=== PATIENT | female | born 1995 | race Two or more races ===

== ENCOUNTER 2025-01-11 12:51 | Inpatient (IN) | payer MEDICAID, SELFPAY ==
[2025-01-11] VITALS (13 sets, daily range): BP systolic 86–121; BP diastolic 47–92; PULSE 60–102; RESP 15–94; TEMP 32.8–36.2; O2SAT 92–100; BMI 16.4
--- NOTE | 2025-01-11 13:24 | EKG_ITS ---
[facility] Test Date: 2025-01-11 Pat Name: DAHIANA DOS SANTOS Department: Room: - Gender: Female Machine Staker: : 1995 Requested By: Venkat Newby Order Number: [id number] Reading MD: Venkat Newby Measurements Intervals [place] Rate: 61 P: 59 NV: 160 QRS: 9 QRSD: 89 T: 15 QT: 379 QTc: 383 Interpretive Statements SINUS RHYTHM POSSIBLE RIGHT VENTRICULAR CONDUCTION DELAY [RSR (QR) IN V1/V2] No previous ECG available for comparison /store/S0/[id number].pdf
--- NOTE | 2025-01-11 13:45 | PD.EDADULT ---
ED General RME/HPI General Chief complaint: General Adult/Misc Complain Stated complaint: TEMP IS 95.0 TEMPORAL Time Seen by Provider: 01/11/25 13:35 Arrival date/time: 01/11/25 12:51 RME / HPI RME / HPI narrative: 29-year-old female with past medical history significant for profound mental retardation is brought in by EMS for evaluation of decreased activity level, decreased urination, and low temperature that was first noted today. Caregiver is at bedside and denies any recent fevers, diarrhea, or other acute symptoms at this time. Notes that she did have some vomiting today but that she will frequently have episodes of vomiting daily at baseline. Patient is nonverbal at baseline. Related Data Home Medications ?Medication ?Instructions ?Recorded ?Confirmed ketoconazole 2 % shampoo 1 applic topical DAILY PRN Dry Skin 01/19/19 01/12/25 ketoconazole 2 % topical cream 1 applic topical BID 01/19/19 01/12/25 loratadine 10 mg tablet 10 mg PO QDAY 01/19/19 01/12/25 buspirone 10 mg tablet 10 mg PO BID 01/12/25 01/12/25 ergocalciferol (vitamin D2) 1,250 1,250 mcg PO QWEEK 01/12/25 01/12/25 mcg (50,000 unit) capsule glycopyrrolate 1 mg tablet 1 mg PO Q8H 01/12/25 01/12/25 omeprazole 20 mg tablet,delayed 20 mg PO QDAY 01/12/25 01/12/25 release risperidone 2 mg tablet 2 mg PO QPM 01/12/25 01/12/25 risperidone 3 mg tablet 3 mg PO QAM 01/12/25 01/12/25 Allergies Allergy/AdvReac Type Severity Reaction Status Date / Time clindamycin Allergy Vomiting Verified 01/11/25 12:54 Review of Systems Review of Systems ROS Unobtainable: unobtainable due to medical condition Past Medical History Past Medical History OTHER HISTORY: Positive Developmental Delay Social History SMOKING STATUS: Never smoker Past Medical History Comments PMH COMMENT: History of profound mental retardation. Patient takes the following medications: Loratadine 10 mg daily, buspirone 10 mg twice daily, omeprazole 20 mg daily, risperidone 3 mg every morning, risperidone 2 mg every afternoon, vitamin D 1.25 mg weekly, glycopyrrolate 1 mg 3 times daily. ED Exam Narrative Physical exam: Constitutional: Awake, alert, nontoxic, no acute distress HEENT: NC, AT, EOMI Neck: Supple CV: RRR, no m/r/g Lungs: CTAB, no w/r/r, no respiratory distress. Abd: Soft, NT, NT, no HSM noted to palpation Extremities: No deformities, no edema noted Skin: Warm, dry, intact Course Course Course Narrative: 1520h: Patient with sepsis criteria with leukopenia, hypotension, hypothermia. Sodium level is noted to be 157, platelet count 26, calcium 10.9, AST 371, ALT 302, alk phos 245. Urinalysis is pending. 1745h: Spoke with hospitalist team A for admission. Quality Measures Current suspected stage: sepsis Possible source: unknown Blood cultures ordered: completed in ED Antibiotic ordered: Yes sepsis Orders Category Date Time Status Bedside COVID-19 Antigen Test NOW Care 01/11/25 18:29 Active COVID-19 Screening Questionnaire NOW Care 01/11/25 17:[address] Screening NOW Care 01/11/25 15:21 Active Decision to Admit X1 Care 01/11/25 17:52 Completed EKG (ED ONLY) *Do not use* NOW Care 01/11/25 13:24 Completed In and Out Catheter X1 Care 01/11/25 13:44 Completed Insert IV NOW Care 01/11/25 13:[address] abdomen pelvis w con Stat Exams 01/11/25 15:21 Completed EKG (ED Only) Stat Exams 01/11/25 13:24 Draft XR chest 1V portable Stat Exams 01/11/25 15:27 Completed B-Type Natriuretic Peptide Stat Lab 01/11/25 14:17 Completed Blood Culture (Lab) Stat Lab 01/11/25 15:53 Received CBC Stat Lab 01/11/25 14:17 Completed Comprehensive Metabolic Panel Stat Lab 01/11/25 14:17 Completed HCG Qualitative,Urine Stat Lab 01/11/25 14:33 Completed Lactate (Lactic Acid) Stat Lab 01/11/25 20:40 Completed Magnesium Stat Lab 01/11/25 14:17 Completed Partial Thromboplastin Time Stat Lab 01/11/25 14:17 Completed Path Review Blood Smear Stat Lab 01/11/25 14:17 Completed Procalcitonin Stat Lab 01/11/25 20:40 Completed Prothrombin Time with INR Stat Lab 01/11/25 14:17 Completed Reticulocyte Count Stat Lab 01/11/25 14:17 Completed Sodium Stat Lab 01/11/25 20:40 Completed Troponin I Stat Lab 01/11/25 14:17 Completed Urinalysis Stat Lab 01/11/25 14:33 Completed Urine Culture Stat Lab 01/11/25 14:33 Received Dextrose 5%-Water [D5w] 1,000 ml Med 01/11/25 15:16 Discontinued IV 100 mls/hr Norepinephrine/D5W 8mg/250ml [Levophed in D5W 8mg/250ml Med 01/11/25 18:10 Active ] 8 mg in 250 ml IV 0.05 mcg/kg/min Phenylephrine HCl [Phenylephrine] Med 01/11/25 16:16 Discontinued 0.1 mg IV NOW ONE Piper/Tazo 3.375 gm Premix [Zosyn] Med 01/11/25 15:16 Discontinued 3.375 gm in 50 ml IV X1 Ringers Lactated 1000 ml [Lactated Ringers] 1,000 ml Med 01/11/25 16:21 Discontinued IV 999 mls/hr Sodium Chloride 0.9% 1000 ml [Ns] 1,000 ml Med 01/11/25 13:44 Discontinued IV 1,000 mls/hr Sodium Chloride 0.9% 1000 ml [Ns] 1,000 ml Med 01/11/25 15:07 Discontinued IV 999 mls/hr Sodium Chloride 0.9% 250 ml [Ns] 250 ml Med 01/11/25 15:27 Discontinued IV 500 mls/hr Vital Signs Vital signs: Vital Signs Temperature 91.1 F L 01/11/25 13:10 Pulse Rate 60 01/11/25 13:10 Respiratory Rate 16 01/11/25 13:10 Blood Pressure 99/61 01/11/25 13:10 Pulse Oximetry (%) 96 01/11/25 13:10 Oxygen Delivery Method Room Air 01/11/25 13:10 Discharge Plan Plan Patient Disposition: Admit Acute Care w/in Hospital Problem List Clinical Impression: Hypothermia, Dehydration, Hypernatremia MD Attestation MD Attestation The patient was seen by the midlevel practitioner. I, the co-signing physician, was present during the entire ER visit. While I did not physically examine the patient, I was available for consultation as needed. I agree with the plan and documentation. MDM Clinical Information Provided by EMS other: Caregiver also provided history Medical Records Reviewed [facility] and EMS I reviewed ED visit on 05/03/2021 Meds/Rx Considered, not Ordered None Labs/Rad/Tests considered, not Ordered None Chronic Illness/Social Conditions which may negatively complicate care or outcome(s)-explain: Developmentally delayed EKG Interpretation EKG #1: Date/time of EK01/11/25 13:51h EKG interpretation: Sinus rhythm, rate 61, no STEMI, first degree AV block. Lab Interpretation Labs: interpreted by fl Lab(s) interpretation(s): Leukopenia, PLT count is 26, elevated transaminases Imaging Radiology reports / interpretation(s): Ordering Physician: Colleen Flowers MD Date of Service: 01/11/25 Procedure(s): XR chest 1V portable Accession Number(s): [id number] cc: Jono Hargrove MD; Colleen Flowers MD; Priya Dominguez NP~ Examination: AP chest single view Technique AP portable semiupright chest single view Date and time: January 11, 2025 1532 hours INDICATIONS: Shortness of breath today. FINDINGS: Normal heart size. The lungs are clear. The osseous structures are intact. IMPRESSION: No active disease. Dictated By: Jono Hargrove MD Signed By: <Electronically signed by Jono Hargrove MD in OV> 01/11/25 1559 Medication Administration(s) Medication Administration History Acetaminophen (Acetaminophen 325 Mg Tablet) 325 mg PO Q4HR PRN PRN Reason: Pain 1 - 3 Or Fever > 101 Stop: 02/10/25 22:27 Albuterol/Ipratropium (Albuterol/Ipratropium (Duoneb) Rt Martina 3 Ml Nebu) 3 ml INH Q6HRRT MARCIA Stop: 02/10/25 19:59 Last Admin: 01/12/25 00:54 Dose: Not Given Documented By: VARINDER Non-Admin Reason: RT triage Admin: 01/12/25 00:52 Dose: 3 ml Documented By: VARINDER Famotidine (Famotidine Inj 10 Mg/Ml Vial 2 Ml) 20 mg IVP QDAY MARCIA Stop: 02/11/25 08:59 Norepinephrine/Dextrose (Levophed In D5w 8mg/250ml) 8 mg in 250 mls @ 3.997 mls/hr IV .Q24H PRN; Protocol PRN Reason: PER PROTOCOL Stop: 02/10/25 18:09 Piperacillin/Tazobactam/Dextrose (Zosyn) 3.375 gm in 50 mls @ 12.5 mls/hr IV Q8HR [facility] Stop: 01/18/25 21:59 Last Admin: 01/12/25 05:44 Dose: 12.5 mls/hr Documented By: Infusion: 01/12/25 03:10 Dose: Infused Documented By: Admin: 01/11/25 23:10 Dose: 12.5 mls/hr Documented By: TEMITOPE Dextrose (D5w) 500 mls @ 75 mls/hr IV .Q6H40M [facility] Stop: 02/11/25 06:14 Pharmacy Consult (Vancomycin Pharmacy To Dose 1 Each Each) 1 each IV QDAY PRN PRN Reason: PROTOCOL Stop: 02/11/25 08:59 Discontinued Medications Enoxaparin Sodium (Enoxaparin Sod Inj 40 Mg/0.4 Ml Syringe) 40 mg SC QDAY [facility] Stop: 01/26/25 08:59 Sodium Chloride (Ns) 1,000 mls @ 1,000 mls/hr IV .Q1H ONE Stop: 01/11/25 14:43 Last Infusion: 01/11/25 15:22 Dose: Infused Documented By: Admin: 01/11/25 14:22 Dose: 1,000 mls/hr Documented By: VG Sodium Chloride (Ns) 1,000 mls @ 999 mls/hr IV .Q1H1M ONE Stop: 01/11/25 16:07 Last Infusion: 01/11/25 15:29 Dose: Infused Documented By: Admin: 01/11/25 15:10 Dose: 999 mls/hr Documented By: SAMI Dextrose (D5w) 1,000 mls @ 100 mls/hr IV .Q10H ONE Stop: 01/12/25 01:15 Last Infusion: 01/11/25 20:40 Dose: Infused Documented By: Admin: 01/11/25 16:06 Dose: 100 mls/hr Documented By: VG Piperacillin/Tazobactam/Dextrose (Zosyn) 3.375 gm in 50 mls @ 100 mls/hr IV X1 ONE Stop: 01/11/25 15:45 Last Infusion: 01/11/25 17:00 Dose: Infused Documented By: Admin: 01/11/25 16:06 Dose: 100 mls/hr Documented By: VG Sodium Chloride (Ns) 250 mls @ 500 mls/hr IV .Q30M ONE Stop: 01/11/25 15:56 Last Infusion: 01/11/25 16:14 Dose: Infused Documented By: Admin: 01/11/25 15:33 Dose: 500 mls/hr Documented By: VG Lactated Ringer's (Lactated Ringers) 1,000 mls @ 999 mls/hr IV .Q1H1M ONE Stop: 01/11/25 17:21 Last Infusion: 01/11/25 18:00 Dose: Infused Documented By: Admin: 01/11/25 16:26 Dose: 999 mls/hr Documented By: SNOW Vancomycin HCl 1,000 mg/ (Sodium Chloride) 250 mls @ 150 mls/hr IV X1 ONE Stop: 01/11/25 21:28 Last Admin: 01/11/25 21:36 Dose: 150 mls/hr Documented By: TEMITOPE Phenylephrine HCl (Phenylephrine Hcl 50 Mg Vial 5 Ml) 0.1 mg IV NOW ONE Stop: 01/11/25 16:17 Last Admin: 01/11/25 16:27 Dose: Not Given Documented By: SNOW Non-Admin Reason: Discontinued Sodium Chloride (Sodium Chloride Rt 10% 15 Ml Nebu) 5 ml INH X1 ONE Stop: 01/11/25 19:20 See above Dispositon Disposition: Admit Disposition comments: Hypothermia Dehydration Hypernatremia
[2025-01-11] MEDS: SODIUM CHLORIDE 0.9% 1000 ML 1,000 ML IV (14:22)
[2025-01-11 14:30] LABS: Basophils # (Auto) 0.0 Thou/mm3 (0.0-0.2); Basophils % (Auto) 0 % (0-2.5); Eosinophils # (Auto) 0.0 Thou/mm3 (0.0-0.5); Eosinophils % (Auto) 0 % (0-10); Hematocrit 35.1 % (36.0-46.0); Hemoglobin 11.6 g/dL (12.0-16.0); Immature Granulocytes Auto 0.01 Thou/mm3 (0.00-0.00); Lymphocytes # (Auto) 1.0 Thou/mm3 (1.0-4.8); Lymphocytes % (Auto) 34 % (10-50); Mean Corpuscular HGB Conc 33.0 g/dl (31.0-37.0); Mean Corpuscular Hemoglobin 31.7 pg (25.0-35.0); Mean Corpuscular Volume 96 fL (80-100); Monocytes # (Auto) 0.2 Thou/mm3 (0.0-0.8); Monocytes % (Auto) 6 % (0-12); Neutrophils # (Auto) 1.7 Thou/mm3 (1.8-7.7); Neutrophils % (Auto) 59 % (37-80); Nucleated Red Blood Cell # 0.00 Thou/mm3 (0.00-0.00); Nucleated Red Blood Cell % 0 /100 WBC (0); RDW Standard Deviation 62.8 fL (36.4-46.3); Red Blood Count 3.66 Miln/mm3 (4.00-5.20); White Blood Count 2.8 Thou/mm3 (3.6-11.0)
[2025-01-11 14:46] LABS: Collection Type, Urine Clean Catch; Squamous Epithelial Cell,Urine 0 /hpf (0-5)
[2025-01-11 14:47] LABS: B-Type Natriuretic Peptide < 20 pg/mL (0-100)
[2025-01-11 14:49] LABS: Alanine Aminotransferase 302 U/L (10-49); Albumin, Serum 4.0 gm/dL (3.5-5.0); Albumin/Globulin Ratio 1.3 (1.2-2.2); Alkaline Phosphatase 245 U/L (46-116); Anion Gap 11 (7-16); Aspartate Amino Transferase 371 U/L (0-34); BUN/Creatinine Ratio 23 Ratio (12-20); Bilirubin,Total 0.3 mg/dL (0.3-1.2); Blood Urea Nitrogen 21 mg/dL (9-23); Calcium 10.9 mg/dL (8.3-10.6); Calcium (Corrected) 10.9 mg/dL (8.5-10.1); Carbon Dioxide 31.0 mMol/L (20.0-31.0); Chloride 115 mMol/L (98-107); Creatinine (Component) 0.9 mg/dL (0.6-1.3); Globulin 3.0 gm/dL (2.3-3.5); Glucose 75 mg/dL (74-106); Magnesium 1.8 mg/dL (1.6-2.6); Osmolality,Calculated 313 (275-295); Potassium 4.7 mMol/L (3.4-5.1); Sodium 157 mMol/L (136-145); Total Protein 7.0 gm/dL (5.7-8.2); Troponin I < 0.020 ng/mL (0.0-0.045); eGFR > 60 See Note
[2025-01-11 14:54] LABS: INR 1.0 (0.9-1.3); Partial Thromboplastin Time 36.7 Seconds (22.0-36.0); Prothrombin Time 10.5 Seconds (9.0-12.2)
[2025-01-11 14:58] LABS: Platelet Count 26 Thou/mm3 (140-440)
[2025-01-11 14:59] LABS: Slide Review Platelets confirmed
[2025-01-11 15:00] LABS: Bilirubin,Urine Negative (Negative); Blood,Urine Negative (Negative); Clarity,Urine Clear (Clear/Hazy); Color,Urine Lt-Yellow (Lt Yel-Yel); Glucose, Urine Negative (Negative); Ketones,Urine Negative (Negative); Leukocyte Esterase,Urine Negative (Negative); Nitrite,Urine Negative (Negative); PH,Urine 6.0 (5.0-7.0); Protein,Urine Negative (Neg - Trace); RBC,Urine < 1 /hpf (0-3); Specific Gravity,Urine 1.021 (1.001-1.035); Urobilinogen,Urine Negative mg/dL (0.0-1.0); WBC,Urine 6 /hpf (0-5)
[2025-01-11] MEDS: SODIUM CHLORIDE 0.9% 1000 ML 1,000 ML 999 ML IV (15:10)
--- NOTE | 2025-01-11 15:21 | XR_ITS ---
Examination: CT abdomen with intravenous contrast CT pelvis with intravenous contrast 2-D coronal reconstructions 2-D sagittal reconstructions Date and time of exam:January 11, 2025 1700 hours INDICATIONS: Sepsis alert today, elevated liver function tests. CTDI: vol (mGy) 3.32. DLP: (mGycm) 155. Technique: Multiple axial sections of the abdomen and pelvis have been obtained. 64 slice high-resolution scanner used. 3 mm axial sections have been obtained, post intravenous injection 60 cc Isovue-370. 2-D sagittal, coronal reconstructions obtained. Low dose protocols were performed. One or more of the following dose reduction techniques were used; automated exposure control, adjustment of the mA and/or KV according to patient size, use of iterative reconstruction technique. Findings: Right middle lobe and bibasilar pneumonia, significant left base No focal liver or splenic lesions Considerable patient motion obscures gallbladder and kidney detail No pancreatic mass No hydronephrosis Aorta normal size No bowel obstruction No pericecal inflammatory change Large amounts of stool in the rectum Retroverted uterus No bladder mass Rectal tube Severe lumbar levoscoliosis Congenital right hip dysplasia IMPRESSION: Right middle lobe and bibasilar pneumonia, significant pneumonia left base Patient motion significantly degrades abdomen and pelvis images, recommend hepatobiliary sonography do diagnostic reassess the gallbladder No hydronephrosis Large amounts of stool in the rectum
--- NOTE | 2025-01-11 15:27 | XR_ITS ---
Examination: AP chest single view Technique AP portable semiupright chest single view Date and time: January 11, 2025 1532 hours INDICATIONS: Shortness of breath today. FINDINGS: Normal heart size. The lungs are clear. The osseous structures are intact. IMPRESSION: No active disease.
[2025-01-11] MEDS: SODIUM CHLORIDE 0.9% 250 ML 250 ML 500 ML IV (15:33)
[2025-01-11] MEDS: DEXTROSE 5%-WATER 1,000 ML 100 ML IV (16:06)
[2025-01-11] MEDS: PIPER/TAZO 3.375 GM PREMIX 3.375 GM/50 ML BAG IV ×2 (16:06→23:10)
[2025-01-11] MEDS: RINGERS LACTATED 1000 ML 1,000 ML 999 ML IV (16:26)
[2025-01-11 16:27] LABS: HCG Qualitative,Urine Negative
--- NOTE | 2025-01-11 19:09 | ECHO_ITS ---
Transthoracic Echo Report Ht (in): 60 Wt (lb): 94 Exam Location: Echo Lab Status: Emergency Crosscutter Rolled Glass: Cecelia Maldonado Indications: Procedure Performed: BP: 92 / 49 HR: 62 MEASUREMENTS (Male / Female) Normal Values 2D ECHO LV Diastolic Diameter PLAX 3.8 cm 4.2 - 5.9 / 3.9 - 5.3 cm LV Systolic Diameter PLAX 2.4 cm IVS Diastolic Thickness 0.7 cm 0.6 - 1.0 / 0.6 - 0.9 cm LVPW Diastolic Thickness 0.7 cm 0.6 - 1.0 / 0.6 - 0.9 cm LV Relative Wall Thickness 0.4 LVOT Diameter 1.8 cm Ascending Aorta Diameter 2.0 cm M-MODE AV Cusp Separation MM 1.2 cm DOPPLER AV Peak Velocity 105.0 cm/s AV Peak Gradient 4.4 mmHg AV Mean Gradient 2.0 mmHg AV Velocity Time Integral 29.1 cm LVOT Peak Velocity 80.1 cm/s LVOT Peak Gradient 2.6 mmHg LVOT Velocity Time Integral 20.8 cm LVOT Cardiac Index 2450.6 cm?/min?m? AV Area Cont Eq vti 1.8 cm? AV Area Cont Eq pk 1.9 cm? MV Area PHT 4.8 cm? Mitral E Point Velocity 63.7 cm/s Mitral A Point Velocity 76.7 cm/s Mitral E to A Ratio 0.8 LV E' Lateral Velocity 9.7 cm/s Mitral E to LV E' Lateral Ratio 6.6 LV E' Septal Velocity 6.9 cm/s Mitral E to LV E' Septal Ratio 9.3 TR Peak Velocity 213.3 cm/s TR Peak Gradient 18.2 mmHg PV Peak Velocity 72.7 cm/s PV Peak Gradient 2.1 mmHg FINDINGS Left Ventricle Normal left ventricular size, wall thickness, systolic function with no obvious regional wall motion abnormalities.there is grade I diastolic dysfunction of the left ventricle (impaired relaxation pattern). The ejection fraction is visually estimated at 60-65 %. Right Ventricle The right ventricle is normal in size and systolic function. The estimated right ventricular systolic pressure,33 mmHg. RAP 8. Left Atrium The left atrium is normal by two-dimensional, color flow and Doppler imaging with no structural abnormalities, no thrombus formation present. Right Atrium The right atrium is normal by two-dimensional imaging, color flow and Doppler imaging with no structural abnormalities, no thrombus formation present. Atrial Septum The interatrial septum appears normal with no evidence of a shunt. Aorta The aorta is normal by two-dimensional, color flow and Doppler interrogation. Mitral Valve The mitral valve is normal by two-dimensional, color flow and Doppler interrogation.mild mitral regurgitation. Aortic Valve The aortic valve is trileaflet and normal by two-dimensional, color flow and Doppler interrogation. There is no significant aortic valve regurgitation. Tricuspid Valve The tricuspid valve is normal by two-dimensional, color flow and Doppler interrogation. There is mild to moderate tricuspid valve regurgitation. Pulmonic Valve Moderate pulmonic valve regurgitation. Vessels The pulmonary artery appears normal. The inferior vena cava pulmonary and hepatic veins appear normal. Pericardium The pericardium is normal by two-dimensional imaging. There is no significant pericardial effusion. CONCLUSIONS Indication: Shock The transthoracic study is normal by two-dimensional, color flow imaging and Doppler interrogation. Normal left ventricular size and function. Approximate ejection fraction is 65 Mild mitral and tricuspid regurgitation %. Marian Neri (Electronically Signed) Final Date: 13 January 2025 17:40
--- NOTE | 2025-01-11 19:32 | PD.RESHP ---
Documentation for date of: 01/11/25 [facility] History of Present Illness Chief complaint: Hypothermia History of present illness: Patient is nonverbal at baseline and is intellectually disabled. Most of the history is taken from the home care physical therapist at the bedside 29-year-old female with no significant past medical history, severe intellectual disability was brought to the hospital in view of low temperature noted on the day of admission. At baseline, patient is nonverbal and cannot interact much, he lives in the facility, wheelchair-bound and wears diaper for bowel and bladder movements. Patient went to the adult daycare center which is her daily routine every day and in the daycare center found to have temperature of 95 ?F and patient is noted to be unusual than her normal self. Later patient was brought back to her facility where she was found to have temperature of 94 ?F for which patient was brought to the ED. Denies fever, vomitings, diarrhea, recent sick contacts. Dining Room Host at the bedside, endorsed that patient was noted to have decreased urine output since last night as they noted that the diapers are not wet since last night. As patient is nonverbal, intellectually disabled cannot give much history and whenever she has pain she used to live by getting agitated and slapping herself. ED course: - Vitals at the time of admission are stable except for temperature of 91.1 ?F - Labs at the time of admission are significant for WBC 2.8, Hb 11.6, platelets 26, sodium 157, chloride 115, magnesium 1.8, AST 371, ALT 302, ALP 245. - Urine analysis showed 6 WBC with no other signs of UTI. - EKG showed normal sinus rhythm with no ST and T wave changes. - Abdomen/pelvis CT showed right middle lobe and bibasilar pneumonia, significant pneumonia in the left base. Severe lumbar levoscoliosis and congenital right hip dysplasia. - Chest x-ray did not show any opacities - In the ED, patient was initially given 2.5 L of fluid boluses, Zosyn, started on dextrose in view of hyponatremia, was kept on bear hugger - Despite of resuscitating the fluids patient continued to be hypotensive with MAP less than 65 mmHg for which patient was given 1 more extra bolus of LR Past medical history: Not significant, noted to have breast abscess for which she got antibiotics Past surgical history: Remote history of surgery for the spine, no available records, noted to have surgery in the bilateral parotid areas Social history: No addictions, lives in a facility Allergies: Clindamycin, causes vomiting per chart review Review of Systems Review of Systems ROS Unobtainable: unobtainable due to mental status Exam Vital Signs Temp Pulse Resp BP Pulse Ox O2 Del Method 96.8 F 102 H 19 94/54 L 95 Room Air 01/11/25 18:15 01/11/25 18:15 01/11/25 18:15 01/11/25 18:15 01/11/25 18:15 01/11/25 18:15 Narrative Exam General: Awake. At her baseline. Non verbal and not interactive. HEENT: Normocephalic, atraumatic, mucous membranes moist. noted scars infront of the ears bilaterally Heart: Regular rate and rhythm, no murmurs. Lungs: Noted bilateral diffuse wheeze Abdomen: Soft, nondistended, nontender, positive bowel sounds. ?No guarding or rebound tenderness. Neurologic: Non verbal and not interactive. Extremities: No edema. noted dignificant wasting in the lower extremities Skin: No rash or ecchymoses. Results: Labs 01/12/25 15:05 01/12/25 15:05 Labs: Short CBC 01/11/25 Range/Units 14:17 WBC 2.8 L (3.6-11.0) Thou/mm3 Hgb 11.6 L (12.0-16.0) g/dL Hct 35.1 L (36.0-46.0) % Plt Count 26 L* (140-440) Thou/mm3 BMP 01/11/25 14:17 Sodium 157 H Potassium 4.7 Chloride 115 H Carbon Dioxide 31.0 BUN 21 Creatinine 0.9 Glucose 75 Calcium 10.9 H Cardiac Enzymes 01/11/25 Range/Units 14:17 Troponin I < 0.020 (0.0-0.045) ng/mL Liver Function 01/11/25 Range/Units 14:17 Total Bilirubin 0.3 (0.3-1.2) mg/dL AST 371 H (0-34) U/L ALT 302 H (10-49) U/L Alkaline Phosphatase 245 H (46-116) U/L Albumin 4.0 (3.5-5.0) gm/dL Urine 08/12/25 Range/Units 14:33 Urine Color Lt-Yellow (Lt Yel-Yel) Urine Clarity Clear (Clear/Hazy) Urine pH 6.0 (5.0-7.0) Ur Specific Gilberts 1.021 (1.001-1.035) Urine Protein Negative (Neg - Trace) Urine Glucose (UA) Negative (Negative) Quality Measures Quality Measures sepsis Current suspected stage: sepsis Possible source: unknown Blood cultures ordered: completed in ED Antibiotic ordered: Yes Medications Home Medications and Allergies Home Medications ?Medication ?Instructions ?Recorded ?Confirmed ?Type ketoconazole 2 % shampoo 1 applic topical DAILY PRN Dry Skin 01/19/19 01/12/25 History ketoconazole 2 % topical cream 1 applic topical BID 01/19/19 01/12/25 History loratadine 10 mg tablet 10 mg PO QDAY 01/19/19 01/12/25 History buspirone 10 mg tablet 10 mg PO BID 01/12/25 01/12/25 History ergocalciferol (vitamin D2) 1,250 1,250 mcg PO QWEEK 01/12/25 01/12/25 History mcg (50,000 unit) capsule glycopyrrolate 1 mg tablet 1 mg PO Q8H 01/12/25 01/12/25 History omeprazole 20 mg tablet,delayed 20 mg PO QDAY 01/12/25 01/12/25 History release risperidone 2 mg tablet 2 mg PO QPM 01/12/25 01/12/25 History risperidone 3 mg tablet 3 mg PO QAM 01/12/25 01/12/25 History Allergies Allergy/AdvReac Type Severity Reaction Status Date / Time clindamycin Allergy Vomiting Verified 01/11/25 12:54 Visit Medications Albuterol/Ipratropium (Albuterol/Ipratropium (Duoneb) Rt Martina 3 Ml Nebu) 3 ml INH Q6HRRT MARCIA Stop: 02/10/25 19:59 Enoxaparin Sodium (Enoxaparin Sod Inj 40 Mg/0.4 Ml Syringe) 40 mg SC QDAY MARCIA Stop: 01/26/25 08:59 Famotidine (Famotidine Inj 10 Mg/Ml Vial 2 Ml) 20 mg IVP QDAY MARCIA Stop: 02/11/25 08:59 Dextrose (D5w) 1,000 mls @ 100 mls/hr IV .Q10H ONE Stop: 01/12/25 01:15 Last Admin: 01/11/25 16:06 Dose: 100 mls/hr Norepinephrine/Dextrose (Levophed In D5w 8mg/250ml) 8 mg in 250 mls @ 3.997 mls/hr IV .Q24H PRN; Protocol PRN Reason: PER PROTOCOL Stop: 02/10/25 18:09 Discontinued Medications Sodium Chloride (Ns) 1,000 mls @ 1,000 mls/hr IV .Q1H ONE Stop: 01/11/25 14:43 Last Infusion: 01/11/25 15:22 Dose: Infused Sodium Chloride (Ns) 1,000 mls @ 999 mls/hr IV .Q1H1M ONE Stop: 01/11/25 16:07 Last Infusion: 01/11/25 15:29 Dose: Infused Piperacillin/Tazobactam/Dextrose (Zosyn) 3.375 gm in 50 mls @ 100 mls/hr IV X1 ONE Stop: 01/11/25 15:45 Last Infusion: 01/11/25 17:00 Dose: Infused Sodium Chloride (Ns) 250 mls @ 500 mls/hr IV .Q30M ONE Stop: 01/11/25 15:56 Last Infusion: 01/11/25 16:14 Dose: Infused Lactated Ringer's (Lactated Ringers) 1,000 mls @ 999 mls/hr IV .Q1H1M ONE Stop: 01/11/25 17:21 Last Infusion: 01/11/25 18:00 Dose: Infused Phenylephrine HCl (Phenylephrine Hcl 50 Mg Vial 5 Ml) 0.1 mg IV NOW ONE Stop: 01/11/25 16:17 Last Admin: 01/11/25 16:27 Dose: Not Given Sodium Chloride (Sodium Chloride Rt 10% 15 Ml Nebu) 5 ml INH X1 ONE Stop: 01/11/25 19:20 Assessment & Plan Plan 29-year-old female with no significant past medical history, severe intellectual disability was brought to the hospital in view of low temperature noted on the day of admission and admitted for 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 INTERNET MARKETING COORDINATOR # No active problems - Patient is nonverbal and not interactive at the baseline due to intellectual disability - Patient home care physical therapist at the bedside said that the patient is at her baseline at the time of admission CVS # Hypotension - Blood pressure at the time of admission is 99/61 mmHg - Patient was given 2.5 L bolus of fluid initially despite of which the MAP is less than 65 mmHg for which ICU was consulted in view of suspected possible shock - Patient was given 1 L LR bolus later and the blood pressures improved with the MAP greater than 65 mmHg - Patient is admitted into the ICU as patient is noted to have blood pressure on the lower side to monitor and to start on vasopressors if needed Plan - Will continue to monitor blood pressure for now - Will start on Levophed if the MAP is less than 65 mmHg Respiratory # Suspected possible pneumonia Likely community-acquired - Patient did not have any complaints of shortness of breath, cough, expectoration - SpO2 at the time of admission is 96% with room air - On physical examination, patient noted to have bilateral diffuse wheeze - Chest x-ray did not show any significant opacities but CT abdomen/pelvis done which showed bibasilar pneumonia predominantly in the left lower base Plan - Sputum cultures were sent - Started on Zosyn and vancomycin [01/11- - MRSA nasal screen is sent - DuoNebs scheduled every 6 hourly - Ordered bedside swallow eval to rule out possible aspiration - Oxygen as needed GI # Transaminitis - Noted to have AST 371, ALT 302 - Could be in the setting of Sepsis Vs hypotension vs viral infection Vs combined Plan - Acute viral panel is sent - Ultrasound gallbladder is ordered - Will continue to monitor LFTs Renal #? OLENA, likely prerenal in the setting of hypotension - Patient's baseline creatinine is 0.5 in 2019, creatinine at the time of admission is 0.9 - Patient is also noted to have decreased urine output since day before the admission - Likely in the setting of dehydration and suspected possible sepsis Plan - Urine electrolytes were ordered - Patient is resuscitated with 3.5 L fluid in the ED - Will continue to monitor renal functions and renally dose medications - Banda catheter was placed and will continuously monitor urine output # Hypernatremia # Hyperchloremia - At the time of admission, sodium is 157, chloride is 115 - Likely from the dehydration and suspected possible OLENA - Patient received 3.5 L of fluid in the ED Plan - Initially patient was started on the D5 W but as the patient is adequately resuscitated with fluids and suspected possible dehydration, will repeat sodium - Will restart on D5W if patient continues to have hypernatremia - Found to have free water deficit of 1.2 L ID # Suspected possible sepsis - Likely from the community acquired pneumonia - Patient is noted to have temperature of 91.1 ?F, WBC 2.8 and suspected to have pneumonia as source of infection - Patient is given 3.5 L of fluid in the ED - Lactate is not ordered at the time of presentation and lactate after resuscitation with 3.5 L of fluid is 0.8, unsure if the patient had lactate elevation at the time of presentation - Pro-Marquis is 0.15 Plan - Blood cultures, sputum cultures and MRSA nasal screen - Started on empiric antibiotics, Zosyn and vancomycin [01/11- - Will titrate antibiotics according to the culture results Hematology # Leukopenia - WBC at the time of presentation is 2.8 - Suspected to be due to sepsis - Absolute neutrophil count is 1625 Plan - Will continue antibiotics - Will continue to monitor CBC # Thrombocytopenia - Platelet count at the time of admission is 26,000 - Likely due to the underlying sepsis versus viral illness versus idiopathic thrombocytopenia - Patient does not have any bleeding manifestations at this point Plan - Will continue to monitor platelet count and look for bleeding manifestations - Will avoid antiplatelets and anticoagulants - Will treat the underlying sepsis - Will transfuse if the patient is found to have any bleeding medications or if platelet count is less than 20,000 Musculoskeletal # Congenital hip dysplasia -Found on CT abdomen/pelvis - Patient is wheelchair-bound and no active treatment required for that as of now Hospital Maintenance: Dispo: ICU DVT ppx: SCD GI ppx: Famotidine Diet : npo , Will start diet after swallow eval IV lines: peripheral Code status: Full Patient plan of care was discussed with the Rn Chemical Dependency, Dr. Lionel Valencia, PGY2
--- NOTE | 2025-01-11 19:52 | XR_ITS ---
Examination: Abdomen sonogram, Limited Date and time of exam: January 11, 2025 2013 hours INDICATIONS: Elevated liver function tests on laboratory examination today Technique: Real-time benavidez scale transabdominal sonographic images of the upper abdomen obtained. Findings: Normal gallbladder. Normal common bile duct 0.3 cm Pancreatic head 2.1 cm Liver 10.0 cm fatty infiltration no focal liver lesions Normal hepatopedal portal [place] [employer] IVC IMPRESSION: Normal gallbladder. Normal common bile duct. Fatty infiltration throughout the liver
[2025-01-11 19:54] LABS: Immature Reticulocyte Fraction 6.2 % (3.0-15.9); Reticulocyte % (Auto) 0.8 % (0.5-1.5); Reticulocyte Absolute Auto 30.1 Biln/L (25.0-75.0); Reticulocyte Hgb Content 41.1 pg (28.0-35.0)
[2025-01-11 19:57] LABS: Chloride,Urine Random 74.9 mMol/L (55.0-125.0); Creatinine,Random Urine 85 mg/dL (30-125); Potassium,Urine Random 81 mMol/L (12-62); Sodium,Urine Random 48.3 mMol/L (20.0-110.0)
[2025-01-11 20:30] LABS: Path Review Blood Smear Sent to Pathologist
[2025-01-11 20:52] LABS: Lactate (Lactic Acid) 0.8 mMol/L (0.4-2.0)
[2025-01-11 21:14] LABS: Hepatitis A Antibody IgM Non Reactive (Non React); Hepatitis B Core Antibody IgM Non Reactive (Non React); Hepatitis B Surface Antigen Non Reactive (Non React); Hepatitis C Antibody Non Reactive (Non React)
[2025-01-11 21:36] LABS: Procalcitonin 0.15 ng/ml (0.0-0.49); Sodium 147 mMol/L (136-145)
[2025-01-11] MEDS: Vancomycin Inj 1,000 MG in SODIUM CHLORIDE 0.9% 250 ML 250 ML 150 MG IV (21:36)
[2025-01-12] VITALS (59 sets, daily range): BP systolic 82–138; BP diastolic 44–96; PULSE 52–99; RESP 8–99; TEMP 31.2–35.9; O2SAT 93–100; BMI 16.3
[2025-01-12] MEDS: ALBUTEROL/IPRATROPIUM (Duoneb) RT SOL 3 ML NEBU INH ×4 (00:52→18:23)
[2025-01-12 01:39] LABS: Sodium 153 mMol/L (136-145)
[2025-01-12] MEDS: PIPER/TAZO 3.375 GM PREMIX 3.375 GM/50 ML BAG IV ×3 (05:44→21:52)
[2025-01-12 06:12] LABS: Basophils # (Auto) 0.0 Thou/mm3 (0.0-0.2); Basophils % (Auto) 0 % (0-2.5); Eosinophils # (Auto) 0.0 Thou/mm3 (0.0-0.5); Eosinophils % (Auto) 1 % (0-10); Hematocrit 28.8 % (36.0-46.0); Hemoglobin 9.3 g/dL (12.0-16.0); Immature Granulocytes Auto 0.02 Thou/mm3 (0.00-0.00); Lymphocytes # (Auto) 0.9 Thou/mm3 (1.0-4.8); Lymphocytes % (Auto) 23 % (10-50); Mean Corpuscular HGB Conc 32.3 g/dl (31.0-37.0); Mean Corpuscular Hemoglobin 31.3 pg (25.0-35.0); Mean Corpuscular Volume 97 fL (80-100); Monocytes # (Auto) 0.2 Thou/mm3 (0.0-0.8); Monocytes % (Auto) 5 % (0-12); Neutrophils # (Auto) 2.9 Thou/mm3 (1.8-7.7); Neutrophils % (Auto) 71 % (37-80); RDW Standard Deviation 63.4 fL (36.4-46.3); Red Blood Count 2.97 Miln/mm3 (4.00-5.20); White Blood Count 4.1 Thou/mm3 (3.6-11.0)
[2025-01-12 06:13] LABS: Nucleated Red Blood Cell # 0.00 Thou/mm3 (0.00-0.00); Nucleated Red Blood Cell % 0 /100 WBC (0)
[2025-01-12 06:19] LABS: Platelet Count 21 Thou/mm3 (140-440)
[2025-01-12] MEDS: DEXTROSE 5%-WATER 500 ML 75 ML IV ×3 (06:26→19:20)
[2025-01-12 06:59] LABS: Alanine Aminotransferase 229 U/L (10-49); Albumin, Serum 3.3 gm/dL (3.5-5.0); Albumin/Globulin Ratio 1.4 (1.2-2.2); Alkaline Phosphatase 330 U/L (46-116); Anion Gap 9 (7-16); Aspartate Amino Transferase 260 U/L (0-34); BUN/Creatinine Ratio 20 Ratio (12-20); Bilirubin,Total 0.3 mg/dL (0.3-1.2); Blood Urea Nitrogen 16 mg/dL (9-23); Carbon Dioxide 28.1 mMol/L (20.0-31.0); Chloride 118 mMol/L (98-107); Creatinine (Component) 0.8 mg/dL (0.6-1.3); Estimated Creatinine Clearance 47.9 mL/min (>60); Globulin 2.3 gm/dL (2.3-3.5); Glucose 71 mg/dL (74-106); Osmolality,Calculated 306 (275-295); Potassium 4.4 mMol/L (3.4-5.1); Sodium 155 mMol/L (136-145); Total Protein 5.6 gm/dL (5.7-8.2); eGFR > 60 See Note
[2025-01-12 07:08] LABS: Calcium 9.7 mg/dL (8.3-10.6); Calcium (Corrected) 10.3 mg/dL (8.5-10.1)
[2025-01-12] MEDS: FAMOTIDINE INJ 10 MG/ML VIAL 2 ML 20 MG IVP (08:36)
--- NOTE | 2025-01-12 09:12 | PC.SS ---
Patient Kelly Herrera is a 29 Year old female admitted to the ICU for Sepis. SS contacted patient's guard of handicapped, Jose Angel Degroot at [facility]. 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 Jose Angel reports patient has no family and is conserved through [facility]-Patient Financial Representative- Gloria Clay [phone]. Jose Angel reports patient is non-ambulatory and utilizes a wheelchair. Patient's needs assistance completing ADL's. Patient is Pureed diet. [facility] PCP is Priya Dominguez. At time of discharge patient will return back to [facility]. SS will need to assist with transportation, patient has coverage through [facility]. No discharge needs identified by the care provider. SS to be available to address any further interventions. Discharge Plan: [facility] Next of Kin-Jose Angel Degroot [phone]
[2025-01-12 11:21] LABS: Sodium 150 mMol/L (136-145)
[2025-01-12 11:21] LABS: Slide Review Platelets confirmed
--- NOTE | 2025-01-12 11:36 | XR_ITS ---
Examination: Retroperitoneal ultrasound, complete Technique: Multiple high resolution grayscale images of the retroperitoneum obtained, including kidneys and bladder. Exam date and time:January 12, 2025 1254 hours INDICATIONS: Acute renal insufficiency on laboratory examination yesterday. FINDINGS: Right kidney 8.0 cm cortex 1.3 cm Left kidney 8.3 cm cortex 1.7 cm Upper pole right renal cyst 17 mm lateral left renal cyst 9 mm No hydronephrosis Bladder contracted around a Banda catheter IMPRESSION: Small kidneys with bilateral renal cortical thinning No hydronephrosis
[2025-01-12 12:15] LABS: Ferritin 756 ng/mL (7.3-270.7); Iron 201 mcg/dL (50-170); Percent Iron Saturation 85 % (20-55); Total Iron Binding Capacity 236 mcg/dL (250-425); Unsaturated Iron Binding 35 (225-295)
[2025-01-12 13:45] LABS: Thyroid Stimulating Hormone 4.12 uIU/mL (0.55-4.78)
--- NOTE | 2025-01-12 14:13 | ESPR_ITS ---
Documentation for date of: 01/12/25 Subjective Subjective Interval history: Patient is nonverbal at baseline and is intellectually disabled. Most of the history is taken from the development chemist at the bedside 29-year-old female with no significant past medical history, severe intellectual disability was brought to the hospital in view of low temperature noted on the day of admission. At baseline, patient is nonverbal and cannot interact much, he lives in the facility, wheelchair-bound and wears diaper for bowel and bladder movements. Patient went to the adult daycare center which is her daily routine every day and in the daycare center found to have temperature of 95 ?F and patient is noted to be unusual than her normal self. Later patient was brought back to her facility where she was found to have temperature of 94 ?F for which patient was brought to the ED. Denies fever, vomitings, diarrhea, recent sick contacts. Server Security Administrator at the bedside, endorsed that patient was noted to have decreased urine output since last night as they noted that the diapers are not wet since last night. As patient is nonverbal, intellectually disabled cannot give much history and whenever she has pain she used to live by getting agitated and slapping herself. ED course: - Vitals at the time of admission are stable except for temperature of 91.1 ?F - Labs at the time of admission are significant for WBC 2.8, Hb 11.6, platelets 26, sodium 157, chloride 115, magnesium 1.8, AST 371, ALT 302, ALP 245. - Urine analysis showed 6 WBC with no other signs of UTI. - EKG showed normal sinus rhythm with no ST and T wave changes. - Abdomen/pelvis CT showed right middle lobe and bibasilar pneumonia, significant pneumonia in the left base. Severe lumbar levoscoliosis and congenital right hip dysplasia. - Chest x-ray did not show any opacities - In the ED, patient was initially given 2.5 L of fluid boluses, Zosyn, started on dextrose in view of hyponatremia, was kept on bear hugger - Despite of resuscitating the fluids patient continued to be hypotensive with MAP less than 65 mmHg for which patient was given 1 more extra bolus of LR 01/12/2025: Patient is seen and examined at bedside in ICU. No acute overnight events. Overnight, patient was found to have sodium of 153 and assistant producer labs also showed sodium of 155, so started on D5 W around 6:30 AM. Vitals are stable. Overnight, patient made only around 300 mL of urine output. Labs done this morning showed WBC 4.1, hemoglobin 9.3, platelet count 21. Sodium 155, chloride 118, creatinine 0.8, AST 260, ALT 229. Patient does not appear to have any bleeding manifestations during the morning. Repeat labs done around 3 PM showed platelet count of 16,000 and also patient noted to have pinkish urine for which repeat urine analysis was sent. Patient was found to be hypothermic with rectal temperature of 89.1 for which patient was started on Mellissa hugger. Labs including coagulation studies, fibrinogen, D- dimer, HIV, GARRICK, B12, folate, iron panel was sent for the evaluation of thrombocytopenia. A unit of platelet transfusion is ordered in view of thrombocytopenia with bleeding manifestations, hematuria. Talked to pathologist, Dr. Chandra and she reported that patient does not have any significant abnormalities on the peripheral smear except for low platelet count. Will continue to monitor CBC and look for any bleeding manifestations. Patient was started on steroids in view of suspected ITP, primary versus secondary. Exam Vital Signs Temp Pulse Resp BP Pulse Ox O2 Del Method 96.5 F L 52 L 23 H 107/76 100 Room Air 01/12/25 08:01 01/12/25 13:55 01/12/25 13:55 01/12/25 11:01 01/12/25 13:55 01/12/25 04:00 Narrative Exam General: Awake. At her baseline. Non verbal and not interactive. HEENT: Normocephalic, atraumatic, mucous membranes moist. noted scars infront of the ears bilaterally Heart: Regular rate and rhythm, no murmurs. Lungs: Noted bilateral diffuse wheeze Abdomen: Soft, nondistended, nontender, positive bowel sounds. ?No guarding or rebound tenderness. ibarra catheter insitu and noted pink urine Neurologic: Non verbal and not interactive. Extremities: No edema. noted dignificant wasting in the lower extremities Skin: No rash or ecchymoses. Objective Labs 01/13/25 04:26 01/13/25 04:26 Labs: Laboratory Results - last 24 hr 01/11/25 01/11/25 01/11/25 14:17 14:33 18:10 WBC 2.8 L RBC 3.66 L Hgb 11.6 L Hct 35.1 L MCV 96 MCH 31.7 MCHC 33.0 RDW Std Deviation 62.8 H Plt Count 26 L* Neut % (Auto) 59 Lymph % (Auto) 34 Porter % (Auto) 6 Eos % (Auto) 0 Baso % (Auto) 0 Neut # (Auto) 1.7 L Lymph # (Auto) 1.0 Porter # (Auto) 0.2 Eos # (Auto) 0.0 Baso # (Auto) 0.0 Immature Gran # (Auto) 0.01 H Absolute Nucleated RBC 0.00 Immature Gran % 0 Nucleated RBC % 0 Smear Path Review Sent to Pathologist Retic Count (auto) 0.8 Absolute Retic 30.1 Immature Retic Fraction 6.2 Retic Hgb Content CHr 41.1 H PT 10.5 INR 1.0 APTT 36.7 H Sodium 157 H Potassium 4.7 Chloride 115 H Carbon Dioxide 31.0 Anion Gap 11 BUN 21 Creatinine 0.9 Estim Creat Clear Calc Not Performed. eGFR > 60 BUN/Creatinine Ratio 23 H Glucose 75 Calculated Osmolality 313 H Lactic Acid Calcium 10.9 H Corrected Calcium 10.9 H Magnesium 1.8 Iron TIBC Iron Saturation Unsat Iron Binding Ferritin Total Bilirubin 0.3 AST 371 H ALT 302 H Alkaline Phosphatase 245 H Troponin I < 0.020 B-Natriuretic Peptide < 20 Total Protein 7.0 Albumin 4.0 Globulin 3.0 Albumin/Globulin Ratio 1.3 Procalcitonin TSH Ur Collection Type Clean Catch Urine Color Lt-Yellow Urine Clarity Clear Urine pH 6.0 Ur Specific [place] 1.021 Urine Protein Negative Urine Glucose (UA) Negative Urine Ketones Negative Urine Blood Negative Urine Nitrite Negative Urine Bilirubin Negative Urine Urobilinogen (Auto) Negative Ur Leukocyte Esterase Negative Urine RBC < 1 Urine WBC 6 H Ur Squamous Epith Cells 0 Urine Bacteria None Ur Random Creatinine 85 Ur Random Sodium 48.3 Ur Random Potassium 81 H Ur Random Chloride 74.9 Urine HCG, Qual Negative Hepatitis A IgM Ab Non Reactive Hep Bs Antigen Non Reactive Hep B Core IgM Ab Non Reactive Hepatitis C Antibody Non Reactive Misc Test Result Platelets confirmed 01/11/25 01/12/25 01/12/25 20:40 01:15 04:49 WBC 4.1 D RBC 2.97 L Hgb 9.3 L D Hct 28.8 L MCV 97 MCH 31.3 MCHC 32.3 RDW Std Deviation 63.4 H Plt Count 21 L* Neut % (Auto) 71 Lymph % (Auto) 23 Porter % (Auto) 5 Eos % (Auto) 1 Baso % (Auto) 0 Neut # (Auto) 2.9 Lymph # (Auto) 0.9 L Porter # (Auto) 0.2 Eos # (Auto) 0.0 Baso # (Auto) 0.0 Immature Gran # (Auto) 0.02 H Absolute Nucleated RBC 0.00 Immature Gran % 1 H Nucleated RBC % 0 Smear Path Review Retic Count (auto) Absolute Retic Immature Retic Fraction Retic Hgb Content CHr PT INR APTT Sodium 147 H D 153 H 155 H Potassium 4.4 Chloride 118 H Carbon Dioxide 28.1 Anion Gap 9 BUN 16 Creatinine 0.8 Estim Creat Clear Calc 47.9 L eGFR > 60 BUN/Creatinine Ratio 20 Glucose 71 L Calculated Osmolality 306 H Lactic Acid 0.8 Calcium 9.7 Corrected Calcium 10.3 H Magnesium Iron 201 H TIBC 236 L Iron Saturation 85 H Unsat Iron Binding 35 L Ferritin 756 H Total Bilirubin 0.3 AST 260 H ALT 229 H Alkaline Phosphatase 330 H D Troponin I B-Natriuretic Peptide Total Protein 5.6 L Albumin 3.3 L D Globulin 2.3 Albumin/Globulin Ratio 1.4 Procalcitonin 0.15 TSH Ur Collection Type Urine Color Urine Clarity Urine pH Ur Specific [place] Urine Protein Urine Glucose (UA) Urine Ketones Urine Blood Urine Nitrite Urine Bilirubin Urine Urobilinogen (Auto) Ur Leukocyte Esterase Urine RBC Urine WBC Ur Squamous Epith Cells Urine Bacteria Ur Random Creatinine Ur Random Sodium Ur Random Potassium Ur Random Chloride Urine HCG, Qual Hepatitis A IgM Ab Hep Bs Antigen Hep B Core IgM Ab Hepatitis C Antibody Misc Test Result Platelets confirmed 01/12/25 10:57 WBC RBC Hgb Hct MCV MCH MCHC RDW Std Deviation Plt Count Neut % (Auto) Lymph % (Auto) Porter % (Auto) Eos % (Auto) Baso % (Auto) Neut # (Auto) Lymph # (Auto) Porter # (Auto) Eos # (Auto) Baso # (Auto) Immature Gran # (Auto) Absolute Nucleated RBC Immature Gran % Nucleated RBC % Smear Path Review Retic Count (auto) Absolute Retic Immature Retic Fraction Retic Hgb Content CHr PT INR APTT Sodium 150 H Potassium Chloride Carbon Dioxide Anion Gap BUN Creatinine Estim Creat Clear Calc eGFR BUN/Creatinine Ratio Glucose Calculated Osmolality Lactic Acid Calcium Corrected Calcium Magnesium Iron TIBC Iron Saturation Unsat Iron Binding Ferritin Total Bilirubin AST ALT Alkaline Phosphatase Troponin I B-Natriuretic Peptide Total Protein Albumin Globulin Albumin/Globulin Ratio Procalcitonin TSH 4.12 Ur Collection Type Urine Color Urine Clarity Urine pH Ur Specific [place] Urine Protein Urine Glucose (UA) Urine Ketones Urine Blood Urine Nitrite Urine Bilirubin Urine Urobilinogen (Auto) Ur Leukocyte Esterase Urine RBC Urine WBC Ur Squamous Epith Cells Urine Bacteria Ur Random Creatinine Ur Random Sodium Ur Random Potassium Ur Random Chloride Urine HCG, Qual Hepatitis A IgM Ab Hep Bs Antigen Hep B Core IgM Ab Hepatitis C Antibody Misc Test Result Quality Measures Quality Measures sepsis Current suspected stage: ruled out Possible source: unknown Blood cultures ordered: completed in ED Antibiotic ordered: Yes Assessment & Plan Assessment Current Active Medications: Generic Name Dose Route Start Last Admin Trade Name Freq PRN Reason Stop Dose Admin Acetaminophen 325 mg 01/11/25 22:28 Acetaminophen 325 Mg Tablet PO 02/10/25 22:27 Q4HR PRN Pain 1 - 3 Or Fever > 101 Albuterol/Ipratropium 3 ml 01/11/25 20:00 01/12/25 13:53 Albuterol/Ipratropium (Duoneb) Rt Martina 3 Ml Nebu INH 02/10/25 19:59 3 ml Q6HRRT MARCIA Administration Buspirone HCl 10 mg 01/12/25 21:00 Buspirone Hcl 5 Mg Tablet PO 02/11/25 20:59 BID MARCIA Famotidine 20 mg 01/12/25 09:00 01/12/25 08:36 Famotidine Inj 10 Mg/Ml Vial 2 Ml IVP 02/11/25 08:59 20 mg QDAY MARCIA Administration Norepinephrine/Dextrose 8 mg in 250 mls @ 3.997 mls/hr 01/11/25 18:10 Levophed In D5w 8mg/250ml IV 02/10/25 18:09 .Q24H PRN PER PROTOCOL Protocol 0.05 MCG/KG/MIN Piperacillin/Tazobactam/Dextrose 3.375 gm in 50 mls @ 12.5 mls/hr 01/11/25 22:00 01/12/25 13:11 Zosyn IV 01/18/25 21:59 12.5 mls/hr Q8HR MARCIA Administration Dextrose 500 mls @ 75 mls/hr 01/12/25 06:15 01/12/25 12:41 D5w IV 02/11/25 06:14 75 mls/hr .[id number] MARCIA Administration Vancomycin/Sodium Chloride 100 mls @ 120 mls/hr 01/12/25 22:00 Vancomycin/Ns 500 Mg Ivpb IV 01/12/25 22:49 X1 ONE Loratadine 10 mg 01/13/25 09:00 Loratadine 10 Mg Tablet PO 02/12/25 08:59 QDAY [facility] Pharmacy Consult 1 each 01/12/25 09:00 Vancomycin Pharmacy To Dose 1 Each Each IV 02/11/25 08:59 QDAY PRN PROTOCOL Plan 29-year-old female with no significant past medical history, severe intellectual disability was brought to the hospital in view of low temperature noted on the day of admission and admitted for 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 # No active problems - Patient is nonverbal and not interactive at the baseline due to intellectual disability - Patient development chemist at the bedside said that the patient is at her baseline at the time of admission CVS # Hypotension, resolved - Blood pressure at the time of admission is 99/61 mmHg - Patient was given 2.5 L bolus of fluid initially despite of which the MAP is less than 65 mmHg for which ICU was consulted in view of suspected possible shock - Patient was given 1 L LR bolus later and the blood pressures improved with the MAP greater than 65 mmHg - Patient is admitted into the ICU as patient is noted to have blood pressure on the lower side to monitor and to start on vasopressors if needed Plan - No further episodes of hypotension noted after admission to the ICU - Will continue to monitor blood pressure for now - Will start on Levophed if the MAP is less than 65 mmHg # Hypothermia -Patient is brought to the ED with chief complaints of low temperature noted on vitals check at facility. - Patient was noted to have temperature of 91.1 ?F in the ED - Patient was started on Mellissa hugger and adequately resuscitated with fluids following which the hypothermia was resolved. - On 01/12/2025, patient was again noted to have rectal temperature of 89.1 ?F for which patient was started on Mellissa hugger, blood glucose is 171 at that time - Likely secondary to possible sepsis Plan - Will continue Mellissa hugger - Will continue to monitor temperature - TSH, A1c is ordered, will consider working up for adrenal insufficiency if needed Respiratory # Suspected possible pneumonia Likely community-acquired - Patient did not have any complaints of shortness of breath, cough, expectoration - SpO2 at the time of admission is 96% with room air - On physical examination, patient noted to have bilateral diffuse wheeze - Chest x-ray did not show any significant opacities but CT abdomen/pelvis done which showed bibasilar pneumonia predominantly in the left lower base Plan - Sputum cultures ordered, not collected - Started on Zosyn and vancomycin [01/11- - MRSA nasal screen is sent, pending - DuoNebs scheduled every 6 hourly - Ordered bedside swallow eval to rule out possible aspiration and passed the swallow eval, started on feeds - Oxygen as needed GI # Transaminitis, resolving - Noted to have AST 371, ALT 302 at the time of admission --> 01/12, AST 260, ALT 229 - Could be in the setting of Sepsis Vs hypotension vs viral infection Vs combined Plan - Acute viral panel is sent, Came back negative - Ultrasound gallbladder is ordered - Normal gallbladder. Normal common bile duct. Fatty infiltration throughout the liver - Will continue to monitor LFTs Renal #? OLENA, likely prerenal in the setting of hypotension - Patient's baseline creatinine is 0.5 in 2019, creatinine at the time of admission is 0.9 - Patient is also noted to have decreased urine output since day before the admission - Likely in the setting of dehydration and suspected possible sepsis - Patient is resuscitated with 3.5 L fluid in the ED Plan - Urine electrolytes were ordered, FeNa is 0.5% - Renal ultrasound Right kidney 8.0 cm cortex 1.3 cm. Left kidney 8.3 cm cortex 1.7 cm. Upper pole right renal cyst 17 mm lateral left renal cyst 9 mm. No hydronephrosis - Will continue to monitor renal functions and renally dose medications - Ibarra catheter was placed and will continuously monitor urine output # Hypernatremia, resolving # Hyperchloremia - At the time of admission, sodium is 157, chloride is 115 ---> 01/12, Na 155 - Likely from the dehydration and suspected possible OLENA - Patient received 3.5 L of fluid in the ED Plan - Found to have free water deficit of 1.045 L - Started on D5W @ 75ml/hr, will increase the rate if doesnt improve # New onset hematuria - Patient was found to have pinkish urine in the Ibarra catheter - Urine analysis showed turbid urine, 3+ blood, thousand 9 RBC, 206 WBC Plan - Hematuria could be likely in the setting of thrombocytopenia - Platelet transfusion will be done - Will continue to watch for other bleeding manifestations # Hypercalcemia - Likely from immobilization -Corrected calcium at the time of admission is 10.9, as of 01/12/2025, calcium is 10.3 Plan -As the calcium levels are not that high, will hold workup of hypercalcemia for now - If continuously appears to be elevated, will send 25-hydroxy vitamin D and parathormone ID # Suspected possible sepsis - Likely from the community acquired pneumonia - Patient is noted to have temperature of 91.1 ?F, WBC 2.8 and suspected to have pneumonia as source of infection - Patient is given 3.5 L of fluid in the ED - Lactate is not ordered at the time of presentation and lactate after resuscitation with 3.5 L of fluid is 0.8, unsure if the patient had lactate elevation at the time of presentation - Pro-Marquis is 0.15 Plan - Blood cultures, MRSA nasal screen sent - Started on empiric antibiotics, Zosyn and vancomycin [01/11- - Will titrate antibiotics according to the culture results Hematology # Leukopenia, resolved - WBC at the time of presentation is 2.8 --> 01/12, 4.1 - Suspected to be due to sepsis vs viral illness - Absolute neutrophil count is within normal range Plan - Will continue antibiotics - Will continue to monitor CBC # Thrombocytopenia - Platelet count at the time of admission is 26,000 - Likely due to the underlying sepsis versus viral illness versus idiopathic thrombocytopenia - Patient does not have any bleeding manifestations at this point Plan - Will continue to monitor platelet count and look for bleeding manifestations - Retic count and peripheral smear are sent - Will avoid antiplatelets and anticoagulants - Will treat the underlying sepsis - Repeat platelet count done as of 01/12/2025 showed 16,000 with hematuria - Will transfuse 1 unit of platelet - Talked to Dr. Chandra, the pathologist and reported that patient does not have any abnormal cells or smear features suggestive of TTP-HUS - Workup for thrombocytopenia is being done, hepatitis panel, HIV, GARRICK screening, iron, B12, folate, DIC panel is sent - Will follow-up on the results - 1 dose of methylprednisolone 30 mg is given in view of suspected ITP - Will continue to monitor platelet count # Anemia, normocytic normochromic - Likely nutritional - Patient's baseline hemoglobin is 13.8 in 2019 - Hemoglobin at the time of admission is 11.6--> 8/13, 9.5 , could be due to hemoconcentration and due to dehydration at the time of admission as patient is not noted to have any major bleeding manifestations. -Iron, B12, folate studies are sent Plan - Will follow-up with the results - Will continue to monitor CBC Musculoskeletal # Congenital hip dysplasia -Found on CT abdomen/pelvis - Patient is wheelchair-bound and no active treatment required for that as of now Hospital Maintenance: Dispo: ICU DVT ppx: SCD GI ppx: Famotidine Diet : Dysphagia, 1 IV lines: peripheral Code status: Full Patient plan of care was discussed with the Pharmacy Tech Customer Service, Dr. Lionel Valencia, PGY2 Attending Provider Attestation/Addendum pt seen and examined with resident team, agree with above. In brief this is a 29-year-old female with mental delay who was admitted for sepsis and hypotension. The patient responded adequately to resuscitation fluids and never required vasopressors. She is significantly thrombocytopenic and workup is underway. There is no active bleeding noted. On physical exam lung sounds are diminished heart rate is regular rhythmic abdomen is soft pulses are palpable extremities are extremely thin with muscle atrophy. She is on antibiotics for sepsis and cultures have been obtained. CT shows basal consolidation. She is hypothermic and on a Mellissa hugger. She is difficult to warm. She has a mild OLENA which is responding to fluids. She has anemia and a iron panel will be sent. Later on during the day she did develop some mild hematuria but the decision was made to transfuse platelets. No gross bleeding identified. Case discussed with ICU team Labs, imaging and records reviewed Approximately 48 minutes required for evaluation, exam, review, intervention, discussion of plan of care for this acutely ill patient
[2025-01-12 14:47] LABS: Fibrinogen 538 mg/dL (175-375)
[2025-01-12 15:18] LABS: Collection Type, Urine Catheter
[2025-01-12 15:22] LABS: Basophils # (Auto) 0.0 Thou/mm3 (0.0-0.2); Basophils % (Auto) 0 % (0-2.5); Eosinophils # (Auto) 0.0 Thou/mm3 (0.0-0.5); Eosinophils % (Auto) 0 % (0-10); Hematocrit 29.5 % (36.0-46.0); Hemoglobin 9.5 g/dL (12.0-16.0); Immature Granulocytes Auto 0.01 Thou/mm3 (0.00-0.00); Lymphocytes # (Auto) 0.7 Thou/mm3 (1.0-4.8); Lymphocytes % (Auto) 18 % (10-50); Mean Corpuscular HGB Conc 32.2 g/dl (31.0-37.0); Mean Corpuscular Hemoglobin 30.7 pg (25.0-35.0); Mean Corpuscular Volume 96 fL (80-100); Monocytes # (Auto) 0.2 Thou/mm3 (0.0-0.8); Monocytes % (Auto) 5 % (0-12); Neutrophils # (Auto) 2.8 Thou/mm3 (1.8-7.7); Neutrophils % (Auto) 76 % (37-80); Nucleated Red Blood Cell # 0.02 Thou/mm3 (0.00-0.00); Nucleated Red Blood Cell % 1 /100 WBC (0); RDW Standard Deviation 62.1 fL (36.4-46.3); Red Blood Count 3.09 Miln/mm3 (4.00-5.20); White Blood Count 3.7 Thou/mm3 (3.6-11.0)
[2025-01-12 15:29] LABS: Platelet Count 16 Thou/mm3 (140-440)
[2025-01-12 15:32] LABS: Glucose Estimated Average 117 mg/dL (80-131); Hemoglobin A1C 5.7 % Hgb (4.8-6.0)
[2025-01-12 15:34] LABS: Sodium 149 mMol/L (136-145)
[2025-01-12 15:34] LABS: Bacteria,Urine Rare; Bilirubin,Urine Negative (Negative); Blood,Urine 3+ (Negative); Clarity,Urine Turbid (Clear/Hazy); Color,Urine Yellow (Lt Yel-Yel); Glucose, Urine Negative (Negative); Ketones,Urine Negative (Negative); Leukocyte Esterase,Urine Positive (Negative); Nitrite,Urine Negative (Negative); PH,Urine 5.5 (5.0-7.0); Protein,Urine Trace (Neg - Trace); RBC,Urine 1009 /hpf (0-3); Specific Gravity,Urine 1.047 (1.001-1.035); Squamous Epithelial Cell,Urine 2 /hpf (0-5); Urobilinogen,Urine Negative mg/dL (0.0-1.0); WBC,Urine 206 /hpf (0-5)
[2025-01-12 15:39] LABS: D-Dimer 339 ng/mL (<600)
[2025-01-12 16:17] LABS: Slide Review Platelets confirmed
[2025-01-12 16:39] LABS: Fibrinogen 578 mg/dL (175-375); INR 0.9 (0.9-1.3); Partial Thromboplastin Time 37.1 Seconds (22.0-36.0); Prothrombin Time 10.3 Seconds (9.0-12.2)
[2025-01-12 16:53] LABS: Folate 11.78 ng/mL (>5.38); Vitamin B12 1972 pg/mL (211-911)
[2025-01-12] MEDS: RINGERS LACTATED 1000 ML 1,000 ML 999 ML IV (19:31)
[2025-01-12 20:30] LABS: Sodium 149 mMol/L (136-145)
[2025-01-12] MEDS: VANCOMYCIN/NS 500 MG IVPB 100 ML 120 MG IV (22:26)
[2025-01-12 23:30] LABS: Sodium 147 mMol/L (136-145)
[2025-01-13] VITALS (35 sets, daily range): BP systolic 93–138; BP diastolic 51–99; PULSE 61–113; RESP 16–32; TEMP 35.2–37.2; O2SAT 85–100; BMI 22.9
[2025-01-13] MEDS: ALBUTEROL/IPRATROPIUM (Duoneb) RT SOL 3 ML NEBU INH ×4 (01:12→19:38)
[2025-01-13 02:39] LABS: HIV (1&2) Antibody Rapid Non-Reactive
[2025-01-13] MEDS: DEXTROSE 5%-WATER 500 ML 75 ML IV (03:09)
[2025-01-13] MEDS: PIPER/TAZO 3.375 GM PREMIX 3.375 GM/50 ML BAG IV ×3 (05:10→20:50)
[2025-01-13 05:38] LABS: Basophils # (Auto) 0.0 Thou/mm3 (0.0-0.2); Basophils % (Auto) 0 % (0-2.5); Eosinophils # (Auto) 0.0 Thou/mm3 (0.0-0.5); Eosinophils % (Auto) 0 % (0-10); Hematocrit 27.9 % (36.0-46.0); Hemoglobin 9.1 g/dL (12.0-16.0); Immature Granulocytes Auto 0.02 Thou/mm3 (0.00-0.00); Lymphocytes # (Auto) 0.4 Thou/mm3 (1.0-4.8); Lymphocytes % (Auto) 10 % (10-50); Mean Corpuscular HGB Conc 32.6 g/dl (31.0-37.0); Mean Corpuscular Hemoglobin 31.2 pg (25.0-35.0); Mean Corpuscular Volume 96 fL (80-100); Monocytes # (Auto) 0.1 Thou/mm3 (0.0-0.8); Monocytes % (Auto) 2 % (0-12); Neutrophils # (Auto) 3.9 Thou/mm3 (1.8-7.7); Neutrophils % (Auto) 87 % (37-80); Nucleated Red Blood Cell # 0.00 Thou/mm3 (0.00-0.00); Nucleated Red Blood Cell % 0 /100 WBC (0); RDW Standard Deviation 62.1 fL (36.4-46.3); Red Blood Count 2.92 Miln/mm3 (4.00-5.20); White Blood Count 4.5 Thou/mm3 (3.6-11.0)
[2025-01-13 05:42] LABS: Platelet Count 18 Thou/mm3 (140-440)
[2025-01-13 05:43] LABS: Slide Review Platelets confirmed
[2025-01-13 06:31] LABS: Alanine Aminotransferase 191 U/L (10-49); Albumin, Serum 3.4 gm/dL (3.5-5.0); Albumin/Globulin Ratio 1.4 (1.2-2.2); Alkaline Phosphatase 251 U/L (46-116); Anion Gap 10 (7-16); Aspartate Amino Transferase 183 U/L (0-34); BUN/Creatinine Ratio 10 Ratio (12-20); Bilirubin,Total 0.4 mg/dL (0.3-1.2); Blood Urea Nitrogen 7 mg/dL (9-23); Calcium 9.8 mg/dL (8.3-10.6); Calcium (Corrected) 10.3 mg/dL (8.5-10.1); Carbon Dioxide 25.2 mMol/L (20.0-31.0); Chloride 114 mMol/L (98-107); Creatinine (Component) 0.7 mg/dL (0.6-1.3); Estimated Creatinine Clearance 54.8 mL/min (>60); Globulin 2.4 gm/dL (2.3-3.5); Glucose 189 mg/dL (74-106); Osmolality,Calculated 299 (275-295); Potassium 3.9 mMol/L (3.4-5.1); Sodium 149 mMol/L (136-145); Total Protein 5.8 gm/dL (5.7-8.2); eGFR > 60 See Note
[2025-01-13 08:49] LABS: Vancomycin,Random 26.7 mcg/mL
[2025-01-13] MEDS: FAMOTIDINE INJ 10 MG/ML VIAL 2 ML 20 MG IVP (09:10)
[2025-01-13] MEDS: DEXTROSE 5%-WATER 1,000 ML 75 ML IV (10:20)
--- NOTE | 2025-01-13 10:43 | ESPR_ITS ---
Documentation for date of: 01/13/25 Subjective Subjective Interval history: Patient is nonverbal at baseline and is intellectually disabled. Most of the history is taken from the senior research scientist at the bedside 29-year-old female with no significant past medical history, severe intellectual disability was brought to the hospital in view of low temperature noted on the day of admission. At baseline, patient is nonverbal and cannot interact much, he lives in the facility, wheelchair-bound and wears diaper for bowel and bladder movements. Patient went to the adult daycare center which is her daily routine every day and in the daycare center found to have temperature of 95 ?F and patient is noted to be unusual than her normal self. Later patient was brought back to her facility where she was found to have temperature of 94 ?F for which patient was brought to the ED. Denies fever, vomitings, diarrhea, recent sick contacts. Remelt Operator at the bedside, endorsed that patient was noted to have decreased urine output since last night as they noted that the diapers are not wet since last night. As patient is nonverbal, intellectually disabled cannot give much history and whenever she has pain she used to live by getting agitated and slapping herself. ED course: - Vitals at the time of admission are stable except for temperature of 91.1 ?F - Labs at the time of admission are significant for WBC 2.8, Hb 11.6, platelets 26, sodium 157, chloride 115, magnesium 1.8, AST 371, ALT 302, ALP 245. - Urine analysis showed 6 WBC with no other signs of UTI. - EKG showed normal sinus rhythm with no ST and T wave changes. - Abdomen/pelvis CT showed right middle lobe and bibasilar pneumonia, significant pneumonia in the left base. Severe lumbar levoscoliosis and congenital right hip dysplasia. - Chest x-ray did not show any opacities - In the ED, patient was initially given 2.5 L of fluid boluses, Zosyn, started on dextrose in view of hyponatremia, was kept on bear hugger - Despite of resuscitating the fluids patient continued to be hypotensive with MAP less than 65 mmHg for which patient was given 1 more extra bolus of LR 01/12/2025: Patient is seen and examined at bedside in ICU. No acute overnight events. Overnight, patient was found to have sodium of 153 and school bus dispatcher labs also showed sodium of 155, so started on D5 W around 6:30 AM. Vitals are stable. Overnight, patient made only around 300 mL of urine output. Labs done this morning showed WBC 4.1, hemoglobin 9.3, platelet count 21. Sodium 155, chloride 118, creatinine 0.8, AST 260, ALT 229. Patient does not appear to have any bleeding manifestations during the morning. Repeat labs done around 3 PM showed platelet count of 16,000 and also patient noted to have pinkish urine for which repeat urine analysis was sent. Patient was found to be hypothermic with rectal temperature of 89.1 for which patient was started on Mellissa hugger. Labs including coagulation studies, fibrinogen, D- dimer, HIV, GARRICK, B12, folate, iron panel was sent for the evaluation of thrombocytopenia. A unit of platelet transfusion is ordered in view of thrombocytopenia with bleeding manifestations, hematuria. Talked to pathologist, Dr. Chandra and she reported that patient does not have any significant abnormalities on the peripheral smear except for low platelet count. Will continue to monitor CBC and look for any bleeding manifestations. Patient was started on steroids in view of suspected ITP, primary versus secondary. 01/13/2025: Patient is seen and examined at bedside in the ICU. No acute overnight events. Patient did get blood transfusion early in the morning and the transfusion is completed by around 7 AM. Noted to have improved urine output, around 775 mL. No further hematuria episodes are noted. Vitals are stable and temperature improved to 98.9 ?F. Patient appears to be mildly agitated at the time of examination which could be causing mild tachycardia. On physical examination, no bleeding manifestations including petechiae, ecchymosis were noted. Labs done this morning showed platelet count of 18,000, sodium 149, creatinine 0.7, glucose 189, corrected calcium 10.3, AST and ALT are downtrending. Will repeat CBC with sodium check in the afternoon to follow-up on the platelet count. Will continue to look for any other bleeding manifestations. Will continue steroid for total duration of 3 days. As patient is hemodynamically stable and does not have any active bleeding manifestations with improving renal functions as of now, will downgrade to floors for further management. Exam Vital Signs Temp Pulse Resp BP Pulse Ox O2 Del Method 98.9 F 101 H 18 102/57 L 89 L Room Air 01/13/25 08:00 01/13/25 10:00 01/13/25 10:00 01/13/25 10:00 01/13/25 10:00 01/13/25 09:30 Narrative Exam General: Awake. At her baseline. Non verbal and not interactive. HEENT: Normocephalic, atraumatic, mucous membranes moist. noted scars infront of the ears bilaterally Heart: Sinus tachycardia and Regular rhythm, no murmurs. Lungs: Clear breath sounds bilaterally Abdomen: Soft, nondistended, nontender, positive bowel sounds. ?No guarding or rebound tenderness. ibarra catheter insitu and noted pink urine Neurologic: Non verbal and not interactive. Extremities: No edema. noted significant wasting in the lower extremities Skin: No rash or ecchymoses. Objective Labs 01/15/25 05:36 01/15/25 05:36 Labs: Laboratory Results - last 24 hr 01/12/25 01/12/25 01/12/25 04:49 10:57 15:00 WBC RBC Hgb Hct MCV MCH MCHC RDW Std Deviation Plt Count Neut % (Auto) Lymph % (Auto) [place] % (Auto) Eos % (Auto) Baso % (Auto) Neut # (Auto) Lymph # (Auto) [place] # (Auto) Eos # (Auto) Baso # (Auto) Immature Gran # (Auto) Absolute Nucleated RBC Immature Gran % Nucleated RBC % PT INR APTT Fibrinogen 538 H D-Dimer Sodium 150 H Potassium Chloride Carbon Dioxide Anion Gap BUN Creatinine Estim Creat Clear Calc eGFR BUN/Creatinine Ratio Glucose Estimated Ave Glu mg/dL Hemoglobin A1c Calculated Osmolality Calcium Corrected Calcium Iron 201 H TIBC 236 L Iron Saturation 85 H Unsat Iron Binding 35 L Ferritin 756 H Total Bilirubin AST ALT Alkaline Phosphatase Total Protein Albumin Globulin Albumin/Globulin Ratio Vitamin B12 1972 H Folate 11.78 TSH 4.12 Ur Collection Type Catheter Urine Color Yellow Urine Clarity Turbid A Urine pH 5.5 Ur Specific [place] 1.047 H Urine Protein Trace Urine Glucose (UA) Negative Urine Ketones Negative Urine Blood 3+ A Urine Nitrite Negative Urine Bilirubin Negative Urine Urobilinogen (Auto) Negative Ur Leukocyte Esterase Positive Urine RBC 1009 H Urine WBC 206 H Ur Squamous Epith Cells 2 Urine Bacteria Rare Random Vancomycin HIV 1&2 Antibody Rapid Misc Test Result Platelets confirmed Blood Type Antibody Screen Blood Bank Wristband ID Blood Bank Comment 01/12/25 01/12/25 01/12/25 15:05 18:16 19:45 WBC 3.7 RBC 3.09 L Hgb 9.5 L Hct 29.5 L MCV 96 MCH 30.7 MCHC 32.2 RDW Std Deviation 62.1 H Plt Count 16 L* D Neut % (Auto) 76 Lymph % (Auto) 18 [place] % (Auto) 5 Eos % (Auto) 0 Baso % (Auto) 0 Neut # (Auto) 2.8 Lymph # (Auto) 0.7 L [place] # (Auto) 0.2 Eos # (Auto) 0.0 Baso # (Auto) 0.0 Immature Gran # (Auto) 0.01 H Absolute Nucleated RBC 0.02 H Immature Gran % 0 Nucleated RBC % 1 H PT 10.3 INR 0.9 APTT 37.1 H Fibrinogen 578 H D-Dimer 339 Sodium 149 H 149 H Potassium Chloride Carbon Dioxide Anion Gap BUN Creatinine Estim Creat Clear Calc eGFR BUN/Creatinine Ratio Glucose Estimated Ave Glu mg/dL 117 Hemoglobin A1c 5.7 Calculated Osmolality Calcium Corrected Calcium Iron TIBC Iron Saturation Unsat Iron Binding Ferritin Total Bilirubin AST ALT Alkaline Phosphatase Total Protein Albumin Globulin Albumin/Globulin Ratio Vitamin B12 Folate TSH Ur Collection Type Urine Color Urine Clarity Urine pH Ur Specific [place] Urine Protein Urine Glucose (UA) Urine Ketones Urine Blood Urine Nitrite Urine Bilirubin Urine Urobilinogen (Auto) Ur Leukocyte Esterase Urine RBC Urine WBC Ur Squamous Epith Cells Urine Bacteria Random Vancomycin HIV 1&2 Antibody Rapid Non-Reactive Misc Test Result Platelets confirmed Blood Type B Positive Antibody Screen NEGATIVE Blood Bank Wristband ID Yes Blood Bank Comment PLATP Ready 01/12/25 01/13/25 23:13 04:26 WBC 4.5 RBC 2.92 L Hgb 9.1 L Hct 27.9 L MCV 96 MCH 31.2 MCHC 32.6 RDW Std Deviation 62.1 H Plt Count 18 L* Neut % (Auto) 87 H Lymph % (Auto) 10 [place] % (Auto) 2 Eos % (Auto) 0 Baso % (Auto) 0 Neut # (Auto) 3.9 Lymph # (Auto) 0.4 L [place] # (Auto) 0.1 Eos # (Auto) 0.0 Baso # (Auto) 0.0 Immature Gran # (Auto) 0.02 H Absolute Nucleated RBC 0.00 Immature Gran % 0 Nucleated RBC % 0 PT INR APTT Fibrinogen D-Dimer Sodium 147 H 149 H Potassium 3.9 D Chloride 114 H Carbon Dioxide 25.2 Anion Gap 10 BUN 7 L Creatinine 0.7 Estim Creat Clear Calc 54.8 L eGFR > 60 BUN/Creatinine Ratio 10 L Glucose [address] Glu mg/dL Hemoglobin A1c Calculated Osmolality 299 H Calcium 9.8 Corrected Calcium 10.3 H Iron TIBC Iron Saturation Unsat Iron Binding Ferritin Total Bilirubin 0.4 AST 183 H ALT 191 H Alkaline Phosphatase 251 H D Total Protein 5.8 Albumin 3.4 L Globulin 2.4 Albumin/Globulin Ratio 1.4 Vitamin B12 Folate TSH Ur Collection Type Urine Color Urine Clarity Urine pH Ur Specific [place] Urine Protein Urine Glucose (UA) Urine Ketones Urine Blood Urine Nitrite Urine Bilirubin Urine Urobilinogen (Auto) Ur Leukocyte Esterase Urine RBC Urine WBC Ur Squamous Epith Cells Urine Bacteria Random Vancomycin 26.7 HIV 1&2 Antibody Rapid Misc Test Result Platelets confirmed Blood Type Antibody Screen Blood Bank Wristband ID Blood Bank Comment Quality Measures Quality Measures sepsis Current suspected stage: ruled out Possible source: unknown Blood cultures ordered: completed in ED Antibiotic ordered: Yes Assessment & Plan Assessment Current Active Medications: Generic Name Dose Route Start Last Admin Trade Name Freq PRN Reason Stop Dose Admin Acetaminophen 325 mg 01/11/25 22:28 Acetaminophen 325 Mg Tablet PO 02/10/25 22:27 Q4HR PRN Pain 1 - 3 Or Fever > 101 Albuterol/Ipratropium 3 ml 01/11/25 20:00 01/13/25 06:31 Albuterol/Ipratropium (Duoneb) Rt Martina 3 Ml Nebu INH 02/10/25 19:59 3 ml Q6HRRT MARCIA Administration Buspirone HCl 10 mg 01/12/25 21:00 01/13/25 09:06 Buspirone Hcl 5 Mg Tablet PO 02/11/25 20:59 Not Given BID MARCIA Famotidine 20 mg 01/12/25 09:00 01/13/25 09:10 Famotidine Inj 10 Mg/Ml Vial 2 Ml IVP 02/11/25 08:59 20 mg QDAY MARCIA Administration Norepinephrine/Dextrose 8 mg in 250 mls @ 3.997 mls/hr 01/11/25 18:10 Levophed In D5w 8mg/250ml IV 02/10/25 18:09 .Q24H PRN PER PROTOCOL Protocol 0.05 MCG/KG/MIN Piperacillin/Tazobactam/Dextrose 3.375 gm in 50 mls @ 12.5 mls/hr 01/11/25 22:00 01/13/25 05:10 Zosyn IV 01/18/25 21:59 12.5 mls/hr Q8HR MARCIA Administration Dextrose 1,000 mls @ 75 mls/hr 01/13/25 10:30 01/13/25 10:20 D5w IV 02/12/25 10:29 75 mls/hr .[id number] MARCIA Administration Loratadine 10 mg 01/13/25 09:00 01/13/25 09:06 Loratadine 10 Mg Tablet PO 02/12/25 08:59 Not Given QDAY MARCIA Methylprednisolone Sodium Succinate 30 mg 01/13/25 10:22 Methylprednisolone Sod Succ 40 Mg Vial IVP 01/13/25 10:23 X1 ONE Plan 29-year-old female with no significant past medical history, severe intellectual disability was brought to the hospital in view of low temperature noted on the day of admission and admitted for 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 # No active problems - Patient is nonverbal and not interactive at the baseline due to intellectual disability - Patient senior research scientist at the bedside said that the patient is at her baseline at the time of admission CVS # Hypotension, resolved - Blood pressure at the time of admission is 99/61 mmHg - Patient was given 2.5 L bolus of fluid initially despite of which the MAP is less than 65 mmHg for which ICU was consulted in view of suspected possible shock - Patient was given 1 L LR bolus later and the blood pressures improved with the MAP greater than 65 mmHg - Patient is admitted into the ICU as patient is noted to have blood pressure on the lower side to monitor and to start on vasopressors if needed Plan - No further episodes of hypotension noted after admission to the ICU - Will continue to monitor blood pressure for now - Will start on Levophed if the MAP is less than 65 mmHg # Hypothermia, resolved - Patient is brought to the ED with chief complaints of low temperature noted on vitals check at facility. - Patient was noted to have temperature of 91.1 ?F in the ED - Patient was started on Mellissa hugger and adequately resuscitated with fluids following which the hypothermia was resolved. - On 01/12/2025, patient was again noted to have rectal temperature of 89.1 ?F for which patient was started on Mellissa hugger, blood glucose is 171 at that time - Likely secondary to possible sepsis Plan - Placed on Mellissa hugger on 01/12/2025 - Will continue to monitor temperature - TSH, A1c is ordered - within normal limits Respiratory # Suspected possible pneumonia Likely community-acquired - Patient did not noted to have have any complaints of shortness of breath, cough, expectoration - SpO2 at the time of admission is 96% with room air - On physical examination, patient noted to have bilateral diffuse wheeze - Chest x-ray did not show any significant opacities but CT abdomen/pelvis done which showed bibasilar pneumonia predominantly in the Right middle lobe and left lower base Plan - Sputum cultures ordered, not collected - Started on Zosyn and vancomycin [01/11 - 01/13), stopped Vancomycin as MRSA screen came back negative - DuoNebs scheduled every 6 hourly - Ordered bedside swallow eval to rule out possible aspiration - failed eval and Referral to speech therapy is done - passed the swallow eval for hich patient is started on Dysphagia 1 diet - Oxygen as needed GI # Transaminitis, resolving - Noted to have AST 371, ALT 302 at the time of admission --> 01/12, AST 260, ALT 229 - Could be in the setting of Sepsis Vs hypotension vs viral infection Vs combined - AST is mildly elevated in 2020, 50 - might be having some underlying fatty liver Plan - Acute viral panel is sent, Came back negative - Ultrasound gallbladder is ordered - Normal gallbladder. Normal common bile duct. Fatty infiltration throughout the liver - Will continue to monitor LFTs Renal #? OLENA, likely prerenal in the setting of hypotension, resolving - Patient's baseline creatinine is 0.5 in 2019, creatinine at the time of admission is 0.9 -- > 01/13, 0.7 - Patient is also noted to have decreased urine output since day before the admission - Likely in the setting of dehydration and suspected possible sepsis - Patient is resuscitated with 3.5 L fluid in the ED - Urine output started to improve since 01/12/2025 Plan - Urine electrolytes were ordered, FeNa is 0.5% - Renal ultrasound Right kidney 8.0 cm cortex 1.3 cm. Left kidney 8.3 cm cortex 1.7 cm. Upper pole right renal cyst 17 mm lateral left renal cyst 9 mm. No hydronephrosis - Will continue to monitor renal functions and renally dose medications - Ibarra catheter was placed and will continuously monitor urine output # Hypernatremia, resolving # Hyperchloremia - At the time of admission, sodium is 157, chloride is 115 ---> 01/12, Na 155 ---> 01/13, Na 149 - Likely from the dehydration and suspected possible OLENA - Patient received 3.5 L of fluid in the ED Plan - On D5W @ 75ml/hr - Sodium checks every 4th hrly # New onset hematuria - Patient was found to have pinkish urine in the Ibarra catheter - Urine analysis showed turbid urine, 3+ blood, thousand 9 RBC, 206 WBC Plan - Hematuria could be likely in the setting of thrombocytopenia vs Trauma due to ibarra catheter - Platelet transfusion is done on 01/13/2025 - Will continue to watch for other bleeding manifestations # Hypercalcemia - Likely from immobilization - Corrected calcium at the time of admission is 10.9, as of 01/12/2025, calcium is 10.3 Plan - 25-hydroxy vitamin D and parathormone sent, will follow up with the results ID # Suspected possible sepsis - Likely from the community acquired pneumonia - Patient is noted to have temperature of 91.1 ?F, WBC 2.8 and suspected to have pneumonia as source of infection - Patient is given 3.5 L of fluid in the ED - Lactate is not ordered at the time of presentation and lactate after resuscitation with 3.5 L of fluid is 0.8, unsure if the patient had lactate elevation at the time of presentation - Pro-Marquis is 0.15 - Blood cultures - came back negative after 24hrs, MRSA nasal screen - Negative Plan - Started on empiric antibiotics, Zosyn and vancomycin [01/11- - Stopped Vancomycin as MRSA screen came back negative on 01/13 - Will titrate antibiotics according to the culture results Hematology # Leukopenia, resolved - WBC at the time of presentation is 2.8 --> 01/12, 4.1 --> 01/13, 4.5 - Suspected to be due to sepsis vs viral illness - Absolute neutrophil count is within normal range Plan - Will continue antibiotics - Will continue to monitor CBC # Thrombocytopenia - Platelet count at the time of admission is 26,000 --> 01/13, [id number] - Likely due to the underlying sepsis versus viral illness versus idiopathic thrombocytopenia - Patient does not have any bleeding manifestations at this point - Retic count and peripheral smear are sent, no significant abnormality noted except for severe thrombocytopenia. Plan - Will continue to monitor platelet count and look for bleeding manifestations - Will avoid antiplatelets and anticoagulants - Will treat the underlying sepsis - Repeat platelet count done as of 01/12/2025 showed 16,000 with hematuria - 1 unit of platelet is transfused, repeat CBC in the afternoon - Talked to Dr. Chandra, the pathologist and reported that patient does not have any abnormal cells or smear features suggestive of TTP-HUS - Workup for thrombocytopenia is being done, hepatitis panel, HIV, GARRICK screening, iron, B12, folate, DIC panel is sent - Negative - Will follow-up on the results - Started on methylprednisolone 30 mg for 3days in view of suspected ITP - Will continue to monitor platelet count # Anemia, normocytic normochromic - Likely nutritional - Patient's baseline hemoglobin is 13.8 in 2019 - Hemoglobin at the time of admission is 11.6--> 01/12, 9.5 , could be due to hemoconcentration and due to dehydration at the time of admission as patient is not noted to have any major bleeding manifestations. - Iron, B12, folate studies are sent, noted elevation in ferritin and B12, Possible underlying chronic inflammatory state Plan - Will follow-up with the results - Will continue to monitor CBC Musculoskeletal # Congenital hip dysplasia - Found on CT abdomen/pelvis - Patient is wheelchair-bound and no active treatment required for that as of now Hospital Maintenance: Dispo: ICU DVT ppx: SCD GI ppx: Famotidine Diet : Dysphagia, 1 IV lines: peripheral Code status: Full Patient plan of care was discussed with the Footwear Sales Leader, Dr. Lionel Valencia, PGY2 Attending Provider Attestation/Addendum Patient seen and examined resident, agree with above. In brief this is a 29-year-old female admitted to the ICU for hypotension that never actually required vasopressors. She has been hypothermic requiring a Mellissa hugger however has now improved. She does have thrombocytopenia which is currently being worked up. She is on steroids for presumed ITP. She is currently hemodynamically stable with an improved core temperature. No significant change in her physical exam from yesterday. She appears to be stable for downgrade Case discussed with ICU team Labs, imaging reviewed Approximately 36 minutes required for evaluation, exam, review, dimension, discussion formulation of plan of care for this patient
[2025-01-13 13:27] LABS: Basophils # (Auto) 0.0 Thou/mm3 (0.0-0.2); Basophils % (Auto) 0 % (0-2.5); Eosinophils # (Auto) 0.0 Thou/mm3 (0.0-0.5); Eosinophils % (Auto) 0 % (0-10); Hematocrit 27.1 % (36.0-46.0); Hemoglobin 8.9 g/dL (12.0-16.0); Immature Granulocytes Auto 0.03 Thou/mm3 (0.00-0.00); Lymphocytes # (Auto) 0.6 Thou/mm3 (1.0-4.8); Lymphocytes % (Auto) 12 % (10-50); Mean Corpuscular HGB Conc 32.8 g/dl (31.0-37.0); Mean Corpuscular Hemoglobin 31.2 pg (25.0-35.0); Mean Corpuscular Volume 95 fL (80-100); Monocytes # (Auto) 0.2 Thou/mm3 (0.0-0.8); Monocytes % (Auto) 3 % (0-12); Neutrophils # (Auto) 4.2 Thou/mm3 (1.8-7.7); Neutrophils % (Auto) 84 % (37-80); Nucleated Red Blood Cell # 0.06 Thou/mm3 (0.00-0.00); Nucleated Red Blood Cell % 1 /100 WBC (0); RDW Standard Deviation 61.8 fL (36.4-46.3); Red Blood Count 2.85 Miln/mm3 (4.00-5.20); White Blood Count 5.0 Thou/mm3 (3.6-11.0)
[2025-01-13 13:36] LABS: Sodium 149 mMol/L (136-145)
--- NOTE | 2025-01-13 13:36 | ESPR_ITS ---
<Statement entered by Lilibeth Shaw MD - 01/28/25 15:04> I reviewed above note and agree with findings and plans. I have also personally examined the patient with medicine team and went over assessment and plan with medical team including marketing research intern and resident physician. <Statement entered by Jose Antonio Young MD - 01/14/25 05:31> Patient was seen and examined at bedside. I agree on the assessment and plan on this note as documented by resident Tyrell Elaine PGY1. 29-year-old female nonverbal and developmentally disabled admitted to [facility] 01/09 secondary to hypothermia and altered mental status, found to have underlying pneumonia, urinary tract infection, hypernatremia and thrombocytopenia. 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 Patient will receive platelet transfusion today. For underlying infection urine culture preliminary result positive for GPC, blood cultures pending we will continue Zosyn and vancomycin. For hyponatremia patient currently on D5W 75 cc/h, follow sodium levels every 8 hours, titrate D5W as needed, goal sodium correction 6-8 in 24 hours goal sodium for a.m. 141. Hypercalcemia workup ordered by ICU team, will follow. Patient currently on home dose buspirone, risperidone being held by ICU, will continue to monitor mentation. Blood pressure continues to remain soft though MAP more than 65, currently on 2 L nasal cannula, SPO2 greater than 92. Patient stable to be downgraded to telemetry, signout received from ICU team. Case discussed with attending Dr. Colin Young MD PGY-2 Documentation for date of: 01/13/25 Subjective Subjective Interval history: Overnight events: No acute events overnight. Patient was seen and examined at bedside. AM vitals and labs reviewed. Patient downgraded from ICU. In summary, the patient arrived to [facility] ED from [facility] due to temperature of 95 ?F and altered mental status. Patient was also noted to have decreased urine output at that time. ED, the patient had continued drop of her temperature to 91.1 ?F. Labs were significant for pancytopenia with thrombocytopenia, hypokalemia, and transaminitis with elevated ALP. CT abdomen/pelvis showed pneumonia. In ICU, the patient was started on Mellissa hugger for hypothermia, treated with vancomycin and Zosyn, laboratory evaluation of thrombocytopenia was performed, steroids were started due to suspicion of ITP, and transfusion was performed to address thrombocytopenia. Patient was downgraded to floor on 01/13 due to improving renal functions and no further active bleeding. Patient was nonverbal on examination. Cool to touch. Patient was started on 2 L nasal cannula due to desaturation to 89% on room air. Patient made n.p.o. with pending reevaluation by speech therapy as the patient did not chew any food for lunch. Will keep D5W active for management of hypernatremia and OLENA, with every 6 hour glucose checks. Will continue vancomycin and Zosyn for coverage of community acquired pneumonia and significant hypothermia on presentation. Will continue to monitor thrombocytosis and any new sources of bleeding. Review of systems otherwise negative except for what is mentioned above. Exam Vital Signs Temp Pulse Resp BP Pulse Ox O2 Del Method 98.9 F 84 28 H 102/57 L 99 Room Air 01/13/25 08:00 01/13/25 12:38 01/13/25 12:38 01/13/25 10:00 01/13/25 12:38 01/13/25 09:30 Narrative Exam Physical Exam: General: Unarousable to voice and light touch, no acute distress. Nonverbal. Skin: Warm, cool, intact, no obvious rash. Head: Normocephalic, atraumatic. Cardiovascular: Regular rate and rhythm, no murmur, +S1/S2. Respiratory: Respirations slightly labored on room air, no crackles, diffuse wheezing. Gastrointestinal: Soft, nontender, non-distended. No guarding or rebound tenderness. Extremities: No edema, no cyanosis, no clubbing. 2+ radial pulse bilaterally, 2+ pedal pulse bilaterally. Objective Labs 01/13/25 12:51 01/13/25 12:51 Labs: Laboratory Results - last 24 hr 01/12/25 01/12/25 01/12/25 04:49 10:57 15:00 WBC RBC Hgb Hct MCV MCH MCHC RDW Std Deviation Plt Count Neut % (Auto) Lymph % (Auto) [place] % (Auto) Eos % (Auto) Baso % (Auto) Neut # (Auto) Lymph # (Auto) [place] # (Auto) Eos # (Auto) Baso # (Auto) Immature Gran # (Auto) Absolute Nucleated RBC Immature Gran % Nucleated RBC % Smear Path Review PT INR APTT Fibrinogen 538 H D-Dimer Sodium Potassium Chloride Carbon Dioxide Anion Gap BUN Creatinine Estim Creat Clear Calc eGFR BUN/Creatinine Ratio Glucose Estimated Ave Glu mg/dL Hemoglobin A1c Calculated Osmolality Calcium Corrected Calcium Total Bilirubin AST ALT Alkaline Phosphatase Total Protein Albumin Globulin Albumin/Globulin Ratio Vitamin B12 1972 H Folate 11.78 TSH 4.12 Ur Collection Type Catheter Urine Color Yellow Urine Clarity Turbid A Urine pH 5.5 Ur Specific [place] 1.047 H Urine Protein Trace Urine Glucose (UA) Negative Urine Ketones Negative Urine Blood 3+ A Urine Nitrite Negative Urine Bilirubin Negative Urine Urobilinogen (Auto) Negative Ur Leukocyte Esterase Positive Urine RBC 1009 H Urine WBC 206 H Ur Squamous Epith Cells 2 Urine Bacteria Rare Random Vancomycin HIV 1&2 Antibody Rapid Misc Test Result Blood Type Antibody Screen Blood Bank Wristband ID Blood Bank Comment 01/12/25 01/12/25 01/12/25 15:05 18:16 19:45 WBC 3.7 RBC 3.09 L Hgb 9.5 L Hct 29.5 L MCV 96 MCH 30.7 MCHC 32.2 RDW Std Deviation 62.1 H Plt Count 16 L* D Neut % (Auto) 76 Lymph % (Auto) 18 [place] % (Auto) 5 Eos % (Auto) 0 Baso % (Auto) 0 Neut # (Auto) 2.8 Lymph # (Auto) 0.7 L [place] # (Auto) 0.2 Eos # (Auto) 0.0 Baso # (Auto) 0.0 Immature Gran # (Auto) 0.01 H Absolute Nucleated RBC 0.02 H Immature Gran % 0 Nucleated RBC % 1 H Smear Path Review PT 10.3 INR 0.9 APTT 37.1 H Fibrinogen 578 H D-Dimer 339 Sodium 149 H 149 H Potassium Chloride Carbon Dioxide Anion Gap BUN Creatinine Estim Creat Clear Calc eGFR BUN/Creatinine Ratio Glucose Estimated Ave Glu mg/dL 117 Hemoglobin A1c 5.7 Calculated Osmolality Calcium Corrected Calcium Total Bilirubin AST ALT Alkaline Phosphatase Total Protein Albumin Globulin Albumin/Globulin Ratio Vitamin B12 Folate TSH Ur Collection Type Urine Color Urine Clarity Urine pH Ur Specific [place] Urine Protein Urine Glucose (UA) Urine Ketones Urine Blood Urine Nitrite Urine Bilirubin Urine Urobilinogen (Auto) Ur Leukocyte Esterase Urine RBC Urine WBC Ur Squamous Epith Cells Urine Bacteria Random Vancomycin HIV 1&2 Antibody Rapid Non-Reactive Misc Test Result Platelets confirmed Blood Type B Positive Antibody Screen NEGATIVE Blood Bank Wristband ID Yes Blood Bank Comment PLATP Ready 01/12/25 01/13/25 23:13 04:26 WBC 4.5 RBC 2.92 L Hgb 9.1 L Hct 27.9 L MCV 96 MCH 31.2 MCHC 32.6 RDW Std Deviation 62.1 H Plt Count 18 L* Neut % (Auto) 87 H Lymph % (Auto) 10 [place] % (Auto) 2 Eos % (Auto) 0 Baso % (Auto) 0 Neut # (Auto) 3.9 Lymph # (Auto) 0.4 L [place] # (Auto) 0.1 Eos # (Auto) 0.0 Baso # (Auto) 0.0 Immature Gran # (Auto) 0.02 H Absolute Nucleated RBC 0.00 Immature Gran % 0 Nucleated RBC % 0 Smear Path Review PT INR APTT Fibrinogen D-Dimer Sodium 147 H 149 H Potassium 3.9 D Chloride 114 H Carbon Dioxide 25.2 Anion Gap 10 BUN 7 L Creatinine 0.7 Estim Creat Clear Calc 54.8 L eGFR > 60 BUN/Creatinine Ratio 10 L Glucose [address] Glu mg/dL Hemoglobin A1c Calculated Osmolality 299 H Calcium 9.8 Corrected Calcium 10.3 H Total Bilirubin 0.4 AST 183 H ALT 191 H Alkaline Phosphatase 251 H D Total Protein 5.8 Albumin 3.4 L Globulin 2.4 Albumin/Globulin Ratio 1.4 Vitamin B12 Folate TSH Ur Collection Type Urine Color Urine Clarity Urine pH Ur Specific [place] Urine Protein Urine Glucose (UA) Urine Ketones Urine Blood Urine Nitrite Urine Bilirubin Urine Urobilinogen (Auto) Ur Leukocyte Esterase Urine RBC Urine WBC Ur Squamous Epith Cells Urine Bacteria Random Vancomycin 26.7 HIV 1&2 Antibody Rapid Misc Test Result Platelets confirmed Blood Type Antibody Screen Blood Bank Wristband ID Blood Bank Comment Quality Measures Quality Measures sepsis Current suspected stage: sepsis Possible source: unknown Blood cultures ordered: completed in ED Antibiotic ordered: Yes Assessment & Plan Assessment Current Active Medications: Generic Name Dose Route Start Last Admin Trade Name Freq PRN Reason Stop Dose Admin Acetaminophen 325 mg 01/11/25 22:28 Acetaminophen 325 Mg Tablet PO 02/10/25 22:27 Q4HR PRN Pain 1 - 3 Or Fever > 101 Albuterol/Ipratropium 3 ml 01/11/25 20:00 01/13/25 12:32 Albuterol/Ipratropium (Duoneb) Rt Martina 3 Ml Nebu INH 02/10/25 19:59 3 ml Q6HRRT MARCIA Administration Buspirone HCl 10 mg 01/12/25 21:00 01/13/25 09:06 Buspirone Hcl 5 Mg Tablet PO 02/11/25 20:59 Not Given BID MARCIA Famotidine 20 mg 01/12/25 09:00 01/13/25 09:10 Famotidine Inj 10 Mg/Ml Vial 2 Ml IVP 02/11/25 08:59 20 mg QDAY MARCIA Administration Piperacillin/Tazobactam/Dextrose 3.375 gm in 50 mls @ 12.5 mls/hr 01/11/25 22:00 01/13/25 05:10 Zosyn IV 01/18/25 21:59 12.5 mls/hr Q8HR MARCIA Administration Dextrose 1,000 mls @ 75 mls/hr 01/13/25 10:30 01/13/25 10:20 D5w IV 02/12/25 10:29 75 mls/hr .[id number] MARCIA Administration Loratadine 10 mg 01/13/25 09:00 01/13/25 09:06 Loratadine 10 Mg Tablet PO 02/12/25 08:59 Not Given QDAY MARCIA Plan Ms. Herrera is a 29 year old female with a history of severe intellectual disability who presented to [facility] ED on 01/11 for hypothermia and altered mental status. The patient was admitted to ICU for 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 Patient downgraded to hospital floors 01/13. #Thrombocytopenia 2/2 #Suspected ITP #New onset hematuria (resolved) Patient noted to have platelet of 26 on admission. Platelets continue to decrease to a low of 16, until platelet transfusion on 01/13, which increased platelets to 77. Patient noted to have hematuria in ICU. This is likely due to underlying sepsis versus viral illness versus radiographic thrombocytopenia. Reticulocyte count and peripheral smear are sent without significant abnormality noted except for severe thrombocytopenia. ICU did workup for thrombocytopenia, all of which is negative including hepatitis panel, HIV, GARRICK screen, iron, B12, folate, DIC panel. ICU team discussed case with Dr. Chandra, pathologist, who reported that the patient did not have any abnormal cells or severe features suggestive of TTP?HUS. ITP is suspected as a diagnosis of exclusion. Urinalysis 01/12 showed 3+ blood in urine and 1009 RBC. ? Avoid antiplatelets and anticoagulants ? Continue to monitor platelet count and assess for bleeding ? 1 unit of platelet transfused in ICU on 01/13 ? Will continue methylprednisolone 30 mg for 3 days, end date 01/15 #Sepsis 2/2 #Community acquired pneumonia vs #Urinary tract infection (gram-positive cocci) #Hypothermnia (resolved) #Hypotension (resolved) #Transaminitis (resolving) #OLENA, likely prerenal (resolving) Patient was brought to the ED with chief complaint of low temperature and altered mental status. The patient was admitted to ICU due to temperature of 91.1 ?F in the ED. At her lowest, the patient had a temperature of 89.1 ?F rectally. Patient required Mellissa hugger and ICU for management of hypothermia. In addition, the patient had MAP less than 65 in ED despite fluid boluses, further necessitating ICU care as pressors were needed for management. While blood cultures drawn were negative, the patient grew gram-positive cocci and urine culture and CT abdomen/pelvis showed right middle and bibasilar pneumonia along with significant pneumonia in the left base. Endorgan damage was noted with transaminitis and OLENA on admission, AST 371, ALT 202, creatinine 0.9 (baseline 0.5). ? Will continue to monitor patient's temperature ? Will continue to monitor due to blood pressure, keep MAP above 65 ? Will continue to monitor LFTs, ultrasound gallbladder negative for acute cholecystitis and viral panel negative ? Continue vancomycin and Zosyn (01/11--) #?Dysphagia In ICU, patient failed bedside swallow eval and so was referred to speech therapy. However, the patient passed swallow eval with speech therapy, and so patient was started on dysphagia 1 diet. It was reported by nursing staff that they tried to feed the patient, however the patient was not showing anything, and the nurses had to scrape the fluid out of her mouth. ? Will request speech therapy to reevaluate the patient ? Will keep patient n.p.o. due to concerns of aspiration #Anemia, normocytic normochromic Patient noted to have hemoglobin of 11.6 on admission with a downward trend during hospitalization. Likely due to dehydration at time of admission with contribution from hematuria. ? Will continue to monitor CBC ? Patient noted to have iron 201, and iron saturation 85% with ferritin at 756 ? Low clinical suspicion for hemochromatosis at this time as patient has no symptoms noted #Hypernatremia (resolving) #Hyperchloremia (resolving) Patient was noted to have a sodium of 157 and chloride of 115 on admission. This has improved over time and with hydration, indicating that this is most likely due to dehydration. ? Continue patient on D5W with sodium to not decrease more than 10 over 24 hours ? Goal sodium 146 ? Will continue to monitor with daily renal panel #Hypercalcemia Corrected calcium at time of patient noted to be 10.9. PTH noted to be 79.1. 25 OH vitamin D noted to be over 150, which is most likely the source of her hypercalcemia in addition to immobility. ? Will educate caretakers about excessive 25 OH vitamin D and recommend decreasing dosage if patient is taking supplements #Congenital hip dysplasia Patient found to have hip dysplasia on CT abdomen/pelvis. Patient is wheelchair-bound. ? No active treatment required at this time ? Follow-up with outpatient for management DVT Prophylaxis: SCDs GI Prophylaxis: Famotidine Bowel: N/A Diet: NPO Banda: Yes Lines: Peripheral IV Antibiotics: Vancomycin & Zosyn (01/11--) Code Status: FULL Reason for Hospitalization: Sepsis Other Barriers to Discharge: Hypernatremia Patient plan of care was discussed with the senior resident Dr. Young (PGY-2) and attending physician Dr. Shaw. Tyrell Elaine, PGY1
[2025-01-13 13:42] LABS: Parathyroid Hormone Intact 79.1 pg/ml (18.5-88.0)
[2025-01-13 13:45] LABS: Platelet Count 77 Thou/mm3 (140-440)
[2025-01-13 13:59] LABS: Vitamin D 25 Hydroxy Total > 150.0 ng/mL (7.3-40.2)
[2025-01-13 17:21] LABS: Slide Review Platelets confirmed
--- NOTE | 2025-01-13 18:15 | PC.NURSE ---
RN attempted to feed pt lunch after speech therapy cleared her to eat, when given a spoonful of pureed food pt held it in her mouth with no attempt to swallow, RN attempted to get pt to swallow with spoon with no response from pt. RN proceeded to remove all food from pts mouth with spoon. MD made aware and orders were given to make pt NPO with aspiration precautions.
[2025-01-13 21:29] LABS: Sodium 147 mMol/L (136-145)
[2025-01-14] VITALS (10 sets, daily range): BP systolic 94–120; BP diastolic 63–77; PULSE 64–96; RESP 14–95; TEMP 33.6–36.9; O2SAT 90–98; BMI 18.5
[2025-01-14] MEDS: DEXTROSE 5%-WATER 1,000 ML 75 ML IV (00:29)
--- NOTE | 2025-01-14 01:43 | PC.NURSE ---
patients's rectal temp at [address] Malone and he ordered a amanda hugger. will monitor
[2025-01-14] MEDS: PIPER/TAZO 3.375 GM PREMIX 3.375 GM/50 ML BAG IV ×3 (05:14→21:31)
[2025-01-14 05:53] LABS: Basophils # (Auto) 0.0 Thou/mm3 (0.0-0.2); Basophils % (Auto) 0 % (0-2.5); Eosinophils # (Auto) 0.0 Thou/mm3 (0.0-0.5); Eosinophils % (Auto) 0 % (0-10); Hematocrit 26.3 % (36.0-46.0); Immature Granulocytes Auto 0.02 Thou/mm3 (0.00-0.00); Lymphocytes # (Auto) 0.8 Thou/mm3 (1.0-4.8); Lymphocytes % (Auto) 18 % (10-50); Mean Corpuscular HGB Conc 33.1 g/dl (31.0-37.0); Mean Corpuscular Hemoglobin 31.3 pg (25.0-35.0); Mean Corpuscular Volume 95 fL (80-100); Monocytes # (Auto) 0.2 Thou/mm3 (0.0-0.8); Monocytes % (Auto) 5 % (0-12); Neutrophils # (Auto) 3.6 Thou/mm3 (1.8-7.7); Neutrophils % (Auto) 77 % (37-80); Nucleated Red Blood Cell # 0.04 Thou/mm3 (0.00-0.00); Nucleated Red Blood Cell % 1 /100 WBC (0); RDW Standard Deviation 60.4 fL (36.4-46.3); Red Blood Count 2.78 Miln/mm3 (4.00-5.20); White Blood Count 4.7 Thou/mm3 (3.6-11.0)
[2025-01-14 05:54] LABS: Hemoglobin 8.7 g/dL (12.0-16.0); Platelet Count 63 Thou/mm3 (140-440)
[2025-01-14 06:03] LABS: Alanine Aminotransferase 141 U/L (10-49); Albumin, Serum 3.2 gm/dL (3.5-5.0); Albumin/Globulin Ratio 1.2 (1.2-2.2); Alkaline Phosphatase 227 U/L (46-116); Anion Gap 9 (7-16); Aspartate Amino Transferase 112 U/L (0-34); BUN/Creatinine Ratio 10 Ratio (12-20); Bilirubin,Total 0.4 mg/dL (0.3-1.2); Blood Urea Nitrogen 7 mg/dL (9-23); Calcium 9.8 mg/dL (8.3-10.6); Calcium (Corrected) 10.4 mg/dL (8.5-10.1); Carbon Dioxide 27.9 mMol/L (20.0-31.0); Chloride 111 mMol/L (98-107); Creatinine (Component) 0.7 mg/dL (0.6-1.3); Estimated Creatinine Clearance 61.8 mL/min (>60); Globulin 2.6 gm/dL (2.3-3.5); Glucose 158 mg/dL (74-106); Magnesium 1.8 mg/dL (1.6-2.6); Osmolality,Calculated 295 (275-295); Potassium 3.7 mMol/L (3.4-5.1); Sodium 148 mMol/L (136-145); Total Protein 5.8 gm/dL (5.7-8.2); Vancomycin,Random 7.4 mcg/mL; eGFR > 60 See Note
[2025-01-14 07:54] LABS: Slide Review Platelets confirmed
[2025-01-14] MEDS: Magnesium Sulfate 2 GM Ivpb 2 GM/50 ML BAG IV (08:26)
[2025-01-14] MEDS: DEXTROSE 5%-WATER 1,000 ML 125 ML IV ×2 (08:26→21:31)
[2025-01-14] MEDS: FAMOTIDINE INJ 10 MG/ML VIAL 2 ML 20 MG IVP (08:29)
--- NOTE | 2025-01-14 09:20 | PC.SS ---
follow up note: Hypernatremia. On IV antibiotic. Pt has low platelets. Speech evaluation pending.
--- NOTE | 2025-01-14 10:04 | XR_ITS ---
Examination: CT brain head without contrast. 2-D sagittal coronal reconstructions Date and time of exam:January 14, 2025 1126 hours INDICATIONS: Altered mental status, hypothermia 2 days CTDI: vol (mGy):38.7 DLP: (mGycm):729 Technique: Multiple CT axial sections of the brain have been obtained, 5 mm slice thickness. Contrast has not been administered. 2-D sagittal, coronal reconstructions have been obtained Low dose protocols were performed. One or more of the following dose reduction techniques were used; automated exposure control, adjustment of the mA and/or KV according to patient size, use of iterative reconstruction technique. Findings: No significant ventricular enlargement. Intra-axial or extra-axial hemorrhage density is not seen. No mass effect or midline shift Basal cisterns are not remarkable. Fourth ventricle is midline. Cranial vault intact. Impression: Negative for acute hemorrhage, mass effect or midline shift Advise clinical correlation follow-up accordingly
--- NOTE | 2025-01-14 10:05 | XR_ITS ---
Examination: Video esophagram Modified barium swallow 167 spot fluoroscopic films of the soft tissue neck lateral view Date and time: January 14, 2025 1031 hours INDICATIONS: Difficulty swallowing, choking with eating months TECHNIQUE AND FINDINGS: Pudding, honey, nectar, thin barium administered 167 spot fluoroscopic films soft tissue neck obtained with the patient swallowing Poor oral control Premature transfer Aspiration noted with straw thin barium administration IMPRESSION: Aspiration noted with straw thin barium administration Fluoroscopy 0.1 minute radiation dose 68.29 milligray
--- NOTE | 2025-01-14 10:21 | CHAP ---
Sleeping. Said silent prayer.
--- NOTE | 2025-01-14 11:17 | ESPR_ITS ---
<Statement entered by Lilibeth Shaw MD - 01/28/25 15:05> I reviewed above note and agree with findings and plans. I have also personally examined the patient with medicine team and went over assessment and plan with medical team including contracts intern and resident physician. <Statement entered by Jose Antonio Young MD - 01/14/25 17:59> Patient was seen and examined at bedside. I agree on the assessment and plan on this note as documented by resident Tyrell Elaine PGY1. 29-year-old female with past medical history as below, continues to be hypothermic was started on Mellissa hugger, seen at bedside seems to be at baseline mentation [place], videofluoroscopic study was ordered which was significant for aspiration on thin barium admission, consulted gastroenterology patient will likely undergo EGD. For hypothermia we will obtain CT scan of the head, patient received third dose methylprednisolone for ITP, sodium is improving with increase D5W to 125 cc/h, will continue until sodium normalizes to less than 143. Will continue with dysphagia workup, hypothermia workup and continue to monitor platelets, pending sodium improvement. Disposition telemetry. Case discussed with attending Dr. Colin Young MD PGY-2 Documentation for date of: 01/14/25 Subjective Subjective Interval history: Overnight events: Patient was agitated overnight and had a drop in temperature to 92.5 ?F measured rectally. Patient was restarted on Mellissa hugger. Patient was seen and examined at bedside. AM vitals and labs reviewed. Patient was seen today with Mellissa hugger still active. Patient nonreactive to verbal stimulus and light touch. Periodic twitching noted. Spoke to instructional support assistant who wanted an update on the patient. Provided update to the instructional support assistant and explained that there is still serious concern for the patient's temperature. Also discussed patient's possible dysphagia. Commercial Green Building Designer mentioned that the patient is primarily on a pur?ed diet at home due to issues of difficulty eating in the past, but patient has not been eating much leading up to the patient's current hospitalization. Commercial Green Building Designer also mentions that the patient has frequent vomiting and spit ups. Discussed tube feeds with instructional support assistant in the case of failed repeat speech evaluation, instructional support assistant would prefer to go forward with tube feeds if needed, but notes that the patient is not conserved and would have to reach out to Dr. Jiménez for medical decisions. Urine culture positive for Enterococcus faecalis that is resistant to tetracyclines. Ordered CT head to investigate possible RECORDING CLERK abnormalities that could be contributing to hypothermia, which was negative for acute processes. Ordered videofluoroscopic swallow study, which was significant for aspiration on thin barium admission. Will continue patient on vancomycin and piperacillin/tazobactam for management of sepsis secondary to community-acquired pneumonia versus UTI. Patient to receive methylprednisolone 30 mg day 3 of 3 for management of suspected ITP. Continue patient on D5W with next sodium check at 1300. Spoke to Dr. Jiménez, who does not want any PEG tube placement at this time including temporary PEG tube's, would be all right with NG tube if necessary. Dr. Jiménez stated that the patient was started on glycopyrrolate about 3 weeks ago and suspects that it may be the cause of the patient's aspiration difficulties. Consulted GI, Dr. Ascencio, we will plan to do EGD tomorrow with swallow eval to follow to investigate dysphagia. Review of systems otherwise negative except for what is mentioned above. Exam Vital Signs Temp Pulse Resp BP Pulse Ox O2 Del Method O2 Flow Rate 97.0 F 73 24 H 98/68 92 L Room Air 3 01/14/25 08:00 01/14/25 08:00 01/14/25 08:00 01/14/25 08:00 01/14/25 08:00 01/14/25 04:00 01/13/25 20:00 Objective Labs 01/14/25 05:04 01/14/25 13:24 Labs: Laboratory Results - last 24 hr 01/13/25 01/13/25 01/13/25 04:26 12:51 20:45 WBC 5.0 RBC 2.85 L Hgb 8.9 L Hct 27.1 L MCV 95 MCH 31.2 MCHC 32.8 RDW Std Deviation 61.8 H Plt Count 77 L D Neut % (Auto) 84 H Lymph % (Auto) 12 [place] % (Auto) 3 Eos % (Auto) 0 Baso % (Auto) 0 Neut # (Auto) 4.2 Lymph # (Auto) 0.6 L [place] # (Auto) 0.2 Eos # (Auto) 0.0 Baso # (Auto) 0.0 Immature Gran # (Auto) 0.03 H Absolute Nucleated RBC 0.06 H Immature Gran % 1 H Nucleated RBC % 1 H Smear Path Review Sodium 149 H 147 H Potassium Chloride Carbon Dioxide Anion Gap BUN Creatinine Estim Creat Clear Calc eGFR BUN/Creatinine Ratio Glucose Calculated Osmolality Calcium Corrected Calcium Magnesium Total Bilirubin AST ALT Alkaline Phosphatase Total Protein Albumin Globulin Albumin/Globulin Ratio 25-OH Vitamin D Total > 150.0 H PTH Intact 79.1 Random Vancomycin Misc Test Result Platelets confirmed 01/14/25 05:04 WBC 4.7 RBC 2.78 L Hgb 8.7 L Hct 26.3 L MCV 95 MCH 31.3 MCHC 33.1 RDW Std Deviation 60.4 H Plt Count 63 L Neut % (Auto) 77 Lymph % (Auto) 18 [place] % (Auto) 5 Eos % (Auto) 0 Baso % (Auto) 0 Neut # (Auto) 3.6 Lymph # (Auto) 0.8 L [place] # (Auto) 0.2 Eos # (Auto) 0.0 Baso # (Auto) 0.0 Immature Gran # (Auto) 0.02 H Absolute Nucleated RBC 0.04 H Immature Gran % 0 Nucleated RBC % 1 H Smear Path Review Sodium 148 H Potassium 3.7 Chloride 111 H Carbon Dioxide 27.9 Anion Gap 9 BUN 7 L Creatinine 0.7 Estim Creat Clear Calc 61.8 eGFR > 60 BUN/Creatinine Ratio 10 L Glucose 158 H Calculated Osmolality 295 Calcium 9.8 Corrected Calcium 10.4 H Magnesium 1.8 Total Bilirubin 0.4 AST 112 H ALT 141 H Alkaline Phosphatase 227 H D Total Protein 5.8 Albumin 3.2 L Globulin 2.6 Albumin/Globulin Ratio 1.2 25-OH Vitamin D Total PTH Intact Random Vancomycin 7.4 Misc Test Result Platelets confirmed Quality Measures Quality Measures sepsis Current suspected stage: sepsis Possible source: pulmonary, genitourinary and unknown Blood cultures ordered: completed in ED Antibiotic ordered: Yes Assessment & Plan Assessment Current Active Medications: Generic Name Dose Route Start Last Admin Trade Name Freq PRN Reason Stop Dose Admin Acetaminophen 325 mg 01/11/25 22:28 Acetaminophen 325 Mg Tablet PO 02/10/25 22:27 Q4HR PRN Pain 1 - 3 Or Fever > 101 Albuterol/Ipratropium 3 ml 01/14/25 01:23 Albuterol/Ipratropium (Duoneb) Rt Martina 3 Ml Nebu INH 02/13/25 01:59 Q2HR PRN shorthness of breath or wheeze Buspirone HCl 10 mg 01/12/25 21:00 01/14/25 08:29 Buspirone Hcl 5 Mg Tablet PO 02/11/25 20:59 Not Given BID MARCIA Famotidine 20 mg 01/12/25 09:00 01/14/25 08:29 Famotidine Inj 10 Mg/Ml Vial 2 Ml IVP 02/11/25 08:59 20 mg QDAY MARCIA Administration Piperacillin/Tazobactam/Dextrose 3.375 gm in 50 mls @ 12.5 mls/hr 01/11/25 22:00 01/14/25 05:14 Zosyn IV 01/18/25 21:59 12.5 mls/hr Q8HR MARCIA Administration Dextrose 1,000 mls @ 125 mls/hr 01/14/25 07:34 01/14/25 08:26 D5w IV 02/13/25 07:33 125 mls/hr .Q8H MARCIA Administration Loratadine 10 mg 01/13/25 09:00 01/14/25 08:29 Loratadine 10 Mg Tablet PO 02/12/25 08:59 Not Given QDAY MARCIA Pharmacy Consult 1 each 01/13/25 14:20 Vancomycin Pharmacy To Dose 1 Each Each IV 02/12/25 14:19 QDAY PRN PROTOCOL Plan Ms. Herrera is a 29 year old female with a history of severe intellectual disability who presented to [facility] ED on 01/11 for hypothermia and altered mental status. The patient was admitted to ICU for 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 Patient downgraded to hospital floors 01/13. #Sepsis 2/2 #Community acquired pneumonia vs #Urinary tract infection (Entercoccus faecalis) #Hypothermnia (resolved) #Hypotension (resolved) #Transaminitis (resolving) #OLENA, likely prerenal (resolving) Patient was brought to the ED with chief complaint of low temperature and altered mental status. The patient was admitted to ICU due to temperature of 91.1 ?F in the ED. At her lowest, the patient had a temperature of 89.1 ?F rectally. Patient required Mellissa hugger and ICU for management of hypothermia. In addition, the patient had MAP less than 65 in ED despite fluid boluses, further necessitating ICU care as pressors were needed for management. While blood cultures drawn were negative, the patient grew gram-positive cocci and urine culture and CT abdomen/pelvis showed right middle and bibasilar pneumonia along with significant pneumonia in the left base. Endorgan damage was noted with transaminitis and OLENA on admission, AST 371, ALT 202, creatinine 0.9 (baseline 0.5). ? Will continue to monitor patient's temperature, will continue Emllissa hugger until patient temperature improves ? Will continue to monitor due to blood pressure, keep MAP above 65 ? Will continue to monitor LFTs, ultrasound gallbladder negative for acute cholecystitis and viral panel negative ? Continue vancomycin and Zosyn (01/11--) ? Ordered CT head without contrast to investigate possible anatomic abnormalities leading to hypothermia, which was negative #Dysphagia In ICU, patient failed bedside swallow eval and so was referred to speech therapy. However, the patient passed swallow eval with speech therapy, and so patient was started on dysphagia 1 diet. It was reported by nursing staff that they tried to feed the patient, however the patient was not showing anything, and the nurses had to scrape the fluid out of her mouth. ? Will keep patient n.p.o. due to concerns of aspiration ? Ordered videofluoroscopic swallow study, which was significant for aspiration on thin barium admission ? Reached out to patient's medical decision-maker, Dr. Jiménez, who believes that glycopyrrolate is most likely the source of the patient's initial symptoms leading to ED presentation, and does not want any PEG tube placement at this time ? Consulted GI, Dr. Ascencio, who plans to do EGD tomorrow with swallow evaluation to follow #Thrombocytopenia 2/2 #Suspected ITP #New onset hematuria (resolved) Patient noted to have platelet of 26 on admission. Platelets continue to decrease to a low of 16, until platelet transfusion on 01/13, which increased platelets to 77. Patient noted to have hematuria in ICU. This is likely due to underlying sepsis versus viral illness versus radiographic thrombocytopenia. Reticulocyte count and peripheral smear are sent without significant abnormality noted except for severe thrombocytopenia. ICU did workup for thrombocytopenia, all of which is negative including hepatitis panel, HIV, GARRICK screen, iron, B12, folate, DIC panel. ICU team discussed case with Dr. Chandra, pathologist, who reported that the patient did not have any abnormal cells or severe features suggestive of TTP?HUS. ITP is suspected as a diagnosis of exclusion. Urinalysis 01/12 showed 3+ blood in urine and 1009 RBC. ? Avoid antiplatelets and anticoagulants ? Continue to monitor platelet count and assess for bleeding ? 1 unit of platelet transfused in ICU on 01/13 ? Will continue methylprednisolone 30 mg for 3 days, end date 01/14 #Anemia, normocytic normochromic Patient noted to have hemoglobin of 11.6 on admission with a downward trend during hospitalization. Likely due to dehydration at time of admission with contribution from hematuria. ? Will continue to monitor CBC ? Patient noted to have iron 201, and iron saturation 85% with ferritin at 756 ? Low clinical suspicion for hemochromatosis at this time as patient has no symptoms noted #Hypernatremia (resolving) #Hyperchloremia (resolving) Patient was noted to have a sodium of 157 and chloride of 115 on admission. This has improved over time and with hydration, indicating that this is most likely due to dehydration. ? Continue patient on D5W with sodium to not decrease more than 10 over 24 hours ? Goal sodium 143, will stop D5W once goal is achieved ? Will continue to monitor with daily renal panel #Hypercalcemia Corrected calcium at time of patient noted to be 10.9. PTH noted to be 79.1. 25 OH vitamin D noted to be over 150, which is most likely the source of her hypercalcemia in addition to immobility. ? Will educate caretakers about excessive 25 OH vitamin D and recommend decreasing dosage if patient is taking supplements #Congenital hip dysplasia Patient found to have hip dysplasia on CT abdomen/pelvis. Patient is wheelchair-bound. ? No active treatment required at this time ? Follow-up with outpatient for management DVT Prophylaxis: SCDs GI Prophylaxis: Famotidine Bowel: N/A Diet: NPO Banda: Yes Lines: Peripheral IV Antibiotics: Vancomycin & Zosyn (01/11--) Code Status: FULL Reason for Hospitalization: Sepsis Other Barriers to Discharge: Hypernatremia & Hypothermia Patient plan of care was discussed with the senior resident Dr. Young (PGY-2) and attending physician Dr. Shaw. Tyrell Elaine, PGY1
[2025-01-14] MEDS: VANCOMYCIN/NS 500 MG IVPB 100 ML 120 MG IV (12:05)
[2025-01-14 14:22] LABS: Sodium 145 mMol/L (136-145)
--- NOTE | 2025-01-14 15:04 | PC.SS ---
SS met with caregiver, Usman at bedside who states pt is not conserved, CV, Dr. Jiménez helps make medical decisions, and pt does not have family. Usman states [facility] has [facility] a [facility] the [facility] [address] Jiménez with caregiver, Usman's phone#.
--- NOTE | 2025-01-14 18:11 | PD.IMCONS ---
HPI Data of Consult Requesting Physician: Becky Flowers MD Primary Care Provider: Priya Dominguez NP Consult Narrative Reason for consult: Dysphagia failed swallowing evaluation and modified barium swallow History of present illness: 29 years old female evaluated at the request of the internal medicine team Patient has been aspirating and the barium swallow that lead to aspiration She has failed swallowing evaluation I have been consulted for further evaluation cc:: cc: Becky Flowers MD Review of Systems Review of Systems ROS Unobtainable: unobtainable due to medical condition Meds Home Medications and Allergies Home Medications ?Medication ?Instructions ?Recorded ?Confirmed ?Type ketoconazole 2 % shampoo 1 applic topical DAILY PRN Dry Skin 01/19/19 01/12/25 History ketoconazole 2 % topical cream 1 applic topical BID 01/19/19 01/12/25 History loratadine 10 mg tablet 10 mg PO QDAY 01/19/19 01/12/25 History buspirone 10 mg tablet 10 mg PO BID 01/12/25 01/12/25 History ergocalciferol (vitamin D2) 1,250 1,250 mcg PO QWEEK 01/12/25 01/12/25 History mcg (50,000 unit) capsule glycopyrrolate 1 mg tablet 1 mg PO Q8H 01/12/25 01/12/25 History omeprazole 20 mg tablet,delayed 20 mg PO QDAY 01/12/25 01/12/25 History release risperidone 2 mg tablet 2 mg PO QPM 01/12/25 01/12/25 History risperidone 3 mg tablet 3 mg PO QAM 01/12/25 01/12/25 History Allergies Allergy/AdvReac Type Severity Reaction Status Date / Time clindamycin Allergy Vomiting Verified 01/11/25 12:54 Exam Vital Signs Temp Pulse Resp BP Pulse Ox O2 Del Method O2 Flow Rate 98.5 F 91 23 H 120/77 90 L Nasal Cannula 1 01/14/25 16:00 01/14/25 16:00 01/14/25 16:00 01/14/25 16:00 01/14/25 16:00 01/14/25 16:00 01/14/25 16:00 Constitutional Comments: Chronically ill-appearing Routine Abdominal Exam Comments: Soft nontender Results Labs 01/14/25 05:04 01/14/25 13:24 Labs: Short CBC 01/14/25 Range/Units 05:04 WBC 4.7 (3.6-11.0) Thou/mm3 Hgb 8.7 L (12.0-16.0) g/dL Hct 26.3 L (36.0-46.0) % Plt Count 63 L (140-440) Thou/mm3 BMP 01/13/25 01/14/25 01/14/25 20:45 05:04 13:24 Sodium 147 H 148 H 145 Potassium 3.7 Chloride 111 H Carbon Dioxide 27.9 BUN 7 L Creatinine 0.7 Glucose 158 H Calcium 9.8 Liver Function 01/14/25 Range/Units 05:04 Total Bilirubin 0.4 (0.3-1.2) mg/dL AST 112 H (0-34) U/L ALT 141 H (10-49) U/L Alkaline Phosphatase 227 H D (46-116) U/L Albumin 3.2 L (3.5-5.0) gm/dL Assessment and Plan Additional Assessment & Plan Additional Plan: # Dysphagia # Recurrent aspiration Plan Consent to be obtained for fiberoptic esophagogastroduodenoscopy with possible proximal esophageal stricture dilatation to prevent aspiration Hopefully that will work If it does not work we will consider after talking to Dr. Jiménez for the possibility of a PEG placement She should be given every opportunity not to go that route at least at the moment Thank you very much for the opportunity to participate in the care of this patient
[2025-01-14 21:47] LABS: Sodium 149 mMol/L (136-145)
[2025-01-15] VITALS (22 sets, daily range): BP systolic 75–127; BP diastolic 48–96; PULSE 51–69; RESP 12–99; TEMP 35.2–36.6; O2SAT 95–100; BMI 18.3
[2025-01-15] MEDS: PIPER/TAZO 3.375 GM PREMIX 3.375 GM/50 ML BAG IV ×3 (05:20→21:57)
[2025-01-15 06:22] LABS: Basophils # (Auto) 0.0 Thou/mm3 (0.0-0.2); Basophils % (Auto) 0 % (0-2.5); Eosinophils # (Auto) 0.0 Thou/mm3 (0.0-0.5); Eosinophils % (Auto) 0 % (0-10); Hematocrit 25.0 % (36.0-46.0); Immature Granulocytes Auto 0.03 Thou/mm3 (0.00-0.00); Lymphocytes # (Auto) 2.5 Thou/mm3 (1.0-4.8); Lymphocytes % (Auto) 38 % (10-50); Mean Corpuscular HGB Conc 33.2 g/dl (31.0-37.0); Mean Corpuscular Hemoglobin 31.4 pg (25.0-35.0); Mean Corpuscular Volume 95 fL (80-100); Monocytes # (Auto) 0.3 Thou/mm3 (0.0-0.8); Monocytes % (Auto) 4 % (0-12); Neutrophils # (Auto) 3.8 Thou/mm3 (1.8-7.7); Neutrophils % (Auto) 57 % (37-80); Nucleated Red Blood Cell # 0.06 Thou/mm3 (0.00-0.00); Nucleated Red Blood Cell % 1 /100 WBC (0); RDW Standard Deviation 62.5 fL (36.4-46.3); Red Blood Count 2.64 Miln/mm3 (4.00-5.20); White Blood Count 6.6 Thou/mm3 (3.6-11.0)
[2025-01-15 06:26] LABS: Hemoglobin 8.3 g/dL (12.0-16.0); Platelet Count 70 Thou/mm3 (140-440)
[2025-01-15 06:34] LABS: Alanine Aminotransferase 130 U/L (10-49); Albumin, Serum 3.2 gm/dL (3.5-5.0); Albumin/Globulin Ratio 1.4 (1.2-2.2); Alkaline Phosphatase 244 U/L (46-116); Anion Gap 10 (7-16); Aspartate Amino Transferase 100 U/L (0-34); BUN/Creatinine Ratio 13 Ratio (12-20); Bilirubin,Total 0.4 mg/dL (0.3-1.2); Blood Urea Nitrogen 10 mg/dL (9-23); Calcium 9.7 mg/dL (8.3-10.6); Calcium (Corrected) 10.3 mg/dL (8.5-10.1); Carbon Dioxide 28.6 mMol/L (20.0-31.0); Chloride 111 mMol/L (98-107); Creatinine (Component) 0.8 mg/dL (0.6-1.3); Estimated Creatinine Clearance 54.1 mL/min (>60); Globulin 2.3 gm/dL (2.3-3.5); Glucose 119 mg/dL (74-106); Magnesium 1.6 mg/dL (1.6-2.6); Osmolality,Calculated 298 (275-295); Potassium 3.2 mMol/L (3.4-5.1); Sodium 150 mMol/L (136-145); Total Protein 5.5 gm/dL (5.7-8.2); Vancomycin,Random 8.8 mcg/mL; eGFR > 60 See Note
[2025-01-15 08:41] LABS: Slide Review Platelets confirmed
[2025-01-15] MEDS: POTASSIUM CHL 10 mEq IVPB 10 MEQ/100 ML BAG 100 MEQ IV ×4 (09:02→12:24)
[2025-01-15] MEDS: DEXTROSE 5%-WATER 1,000 ML 150 ML IV (09:03)
[2025-01-15] MEDS: FAMOTIDINE INJ 10 MG/ML VIAL 2 ML 20 MG IVP (09:53)
[2025-01-15] MEDS: VANCOMYCIN/NS 750 MG IVPB 750 MG/150 ML BAG 120 MG IV (10:08)
--- NOTE | 2025-01-15 11:22 | PC.DIETICIAN ---
Nutrition prescription If oral intake is feasible: Dys Pureed, Mildly-thick liquids. Mighty Shake 120ml TID with meals. If EN is indicated, consider: 1. Jevity 1.2 at 20 ml/hr via OG/NG/PEG tube by pump. Advance 10 ml every 8 hrs to goal rate of 45 ml/hr x 24 hrs. If no IV fluids, water flushes of 25 ml/hr (or per MD). 2. Thiamine 100mg/day for 7 days; provide first dose at least 30 minutes before starting nutrition. 3. Multivitamins/Minerals. 4. Daily labs for P, K, and Mg; replace as needed.
[2025-01-15 11:26] LABS: Sodium 148 mMol/L (136-145)
--- NOTE | 2025-01-15 12:04 | ESPR_ITS ---
<Statement entered by Jose Antonio Young MD - 01/15/25 17:53> Patient was seen and examined at bedside. I agree on the assessment and plan on this note as documented by resident Kamla Dong DO PGY1. 29-year-old female with past medical history as below, patient continues to have hyponatremia, sodium 150 this morning, we increased D5W 275 cc/h, sodium is downtrending, will continue to monitor sodium. Patient is undergoing EGD today for dysphagia evaluation, will follow-up in a.m. post results. Patient continues to have episodes of hypothermia, patient's hypothermia highly likely secondary to patient's underlying cachexia however we will order ACTH, random cortisol and 8 AM cortisol. Will follow-up with patient's conservator after EGD for possible PEG tube placement. Otherwise patient stable, disposition telemetry Case discussed with attending Dr. Gallito Young MD PGY-2 Documentation for date of: 01/15/25 Subjective Subjective Interval history: No acute overnight events. Patient seen and examined at bedside. No Mellissa hugger this morning and recorded temperature 97.6. Patient appears to be at baseline. No abdominal tenderness or leg edema. Banda in place draining clear urine. Last reading of hypothermia was 01/14 at 0011, today 01/15 at 1600 temp again at 92.4F, Mellissa hugger initiated. Ordered morning ACTH, AM cortisol and CK. Suspecting poor PO intake as thyroid function normal. Scheduled for EGD today to assess possible esophageal stricture and dilatation. AM sodium 150 and repeat sodium 148 at 1100. Free water deficit calculated to be at 1.2 L. Increased D5W from 125 cc an hour to 175 cc an hour. Considering NG tube replaced free water if EGD unremarkable, and per conservator no PEG tube at this time. Follow- up sodium at 5 PM. Continue antibiotics of Vanco and Zosyn for CAP and Enterococcus faecalis UTI. Finished 3 days of Solu-Medrol yesterday for suspected ITP. Potassium 3.2, repleted with IV KCl 40 mEq. AST/ALT downtrending at 100/130. Exam Vital Signs Temp Pulse Resp BP Pulse Ox O2 Del Method O2 Flow Rate 95.4 F L 57 L 18 119/83 99 Nasal Cannula 2 01/15/25 08:00 01/15/25 08:00 01/15/25 08:00 01/15/25 08:00 01/15/25 08:00 01/15/25 08:00 01/15/25 08:00 Narrative Exam GENERAL: nonverbal, arousable to light tough and voice, lying comfortably in bed HEENT: NC/AT, mucous membranes moist, bilateral sclera anicteric CARDIOVASCULAR: regular rate and rhythm, S1/S2 present, no murmurs appreciated PULMONARY: clear to auscultation bilaterally, no rales/rhonchi/wheezes ABDOMINAL: soft, non-tender, non-distended, no rebound/guarding, bowel sounds present EXTREMITIES: no peripheral edema, lower extremity wasting SKIN: warm and dry, intact, no rashes NEURO: nonverbal, noninteractive Objective Labs 01/15/25 05:36 01/15/25 11:05 Labs: Laboratory Results - last 24 hr 01/14/25 01/14/25 01/15/25 13:24 21:00 05:36 WBC 6.6 D RBC 2.64 L Hgb 8.3 L Hct 25.0 L MCV 95 MCH 31.4 MCHC 33.2 RDW Std Deviation 62.5 H Plt Count 70 L Neut % (Auto) 57 Lymph % (Auto) 38 Lewis % (Auto) 4 Eos % (Auto) 0 Baso % (Auto) 0 Neut # (Auto) 3.8 Lymph # (Auto) 2.5 Lewis # (Auto) 0.3 Eos # (Auto) 0.0 Baso # (Auto) 0.0 Immature Gran # (Auto) 0.03 H Absolute Nucleated RBC 0.06 H Immature Gran % 1 H Nucleated RBC % 1 H Sodium 145 149 H 150 H Potassium 3.2 L D Chloride 111 H Carbon Dioxide 28.6 Anion Gap 10 BUN 10 Creatinine 0.8 Estim Creat Clear Calc 54.1 L eGFR > 60 BUN/Creatinine Ratio 13 Glucose 119 H Calculated Osmolality 298 H Calcium 9.7 Corrected Calcium 10.3 H Magnesium 1.6 Total Bilirubin 0.4 AST 100 H ALT 130 H Alkaline Phosphatase 244 H Total Protein 5.5 L Albumin 3.2 L Globulin 2.3 Albumin/Globulin Ratio 1.4 Random Vancomycin 8.8 Misc Test Result Platelets confirmed 01/15/25 11:05 WBC RBC Hgb Hct MCV MCH MCHC RDW Std Deviation Plt Count Neut % (Auto) Lymph % (Auto) Lewis % (Auto) Eos % (Auto) Baso % (Auto) Neut # (Auto) Lymph # (Auto) Lewis # (Auto) Eos # (Auto) Baso # (Auto) Immature Gran # (Auto) Absolute Nucleated RBC Immature Gran % Nucleated RBC % Sodium 148 H Potassium Chloride Carbon Dioxide Anion Gap BUN Creatinine Estim Creat Clear Calc eGFR BUN/Creatinine Ratio Glucose Calculated Osmolality Calcium Corrected Calcium Magnesium Total Bilirubin AST ALT Alkaline Phosphatase Total Protein Albumin Globulin Albumin/Globulin Ratio Random Vancomycin Misc Test Result Quality Measures Quality Measures sepsis Current suspected stage: sepsis Possible source: pulmonary, genitourinary and unknown Blood cultures ordered: completed in ED Antibiotic ordered: Yes Assessment & Plan Assessment Current Active Medications: Generic Name Dose Route Start Last Admin Trade Name Freq PRN Reason Stop Dose Admin Acetaminophen 325 mg 01/11/25 22:28 Acetaminophen 325 Mg Tablet PO 02/10/25 22:27 Q4HR PRN Pain 1 - 3 Or Fever > 101 Albuterol/Ipratropium 3 ml 01/14/25 01:23 Albuterol/Ipratropium (Duoneb) Rt Martina 3 Ml Nebu INH 02/13/25 01:59 Q2HR PRN shorthness of breath or wheeze Buspirone HCl 10 mg 01/12/25 21:00 01/15/25 09:58 Buspirone Hcl 5 Mg Tablet PO 02/11/25 20:59 Not Given BID MARCIA Famotidine 20 mg 01/12/25 09:00 01/15/25 09:53 Famotidine Inj 10 Mg/Ml Vial 2 Ml IVP 02/11/25 08:59 20 mg QDAY MARCIA Administration Piperacillin/Tazobactam/Dextrose 3.375 gm in 50 mls @ 12.5 mls/hr 01/11/25 22:00 01/15/25 05:20 Zosyn IV 01/18/25 21:59 12.5 mls/hr Q8HR MARCIA Administration Dextrose 1,000 mls @ 150 mls/hr 01/15/25 08:01 01/15/25 09:03 D5w IV 02/14/25 07:59 150 mls/hr .[id number] MARCIA Administration Loratadine 10 mg 01/13/25 09:00 01/15/25 09:58 Loratadine 10 Mg Tablet PO 02/12/25 08:59 Not Given QDAY [facility] Pharmacy Consult 1 each 01/13/25 14:20 Vancomycin Pharmacy To Dose 1 Each Each IV 02/12/25 14:19 QDAY PRN PROTOCOL Plan Kelly Herrera is a 29F pmhx significant for severe intellectual disability, non verbal at baseline, who presented to [facility] ED on 01/11 for hypothermia and altered mental status. The patient was admitted to ICU for 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 Patient downgraded to hospital floors 01/13 for further management. #Hypernatremia, improving #Hyperchloremia, improving Patient was noted to have a sodium of 157 and chloride of 115 on admission. This has improved over time and with hydration, indicating that this is most likely due to dehydration. Na decreased to 145 at lowest, however continues to increase. Today, Na 150. Plan: ? Continue patient on D5W with sodium to not decrease >10 over 24 hours, goal today 140, stop D5W once achieved - Change D5W from 125 cc/hr to 175 cc/hr as patient's sodium continues to increase - Free water deficit calculated 1.2L, patient will benefit from free water through NG tube, however scheduled for EGD today, will likely insert NG tube tomorrow ? Will continue to monitor with daily renal panel - F/u sodium check at 1700 #Sepsis, resolving 2/2 #Community acquired pneumonia and #Urinary tract infection (Entercoccus faecalis) #Hypothermnia, improving #Hypotension (resolved) #Transaminitis (resolving) #OLENA, likely prerenal (resolving) Presented to ED with hypothermia of 91.1F, lowest 89.1F rectally, and altered mental status. Admitted to ICU for management of hypotension, requiring pressors, hypothermia, requiring Mellissa hugger, and severe thrombocytopenia. Hypothermia likely 2/2 poor PO intake and muscle wasting. CTAP showed right middle and bibasilar pneumonia along with significant pneumonia in the left base. US gallbladder negative for acute cholecystitis and hep panel neg. CT head neg unremarkable. BCx NGTD, UCx +enterococcus faecalis Endorgan damage was noted with transaminitis and OLENA on admission, AST 371, ALT 202, creatinine 0.9 (baseline 0.5). FeNa 0.3%, supporting prerenal likely 2/2 poor PO intake Plan: ? CTM temperature, will continue Mellissa hugger until patient temperature improves ? CTM blood pressure, keep MAP >65 ? CTM LFTs ? Continue vancomycin and Zosyn (01/11- ) - F/u repeat BCx - F/u ACTH, morning cortisol and CK #Dysphagia In ICU, patient failed bedside swallow eval and so was referred to speech therapy. However, the patient passed swallow eval with speech therapy, and so patient was started on dysphagia 1 diet. It was reported by nursing staff that they tried to feed the patient, however the patient was not showing anything, and the nurses had to scrape the fluid out of her mouth. Videofluoroscopic study showed aspiration on thin barium admission Ppatient's medical decision-maker, Dr. Jiménez believes that glycopyrrolate is most likely the source of the patient's initial symptoms leading to ED presentation, and does not want any PEG tube placement at this time Plan: ? NPO iso aspiration and EGD today to alleviate any reversible strictures if present ? Consulted GI, Dr. Ascencio, recs appreciated - Considering to pursue NG tube instead of PEG tube #Thrombocytopenia #Suspected ITP #New onset hematuria (resolved) Patient noted to have platelet of 26, lowest 16, on admission. In ICU s/p platelet transfusion on 01/13, which increased platelets to 77. Patient noted to have hematuria in ICU. This is likely due to underlying sepsis versus viral illness versus radiographic thrombocytopenia. Reticulocyte count and peripheral smear are sent without significant abnormality noted except for severe thrombocytopenia. ICU did workup for thrombocytopenia, all of which is negative including hepatitis panel, HIV, GARRICK screen, iron, B12, folate, DIC panel. ICU team discussed case with Dr. Chandra, pathologist, who reported that the patient did not have any abnormal cells or severe features suggestive of TTP?HUS. ITP is suspected as a diagnosis of exclusion. Urinalysis 01/12 showed 3+ blood in urine and 1009 RBC. Methylprednisolone 30 mg (01/12-01/14) Plan: ? Avoid antiplatelets and anticoagulants ? Continue to monitor platelet count and assess for bleeding - F/u haptoglobin #Anemia, normocytic normochromic Patient noted to have hemoglobin of 11.6 on admission with a downward trend during hospitalization. Likely due to dehydration at time of admission with contribution from hematuria. Iron 201, and iron saturation 85% with ferritin at 756, folate wnl Pathology smear reports minimal anemia supporting likely dehydration and sepsis as more likely causes. Plan: ? Will continue to monitor CBC #Hypercalcemia Corrected calcium at time of patient noted to be 10.9. PTH noted to be 79.1. 25 OH vitamin D >150, which is most likely the source of her hypercalcemia in addition to immobility. Plan: ? Will educate caretakers about excessive 25 OH vitamin D and recommend decreasing dosage if patient is taking supplements #Congenital hip dysplasia Patient found to have hip dysplasia on CT abdomen/pelvis. Patient is wheelchair-bound. Plan: ? No active treatment required at this time ? Follow-up with outpatient for management Hospital management: Lines: peripheral IV, Banda Diet: NPO Bowel: None GI prophylaxis: famotidine DVT prophylaxis: SCDs Disposition: tele for management of hypothermia and abx for CAP and PNA CODE STATUS: Full code Plan of care discussed with attending Dr. Carpenter, and PGY-2 Dr. Young. Kamla Dong, DO PGY-1 Internal Medicine Attending Provider Attestation/Addendum I Gallito Carpenter MD reviewed the note and agree with the resident's assessment & plan with modifications/additions/exceptions as below. I have personally reviewed labs, imaging, home meds/prior records, examined the patient, formulated and discussed management plan with the IM team. A 29-year-old female with history of severe intellectual disability nonverbal admitted for acute on chronic encephalopathy, severe hyponatremia, pancytopenia, possible ITP diagnosed during hospitalization along with HCAP, UTI and malnutrition. Patient is hypothermic with sodium of 150 and noted to have aspiration on fluoroscopic swallow evaluation. Increase D5-1 50 cc an hour, continue vancomycin and Zosyn empirically for UTI and pneumonia to complete total 7 days, GI is consulted for evaluation by EGD followed by enteral feeding access for adequate hydration and nutrition. Will obtain echocardiogram repeat blood cultures due to persistent hypothermia, obtain ACTH and a.m. cortisol level. Patient is conserved and reportedly conservator was not agreeable to PEG tube placement. Will reach out to conservator post EGD regarding appropriate enteral feeding modality.
[2025-01-15 15:00] LABS: Free T3 2.1 pg/mL (2.3-4.2); Free T4 (Free Thyroxine) 1.08 ng/dL (0.89-1.76)
[2025-01-15] MEDS: DEXTROSE 5%-WATER 1,000 ML 175 ML IV (15:18)
--- NOTE | 2025-01-15 16:32 | PC.SS ---
Rounding note: Patient is hypothermic, EGD pending. Patient to return to [facility] home when medically clear.
--- NOTE | 2025-01-15 17:38 | SUR.PHASEI ---
Addendum entered by Edilberto Pena RN 01/15/25 17:43: correction: pt arrived to pacu at 1730 Original Note: received pt and report from LUCIANO Cullen. Pt sedated. IV x2 intact, pt arousable to tactile stimulation.
--- NOTE | 2025-01-15 18:08 | SUR.PHASEI ---
Dr. Ascencio made aware of pt's low bp and BS 67, order to resume IVF of D5W.
--- NOTE | 2025-01-15 18:11 | SUR.PHASEI ---
BS rechecked and is 90
--- NOTE | 2025-01-15 18:20 | SUR.PHASEI ---
vss stable, bs stable, pt more awake, f/c draining well, IV x2 remains intact. report given to LUCIANO Barraza
[2025-01-15] MEDS: SODIUM CHLORIDE 0.9% 500 ML 500 ML 999 ML IV (18:45)
[2025-01-15 19:23] LABS: Sodium 149 mMol/L (136-145)
[2025-01-15] MEDS: THIAMINE INJ 100 MG/ML VIAL 2 ML IVP (21:57)
[2025-01-16] VITALS (8 sets, daily range): BP systolic 94–105; BP diastolic 62–71; PULSE 58–85; RESP 17–92; TEMP 35.5–36.5; O2SAT 92–99
[2025-01-16] MEDS: DEXTROSE 5%-WATER 1,000 ML 175 ML IV ×4 (02:47→21:38)
[2025-01-16] MEDS: PIPER/TAZO 3.375 GM PREMIX 3.375 GM/50 ML BAG IV ×3 (05:23→21:39)
[2025-01-16 06:43] LABS: Basophils # (Auto) 0.0 Thou/mm3 (0.0-0.2); Basophils % (Auto) 0 % (0-2.5); Eosinophils # (Auto) 0.1 Thou/mm3 (0.0-0.5); Eosinophils % (Auto) 1 % (0-10); Hematocrit 24.6 % (36.0-46.0); Immature Granulocytes Auto 0.07 Thou/mm3 (0.00-0.00); Lymphocytes # (Auto) 1.8 Thou/mm3 (1.0-4.8); Lymphocytes % (Auto) 31 % (10-50); Mean Corpuscular HGB Conc 32.1 g/dl (31.0-37.0); Mean Corpuscular Hemoglobin 30.4 pg (25.0-35.0); Mean Corpuscular Volume 95 fL (80-100); Monocytes # (Auto) 0.3 Thou/mm3 (0.0-0.8); Monocytes % (Auto) 6 % (0-12); Neutrophils # (Auto) 3.5 Thou/mm3 (1.8-7.7); Neutrophils % (Auto) 61 % (37-80); Nucleated Red Blood Cell # 0.04 Thou/mm3 (0.00-0.00); Nucleated Red Blood Cell % 1 /100 WBC (0); Platelet Count 81 Thou/mm3 (140-440); RDW Standard Deviation 62.8 fL (36.4-46.3); Red Blood Count 2.60 Miln/mm3 (4.00-5.20); White Blood Count 5.7 Thou/mm3 (3.6-11.0)
[2025-01-16 07:00] LABS: Hemoglobin 7.9 g/dL (12.0-16.0)
[2025-01-16 07:25] LABS: Alanine Aminotransferase 121 U/L (10-49); Albumin, Serum 3.0 gm/dL (3.5-5.0); Albumin/Globulin Ratio 1.3 (1.2-2.2); Alkaline Phosphatase 226 U/L (46-116); Anion Gap 10 (7-16); Aspartate Amino Transferase 101 U/L (0-34); BUN/Creatinine Ratio 9 Ratio (12-20); Bilirubin,Total 0.4 mg/dL (0.3-1.2); Blood Urea Nitrogen 7 mg/dL (9-23); Calcium 9.3 mg/dL (8.3-10.6); Calcium (Corrected) 10.1 mg/dL (8.5-10.1); Carbon Dioxide 26.2 mMol/L (20.0-31.0); Chloride 113 mMol/L (98-107); Creatine Kinase 66 U/L (34-171); Creatinine (Component) 0.8 mg/dL (0.6-1.3); Estimated Creatinine Clearance 53.9 mL/min (>60); Globulin 2.3 gm/dL (2.3-3.5); Glucose 117 mg/dL (74-106); Magnesium 1.3 mg/dL (1.6-2.6); Osmolality,Calculated 295 (275-295); Potassium 3.7 mMol/L (3.4-5.1); Sodium 149 mMol/L (136-145); Total Protein 5.3 gm/dL (5.7-8.2); eGFR > 60 See Note
[2025-01-16] MEDS: Magnesium Sulfate 4 GM Ivpb 4 GM/50 ML BAG IV (08:56)
[2025-01-16] MEDS: THIAMINE INJ 100 MG/ML VIAL 2 ML IVP ×2 (08:57→21:39)
[2025-01-16] MEDS: FAMOTIDINE INJ 10 MG/ML VIAL 2 ML 20 MG IVP (08:59)
[2025-01-16 09:55] LABS: Vancomycin,Trough 11.8 mcg/mL (5.0-10.0)
[2025-01-16] MEDS: VANCOMYCIN/WATER 1GM IVPB 200 ML IV (11:28)
--- NOTE | 2025-01-16 12:58 | PC.NURSE ---
Rodolfo bardales reaplied Temp/temporal 95.9
--- NOTE | 2025-01-16 14:12 | ESPR_ITS ---
Documentation for date of: 01/16/25 Subjective Subjective Interval history: Overnight events: No acute events overnight. Patient was seen and examined at bedside. AM vitals and labs reviewed. Patient was not responsive to verbal stimulus, but did open eyes on physical examination. Patient continues to be on Mellissa hugger due to hypothermia. Free water deficit calculated to be 0.7 L this morning. EGD was done yesterday, showed benign appearing esophageal stricture, which was dilated. D5W rate was increased to 175 cc/h. ACTH, random cortisol, morning cortisol ordered yesterday, pending results. Continue D5W at 175 cc/h with a goal sodium rate of 143. Next sodium at 2030. Continue vancomycin and Zosyn. Pending ACTH, random cortisol, morning cortisol. Pending speech evaluation tomorrow, GI may pursue PEG tubes depending on results. Review of systems otherwise negative except for what is mentioned above. Exam Vital Signs Temp Pulse Resp BP Pulse Ox O2 Del Method O2 Flow Rate 95.9 F L 71 23 H 99/68 96 Nasal Cannula 1 01/16/25 12:00 01/16/25 12:01/16/25 12:01/16/25 12:01/16/25 12:01/16/25 12:01/16/25 12:00 Narrative Exam Physical Exam: General: Unarousable to voice, no acute distress. Nonverbal, noninteractive. On Mellissa Hugger. Skin: Warm, cool, intact, no obvious rash. Head: Normocephalic, atraumatic. Cardiovascular: Regular rate and rhythm, no murmur, +S1/S2. Respiratory: Respirations unlabored on nasal cannula, no crackles, no wheezing. Gastrointestinal: Soft, nontender, non-distended. No guarding or rebound tenderness. Extremities: No edema, no cyanosis, no clubbing. 2+ radial pulse bilaterally, 2+ pedal pulse bilaterally. Objective Labs 01/16/25 06:05 01/16/25 14:20 Labs: Laboratory Results - last 24 hr 01/15/25 01/15/25 01/16/25 11:05 18:50 06:05 WBC 5.7 RBC 2.60 L Hgb 7.9 L Hct 24.6 L MCV 95 MCH 30.4 MCHC 32.1 RDW Std Deviation 62.8 H Plt Count 81 L Neut % (Auto) 61 Lymph % (Auto) 31 Saunders % (Auto) 6 Eos % (Auto) 1 Baso % (Auto) 0 Neut # (Auto) 3.5 Lymph # (Auto) 1.8 Saunders # (Auto) 0.3 Eos # (Auto) 0.1 Baso # (Auto) 0.0 Immature Gran # (Auto) 0.07 H Absolute Nucleated RBC 0.04 H Immature Gran % 1 H Nucleated RBC % 1 H Sodium 149 H 149 H Potassium 3.7 D Chloride 113 H Carbon Dioxide 26.2 Anion Gap 10 BUN 7 L Creatinine 0.8 Estim Creat Clear Calc 53.9 L eGFR > 60 BUN/Creatinine Ratio 9 L Glucose 117 H Calculated Osmolality 295 Calcium 9.3 Corrected Calcium 10.1 Magnesium 1.3 L Total Bilirubin 0.4 AST 101 H ALT 121 H Alkaline Phosphatase 226 H Total Creatine Kinase 66 Total Protein 5.3 L Albumin 3.0 L Globulin 2.3 Albumin/Globulin Ratio 1.3 Free T4 1.08 Free T3 pg/dL 2.1 L Vancomycin Trough 01/16/25 08:45 WBC RBC Hgb Hct MCV MCH MCHC RDW Std Deviation Plt Count Neut % (Auto) Lymph % (Auto) Saunders % (Auto) Eos % (Auto) Baso % (Auto) Neut # (Auto) Lymph # (Auto) Saunders # (Auto) Eos # (Auto) Baso # (Auto) Immature Gran # (Auto) Absolute Nucleated RBC Immature Gran % Nucleated RBC % Sodium Potassium Chloride Carbon Dioxide Anion Gap BUN Creatinine Estim Creat Clear Calc eGFR BUN/Creatinine Ratio Glucose Calculated Osmolality Calcium Corrected Calcium Magnesium Total Bilirubin AST ALT Alkaline Phosphatase Total Creatine Kinase Total Protein Albumin Globulin Albumin/Globulin Ratio Free T4 Free T3 pg/dL Vancomycin Trough 11.8 H Quality Measures Quality Measures sepsis Current suspected stage: sepsis Possible source: pulmonary, genitourinary and unknown Blood cultures ordered: completed in ED Antibiotic ordered: Yes Assessment & Plan Assessment Current Active Medications: Generic Name Dose Route Start Last Admin Trade Name Freq PRN Reason Stop Dose Admin Acetaminophen 325 mg 01/11/25 22:28 Acetaminophen 325 Mg Tablet PO 02/10/25 22:27 Q4HR PRN Pain 1 - 3 Or Fever > 101 Albuterol/Ipratropium 3 ml 01/14/25 01:23 Albuterol/Ipratropium (Duoneb) Rt Martina 3 Ml Nebu INH 02/13/25 01:59 Q2HR PRN shorthness of breath or wheeze Buspirone HCl 10 mg 01/12/25 21:00 01/16/25 08:25 Buspirone Hcl 5 Mg Tablet PO 02/11/25 20:59 Not Given BID MARCIA Famotidine 20 mg 01/12/25 09:00 01/16/25 08:59 Famotidine Inj 10 Mg/Ml Vial 2 Ml IVP 02/11/25 08:59 20 mg QDAY MARCIA Administration Piperacillin/Tazobactam/Dextrose 3.375 gm in 50 mls @ 12.5 mls/hr 01/11/25 22:00 01/16/25 05:23 Zosyn IV 01/18/25 21:59 12.5 mls/hr Q8HR MARCIA Administration Dextrose 1,000 mls @ 175 mls/hr 01/15/25 12:44 01/16/25 09:12 D5w IV 02/14/25 12:43 175 mls/hr .[id number] MARCIA Administration Vancomycin HCl 200 mls @ 120 mls/hr 01/16/25 10:30 01/16/25 11:28 Vancomycin/Water 1gm Ivpb IV 01/23/25 10:29 120 mls/hr DAILY@1000 MARCIA Administration Loratadine 10 mg 01/13/25 09:00 01/16/25 08:26 Loratadine 10 Mg Tablet PO 02/12/25 08:59 Not Given QDAY MARCIA Pharmacy Consult 1 each 01/13/25 14:20 Vancomycin Pharmacy To Dose 1 Each Each IV 02/12/25 14:19 QDAY PRN PROTOCOL Thiamine HCl 100 mg 01/15/25 21:00 01/16/25 08:57 Thiamine Inj 100 Mg/Ml Vial 2 Ml IVP 02/14/25 20:59 100 mg BID MARCIA Administration Plan Kelly Herrera is a 29F pmhx significant for severe intellectual disability, non verbal at baseline, who presented to [facility] ED on 01/11 for hypothermia and altered mental status. The patient was admitted to ICU for 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 Patient downgraded to hospital floors 01/13 for further management. #Hypernatremia, improving #Hyperchloremia, improving Patient was noted to have a sodium of 157 and chloride of 115 on admission. This has improved over time and with hydration, indicating that this is most likely due to dehydration. Na decreased to 145 at lowest, however continues to increase. Plan: ? Continue patient on D5W with sodium to not decrease >10 over 24 hours, goal today 140, stop D5W once achieved ? Continue D5W 175 cc/hr as patient's sodium continues to increase ? Free water deficit calculated 0.7L, patient will benefit from free water through NG tube, however pending repeat speech evaluation 01/17 ? Will continue to monitor with daily renal panel ? F/u sodium check at 2029 #Sepsis, resolving 2/2 #Community acquired pneumonia and #Urinary tract infection (Entercoccus faecalis) #Hypothermnia, improving #Hypotension (resolved) #Transaminitis (resolving) #OLENA, likely prerenal (resolving) Presented to ED with hypothermia of 91.1F, lowest 89.1F rectally, and altered mental status. Admitted to ICU for management of hypotension, requiring pressors, hypothermia, requiring Mellissa hugger, and severe thrombocytopenia. Hypothermia likely 2/2 poor PO intake and muscle wasting. CTAP showed right middle and bibasilar pneumonia along with significant pneumonia in the left base. US gallbladder negative for acute cholecystitis and hep panel neg. CT head neg unremarkable. BCx NGTD, UCx +enterococcus faecalis Endorgan damage was noted with transaminitis and OLENA on admission, AST 371, ALT 202, creatinine 0.9 (baseline 0.5). FeNa 0.3%, supporting prerenal likely 2/2 poor PO intake Plan: ? CTM temperature, will continue Mellissa hugger until patient temperature improves ? CTM blood pressure, keep MAP >65 ? CTM LFTs ? Continue vancomycin and Zosyn (01/11- ) ? F/u repeat BCx ? F/u ACTH, morning cortisol and CK #Dysphagia In ICU, patient failed bedside swallow eval and so was referred to speech therapy. However, the patient passed swallow eval with speech therapy, and so patient was started on dysphagia 1 diet. It was reported by nursing staff that they tried to feed the patient, however the patient was not showing anything, and the nurses had to scrape the fluid out of her mouth. Videofluoroscopic study showed aspiration on thin barium admission Ppatient's medical decision-maker, Dr. Jiménez believes that glycopyrrolate is most likely the source of the patient's initial symptoms leading to ED presentation, and does not want any PEG tube placement at this time Plan: ? Consulted GI, Dr. Ascencio, recs appreciated ?EGD 01/15 showed benign-appearing esophageal stricture, which was dilated ? Recommends keeping patient n.p.o. until speech evaluation on 01/17 ? Will pursue PEG tube or NG tube depending on speech eval #Thrombocytopenia #Suspected ITP #New onset hematuria (resolved) Patient noted to have platelet of 26, lowest 16, on admission. In ICU s/p platelet transfusion on 01/13, which increased platelets to 77. Patient noted to have hematuria in ICU. This is likely due to underlying sepsis versus viral illness versus radiographic thrombocytopenia. Reticulocyte count and peripheral smear are sent without significant abnormality noted except for severe thrombocytopenia. ICU did workup for thrombocytopenia, all of which is negative including hepatitis panel, HIV, GARRICK screen, iron, B12, folate, DIC panel. ICU team discussed case with Dr. Chandra, pathologist, who reported that the patient did not have any abnormal cells or severe features suggestive of TTP?HUS. ITP is suspected as a diagnosis of exclusion. Urinalysis 01/12 showed 3+ blood in urine and 1009 RBC. Methylprednisolone 30 mg (01/12-01/14) Plan: ? Avoid antiplatelets and anticoagulants ? Continue to monitor platelet count and assess for bleeding ? F/u haptoglobin #Anemia, normocytic normochromic Patient noted to have hemoglobin of 11.6 on admission with a downward trend during hospitalization. Likely due to dehydration at time of admission with contribution from hematuria. Iron 201, and iron saturation 85% with ferritin at 756, folate wnl Pathology smear reports minimal anemia supporting likely dehydration and sepsis as more likely causes. Plan: ? Will continue to monitor CBC #Hypercalcemia Corrected calcium at time of patient noted to be 10.9. PTH noted to be 79.1. 25 OH vitamin D >150, which is most likely the source of her hypercalcemia in addition to immobility. Plan: ? Will educate caretakers about excessive 25 OH vitamin D and recommend decreasing dosage if patient is taking supplements #Congenital hip dysplasia Patient found to have hip dysplasia on CT abdomen/pelvis. Patient is wheelchair-bound. Plan: ? No active treatment required at this time ? Follow-up with outpatient for management DVT Prophylaxis: SCDs GI Prophylaxis: Famotidine Bowel: Famotidine Diet: NPO Banda: Yes Lines: Peripheral IV Antibiotics: Vancomycin & Zosyn (01/11--) Code Status: FULL Reason for Hospitalization: Sepsis Other Barriers to Discharge: Hypernatremia & Hypothermia Patient plan of care was discussed with the senior resident Dr. Carpenter and attending physician Dr. Jayden Elaine, PGY1 Attending Provider Attestation/Addendum I Gallito Carpenter MD reviewed the note and agree with the resident's assessment & plan with modifications/additions/exceptions as below. I have personally reviewed labs, imaging, home meds/prior records, examined the patient, formulated and discussed management plan with the IM team. A 29-year-old female with history of severe intellectual disability nonverbal admitted for acute on chronic encephalopathy, severe hyponatremia, pancytopenia, possible ITP diagnosed during hospitalization along with HCAP, UTI and malnutrition. Patient is normothermic now with sodium of 149 and noted to have aspiration on fluoroscopic swallow evaluation. Continue D5 infusion 50 cc an hour, continue vancomycin and Zosyn empirically for UTI and pneumonia to complete total 7 days, patient had EGD on 01/15/2025 revealing esophageal stricture for which ballooning was performed. Will get enteral feeding access via NGT for adequate hydration and nutrition. Will obtain echocardiogram, follow-up blood cultures , ACTH and a.m. cortisol level. Patient is conserved and reportedly conservator was not agreeable to PEG tube placement. Will Nutrition service involved regarding optimal feeding regimen for the patient.
[2025-01-16 14:40] LABS: Sodium 147 mMol/L (136-145)
--- NOTE | 2025-01-16 20:08 | PD.IMPROG ---
Documentation for date of: 01/16/25 Subjective Subjective Interval history: Case discussed with the internal medicine team Patient had an upper endoscopy with esophageal dilatation Patient to have a swallowing evaluation tomorrow morning if she passes no need to do a PEG placement If she fails swallow evaluation then the only option is left is a PEG tube Hold off putting an NGT Exam Vital Signs Temp Pulse Resp BP Pulse Ox O2 Del Method O2 Flow Rate 97.0 F 64 23 H 105/70 99 Nasal Cannula 1 01/16/25 16:00 01/16/25 16:00 01/16/25 16:00 01/16/25 16:00 01/16/25 16:00 01/16/25 16:00 01/16/25 16:00 Objective Labs 01/16/25 06:05 01/16/25 14:20 Labs: Laboratory Results - last 24 hr 01/16/25 01/16/25 01/16/25 06:05 08:45 14:20 WBC 5.7 RBC 2.60 L Hgb 7.9 L Hct 24.6 L MCV 95 MCH 30.4 MCHC 32.1 RDW Std Deviation 62.8 H Plt Count 81 L Neut % (Auto) 61 Lymph % (Auto) 31 Victoria % (Auto) 6 Eos % (Auto) 1 Baso % (Auto) 0 Neut # (Auto) 3.5 Lymph # (Auto) 1.8 Victoria # (Auto) 0.3 Eos # (Auto) 0.1 Baso # (Auto) 0.0 Immature Gran # (Auto) 0.07 H Absolute Nucleated RBC 0.04 H Immature Gran % 1 H Nucleated RBC % 1 H Sodium 149 H 147 H Potassium 3.7 D Chloride 113 H Carbon Dioxide 26.2 Anion Gap 10 BUN 7 L Creatinine 0.8 Estim Creat Clear Calc 53.9 L eGFR > 60 BUN/Creatinine Ratio 9 L Glucose 117 H Calculated Osmolality 295 Calcium 9.3 Corrected Calcium 10.1 Magnesium 1.3 L Total Bilirubin 0.4 AST 101 H ALT 121 H Alkaline Phosphatase 226 H Total Creatine Kinase 66 Total Protein 5.3 L Albumin 3.0 L Globulin 2.3 Albumin/Globulin Ratio 1.3 Vancomycin Trough 11.8 H Impressions Impression: Esophageal stricture status post endoscopic guidewire savory dilatation Cambodian 45 and Cambodian 54 savory dilators Failure to thrive Swallowing evaluation tomorrow and then will make a decision what needs to be done next Assessment & Plan A&P Narrative # Dysphagia # Recurrent aspiration Plan Consent to be obtained for fiberoptic esophagogastroduodenoscopy with possible proximal esophageal stricture dilatation to prevent aspiration Hopefully that will work If it does not work we will consider after talking to Dr. Jiménez for the possibility of a PEG placement She should be given every opportunity not to go that route at least at the moment Thank you very much for the opportunity to participate in the care of this patient Time Spent With Patient Time: Total time spent is greater than 50% in coordination of care (as documented) at patient's floor/unit and/or counseling patient:
[2025-01-16 21:41] LABS: Sodium 149 mMol/L (136-145)
[2025-01-17] VITALS (9 sets, daily range): BP systolic 101–123; BP diastolic 66–88; PULSE 67–78; RESP 12–20; TEMP 35.1–36.3; O2SAT 89–98; BMI 18.3
[2025-01-17 01:14] LABS: Sodium 150 mMol/L (136-145)
[2025-01-17] MEDS: DEXTROSE 5%-WATER 1,000 ML 175 ML IV ×4 (03:44→22:00)
[2025-01-17] MEDS: PIPER/TAZO 3.375 GM PREMIX 3.375 GM/50 ML BAG IV ×3 (05:46→22:01)
[2025-01-17 06:23] LABS: Basophils # (Auto) 0.0 Thou/mm3 (0.0-0.2); Basophils % (Auto) 0 % (0-2.5); Eosinophils # (Auto) 0.1 Thou/mm3 (0.0-0.5); Eosinophils % (Auto) 1 % (0-10); Hematocrit 22.7 % (36.0-46.0); Immature Granulocytes Auto 0.04 Thou/mm3 (0.00-0.00); Lymphocytes # (Auto) 2.1 Thou/mm3 (1.0-4.8); Lymphocytes % (Auto) 39 % (10-50); Mean Corpuscular HGB Conc 33.0 g/dl (31.0-37.0); Mean Corpuscular Hemoglobin 31.3 pg (25.0-35.0); Mean Corpuscular Volume 95 fL (80-100); Monocytes # (Auto) 0.4 Thou/mm3 (0.0-0.8); Monocytes % (Auto) 6 % (0-12); Neutrophils # (Auto) 2.9 Thou/mm3 (1.8-7.7); Neutrophils % (Auto) 53 % (37-80); Nucleated Red Blood Cell # 0.05 Thou/mm3 (0.00-0.00); Nucleated Red Blood Cell % 1 /100 WBC (0); Platelet Count 122 Thou/mm3 (140-440); RDW Standard Deviation 61.2 fL (36.4-46.3); Red Blood Count 2.40 Miln/mm3 (4.00-5.20); White Blood Count 5.5 Thou/mm3 (3.6-11.0)
[2025-01-17 06:29] LABS: Hemoglobin 7.5 g/dL (12.0-16.0)
[2025-01-17 07:07] LABS: Alanine Aminotransferase 104 U/L (10-49); Albumin, Serum 3.0 gm/dL (3.5-5.0); Albumin/Globulin Ratio 1.3 (1.2-2.2); Alkaline Phosphatase 212 U/L (46-116); Anion Gap 11 (7-16); Aspartate Amino Transferase 77 U/L (0-34); BUN/Creatinine Ratio 7 Ratio (12-20); Bilirubin,Total 0.4 mg/dL (0.3-1.2); Blood Urea Nitrogen < 5 mg/dL (9-23); Calcium 9.4 mg/dL (8.3-10.6); Calcium (Corrected) 10.2 mg/dL (8.5-10.1); Carbon Dioxide 25.9 mMol/L (20.0-31.0); Chloride 113 mMol/L (98-107); Creatinine (Component) 0.7 mg/dL (0.6-1.3); Estimated Creatinine Clearance 61.6 mL/min (>60); Globulin 2.3 gm/dL (2.3-3.5); Glucose 136 mg/dL (74-106); Magnesium 1.4 mg/dL (1.6-2.6); Osmolality,Calculated 297 (275-295); Potassium 3.2 mMol/L (3.4-5.1); Sodium 150 mMol/L (136-145); Total Protein 5.3 gm/dL (5.7-8.2); eGFR > 60 See Note
[2025-01-17 08:13] LABS: Uric Acid 3.3 mg/dL (3.1-7.8)
[2025-01-17] MEDS: POTASSIUM CHL 10 mEq IVPB 10 MEQ/100 ML BAG 100 MEQ IV ×8 (08:44→16:40)
[2025-01-17] MEDS: Magnesium Sulfate 4 GM Ivpb 4 GM/50 ML BAG IV (08:45)
[2025-01-17] MEDS: THIAMINE INJ 100 MG/ML VIAL 2 ML IVP ×2 (08:47→22:00)
[2025-01-17] MEDS: FAMOTIDINE INJ 10 MG/ML VIAL 2 ML 20 MG IVP (08:47)
--- NOTE | 2025-01-17 08:49 | PC.SS ---
Follow up note: Dysphasia work up. On IV fluids. Correct sodium levels. Pt will return to senior care upon dc.
[2025-01-17] MEDS: VANCOMYCIN/WATER 1GM IVPB 200 ML IV (10:13)
--- NOTE | 2025-01-17 10:45 | XR_ITS ---
Examination: CT abdomen and pelvis without contrast. Coronal 3-D reconstructions. Sagittal 2-D reconstructions. Date and time of exam:January 17, 2025 1723 hours, comparison January 11, 2025 INDICATIONS: Sepsis alert today CTDI: vol (mGy): 6.96 DLP: (mGycm): 316 Technique: Axial images of the abdomen have been obtained, 3 mm slice thickness Intravenous contrast material has not been administered. Low dose protocols were performed. One or more of the following dose reduction techniques were used; automated exposure control, adjustment of the mA and/or KV according to patient size, use of iterative reconstruction technique. Findings: Prominent pneumonia at the lung bases with moderate right and mild left pleural fluid Orogastric tube in the stomach No focal liver or splenic lesions Contracted gallbladder No pancreatic mass Soft tissue calcification upper right kidney 7 mm 1 mm midpole 2 mm lower pole right renal calculi, no hydronephrosis There is abnormal free fluid in the pelvis which is extensive The appendix is partially visualized and does not appear enlarged Retroverted uterus Urinary bladder wall thickening, urinary bladder Banda catheter IMPRESSION: Prominent bibasilar pneumonia Moderate right and mild left pleural fluid Right renal calculi Interval abundant free fluid in the pelvis, clinical correlation advised Recommend follow-up CT scan abdomen and pelvis post intravenous contrast as well as transabdominal and transvaginal pelvic sonography
[2025-01-17 12:23] LABS: Sodium 149 mMol/L (136-145)
--- NOTE | 2025-01-17 12:49 | ESPR_ITS ---
<Statement entered by Jose Antonio Young MD - 01/18/25 10:20> Patient was seen and examined at bedside. I agree on the assessment and plan on this note as documented by resident Tyrell Elaine DO PGY1. 29-year-old female with past medical history as below, started on diet by speech therapy recommendations. Patient continues to have hyponatremia will order aldosterone and renin level, will place NGT and start patient on free water flushes, continue to monitor sodium. Patient continues to have episodes of hypothermia, adrenal workup pending. Platelet count has been stable, disposition telemetry pending improvement in hypothermia and hypernatremia Case discussed with attending Dr. Jayden Young MD PGY-2 Documentation for date of: 01/17/25 Subjective Subjective Interval history: Overnight events: No acute events overnight. Patient was seen and examined at bedside. AM vitals and labs reviewed. Patient continues to remain on Mellissa hugger. Free water deficit 1.1 L. Patient noted to have diarrhea over the past few days. Nursing staff noted morning stools were soft. Patient passed swallow eval today by speech therapy. Recommend dysphagia 1 pur?ed diet, mildly thick level 2, and only use of sippy cup, no straws. Ordered uric acid, renin, aldosterone, urine electrolytes, urine osmolality, urinalysis, stool culture, stool WBC, C. difficile, and calprotectin. Pending ACTH, morning cortisol, random cortisol. Continue with D5W 175 cc per hour with goal sodium of 140. Next sodium 1900 and then 2300. Continue vancomycin and Zosyn. CT abdomen/pelvis w/o contrast ordered to investigate abnormalities that might be contributing to hypernatremia/hypothermia. Review of systems otherwise negative except for what is mentioned above. Exam Vital Signs Temp Pulse Resp BP Pulse Ox O2 Del Method O2 Flow Rate 97.3 F 74 14 115/83 97 Nasal Cannula 1 01/17/25 12:01/17/25 12:01/17/25 12:00 01/17/25 12:01/17/25 12:01/17/25 12:01/17/25 12:00 Narrative Exam Physical Exam: General: Alert, no acute distress. Nonverbal, noninteractive. On Mellissa Hugger. Skin: Warm, cool, intact, no obvious rash. Head: Normocephalic, atraumatic. Cardiovascular: Regular rate and rhythm, no murmur, +S1/S2. Respiratory: Respirations unlabored on nasal cannula, no crackles, no wheezing. Gastrointestinal: Soft, nontender, non-distended. No guarding or rebound tenderness. Extremities: No edema, no cyanosis, no clubbing. 2+ radial pulse bilaterally, 2+ pedal pulse bilaterally. Objective Labs 01/17/25 05:00 01/17/25 11:46 Labs: Laboratory Results - last 24 hr 01/16/25 01/16/25 01/17/25 14:20 20:29 00:36 WBC RBC Hgb Hct MCV MCH MCHC RDW Std Deviation Plt Count Neut % (Auto) Lymph % (Auto) Lamb % (Auto) Eos % (Auto) Baso % (Auto) Neut # (Auto) Lymph # (Auto) Lamb # (Auto) Eos # (Auto) Baso # (Auto) Immature Gran # (Auto) Absolute Nucleated RBC Immature Gran % Nucleated RBC % Sodium 147 H 149 H 150 H Potassium Chloride Carbon Dioxide Anion Gap BUN Creatinine Estim Creat Clear Calc eGFR BUN/Creatinine Ratio Glucose Calculated Osmolality Uric Acid Calcium Corrected Calcium Magnesium Total Bilirubin AST ALT Alkaline Phosphatase Total Protein Albumin Globulin Albumin/Globulin Ratio Aldosterone 01/17/25 01/17/25 05:00 11:46 WBC 5.5 RBC 2.40 L Hgb 7.5 L Hct 22.7 L MCV 95 MCH 31.3 MCHC 33.0 RDW Std Deviation 61.2 H Plt Count 122 L D Neut % (Auto) 53 Lymph % (Auto) 39 Lamb % (Auto) 6 Eos % (Auto) 1 Baso % (Auto) 0 Neut # (Auto) 2.9 Lymph # (Auto) 2.1 Lamb # (Auto) 0.4 Eos # (Auto) 0.1 Baso # (Auto) 0.0 Immature Gran # (Auto) 0.04 H Absolute Nucleated RBC 0.05 H Immature Gran % 1 H Nucleated RBC % 1 H Sodium 150 H 149 H Potassium 3.2 L D Chloride 113 H Carbon Dioxide 25.9 Anion Gap 11 BUN < 5 L Creatinine 0.7 Estim Creat Clear Calc 61.6 eGFR > 60 BUN/Creatinine Ratio 7 L Glucose 136 H Calculated Osmolality 297 H Uric Acid 3.3 Calcium 9.4 Corrected Calcium 10.2 H Magnesium 1.4 L Total Bilirubin 0.4 AST 77 H ALT 104 H Alkaline Phosphatase 212 H Total Protein 5.3 L Albumin 3.0 L Globulin 2.3 Albumin/Globulin Ratio 1.3 Aldosterone Cancelled Quality Measures Quality Measures sepsis Current suspected stage: sepsis Possible source: pulmonary, genitourinary and unknown Blood cultures ordered: completed in ED Antibiotic ordered: Yes Assessment & Plan Assessment Current Active Medications: Generic Name Dose Route Start Last Admin Trade Name Freq PRN Reason Stop Dose Admin Acetaminophen 325 mg 01/11/25 22:28 Acetaminophen 325 Mg Tablet PO 02/10/25 22:27 Q4HR PRN Pain 1 - 3 Or Fever > 101 Albuterol/Ipratropium 3 ml 01/14/25 01:23 Albuterol/Ipratropium (Duoneb) Rt Martina 3 Ml Nebu INH 02/13/25 01:59 Q2HR PRN shorthness of breath or wheeze Buspirone HCl 10 mg 01/12/25 21:00 01/17/25 08:47 Buspirone Hcl 5 Mg Tablet PO 02/11/25 20:59 10 mg BID MARCIA Administration Famotidine 20 mg 01/12/25 09:00 01/17/25 08:47 Famotidine Inj 10 Mg/Ml Vial 2 Ml IVP 02/11/25 08:59 20 mg QDAY MARCIA Administration Piperacillin/Tazobactam/Dextrose 3.375 gm in 50 mls @ 12.5 mls/hr 01/11/25 22:00 01/17/25 05:46 Zosyn IV 01/18/25 21:59 12.5 mls/hr Q8HR MARCIA Administration Dextrose 1,000 mls @ 175 mls/hr 01/15/25 12:44 01/17/25 09:09 D5w IV 02/14/25 12:43 175 mls/hr .[id number] MARCIA Administration Vancomycin HCl 200 mls @ 120 mls/hr 01/16/25 10:30 01/17/25 10:13 Vancomycin/Water 1gm Ivpb IV 01/23/25 10:29 120 mls/hr DAILY@1000 MARCIA Administration Potassium Chloride 10 meq in 100 mls @ 100 mls/hr 01/17/25 07:36 01/17/25 12:22 Kcl Ivpb IV 01/17/25 15:35 100 mls/hr Q1H MARCIA Administration Magnesium Sulfate 2 gm in 50 mls @ 25 mls/hr 01/17/25 11:40 Magnesium Sulfate Ivpb IV 01/17/25 13:39 X1 ONE Loratadine 10 mg 01/13/25 09:00 01/17/25 08:47 Loratadine 10 Mg Tablet PO 02/12/25 08:59 10 mg QDAY MARCIA Administration Pharmacy Consult 1 each 01/13/25 14:20 Vancomycin Pharmacy To Dose 1 Each Each IV 02/12/25 14:19 QDAY PRN PROTOCOL Thiamine HCl 100 mg 01/15/25 21:00 01/17/25 08:47 Thiamine Inj 100 Mg/Ml Vial 2 Ml IVP 02/14/25 20:59 100 mg BID MARCIA Administration Plan Kelly Herrera is a 29F pmhx significant for severe intellectual disability, non verbal at baseline, who presented to [facility] ED on 01/11 for hypothermia and altered mental status. The patient was admitted to ICU for 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 Patient downgraded to hospital floors 01/13 for further management. #Hypernatremia, improving #Hyperchloremia, improving Patient was noted to have a sodium of 157 and chloride of 115 on admission. This has improved over time and with hydration, indicating that this is most likely due to dehydration. Na decreased to 145 at lowest, however continues to increase. Plan: ? Continue patient on D5W with sodium to not decrease >10 over 24 hours, goal today 140, stop D5W once achieved ? Continue D5W 175 cc/hr as patient's sodium continues to increase ? Free water deficit calculated 1.1L, patient will benefit from free water through NG tube - Ordered NG tube and free water flushes 200 cc/h ? Will continue to monitor with daily renal panel ? F/u sodium check at 1900 and 2300 - Ordered serum uric acid, renin, and aldosterone to investigate possible endocrine abnormalities - Ordered urine electrolytes and urinalysis - Pending ACTH, morning cortisol and random cortisol - CT abdomen/pelvis w/o contrast ordered 01/17, pending #Sepsis, resolving 2/2 #Community acquired pneumonia and #Urinary tract infection (Entercoccus faecalis) #Hypothermnia, improving #Hypotension (resolved) #Transaminitis (resolving) #OLENA, likely prerenal (resolving) Presented to ED with hypothermia of 91.1F, lowest 89.1F rectally, and altered mental status. Admitted to ICU for management of hypotension, requiring pressors, hypothermia, requiring Mellissa hugger, and severe thrombocytopenia. Hypothermia likely 2/2 poor PO intake and muscle wasting. CTAP showed right middle and bibasilar pneumonia along with significant pneumonia in the left base. US gallbladder negative for acute cholecystitis and hep panel neg. CT head neg unremarkable. BCx NGTD, UCx +enterococcus faecalis Endorgan damage was noted with transaminitis and OLENA on admission, AST 371, ALT 202, creatinine 0.9 (baseline 0.5). FeNa 0.3%, supporting prerenal likely 2/2 poor PO intake Plan: ? CTM temperature, will continue Mellissa hugger until patient temperature improves ? CTM blood pressure, keep MAP >65 ? CTM LFTs ? Continue vancomycin and Zosyn (01/11--) ? F/u repeat BCx - Ordered stool culture, stool WBC, C. diff PCR, and procalcitonin to investigate possible infection in GI tract #Dysphagia In ICU, patient failed bedside swallow eval and so was referred to speech therapy. However, the patient passed swallow eval with speech therapy, and so patient was started on dysphagia 1 diet. It was reported by nursing staff that they tried to feed the patient, however the patient was not showing anything, and the nurses had to scrape the fluid out of her mouth. Videofluoroscopic study showed aspiration on thin barium admission Ppatient's medical decision-maker, Dr. Jiménez believes that glycopyrrolate is most likely the source of the patient's initial symptoms leading to ED presentation, and does not want any PEG tube placement at this time Plan: ? Consulted GI, Dr. Ascencio, recs appreciated ? EGD 01/15 showed benign-appearing esophageal stricture, which was dilated ? Patient passed speech eval 01/17, put on dysphagia 1 pur?ed diet, mildly thick level 2, and only use of sippy cup, no straws #Thrombocytopenia #Suspected ITP #New onset hematuria (resolved) Patient noted to have platelet of 26, lowest 16, on admission. In ICU s/p platelet transfusion on 01/13, which increased platelets to 77. Patient noted to have hematuria in ICU. This is likely due to underlying sepsis versus viral illness versus radiographic thrombocytopenia. Reticulocyte count and peripheral smear are sent without significant abnormality noted except for severe thrombocytopenia. ICU did workup for thrombocytopenia, all of which is negative including hepatitis panel, HIV, GARRICK screen, iron, B12, folate, DIC panel. ICU team discussed case with Dr. Chandra, pathologist, who reported that the patient did not have any abnormal cells or severe features suggestive of TTP?HUS. ITP is suspected as a diagnosis of exclusion. Urinalysis 01/12 showed 3+ blood in urine and 1009 RBC. Methylprednisolone 30 mg (01/12-01/14) Plan: ? Avoid antiplatelets and anticoagulants ? Continue to monitor platelet count and assess for bleeding ? F/u haptoglobin #Anemia, normocytic normochromic Patient noted to have hemoglobin of 11.6 on admission with a downward trend during hospitalization. Likely due to dehydration at time of admission with contribution from hematuria. Iron 201, and iron saturation 85% with ferritin at 756, folate wnl Pathology smear reports minimal anemia supporting likely dehydration and sepsis as more likely causes. Plan: ? Will continue to monitor CBC #Hypercalcemia Corrected calcium at time of patient noted to be 10.9. PTH noted to be 79.1. 25 OH vitamin D >150, which is most likely the source of her hypercalcemia in addition to immobility. Plan: ? Will educate caretakers about excessive 25 OH vitamin D and recommend decreasing dosage if patient is taking supplements #Congenital hip dysplasia Patient found to have hip dysplasia on CT abdomen/pelvis. Patient is wheelchair-bound. Plan: ? No active treatment required at this time ? Follow-up with outpatient for management DVT Prophylaxis: SCDs GI Prophylaxis: Famotidine Bowel: Famotidine Diet: NPO Banda: Yes Lines: Peripheral IV Antibiotics: Vancomycin & Zosyn (01/11--) Code Status: FULL Reason for Hospitalization: Sepsis Other Barriers to Discharge: Hypernatremia & Hypothermia Patient plan of care was discussed with the senior resident Dr. Young and attending physician Dr. Jayden Elaine, PGY1 Attending Provider Attestation/Addendum I Gallito Carpenter MD reviewed the note and agree with the resident's assessment & plan with modifications/additions/exceptions as below. I have personally reviewed labs, imaging, home meds/prior records, examined the patient, formulated and discussed management plan with the IM team. A 29-year-old female with history of severe intellectual disability nonverbal admitted for acute on chronic encephalopathy, severe hyponatremia, pancytopenia, possible ITP diagnosed during hospitalization along with HCAP, UTI and malnutrition. Patient continues to be hypothermic, sodium 150. Continue D5 infusion 150 cc an hour, continue vancomycin and Zosyn empirically for UTI and pneumonia to complete total 7 days, patient had EGD on 01/15/2025 revealing esophageal stricture for which ballooning was performed. GI recommended holding NG tube placement, speech therapy and GI okay with starting p.o. diet as tolerated. Will obtain echocardiogram, follow-up blood cultures , ACTH and a.m. cortisol level, aldosterone, renin levels, repeat urine electrolytes and obtain CT abdomen/pelvis. Patient had loose watery stools however limited in number for the past few days, will check for stool studies including C. difficile.
[2025-01-17] MEDS: Magnesium Sulfate 2 GM Ivpb 2 GM/50 ML BAG IV (12:51)
--- NOTE | 2025-01-17 13:50 | XR_ITS ---
Examination: AP chest single view Technique one AP portable semiupright chest single view INDICATIONS: Post orogastric tube placement. FINDINGS: Mild prominence left ventricle Prominent vascular congestion Suspicious for diffuse right lung pneumonia. Air distended stomach. Orogastric tube tip duodenal bulb IMPRESSION: Prominent vascular congestion Suspicious for diffuse right lung pneumonia Orogastric tube tip duodenal bulb
[2025-01-17] MEDS: HALOPERIDOL LACT INJ 5 MG/ML VIAL 2 MG IM (16:40)
--- NOTE | 2025-01-17 16:55 | PD.IMPROG ---
Documentation for date of: 01/17/25 Subjective Subjective Interval history: At the moment patient has passed a swallowing evaluation and will be on dysphagia 2 diet However in the longer and I do feel patient definitely would need a PEG placement As all these measures are temporary Exam Vital Signs Temp Pulse Resp BP Pulse Ox O2 Del Method O2 Flow Rate 95.2 F L 77 20 123/88 H 89 L Nasal Cannula 1 01/17/25 16:00 01/17/25 16:00 01/17/25 16:00 01/17/25 16:00 01/17/25 16:00 01/17/25 16:00 01/17/25 16:00 Objective Labs 01/17/25 05:00 01/17/25 11:46 Labs: Laboratory Results - last 24 hr 01/16/25 01/17/25 01/17/25 20:29 00:36 05:00 WBC 5.5 RBC 2.40 L Hgb 7.5 L Hct 22.7 L MCV 95 MCH 31.3 MCHC 33.0 RDW Std Deviation 61.2 H Plt Count 122 L D Neut % (Auto) 53 Lymph % (Auto) 39 Leslie % (Auto) 6 Eos % (Auto) 1 Baso % (Auto) 0 Neut # (Auto) 2.9 Lymph # (Auto) 2.1 Leslie # (Auto) 0.4 Eos # (Auto) 0.1 Baso # (Auto) 0.0 Immature Gran # (Auto) 0.04 H Absolute Nucleated RBC 0.05 H Immature Gran % 1 H Nucleated RBC % 1 H Sodium 149 H 150 H 150 H Potassium 3.2 L D Chloride 113 H Carbon Dioxide 25.9 Anion Gap 11 BUN < 5 L Creatinine 0.7 Estim Creat Clear Calc 61.6 eGFR > 60 BUN/Creatinine Ratio 7 L Glucose 136 H Calculated Osmolality 297 H Uric Acid 3.3 Calcium 9.4 Corrected Calcium 10.2 H Magnesium 1.4 L Total Bilirubin 0.4 AST 77 H ALT 104 H Alkaline Phosphatase 212 H Total Protein 5.3 L Albumin 3.0 L Globulin 2.3 Albumin/Globulin Ratio 1.3 Aldosterone 01/17/25 11:46 WBC RBC Hgb Hct MCV MCH MCHC RDW Std Deviation Plt Count Neut % (Auto) Lymph % (Auto) Leslie % (Auto) Eos % (Auto) Baso % (Auto) Neut # (Auto) Lymph # (Auto) Leslie # (Auto) Eos # (Auto) Baso # (Auto) Immature Gran # (Auto) Absolute Nucleated RBC Immature Gran % Nucleated RBC % Sodium 149 H Potassium Chloride Carbon Dioxide Anion Gap BUN Creatinine Estim Creat Clear Calc eGFR BUN/Creatinine Ratio Glucose Calculated Osmolality Uric Acid Calcium Corrected Calcium Magnesium Total Bilirubin AST ALT Alkaline Phosphatase Total Protein Albumin Globulin Albumin/Globulin Ratio Aldosterone Cancelled Impressions Impression: Failure to thrive Continue the dysphagia diet If Dr. Jiménez would allow for a PEG placement at some point in time I will be happy to do it Assessment & Plan A&P Narrative # Dysphagia # Recurrent aspiration Plan Consent to be obtained for fiberoptic esophagogastroduodenoscopy with possible proximal esophageal stricture dilatation to prevent aspiration Hopefully that will work If it does not work we will consider after talking to Dr. Jiménez for the possibility of a PEG placement She should be given every opportunity not to go that route at least at the moment Thank you very much for the opportunity to participate in the care of this patient Time Spent With Patient Time: Total time spent is greater than 50% in coordination of care (as documented) at patient's floor/unit and/or counseling patient:
[2025-01-17 18:42] LABS: Collection Type, Urine Clean Catch; Squamous Epithelial Cell,Urine 0 /hpf (0-5); WBC,Urine 0 /hpf (0-5)
[2025-01-17 18:54] LABS: Chloride,Urine Random 59.5 mMol/L (55.0-125.0); Potassium,Urine Random < 10 mMol/L (12-62); Sodium,Urine Random 67.2 mMol/L (20.0-110.0)
[2025-01-17 19:04] LABS: Bilirubin,Urine Negative (Negative); Blood,Urine 1+ (Negative); Clarity,Urine Clear (Clear/Hazy); Color,Urine Colorless (Lt Yel-Yel); Glucose, Urine Negative (Negative); Ketones,Urine Negative (Negative); Leukocyte Esterase,Urine Negative (Negative); Nitrite,Urine Negative (Negative); PH,Urine 7.0 (5.0-7.0); Protein,Urine Negative (Neg - Trace); RBC,Urine 14 /hpf (0-3); Specific Gravity,Urine 1.004 (1.001-1.035); Urobilinogen,Urine Negative mg/dL (0.0-1.0)
[2025-01-17 19:20] LABS: HCG Qualitative,Urine Negative
[2025-01-17 20:51] LABS: Sodium 143 mMol/L (136-145)
[2025-01-17 23:27] LABS: Sodium 142 mMol/L (136-145)
[2025-01-18] VITALS (11 sets, daily range): BP systolic 96–109; BP diastolic 48–81; PULSE 70–98; RESP 18–25; TEMP 36–37.2; O2SAT 90–97; BMI 17.9
[2025-01-18] MEDS: DEXTROSE 5%-WATER 1,000 ML 175 ML IV (03:40)
--- NOTE | 2025-01-18 05:08 | PC.NURSE ---
notified Dr. Santacruz , patient self removed NGTube , per MD ennis to leave out pending morning labs.
[2025-01-18] MEDS: PIPER/TAZO 3.375 GM PREMIX 3.375 GM/50 ML BAG IV ×2 (05:16→13:57)
[2025-01-18 06:28] LABS: ANA Screen, IFA NEGATIVE (NEGATIVE)
[2025-01-18 06:40] LABS: Basophils # (Auto) 0.0 Thou/mm3 (0.0-0.2); Basophils % (Auto) 0 % (0-2.5); Eosinophils # (Auto) 0.1 Thou/mm3 (0.0-0.5); Eosinophils % (Auto) 1 % (0-10); Hematocrit 23.7 % (36.0-46.0); Immature Granulocytes Auto 0.12 Thou/mm3 (0.00-0.00); Lymphocytes # (Auto) 1.9 Thou/mm3 (1.0-4.8); Lymphocytes % (Auto) 22 % (10-50); Mean Corpuscular HGB Conc 32.9 g/dl (31.0-37.0); Mean Corpuscular Hemoglobin 31.1 pg (25.0-35.0); Mean Corpuscular Volume 94 fL (80-100); Monocytes # (Auto) 0.6 Thou/mm3 (0.0-0.8); Monocytes % (Auto) 7 % (0-12); Neutrophils # (Auto) 6.1 Thou/mm3 (1.8-7.7); Neutrophils % (Auto) 69 % (37-80); Nucleated Red Blood Cell # 0.07 Thou/mm3 (0.00-0.00); Nucleated Red Blood Cell % 1 /100 WBC (0); Platelet Count 148 Thou/mm3 (140-440); RDW Standard Deviation 59.0 fL (36.4-46.3); Red Blood Count 2.51 Miln/mm3 (4.00-5.20); White Blood Count 8.9 Thou/mm3 (3.6-11.0)
[2025-01-18 06:52] LABS: Hemoglobin 7.8 g/dL (12.0-16.0)
[2025-01-18 07:02] LABS: Alanine Aminotransferase 102 U/L (10-49); Albumin, Serum 3.4 gm/dL (3.5-5.0); Albumin/Globulin Ratio 1.4 (1.2-2.2); Alkaline Phosphatase 245 U/L (46-116); Anion Gap 11 (7-16); Aspartate Amino Transferase 68 U/L (0-34); BUN/Creatinine Ratio 17 Ratio (12-20); Bilirubin,Total 0.5 mg/dL (0.3-1.2); Blood Urea Nitrogen < 5 mg/dL (9-23); Calcium 9.3 mg/dL (8.3-10.6); Calcium (Corrected) 9.8 mg/dL (8.5-10.1); Carbon Dioxide 24.1 mMol/L (20.0-31.0); Chloride 109 mMol/L (98-107); Creatinine (Component) 0.3 mg/dL (0.6-1.3); Estimated Creatinine Clearance 140.7 mL/min (>60); Globulin 2.5 gm/dL (2.3-3.5); Glucose 85 mg/dL (74-106); Magnesium 2.1 mg/dL (1.6-2.6); Osmolality,Calculated 283 (275-295); Potassium 4.4 mMol/L (3.4-5.1); Sodium 144 mMol/L (136-145); Total Protein 5.9 gm/dL (5.7-8.2); eGFR > 60 See Note
[2025-01-18 07:47] LABS: Stool for WBCs Negative (Negative)
--- NOTE | 2025-01-18 09:37 | ESPR_ITS ---
<Statement entered by Gallito Carpenter MD - 01/23/25 18:07> I Gallito Carpenter MD reviewed the note and agree with the resident's assessment & plan with modifications/additions/exceptions as below. I have personally reviewed labs, imaging, home meds/prior records, examined the patient, formulated and discussed management plan with the IM team. <Statement entered by Jose Antonio Young MD - 01/18/25 16:24> Patient was seen and examined at bedside. I agree on the assessment and plan on this note as documented by resident Tyrell Elaine DO PGY1. 29-year-old female with past medical history as below, sodium improved with free water flushes, will repeat sodium again later today. Patient has not required Mellissa hugger since yesterday, will consider reinserting NG tube if patient continues to have hypernatremia, dietitian was consulted, will encourage p.o. diet. Will consider appetite stimulant if patient continues to have poor appetite. Otherwise we will continue IV antibiotics to complete treatment, stool studies mostly negative, fecal calprotectin pending. Platelet count has been stable. Will continue to monitor for hypothermia, disposition telemetry, repeat sodium at 5 PM Case discussed with attending Dr. Jayden Young MD PGY-2 Documentation for date of: 01/18/25 Subjective Subjective Interval history: Overnight events: No acute events overnight. Patient was seen and examined at bedside. AM vitals and labs reviewed. Patient noted to have sodium of 142 overnight, which increased to 144 this a.m. D5W was discontinued after the 142 reading, and patient pulled out NG tube overnight, stopping free water flushes. Patient noted to be off Mellissa hugger with the most recent temperature of 97.2F for nursing staff. Breathing comfortably on room air. Patient is alert, noninteractive, and drooling. Urinalysis negative except for some RBCs in urine. Urine potassium less than 10. Stool WBC negative. Cdiff, shigella, campylobacter, and salmonella negative. Repeat sodium ordered for 1700 today. If sodium increases significantly, will resume NG tube for free water flushes. Will avoid IVF given pulmonary congestion on CXR 01/17. Restaurant Inspector referred for additional management of low body weight. Dietitian noted that patient does not eat much on her own and would benefit from NG tube feeds. Review of systems otherwise negative except for what is mentioned above. Exam Vital Signs Temp Pulse Resp BP Pulse Ox O2 Del Method O2 Flow Rate 98.9 F 74 20 103/58 L 97 Room Air 1 01/18/25 04:00 01/18/25 08:31 01/18/25 08:31 01/18/25 04:00 01/18/25 08:31 01/18/25 00:00 01/17/25 16:00 Narrative Exam Physical Exam: General: Alert, no acute distress. Nonverbal, noninteractive. Off Mellissa Hugger. Skin: Warm, cool, intact, no obvious rash. Head: Normocephalic, atraumatic. Cardiovascular: Regular rate and rhythm, no murmur, +S1/S2. Respiratory: Respirations unlabored on nasal cannula, no crackles, no wheezing. Gastrointestinal: Soft, nontender, non-distended. No guarding or rebound tenderness. Extremities: No edema, no cyanosis, no clubbing. Objective Labs 01/18/25 06:00 01/18/25 06:00 Labs: Laboratory Results - last 24 hr 01/12/25 01/17/25 01/17/25 15:05 11:46 18:00 WBC RBC Hgb Hct MCV MCH MCHC RDW Std Deviation Plt Count Neut % (Auto) Lymph % (Auto) [place] % (Auto) Eos % (Auto) Baso % (Auto) Neut # (Auto) Lymph # (Auto) [place] # (Auto) Eos # (Auto) Baso # (Auto) Immature Gran # (Auto) Absolute Nucleated RBC Immature Gran % Nucleated RBC % Sodium 149 H Potassium Chloride Carbon Dioxide Anion Gap BUN Creatinine Estim Creat Clear Calc eGFR BUN/Creatinine Ratio Glucose Calculated Osmolality Calcium Corrected Calcium Magnesium Total Bilirubin AST ALT Alkaline Phosphatase Total Protein Albumin Globulin Albumin/Globulin Ratio Aldosterone Cancelled Ur Collection Type Clean Catch Urine Color Colorless A Urine Clarity Clear Urine pH 7.0 Ur Specific [place] 1.004 Urine Protein Negative Urine Glucose (UA) Negative Urine Ketones Negative Urine Blood 1+ A Urine Nitrite Negative Urine Bilirubin Negative Urine Urobilinogen (Auto) Negative Ur Leukocyte Esterase Negative Urine RBC 14 H Urine WBC 0 Ur Squamous Epith Cells 0 Urine Bacteria None Ur Random Sodium 67.2 Ur Random Potassium < 10 L Ur Random Chloride 59.5 Urine HCG, Qual Negative Stool for White Cells GARRICK Screen NEGATIVE GARRICK Titer TNP GARRICK Titer 2 TNP GARRICK Titer 3 TNP GARRICK Pattern TNP GARRICK Pattern 2 TNP GARRICK Pattern 3 TNP 01/17/25 01/17/25 01/18/25 20:07 23:02 03:20 WBC RBC Hgb Hct MCV MCH MCHC RDW Std Deviation Plt Count Neut % (Auto) Lymph % (Auto) [place] % (Auto) Eos % (Auto) Baso % (Auto) Neut # (Auto) Lymph # (Auto) [place] # (Auto) Eos # (Auto) Baso # (Auto) Immature Gran # (Auto) Absolute Nucleated RBC Immature Gran % Nucleated RBC % Sodium 143 142 Potassium Chloride Carbon Dioxide Anion Gap BUN Creatinine Estim Creat Clear Calc eGFR BUN/Creatinine Ratio Glucose Calculated Osmolality Calcium Corrected Calcium Magnesium Total Bilirubin AST ALT Alkaline Phosphatase Total Protein Albumin Globulin Albumin/Globulin Ratio Aldosterone Ur Collection Type Urine Color Urine Clarity Urine pH Ur Specific [place] Urine Protein Urine Glucose (UA) Urine Ketones Urine Blood Urine Nitrite Urine Bilirubin Urine Urobilinogen (Auto) Ur Leukocyte Esterase Urine RBC Urine WBC Ur Squamous Epith Cells Urine Bacteria Ur Random Sodium Ur Random Potassium Ur Random Chloride Urine HCG, Qual Stool for White Cells Negative GARRICK Screen GARRICK Titer GARRICK Titer 2 GARRICK Titer 3 GARRICK Pattern GARRICK Pattern 2 GARRICK Pattern 3 01/18/25 06:00 WBC 8.9 D RBC 2.51 L Hgb 7.8 L Hct 23.7 L MCV 94 MCH 31.1 MCHC 32.9 RDW Std Deviation 59.0 H Plt Count 148 D Neut % (Auto) 69 Lymph % (Auto) 22 [place] % (Auto) 7 Eos % (Auto) 1 Baso % (Auto) 0 Neut # (Auto) 6.1 Lymph # (Auto) 1.9 [place] # (Auto) 0.6 Eos # (Auto) 0.1 Baso # (Auto) 0.0 Immature Gran # (Auto) 0.12 H Absolute Nucleated RBC 0.07 H Immature Gran % 1 H Nucleated RBC % 1 H Sodium 144 Potassium 4.4 D Chloride 109 H Carbon Dioxide 24.1 Anion Gap 11 BUN < 5 L Creatinine 0.3 L Estim Creat Clear Calc 140.7 eGFR > 60 BUN/Creatinine Ratio 17 Glucose 85 D Calculated Osmolality 283 Calcium 9.3 Corrected Calcium 9.8 Magnesium 2.1 Total Bilirubin 0.5 AST 68 H ALT 102 H Alkaline Phosphatase 245 H D Total Protein 5.9 Albumin 3.4 L Globulin 2.5 Albumin/Globulin Ratio 1.4 Aldosterone Ur Collection Type Urine Color Urine Clarity Urine pH Ur Specific [place] Urine Protein Urine Glucose (UA) Urine Ketones Urine Blood Urine Nitrite Urine Bilirubin Urine Urobilinogen (Auto) Ur Leukocyte Esterase Urine RBC Urine WBC Ur Squamous Epith Cells Urine Bacteria Ur Random Sodium Ur Random Potassium Ur Random Chloride Urine HCG, Qual Stool for White Cells GARRICK Screen GARRICK Titer GARRICK Titer 2 GARRICK Titer 3 GARRICK Pattern GARRICK Pattern 2 GARRICK Pattern 3 Quality Measures Quality Measures sepsis Current suspected stage: sepsis Possible source: pulmonary, genitourinary and unknown Blood cultures ordered: completed in ED Antibiotic ordered: Yes Assessment & Plan Assessment Current Active Medications: Generic Name Dose Route Start Last Admin Trade Name Freq PRN Reason Stop Dose Admin Acetaminophen 325 mg 01/11/25 22:28 Acetaminophen 325 Mg Tablet PO 02/10/25 22:27 Q4HR PRN Pain 1 - 3 Or Fever > 101 Albuterol/Ipratropium 3 ml 01/14/25 01:23 Albuterol/Ipratropium (Duoneb) Rt Martina 3 Ml Nebu INH 02/13/25 01:59 Q2HR PRN shorthness of breath or wheeze Buspirone HCl 10 mg 01/12/25 21:00 01/17/25 22:02 Buspirone Hcl 5 Mg Tablet PO 02/11/25 20:59 10 mg BID MARCIA Administration Famotidine 20 mg 01/12/25 09:00 01/17/25 08:47 Famotidine Inj 10 Mg/Ml Vial 2 Ml IVP 02/11/25 08:59 20 mg QDAY MARCIA Administration Piperacillin/Tazobactam/Dextrose 3.375 gm in 50 mls @ 12.5 mls/hr 01/11/25 22:00 01/18/25 05:16 Zosyn IV 01/18/25 21:59 12.5 mls/hr Q8HR MARCIA Administration Vancomycin HCl 200 mls @ 120 mls/hr 01/16/25 10:30 01/17/25 10:13 Vancomycin/Water 1gm Ivpb IV 01/23/25 10:29 120 mls/hr DAILY@1000 MARCIA Administration Loratadine 10 mg 01/13/25 09:00 01/17/25 08:47 Loratadine 10 Mg Tablet PO 02/12/25 08:59 10 mg QDAY MARCIA Administration Pharmacy Consult 1 each 01/13/25 14:20 Vancomycin Pharmacy To Dose 1 Each Each IV 02/12/25 14:19 QDAY PRN PROTOCOL Thiamine HCl 100 mg 01/15/25 21:00 01/17/25 22:00 Thiamine Inj 100 Mg/Ml Vial 2 Ml IVP 02/14/25 20:59 100 mg BID MARCIA Administration Plan Kelly Herrera is a 29F pmhx significant for severe intellectual disability, non verbal at baseline, who presented to [facility] ED on 01/11 for hypothermia and altered mental status. The patient was admitted to ICU for 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 Patient downgraded to hospital floors 01/13 for further management. #Hypernatremia, improving #Hyperchloremia, improving Patient was noted to have a sodium of 157 and chloride of 115 on admission. This has improved over time and with hydration, indicating that this is most likely due to dehydration. Na decreased to 145 at lowest, however continues to increase. Plan: ? Will continue to monitor with daily renal panel - Ordered serum uric acid, renin, and aldosterone to investigate possible endocrine abnormalities - Ordered urine electrolytes and urinalysis, only abnormality noted was urine potassium <10. - Pending ACTH, morning cortisol and random cortisol - F/u sodium check at 1700, if elevated then will resume NG tube with 200 cc/h free water flushes as patient pulled out NG tube yesterday #Sepsis, resolving 2/2 #Community acquired pneumonia and #Urinary tract infection (Entercoccus faecalis) #Hypothermnia, improving #Hypotension (resolved) #Transaminitis (resolving) #OLENA, likely prerenal (resolving) Presented to ED with hypothermia of 91.1F, lowest 89.1F rectally, and altered mental status. Admitted to ICU for management of hypotension, requiring pressors, hypothermia, requiring Mellissa hugger, and severe thrombocytopenia. Hypothermia likely 2/2 poor PO intake and muscle wasting. CTAP showed right middle and bibasilar pneumonia along with significant pneumonia in the left base. US gallbladder negative for acute cholecystitis and hep panel neg. CT head neg unremarkable. BCx NGTD, UCx +enterococcus faecalis Endorgan damage was noted with transaminitis and OLENA on admission, AST 371, ALT 202, creatinine 0.9 (baseline 0.5). FeNa 0.3%, supporting prerenal likely 2/2 poor PO intake Plan: ? CTM temperature, will continue Mellisas hugger until patient temperature improves ? CTM blood pressure, keep MAP >65 ? CTM LFTs ? Continue vancomycin and Zosyn (01/11--) ? F/u repeat BCx - Ordered stool culture, stool WBC, C. diff PCR, and calprotectin to investigate possible infection in GI tract, all negative except for procaclitonin, which is pending #Dysphagia In ICU, patient failed bedside swallow eval and so was referred to speech therapy. However, the patient passed swallow eval with speech therapy, and so patient was started on dysphagia 1 diet. It was reported by nursing staff that they tried to feed the patient, however the patient was not showing anything, and the nurses had to scrape the fluid out of her mouth. Videofluoroscopic study showed aspiration on thin barium admission Ppatient's medical decision-maker, Dr. Jiménez believes that glycopyrrolate is most likely the source of the patient's initial symptoms leading to ED presentation, and does not want any PEG tube placement at this time Plan: ? Consulted GI, Dr. Ascencio, recs appreciated ? EGD 01/15 showed benign-appearing esophageal stricture, which was dilated ? Patient passed speech eval 01/17, put on dysphagia 1 pur?ed diet, mildly thick level 2, and only use of sippy cup, no straws #Protein calorie deficiency Patient noted to have significantly low BMI throughout hospitalization. Given that patient was NPO for several days and and has multiple days of Mellissa Hugger for hypothermia, lack of body mass is most likely contributing to difficulty maintaining proper body temperature. - Restaurant Inspector referral ordered, recommends Mighty shake 120 mL 3 times daily with meals, water flushes of 25 mL/h, thiamine 100 mg/day for 7 days with first dose at least 30 minutes before meal, and multivitamins/minerals - Encourage patient to complete meals #Thrombocytopenia #Suspected ITP #New onset hematuria (resolved) Patient noted to have platelet of 26, lowest 16, on admission. In ICU s/p platelet transfusion on 01/13, which increased platelets to 77. Patient noted to have hematuria in ICU. This is likely due to underlying sepsis versus viral illness versus radiographic thrombocytopenia. Reticulocyte count and peripheral smear are sent without significant abnormality noted except for severe thrombocytopenia. ICU did workup for thrombocytopenia, all of which is negative including hepatitis panel, HIV, GARRICK screen, iron, B12, folate, DIC panel. ICU team discussed case with Dr. Chadnra, pathologist, who reported that the patient did not have any abnormal cells or severe features suggestive of TTP?HUS. ITP is suspected as a diagnosis of exclusion. Urinalysis 01/12 showed 3+ blood in urine and 1009 RBC. Methylprednisolone 30 mg (01/12-01/14) Plan: ? Avoid antiplatelets and anticoagulants ? Continue to monitor platelet count and assess for bleeding ? F/u haptoglobin #Anemia, normocytic normochromic Patient noted to have hemoglobin of 11.6 on admission with a downward trend during hospitalization. Likely due to dehydration at time of admission with contribution from hematuria. Iron 201, and iron saturation 85% with ferritin at 756, folate wnl Pathology smear reports minimal anemia supporting likely dehydration and sepsis as more likely causes. Plan: ? Will continue to monitor CBC #Hypercalcemia (resolved) Corrected calcium at time of patient noted to be 10.9. PTH noted to be 79.1. 25 OH vitamin D >150, which is most likely the source of her hypercalcemia in addition to immobility. Plan: ? Will educate caretakers about excessive 25 OH vitamin D and recommend decreasing dosage if patient is taking supplements #Congenital hip dysplasia Patient found to have hip dysplasia on CT abdomen/pelvis. Patient is wheelchair-bound. Plan: ? No active treatment required at this time ? Follow-up with outpatient for management DVT Prophylaxis: SCDs GI Prophylaxis: Famotidine Bowel: Famotidine Diet: NPO Banda: Yes Lines: Peripheral IV Antibiotics: Vancomycin & Zosyn (01/11--) Code Status: FULL Reason for Hospitalization: Sepsis Other Barriers to Discharge: Hypernatremia & Hypothermia Patient plan of care was discussed with the senior resident Dr. Young (PGY-2) and attending physician Dr. Jayden Elaine, PGY1
[2025-01-18 09:44] LABS: Clostridium Difficile PCR Negative (Negative)
[2025-01-18 10:24] LABS: Campylobacter PCR Negative (Negative); Salmonella Species PCR Negative (Negative); Shiga Toxin PCR Negative (Negative); Shigella Species PCR Negative (Negative)
[2025-01-18] MEDS: THIAMINE INJ 100 MG/ML VIAL 2 ML IVP ×2 (10:26→22:00)
[2025-01-18] MEDS: FAMOTIDINE INJ 10 MG/ML VIAL 2 ML 20 MG IVP (10:26)
[2025-01-18] MEDS: VANCOMYCIN/WATER 1GM IVPB 200 ML IV (10:34)
--- NOTE | 2025-01-18 10:49 | CHAP ---
Patient was visited by a Spiritual Care volunteer on 01/18/2025 between 0900 and 0925 and received comfort, encouragement and/or prayer.
[2025-01-18 18:16] LABS: Sodium 149 mMol/L (136-145)
--- NOTE | 2025-01-18 20:12 | ESPR_ITS ---
Documentation for date of: 01/18/25 Subjective Subjective Interval history: Patient evaluated Sodium at 142 Total bilirubin 0.5 AST ALT 68 and 102 and alk phos 245 Exam Vital Signs Temp Pulse Resp BP Pulse Ox O2 Del Method O2 Flow Rate 98.3 F 91 19 109/54 L 95 Nasal Cannula 3 01/18/25 19:53 01/18/25 19:53 01/18/25 19:53 01/18/25 19:53 01/18/25 19:53 01/18/25 19:53 01/18/25 19:53 Objective Labs 01/18/25 06:00 01/18/25 17:27 Labs: Laboratory Results - last 24 hr 01/12/25 01/17/25 01/17/25 15:05 20:07 23:02 WBC RBC Hgb Hct MCV MCH MCHC RDW Std Deviation Plt Count Neut % (Auto) Lymph % (Auto) [place] % (Auto) Eos % (Auto) Baso % (Auto) Neut # (Auto) Lymph # (Auto) [place] # (Auto) Eos # (Auto) Baso # (Auto) Immature Gran # (Auto) Absolute Nucleated RBC Immature Gran % Nucleated RBC % Sodium 143 142 Potassium Chloride Carbon Dioxide Anion Gap BUN Creatinine Estim Creat Clear Calc eGFR BUN/Creatinine Ratio Glucose Calculated Osmolality Calcium Corrected Calcium Magnesium Total Bilirubin AST ALT Alkaline Phosphatase Total Protein Albumin Globulin Albumin/Globulin Ratio Stool for White Cells Stool Campylobacter PCR Stl C. diff Tox B Gene Stl E.coli Shiga Tox PCR Stool Salmonella PCR Stool Shigella PCR GARRICK Screen NEGATIVE GARRICK Titer TNP GARRICK Titer 2 TNP GARRICK Titer 3 TNP GARRICK Pattern TNP GARRICK Pattern 2 TNP GARRICK Pattern 3 TNP 01/18/25 01/18/25 01/18/25 03:20 06:00 17:27 WBC 8.9 D RBC 2.51 L Hgb 7.8 L Hct 23.7 L MCV 94 MCH 31.1 MCHC 32.9 RDW Std Deviation 59.0 H Plt Count 148 D Neut % (Auto) 69 Lymph % (Auto) 22 [place] % (Auto) 7 Eos % (Auto) 1 Baso % (Auto) 0 Neut # (Auto) 6.1 Lymph # (Auto) 1.9 [place] # (Auto) 0.6 Eos # (Auto) 0.1 Baso # (Auto) 0.0 Immature Gran # (Auto) 0.12 H Absolute Nucleated RBC 0.07 H Immature Gran % 1 H Nucleated RBC % 1 H Sodium 144 149 H Potassium 4.4 D Chloride 109 H Carbon Dioxide 24.1 Anion Gap 11 BUN < 5 L Creatinine 0.3 L Estim Creat Clear Calc 140.7 eGFR > 60 BUN/Creatinine Ratio 17 Glucose 85 D Calculated Osmolality 283 Calcium 9.3 Corrected Calcium 9.8 Magnesium 2.1 Total Bilirubin 0.5 AST 68 H ALT 102 H Alkaline Phosphatase 245 H D Total Protein 5.9 Albumin 3.4 L Globulin 2.5 Albumin/Globulin Ratio 1.4 Stool for White Cells Negative Stool Campylobacter PCR Negative Stl C. diff Tox B Gene Negative Stl E.coli Shiga Tox PCR Negative Stool Salmonella PCR Negative Stool Shigella PCR Negative GARRICK Screen GARRICK Titer GARRICK Titer 2 GARRICK Titer 3 GARRICK Pattern GARRICK Pattern 2 GARRICK Pattern 3 Impressions Impression: Dysphagia improved after endoscopic dilatation Passed swallowing evaluation and on dysphagia diet Hold of the PEG placement Hypernatremia improving Abnormal LFTs primarily transaminitis improving Assessment & Plan A&P Narrative # Dysphagia # Recurrent aspiration Plan Consent to be obtained for fiberoptic esophagogastroduodenoscopy with possible proximal esophageal stricture dilatation to prevent aspiration Hopefully that will work If it does not work we will consider after talking to Dr. Jiménez for the possibility of a PEG placement She should be given every opportunity not to go that route at least at the moment Thank you very much for the opportunity to participate in the care of this patient Time Spent With Patient Time: Total time spent is greater than 50% in coordination of care (as documented) at patient's floor/unit and/or counseling patient:
--- NOTE | 2025-01-18 22:20 | XR_ITS ---
Examination: AP chest single view TECHNIQUE: AP portable semiupright chest single view Date and time: January 18, 2025 at 10:30 PM Comparison January 17, 2025 INDICATIONS: Postoperative gastric tube placement FINDINGS: Significant perihilar opacity Normal heart size Prominent thoracic dextroscoliosis Orogastric tube in the stomach satisfactory position IMPRESSION: Prominent bilateral pneumonia Orogastric tube in the stomach satisfactory position
[2025-01-19] VITALS (11 sets, daily range): BP systolic 99–132; BP diastolic 58–87; PULSE 71–95; RESP 16–25; TEMP 36.1–36.8; O2SAT 92–98
[2025-01-19] MEDS: DEXTROSE 5%-WATER 500 ML 175 ML IV (00:40)
--- NOTE | 2025-01-19 00:57 | PC.NURSE ---
@00:00, Walked into patient room, patient has NGT in hand, pulled completely from right nostril despite patients bilateral wrist restraints, patient is GCS of 8 with hx of impulsive behaviors and no comprehension of importance of medical payment poster, Patient shows no sign of distress at the time, notified MD Malone @00:07 regarding situation, MD Malone stated to hold off on reinsertion of NGT and will relay situation to Day team, D5W @175 ml/hr ordered for patient, care continued.
[2025-01-19] MEDS: DEXTROSE 5%-WATER 1,000 ML 175 ML IV ×3 (01:20→21:47)
[2025-01-19 01:26] LABS: Sodium 150 mMol/L (136-145)
[2025-01-19] MEDS: KETOROLAC INJ 30 MG/ML VIAL 15 MG IVP (05:39)
[2025-01-19 06:52] LABS: Haptoglobin* 126 mg/dL (43-212)
[2025-01-19] MEDS: MULTIVITAMINS TABLET 1 TAB PO (08:30)
[2025-01-19] MEDS: THIAMINE INJ 100 MG/ML VIAL 2 ML IVP ×2 (08:30→21:46)
[2025-01-19] MEDS: FAMOTIDINE INJ 10 MG/ML VIAL 2 ML 20 MG IVP (08:31)
[2025-01-19 09:14] LABS: Basophils # (Auto) 0.0 Thou/mm3 (0.0-0.2); Basophils % (Auto) 0 % (0-2.5); Eosinophils # (Auto) 0.1 Thou/mm3 (0.0-0.5); Eosinophils % (Auto) 1 % (0-10); Hematocrit 27.1 % (36.0-46.0); Hemoglobin 9.0 g/dL (12.0-16.0); Immature Granulocytes Auto 0.09 Thou/mm3 (0.00-0.00); Lymphocytes # (Auto) 3.9 Thou/mm3 (1.0-4.8); Lymphocytes % (Auto) 37 % (10-50); Mean Corpuscular HGB Conc 33.2 g/dl (31.0-37.0); Mean Corpuscular Hemoglobin 31.6 pg (25.0-35.0); Mean Corpuscular Volume 95 fL (80-100); Monocytes # (Auto) 0.8 Thou/mm3 (0.0-0.8); Monocytes % (Auto) 7 % (0-12); Neutrophils # (Auto) 5.8 Thou/mm3 (1.8-7.7); Neutrophils % (Auto) 54 % (37-80); Nucleated Red Blood Cell # 0.08 Thou/mm3 (0.00-0.00); Nucleated Red Blood Cell % 1 /100 WBC (0); Platelet Count 219 Thou/mm3 (140-440); RDW Standard Deviation 61.4 fL (36.4-46.3); Red Blood Count 2.85 Miln/mm3 (4.00-5.20); White Blood Count 10.6 Thou/mm3 (3.6-11.0)
--- NOTE | 2025-01-19 09:25 | PC.SS ---
Follow up note: High sodium. Pt will return to correction upon dc. Pt possibly will require home O2 at dc.
[2025-01-19 09:35] LABS: Alanine Aminotransferase 91 U/L (10-49); Albumin, Serum 3.9 gm/dL (3.5-5.0); Albumin/Globulin Ratio 1.3 (1.2-2.2); Alkaline Phosphatase 305 U/L (46-116); Anion Gap 10 (7-16); Aspartate Amino Transferase 48 U/L (0-34); BUN/Creatinine Ratio 7 Ratio (12-20); Bilirubin,Total 0.4 mg/dL (0.3-1.2); Blood Urea Nitrogen < 5 mg/dL (9-23); Calcium 9.9 mg/dL (8.3-10.6); Calcium (Corrected) 10.0 mg/dL (8.5-10.1); Carbon Dioxide 27.4 mMol/L (20.0-31.0); Chloride 109 mMol/L (98-107); Creatinine (Component) 0.7 mg/dL (0.6-1.3); Estimated Creatinine Clearance 60.3 mL/min (>60); Globulin 2.9 gm/dL (2.3-3.5); Glucose 92 mg/dL (74-106); Osmolality,Calculated 287 (275-295); Phosphorous 2.9 mg/dL (2.4-5.1); Potassium 3.8 mMol/L (3.4-5.1); Sodium 146 mMol/L (136-145); Total Protein 6.8 gm/dL (5.7-8.2); Vancomycin,Trough 13.8 mcg/mL (5.0-10.0); eGFR > 60 See Note
--- NOTE | 2025-01-19 10:01 | XR_ITS ---
Examination: AP chest single view TECHNIQUE: AP portable semiupright chest single view Date and time: January 19, 2025 1022 hours INDICATIONS: Reposition orogastric tube. FINDINGS: Significant bilateral lung opacity Normal heart size Orogastric tube is partially coiled in the stomach IMPRESSION: Recommend retracting the orogastric tube 4 cm
[2025-01-19] MEDS: VANCOMYCIN/WATER 1GM IVPB 200 ML IV (11:00)
--- NOTE | 2025-01-19 11:50 | PC.NURSE ---
retracted NG tube by 4 cm per xray
--- NOTE | 2025-01-19 13:37 | ESPR_ITS ---
<Statement entered by Jose Antonio Young MD - 01/19/25 18:50> Patient was seen and examined at bedside. I agree on the assessment and plan on this note as documented by resident Tyrell Elaine DO PGY1. Patient seen and examined at bedside, continues to require Mellissa hugger for hypothermia, per dietitian patient does not have adequate oral intake will discuss with gastroenterology again regarding PEG tube placement. Patient did have elevated sodium again was started on D5W overnight by night hospitalist team. Sodium 146 this morning, will place NG tube again and start patient on free water flushes. Repeat sodium at 6 PM and 12 AM, signed out to night team to titrate free water flushes as needed. Pending cortisol ACTH renin and aldosterone, will reach out to conservator Dr. Jiménez to discuss future nutrition needs. Case discussed with attending Dr. Shameka Young MD PGY-2 Documentation for date of: 01/19/25 Subjective Subjective Interval history: Overnight events: Patient pulled out NG tube overnight. Night team resumed D5W at 175 cc/h. Patient was seen and examined at bedside. AM vitals and labs reviewed. Patient noted to be on Mellissa hugger. Patient has not been running low temp. Patient continues to have poor oral nutrition. A.m. sodium noted to be 146. Will recheck sodium at 1800 and at midnight. Reordered NG tube placement with free water flushes at 200 cc/h. Continue D5W, will decrease flow to 50 cc/h if repeat sodiums 138 or less. Discussed with nursing staff about trying to wean patient off Mellissa hugger. Discontinued vancomycin and Zosyn. Will continue to encourage patient to have increased oral feeds as tolerated. Review of systems otherwise negative except for what is mentioned above. Exam Vital Signs Temp Pulse Resp BP Pulse Ox O2 Del Method O2 Flow Rate 97.6 F 76 18 105/70 94 L Nasal Cannula 2 01/19/25 11:48 01/19/25 12:46 01/19/25 11:48 01/19/25 11:48 01/19/25 11:48 01/19/25 11:48 01/19/25 11:48 Narrative Exam Physical Exam: General: Alert, no acute distress. Nonverbal, noninteractive. On Mellissa Hugger. Skin: Warm, intact, no obvious rash. Head: Normocephalic, atraumatic. Cardiovascular: Regular rate and rhythm, no murmur, +S1/S2. Respiratory: Respirations unlabored on nasal cannula, no crackles, no wheezing. Gastrointestinal: Soft, nontender, non-distended. No guarding or rebound tenderness. Extremities: No edema, no cyanosis, no clubbng. Objective Labs 01/19/25 08:46 01/19/25 17:38 Labs: Laboratory Results - last 24 hr 01/13/25 01/18/25 01/19/25 04:26 17:27 00:31 WBC RBC Hgb Hct MCV MCH MCHC RDW Std Deviation Plt Count Neut % (Auto) Lymph % (Auto) [place] % (Auto) Eos % (Auto) Baso % (Auto) Neut # (Auto) Lymph # (Auto) [place] # (Auto) Eos # (Auto) Baso # (Auto) Immature Gran # (Auto) Absolute Nucleated RBC Immature Gran % Nucleated RBC % Haptoglobin 126 Sodium 149 H 150 H Potassium Chloride Carbon Dioxide Anion Gap BUN Creatinine Estim Creat Clear Calc eGFR BUN/Creatinine Ratio Glucose Calculated Osmolality Calcium Corrected Calcium Phosphorus Total Bilirubin AST ALT Alkaline Phosphatase Total Protein Albumin Globulin Albumin/Globulin Ratio Vancomycin Trough 01/19/25 08:46 WBC 10.6 RBC 2.85 L Hgb 9.0 L Hct 27.1 L MCV 95 MCH 31.6 MCHC 33.2 RDW Std Deviation 61.4 H Plt Count 219 D Neut % (Auto) 54 Lymph % (Auto) 37 [place] % (Auto) 7 Eos % (Auto) 1 Baso % (Auto) 0 Neut # (Auto) 5.8 Lymph # (Auto) 3.9 [place] # (Auto) 0.8 Eos # (Auto) 0.1 Baso # (Auto) 0.0 Immature Gran # (Auto) 0.09 H Absolute Nucleated RBC 0.08 H Immature Gran % 1 H Nucleated RBC % 1 H Haptoglobin Sodium 146 H Potassium 3.8 D Chloride 109 H Carbon Dioxide 27.4 Anion Gap 10 BUN < 5 L Creatinine 0.7 Estim Creat Clear Calc 60.3 L eGFR > 60 BUN/Creatinine Ratio 7 L Glucose 92 Calculated Osmolality 287 Calcium 9.9 Corrected Calcium 10.0 Phosphorus 2.9 Total Bilirubin 0.4 AST 48 H ALT 91 H Alkaline Phosphatase 305 H D Total Protein 6.8 Albumin 3.9 D Globulin 2.9 Albumin/Globulin Ratio 1.3 Vancomycin Trough 13.8 H Quality Measures Quality Measures sepsis Current suspected stage: ruled out Possible source: pulmonary, genitourinary and unknown Blood cultures ordered: completed in ED Antibiotic ordered: No Assessment & Plan Assessment Current Active Medications: Generic Name Dose Route Start Last Admin Trade Name Freq PRN Reason Stop Dose Admin Acetaminophen 325 mg 01/11/25 22:28 Acetaminophen 325 Mg Tablet PO 02/10/25 22:27 Q4HR PRN Pain 1 - 3 Or Fever > 101 Albuterol/Ipratropium 3 ml 01/14/25 01:23 Albuterol/Ipratropium (Duoneb) Rt Martina 3 Ml Nebu INH 02/13/25 01:59 Q2HR PRN shorthness of breath or wheeze Buspirone HCl 10 mg 01/12/25 21:00 01/19/25 08:30 Buspirone Hcl 5 Mg Tablet PO 02/11/25 20:59 10 mg BID MARCIA Administration Famotidine 20 mg 01/12/25 09:00 01/19/25 08:31 Famotidine Inj 10 Mg/Ml Vial 2 Ml IVP 02/11/25 08:59 20 mg QDAY MARCIA Administration Vancomycin HCl 200 mls @ 120 mls/hr 01/16/25 10:30 01/19/25 11:00 Vancomycin/Water 1gm Ivpb IV 01/23/25 10:29 120 mls/hr DAILY@1000 MARCIA Administration Loratadine 10 mg 01/13/25 09:00 01/19/25 08:30 Loratadine 10 Mg Tablet PO 02/12/25 08:59 10 mg QDAY MARCIA Administration Multivitamins 1 tab 01/19/25 09:00 01/19/25 08:30 Multivitamins Tablet PO 02/18/25 08:59 1 tab QDAY MARCIA Administration Pharmacy Consult 1 each 01/13/25 14:20 Vancomycin Pharmacy To Dose 1 Each Each IV 02/12/25 14:19 QDAY PRN PROTOCOL Thiamine HCl 100 mg 01/15/25 21:00 01/19/25 08:30 Thiamine Inj 100 Mg/Ml Vial 2 Ml IVP 02/14/25 20:59 100 mg BID MARCIA Administration Plan Kelly Javier is a 29F pmhx significant for severe intellectual disability, non verbal at baseline, who presented to [facility] ED on 01/11 for hypothermia and altered mental status. The patient was admitted to ICU for 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 Patient downgraded to hospital floors 01/13 for further management. #Hypernatremia, improving #Hyperchloremia, improving Patient was noted to have a sodium of 157 and chloride of 115 on admission. This has improved over time and with hydration, indicating that this is most likely due to dehydration. Patient sodium noted to have improved most when NG tube is placed. However, patient has removed NG tube multiple times. Plan: ? Will continue to monitor with daily renal panel - Ordered serum uric acid, renin, and aldosterone to investigate possible endocrine abnormalities - Ordered urine electrolytes and urinalysis, only abnormality noted was urine potassium <10. - Pending ACTH, morning cortisol and random cortisol - D5W at 175 cc/h - Free water flushes at 200 cc/h through NG tube - F/u sodium check at 1800 and 0000, if 138 or less, then decrease D5W flow rate to 50 cc/h #Sepsis, resolving 2/2 #Community acquired pneumonia and #Urinary tract infection (Entercoccus faecalis) #Hypothermnia, improving #Hypotension (resolved) #Transaminitis (resolving) #OLENA, likely prerenal (resolving) Presented to ED with hypothermia of 91.1F, lowest 89.1F rectally, and altered mental status. Admitted to ICU for management of hypotension, requiring pressors, hypothermia, requiring Mellissa hugger, and severe thrombocytopenia. Hypothermia likely 2/2 poor PO intake and muscle wasting. CTAP showed right middle and bibasilar pneumonia along with significant pneumonia in the left base. US gallbladder negative for acute cholecystitis and hep panel neg. CT head neg unremarkable. BCx NGTD, UCx +enterococcus faecalis Endorgan damage was noted with transaminitis and OLENA on admission, AST 371, ALT 202, creatinine 0.9 (baseline 0.5). FeNa 0.3%, supporting prerenal likely 2/2 poor PO intake Plan: ? CTM temperature, will continue Mellissa hugger until patient temperature improves ? CTM blood pressure, keep MAP >65 ? CTM LFTs ? Vancomycin and Zosyn (01/11-01/19) - Ordered stool culture, stool WBC, C. diff PCR, and calprotectin to investigate possible infection in GI tract, all negative #Dysphagia In ICU, patient failed bedside swallow eval and so was referred to speech therapy. However, the patient passed swallow eval with speech therapy, and so patient was started on dysphagia 1 diet. It was reported by nursing staff that they tried to feed the patient, however the patient was not showing anything, and the nurses had to scrape the fluid out of her mouth. Videofluoroscopic study showed aspiration on thin barium admission Ppatient's medical decision-maker, Dr. Jiménez believes that glycopyrrolate is most likely the source of the patient's initial symptoms leading to ED presentation, and does not want any PEG tube placement at this time Plan: ? Consulted GI, Dr. Ascencio, recs appreciated ? EGD 01/15 showed benign-appearing esophageal stricture, which was dilated ? Patient passed speech eval 01/17, put on dysphagia 1 pur?ed diet, mildly thick level 2, and only use of sippy cup, no straws #Protein calorie deficiency Patient noted to have significantly low BMI throughout hospitalization. Given that patient was NPO for several days and and has multiple days of Mellissa Hugger for hypothermia, lack of body mass is most likely contributing to difficulty maintaining proper body temperature. - Pediatrician Active Practice referral ordered, recommends Mighty shake 120 mL 3 times daily with meals, water flushes of 25 mL/h, thiamine 100 mg/day for 7 days with first dose at least 30 minutes before meal, and multivitamins/minerals - Encourage patient to complete meals #Thrombocytopenia #Suspected ITP #New onset hematuria (resolved) Patient noted to have platelet of 26, lowest 16, on admission. In ICU s/p platelet transfusion on 01/13, which increased platelets to 77. Patient noted to have hematuria in ICU. This is likely due to underlying sepsis versus viral illness versus radiographic thrombocytopenia. Reticulocyte count and peripheral smear are sent without significant abnormality noted except for severe thrombocytopenia. ICU did workup for thrombocytopenia, all of which is negative including hepatitis panel, HIV, GARRICK screen, iron, B12, folate, DIC panel. ICU team discussed case with Dr. Chandra, pathologist, who reported that the patient did not have any abnormal cells or severe features suggestive of TTP?HUS. ITP is suspected as a diagnosis of exclusion. Urinalysis 01/12 showed 3+ blood in urine and 1009 RBC. Methylprednisolone 30 mg (01/12-01/14) Plan: ? Avoid antiplatelets and anticoagulants ? Continue to monitor platelet count and assess for bleeding ? Haptoglobin 126 #Anemia, normocytic normochromic Patient noted to have hemoglobin of 11.6 on admission with a downward trend during hospitalization. Likely due to dehydration at time of admission with contribution from hematuria. Iron 201, and iron saturation 85% with ferritin at 756, folate wnl Pathology smear reports minimal anemia supporting likely dehydration and sepsis as more likely causes. Plan: ? Will continue to monitor CBC #Hypercalcemia (resolved) Corrected calcium at time of patient noted to be 10.9. PTH noted to be 79.1. 25 OH vitamin D >150, which is most likely the source of her hypercalcemia in addition to immobility. Plan: ? Will educate caretakers about excessive 25 OH vitamin D and recommend decreasing dosage if patient is taking supplements #Congenital hip dysplasia Patient found to have hip dysplasia on CT abdomen/pelvis. Patient is wheelchair-bound. Plan: ? No active treatment required at this time ? Follow-up with outpatient for management DVT Prophylaxis: SCDs GI Prophylaxis: Famotidine Bowel: N/A Diet: Dysphagia 1 w/ Mighty shake Banda: Yes Lines: Peripheral IV, NG tube Antibiotics: N/A Code Status: FULL Reason for Hospitalization: Sepsis Other Barriers to Discharge: Hypernatremia Patient plan of care was discussed with the senior resident Dr. Young (PGY-2) and attending physician Dr. Manuel Elaine, PGY1 Attending Provider Attestation/Addendum I attest that I was physically present for the evaluation, physical examination, lab and imaging review of the patient with the residents. I discussed the case with the residents and agree with the findings and plans of care as documented above. At bedside today, patient appears comfortable. Continues to be on Mellissa hugger, temperature of 97.4 this afternoon. Discussed with dietitian, patient has not have adequate oral intake. Sodium level continues to uptrend due to poor oral intake, add sodium of 150 overnight and 146 this morning. Received D5W along with free water flushes with improvement in sodium to 143 this afternoon. We will discontinue the D5W and continue with free water flushes for now, plan to have follow-up sodium level in the evening, we will adjust free water flushes accordingly. Plan to rediscuss about PEG tube placement with GI and Dr. Jiménez given patient has not been having adequate oral intake since admission leading to electrolyte imbalances. Workup for hyponatremia including cortisol, ACTH, renin and aldosterone activity pending. Completed her course of IV antibiotics for UTI and pneumonia. Shameka Jackson MD
[2025-01-19 14:32] LABS: Sodium 143 mMol/L (136-145)
--- NOTE | 2025-01-19 15:36 | ESPR_ITS ---
Documentation for date of: 01/19/25 Subjective Subjective Interval history: No new issues from a GI viewpoint Exam Vital Signs Temp Pulse Resp BP Pulse Ox O2 Del Method O2 Flow Rate 97.6 F 76 18 105/70 94 L Nasal Cannula 2 01/19/25 11:48 01/19/25 12:46 01/19/25 11:48 01/19/25 11:48 01/19/25 11:48 01/19/25 11:48 01/19/25 11:48 Objective Labs 01/19/25 08:46 01/19/25 14:03 Labs: Laboratory Results - last 24 hr 01/13/25 01/18/25 01/19/25 04:26 17:27 00:31 WBC RBC Hgb Hct MCV MCH MCHC RDW Std Deviation Plt Count Neut % (Auto) Lymph % (Auto) [place] % (Auto) Eos % (Auto) Baso % (Auto) Neut # (Auto) Lymph # (Auto) [place] # (Auto) Eos # (Auto) Baso # (Auto) Immature Gran # (Auto) Absolute Nucleated RBC Immature Gran % Nucleated RBC % Haptoglobin 126 Sodium 149 H 150 H Potassium Chloride Carbon Dioxide Anion Gap BUN Creatinine Estim Creat Clear Calc eGFR BUN/Creatinine Ratio Glucose Calculated Osmolality Calcium Corrected Calcium Phosphorus Total Bilirubin AST ALT Alkaline Phosphatase Total Protein Albumin Globulin Albumin/Globulin Ratio Vancomycin Trough 01/19/25 01/19/25 08:46 14:03 WBC 10.6 RBC 2.85 L Hgb 9.0 L Hct 27.1 L MCV 95 MCH 31.6 MCHC 33.2 RDW Std Deviation 61.4 H Plt Count 219 D Neut % (Auto) 54 Lymph % (Auto) 37 [place] % (Auto) 7 Eos % (Auto) 1 Baso % (Auto) 0 Neut # (Auto) 5.8 Lymph # (Auto) 3.9 [place] # (Auto) 0.8 Eos # (Auto) 0.1 Baso # (Auto) 0.0 Immature Gran # (Auto) 0.09 H Absolute Nucleated RBC 0.08 H Immature Gran % 1 H Nucleated RBC % 1 H Haptoglobin Sodium 146 H 143 Potassium 3.8 D Chloride 109 H Carbon Dioxide 27.4 Anion Gap 10 BUN < 5 L Creatinine 0.7 Estim Creat Clear Calc 60.3 L eGFR > 60 BUN/Creatinine Ratio 7 L Glucose 92 Calculated Osmolality 287 Calcium 9.9 Corrected Calcium 10.0 Phosphorus 2.9 Total Bilirubin 0.4 AST 48 H ALT 91 H Alkaline Phosphatase 305 H D Total Protein 6.8 Albumin 3.9 D Globulin 2.9 Albumin/Globulin Ratio 1.3 Vancomycin Trough 13.8 H Impressions Impression: Dysphagia status post endoscopic dilatation Patient currently on dysphagia diet Continue to monitor Assessment & Plan A&P Narrative # Dysphagia # Recurrent aspiration Plan Consent to be obtained for fiberoptic esophagogastroduodenoscopy with possible proximal esophageal stricture dilatation to prevent aspiration Hopefully that will work If it does not work we will consider after talking to Dr. Jiménez for the possibility of a PEG placement She should be given every opportunity not to go that route at least at the moment Thank you very much for the opportunity to participate in the care of this patient Time Spent With Patient Time: Total time spent is greater than 50% in coordination of care (as documented) at patient's floor/unit and/or counseling patient:
[2025-01-19 18:09] LABS: Sodium 144 mMol/L (136-145)
--- NOTE | 2025-01-19 18:26 | PC.NURSE ---
Mellissa bardales turned off at [phone]
--- NOTE | 2025-01-19 22:11 | PC.NURSE ---
at 1999 I went into pts room, pts NGT was on the side of the bed, pulled completely from nostril despite pts curtis wrist restraints. notified Dr. Santacruz and was told to hold reinsertion of NGT due to this not being the first time pt has pulled it out. new order for d5w @ 175 ml/hr 2L total. fluids started and will continue to monitor pt.
[2025-01-19 23:59] LABS: Sodium 143 mMol/L (136-145)
[2025-01-20] VITALS (9 sets, daily range): BP systolic 97–124; BP diastolic 61–89; PULSE 66–88; RESP 16–92; TEMP 36.1–37.2; O2SAT 92–98
[2025-01-20] MEDS: DEXTROSE 5%-WATER 1,000 ML 175 ML IV (04:29)
[2025-01-20 05:52] LABS: Basophils # (Auto) 0.0 Thou/mm3 (0.0-0.2); Basophils % (Auto) 0 % (0-2.5); Eosinophils # (Auto) 0.1 Thou/mm3 (0.0-0.5); Eosinophils % (Auto) 1 % (0-10); Hematocrit 23.6 % (36.0-46.0); Immature Granulocytes Auto 0.11 Thou/mm3 (0.00-0.00); Lymphocytes # (Auto) 3.1 Thou/mm3 (1.0-4.8); Lymphocytes % (Auto) 32 % (10-50); Mean Corpuscular HGB Conc 33.1 g/dl (31.0-37.0); Mean Corpuscular Hemoglobin 31.0 pg (25.0-35.0); Mean Corpuscular Volume 94 fL (80-100); Monocytes # (Auto) 0.6 Thou/mm3 (0.0-0.8); Monocytes % (Auto) 6 % (0-12); Neutrophils # (Auto) 5.9 Thou/mm3 (1.8-7.7); Neutrophils % (Auto) 60 % (37-80); Nucleated Red Blood Cell # 0.05 Thou/mm3 (0.00-0.00); Nucleated Red Blood Cell % 1 /100 WBC (0); Platelet Count 231 Thou/mm3 (140-440); RDW Standard Deviation 55.8 fL (36.4-46.3); Red Blood Count 2.52 Miln/mm3 (4.00-5.20); White Blood Count 9.8 Thou/mm3 (3.6-11.0)
[2025-01-20 05:53] LABS: Hemoglobin 7.8 g/dL (12.0-16.0)
[2025-01-20 06:29] LABS: Alanine Aminotransferase 73 U/L (10-49); Albumin, Serum 3.5 gm/dL (3.5-5.0); Albumin/Globulin Ratio 1.3 (1.2-2.2); Alkaline Phosphatase 267 U/L (46-116); Anion Gap 10 (7-16); Aspartate Amino Transferase 44 U/L (0-34); BUN/Creatinine Ratio 8 Ratio (12-20); Bilirubin,Total 0.4 mg/dL (0.3-1.2); Blood Urea Nitrogen < 5 mg/dL (9-23); Calcium 9.5 mg/dL (8.3-10.6); Calcium (Corrected) 9.9 mg/dL (8.5-10.1); Carbon Dioxide 27.9 mMol/L (20.0-31.0); Chloride 108 mMol/L (98-107); Creatinine (Component) 0.6 mg/dL (0.6-1.3); Estimated Creatinine Clearance 70.3 mL/min (>60); Globulin 2.7 gm/dL (2.3-3.5); Glucose 138 mg/dL (74-106); Osmolality,Calculated 289 (275-295); Phosphorous 2.7 mg/dL (2.4-5.1); Potassium 3.5 mMol/L (3.4-5.1); Sodium 146 mMol/L (136-145); Total Protein 6.2 gm/dL (5.7-8.2); eGFR > 60 See Note
[2025-01-20 06:55] LABS: ACTH, Plasma* 11 pg/mL (6-50)
[2025-01-20 06:56] LABS: ACTH, Plasma* 11 pg/mL (6-50)
[2025-01-20] MEDS: MULTIVITAMINS TABLET 1 TAB PO (08:51)
[2025-01-20] MEDS: FAMOTIDINE INJ 10 MG/ML VIAL 2 ML 20 MG IVP (08:58)
[2025-01-20] MEDS: THIAMINE INJ 100 MG/ML VIAL 2 ML IVP ×2 (08:59→20:13)
--- NOTE | 2025-01-20 09:52 | ESPR_ITS ---
<Statement entered by Jose Antonio Young MD - 01/21/25 09:56> Patient was seen and examined at bedside. I agree on the assessment and plan on this note as documented by resident Tyrell Elaine DO PGY1. 29-year-old female with past medical history of significant intellectual disability admitted to [facility] for hypothermia and altered mental status. Patient has recurrent episodes of hypernatremia and hypothermia the workup for which has been negative, ACTH, renin and aldosterone levels unremarkable, case was discussed extensively with nutrition services, gastroenterology and nephrology per both consultants and nutritional services patient will benefit from PEG tube placement as patient is unable to maintain adequate caloric intake and water intake as evidenced by workup during the hospitalization and would extensively benefit from PEG tube placement. Conservator Dr. Jiménez will be informed of the findings in a.m. and we will hold discussion again regarding means of nutrition for benefit of the patient. Otherwise patient's mentation at baseline, will follow closely. Case discussed with attending Dr. Shameka Young MD PGY-2 Documentation for date of: 01/20/25 Subjective Subjective Interval history: Overnight events: Patient pulled out NG tube again. Night team resumed D5W at 175 cc/h. Patient was seen and examined at bedside. AM vitals and labs reviewed. Patient breathing comfortably on room air. Patient nonverbal. Does not seem to be in any acute distress. Not interactive. Mellissa Hugger off. ACTH 01/10 resulted as 11. Renin 01/17 resulted as 0.92. Aldosterone 01/17 resulted as 2. Started dronabinol as appetite stimulant. Consulted nephrology regarding persistant hypernatremia. Pending recommendations on NG tube placement. Will continue with D5W for now. Sodium recheck from yesterday noon resulted of 148. Will recheck at 2100. Review of systems otherwise negative except for what is mentioned above. Exam Vital Signs Temp Pulse Resp BP Pulse Ox O2 Del Method O2 Flow Rate 97.0 F 82 19 113/76 94 L Room Air 2 01/20/25 08:00 01/20/25 08:00 01/20/25 08:00 01/20/25 08:00 01/20/25 08:00 01/20/25 08:00 01/19/25 11:48 Narrative Exam Physical Exam: General: Alert, no acute distress. Nonverbal, noninteractive. Skin: Warm, intact, no obvious rash. Head: Normocephalic, atraumatic. Cardiovascular: Regular rate and rhythm, no murmur, +S1/S2. Respiratory: Respirations unlabored on nasal cannula, no crackles, no wheezing. Gastrointestinal: Soft, nontender, non-distended. No guarding or rebound tenderness. Extremities: No edema, no cyanosis, no clubbng. Objective Labs 01/21/25 05:46 01/21/25 05:46 Labs: Laboratory Results - last 24 hr 01/16/25 01/17/25 01/19/25 06:05 05:00 14:03 WBC RBC Hgb Hct MCV MCH MCHC RDW Std Deviation Plt Count Neut % (Auto) Lymph % (Auto) Gulf % (Auto) Eos % (Auto) Baso % (Auto) Neut # (Auto) Lymph # (Auto) [place] # (Auto) Eos # (Auto) Baso # (Auto) Immature Gran # (Auto) Absolute Nucleated RBC Immature Gran % Nucleated RBC % Sodium 143 Potassium Chloride Carbon Dioxide Anion Gap BUN Creatinine Estim Creat Clear Calc eGFR BUN/Creatinine Ratio Glucose Calculated Osmolality Calcium Corrected Calcium Phosphorus Total Bilirubin AST ALT Alkaline Phosphatase Total Protein Albumin Globulin Albumin/Globulin Ratio ACTH 11 11 01/19/25 01/19/25 01/20/25 17:38 23:41 04:24 WBC 9.8 RBC 2.52 L Hgb 7.8 L Hct 23.6 L MCV 94 MCH 31.0 MCHC 33.1 RDW Std Deviation 55.8 H Plt Count 231 Neut % (Auto) 60 Lymph % (Auto) 32 Gulf % (Auto) 6 Eos % (Auto) 1 Baso % (Auto) 0 Neut # (Auto) 5.9 Lymph # (Auto) 3.1 Gulf # (Auto) 0.6 Eos # (Auto) 0.1 Baso # (Auto) 0.0 Immature Gran # (Auto) 0.11 H Absolute Nucleated RBC 0.05 H Immature Gran % 1 H Nucleated RBC % 1 H Sodium 144 143 146 H Potassium 3.5 Chloride 108 H Carbon Dioxide 27.9 Anion Gap 10 BUN < 5 L Creatinine 0.6 Estim Creat Clear Calc 70.3 eGFR > 60 BUN/Creatinine Ratio 8 L Glucose 138 H Calculated Osmolality 289 Calcium 9.5 Corrected Calcium 9.9 Phosphorus 2.7 Total Bilirubin 0.4 AST 44 H ALT 73 H Alkaline Phosphatase 267 H D Total Protein 6.2 Albumin 3.5 Globulin 2.7 Albumin/Globulin Ratio 1.3 ACTH Quality Measures Quality Measures sepsis Current suspected stage: ruled out Possible source: pulmonary, genitourinary and unknown Blood cultures ordered: completed in ED Antibiotic ordered: No Assessment & Plan Assessment Current Active Medications: Generic Name Dose Route Start Last Admin Trade Name Freq PRN Reason Stop Dose Admin Acetaminophen 325 mg 01/11/25 22:28 Acetaminophen 325 Mg Tablet PO 02/10/25 22:27 Q4HR PRN Pain 1 - 3 Or Fever > 101 Albuterol/Ipratropium 3 ml 01/14/25 01:23 Albuterol/Ipratropium (Duoneb) Rt Martina 3 Ml Nebu INH 02/13/25 01:59 Q2HR PRN shorthness of breath or wheeze Buspirone HCl 10 mg 01/12/25 21:00 01/20/25 08:51 Buspirone Hcl 5 Mg Tablet PO 02/11/25 20:59 10 mg BID MARCIA Administration Famotidine 20 mg 01/12/25 09:00 01/20/25 08:58 Famotidine Inj 10 Mg/Ml Vial 2 Ml IVP 02/11/25 08:59 20 mg QDAY MARCIA Administration Loratadine 10 mg 01/13/25 09:00 01/20/25 08:51 Loratadine 10 Mg Tablet PO 02/12/25 08:59 10 mg QDAY MARCIA Administration Multivitamins 1 tab 01/19/25 09:00 01/20/25 08:51 Multivitamins Tablet PO 02/18/25 08:59 1 tab QDAY MARCIA Administration Thiamine HCl 100 mg 01/15/25 21:00 01/20/25 08:59 Thiamine Inj 100 Mg/Ml Vial 2 Ml IVP 02/14/25 20:59 100 mg BID MARCIA Administration Plan Kelly Herrera is a 29F pmhx significant for severe intellectual disability, non verbal at baseline, who presented to [facility] ED on 01/11 for hypothermia and altered mental status. The patient was admitted to ICU for 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 Patient downgraded to hospital floors 01/13 for further management. #Hypernatremia, improving #Hyperchloremia, improving Patient was noted to have a sodium of 157 and chloride of 115 on admission. This has improved over time and with hydration, indicating that this is most likely due to dehydration. Patient sodium noted to have improved most when NG tube is placed. However, patient has removed NG tube multiple times. Plan: ? Will continue to monitor with daily renal panel - Ordered serum uric acid, renin, and aldosterone to investigate possible endocrine abnormalities, all which were within normal limits - Ordered urine electrolytes and urinalysis, only abnormality noted was urine potassium <10 - Pending morning cortisol and random cortisol, ACTH returned within normal limits - D5W at 175 cc/h - F/u sodium check at 2100 , if 140 or less, then decrease D5W flow rate to 50 cc/h - Nephrology consulted, appreciate recommendations #Sepsis, resolving 2/2 #Community acquired pneumonia and #Urinary tract infection (Entercoccus faecalis) #Hypothermnia, improving #Hypotension (resolved) #Transaminitis (resolving) #OLENA, likely prerenal (resolving) Presented to ED with hypothermia of 91.1F, lowest 89.1F rectally, and altered mental status. Admitted to ICU for management of hypotension, requiring pressors, hypothermia, requiring Mellissa hugger, and severe thrombocytopenia. Hypothermia likely 2/2 poor PO intake and muscle wasting. CTAP showed right middle and bibasilar pneumonia along with significant pneumonia in the left base. US gallbladder negative for acute cholecystitis and hep panel neg. CT head neg unremarkable. BCx NGTD, UCx +enterococcus faecalis Endorgan damage was noted with transaminitis and OLENA on admission, AST 371, ALT 202, creatinine 0.9 (baseline 0.5). FeNa 0.3%, supporting prerenal likely 2/2 poor PO intake Plan: ? CTM temperature, will continue Mellissa hugger until patient temperature improves ? CTM blood pressure, keep MAP >65 ? CTM LFTs ? Vancomycin and Zosyn (01/11-01/19) - Ordered stool culture, stool WBC, C. diff PCR, and calprotectin to investigate possible infection in GI tract, all negative #Dysphagia In ICU, patient failed bedside swallow eval and so was referred to speech therapy. However, the patient passed swallow eval with speech therapy, and so patient was started on dysphagia 1 diet. It was reported by nursing staff that they tried to feed the patient, however the patient was not showing anything, and the nurses had to scrape the fluid out of her mouth. Videofluoroscopic study showed aspiration on thin barium admission Ppatient's medical decision-maker, Dr. Jiménez believes that glycopyrrolate is most likely the source of the patient's initial symptoms leading to ED presentation, and does not want any PEG tube placement at this time Plan: ? Consulted GI, Dr. Ascencio, recs appreciated ? EGD 01/15 showed benign-appearing esophageal stricture, which was dilated ? Patient passed speech eval 01/17, put on dysphagia 1 pur?ed diet, mildly thick level 2, and only use of sippy cup, no straws #Protein calorie deficiency Patient noted to have significantly low BMI throughout hospitalization. Given that patient was NPO for several days and and has multiple days of Mellissa Hugger for hypothermia, lack of body mass is most likely contributing to difficulty maintaining proper body temperature. - Stitcher Hand referral ordered, recommends Mighty shake 120 mL 3 times daily with meals, water flushes of 25 mL/h, thiamine 100 mg/day for 7 days with first dose at least 30 minutes before meal, and multivitamins/minerals - Encourage patient to complete meals - Dronabinol 2.5 mg twice a day before meals as appetite stimulant #Thrombocytopenia #Suspected ITP #New onset hematuria (resolved) Patient noted to have platelet of 26, lowest 16, on admission. In ICU s/p platelet transfusion on 01/13, which increased platelets to 77. Patient noted to have hematuria in ICU. This is likely due to underlying sepsis versus viral illness versus radiographic thrombocytopenia. Reticulocyte count and peripheral smear are sent without significant abnormality noted except for severe thrombocytopenia. ICU did workup for thrombocytopenia, all of which is negative including hepatitis panel, HIV, GARRICK screen, iron, B12, folate, DIC panel. ICU team discussed case with Dr. Chandra, pathologist, who reported that the patient did not have any abnormal cells or severe features suggestive of TTP?HUS. ITP is suspected as a diagnosis of exclusion. Urinalysis 01/12 showed 3+ blood in urine and 1009 RBC. Methylprednisolone 30 mg (01/12-01/14) Plan: ? Avoid antiplatelets and anticoagulants ? Continue to monitor platelet count and assess for bleeding ? Haptoglobin 126 #Anemia, normocytic normochromic Patient noted to have hemoglobin of 11.6 on admission with a downward trend during hospitalization. Likely due to dehydration at time of admission with contribution from hematuria. Iron 201, and iron saturation 85% with ferritin at 756, folate wnl Pathology smear reports minimal anemia supporting likely dehydration and sepsis as more likely causes. Plan: ? Will continue to monitor CBC #Hypercalcemia (resolved) Corrected calcium at time of patient noted to be 10.9. PTH noted to be 79.1. 25 OH vitamin D >150, which is most likely the source of her hypercalcemia in addition to immobility. Plan: ? Will educate caretakers about excessive 25 OH vitamin D and recommend decreasing dosage if patient is taking supplements #Congenital hip dysplasia Patient found to have hip dysplasia on CT abdomen/pelvis. Patient is wheelchair-bound. Plan: ? No active treatment required at this time ? Follow-up with outpatient for management DVT Prophylaxis: SCDs GI Prophylaxis: Famotidine Bowel: N/A Diet: Dysphagia 1 w/ Mighty shake Banda: Yes Lines: Peripheral IV, NG tube Antibiotics: N/A Code Status: FULL Reason for Hospitalization: Sepsis Other Barriers to Discharge: Hypernatremia Patient plan of care was discussed with the senior resident Dr. Young (PGY-2) and attending physician Dr. Manuel Elaine, PGY1 Attending Provider Attestation/Addendum I attest that I was physically present for the evaluation, physical examination, lab and imaging review of the patient with the residents. I discussed the case with the residents and agree with the findings and plans of care as documented above. Overnight, patient pulled her NG tube out again. She was resumed on D5W as well. Sodium level continues to worsen after discontinuation of free water flushes. Patient continues to be noncompliant with food/free water. Continues to be on soft restraints. We will obtain nephrology consult, rediscuss about nutrition and hydration with gastroenterology and patient's conservator. We will also continue to monitor sodium level closely, since patient has removed NG tube multiple times, we will defer the placement of new NG tube for now. Shameka Jackson MD
--- NOTE | 2025-01-20 12:10 | PD.RESCONSUL ---
HPI Data of Consult Requesting Physician: Shameka Jackson MD Admitting Provider: Tato Valencia MD Attending Provider: Shameka Jackson MD Primary Care Provider: Priya Dominguez NP Consult Narrative cc:: cc: Shameka Jackson MD Exam Vital Signs Temp Pulse Resp BP Pulse Ox O2 Del Method O2 Flow Rate 97.0 F 84 16 113/76 95 Room Air 2 01/20/25 08:00 01/20/25 11:44 01/20/25 11:44 01/20/25 08:00 01/20/25 11:44 01/20/25 08:00 01/19/25 11:48 Results Labs 01/20/25 04:24 01/20/25 04:24 Labs: Short CBC 01/20/25 Range/Units 04:24 WBC 9.8 (3.6-11.0) Thou/mm3 Hgb 7.8 L (12.0-16.0) g/dL Hct 23.6 L (36.0-46.0) % Plt Count 231 (140-440) Thou/mm3 BMP 01/19/25 01/19/25 01/19/25 14:03 17:38 23:41 Sodium 143 144 143 Potassium Chloride Carbon Dioxide BUN Creatinine Glucose Calcium 01/20/25 04:24 Sodium 146 H Potassium 3.5 Chloride 108 H Carbon Dioxide 27.9 BUN < 5 L Creatinine 0.6 Glucose 138 H Calcium 9.5 Liver Function 01/20/25 Range/Units 04:24 Total Bilirubin 0.4 (0.3-1.2) mg/dL AST 44 H (0-34) U/L ALT 73 H (10-49) U/L Alkaline Phosphatase 267 H D (46-116) U/L Albumin 3.5 (3.5-5.0) gm/dL Quality Measures Quality Measures sepsis Possible source: pulmonary, genitourinary and unknown Blood cultures ordered: completed in ED Medications Home Medications and Allergies Home Medications ?Medication ?Instructions ?Recorded ?Confirmed ?Type ketoconazole 2 % shampoo 1 applic topical DAILY PRN Dry Skin 01/19/19 01/12/25 History ketoconazole 2 % topical cream 1 applic topical BID 01/19/19 01/12/25 History loratadine 10 mg tablet 10 mg PO QDAY 01/19/19 01/12/25 History buspirone 10 mg tablet 10 mg PO BID 01/12/25 01/12/25 History ergocalciferol (vitamin D2) 1,250 1,250 mcg PO QWEEK 01/12/25 01/12/25 History mcg (50,000 unit) capsule glycopyrrolate 1 mg tablet 1 mg PO Q8H 01/12/25 01/12/25 History omeprazole 20 mg tablet,delayed 20 mg PO QDAY 01/12/25 01/12/25 History release risperidone 2 mg tablet 2 mg PO QPM 01/12/25 01/12/25 History risperidone 3 mg tablet 3 mg PO QAM 01/12/25 01/12/25 History Allergies Allergy/AdvReac Type Severity Reaction Status Date / Time clindamycin Allergy Vomiting Verified 01/11/25 12:54 Visit Medications Acetaminophen (Acetaminophen 325 Mg Tablet) 325 mg PO Q4HR PRN PRN Reason: Pain 1 - 3 Or Fever > 101 Stop: 02/10/25 22:27 Albuterol/Ipratropium (Albuterol/Ipratropium (Duoneb) Rt Martina 3 Ml Nebu) 3 ml INH Q2HR PRN PRN Reason: shorthness of breath or wheeze Stop: 02/13/25 01:59 Buspirone HCl (Buspirone Hcl 5 Mg Tablet) 10 mg PO BID [facility] Stop: 02/11/25 20:59 Last Admin: 01/20/25 08:51 Dose: 10 mg Dronabinol (Dronabinol 2.5 Mg Capsule) 2.5 mg PO BIDAC [facility] Stop: 02/19/25 16:59 Famotidine (Famotidine Inj 10 Mg/Ml Vial 2 Ml) 20 mg IVP QDAY [facility] Stop: 02/11/25 08:59 Last Admin: 01/20/25 08:58 Dose: 20 mg Loratadine (Loratadine 10 Mg Tablet) 10 mg PO QDAY [facility] Stop: 02/12/25 08:59 Last Admin: 01/20/25 08:51 Dose: 10 mg Multivitamins (Multivitamins Tablet) 1 tab PO QDAY [facility] Stop: 02/18/25 08:59 Last Admin: 01/20/25 08:51 Dose: 1 tab Thiamine HCl (Thiamine Inj 100 Mg/Ml Vial 2 Ml) 100 mg IVP BID MARCIA Stop: 02/14/25 20:59 Last Admin: 01/20/25 08:59 Dose: 100 mg Discontinued Medications Albuterol/Ipratropium (Albuterol/Ipratropium (Duoneb) Rt Martina 3 Ml Nebu) 3 ml INH Q6HRRT MARCIA Stop: 02/10/25 19:59 Last Admin: 01/14/25 00:57 Dose: Not Given Benzocaine (Benzocaine 20% (Hurricaine) [place] 1 Dose) 1 dose TOP X1 ONE Stop: 01/15/25 16:49 Last Admin: 01/17/25 08:23 Dose: Not Given Diphenhydramine HCl (Diphenhydramine Inj 50 Mg/Ml Vial) 25 mg IVP PRNMRX1 PRN PRN Reason: MODERATE SEDATION Stop: 01/15/25 18:48 Enoxaparin Sodium (Enoxaparin Sod Inj 40 Mg/0.4 Ml Syringe) 40 mg SC QDAY MARCIA Stop: 01/26/25 08:59 Fentanyl Citrate (Fentanyl Cit Inj 50 Mcg/Ml Amp 2ml) 50 mcg IVP Q2M PRN PRN Reason: MODERATE SEDATION Stop: 01/15/25 18:48 Haloperidol Lactate (Haloperidol Lact Inj 5 Mg/Ml Vial) 2 mg IM X1 ONE Stop: 01/17/25 16:21 Last Admin: 01/17/25 16:40 Dose: 2 mg Sodium Chloride (Ns) 1,000 mls @ 1,000 mls/hr IV .Q1H ONE Stop: 01/11/25 14:43 Last Infusion: 01/11/25 15:22 Dose: Infused Sodium Chloride (Ns) 1,000 mls @ 999 mls/hr IV .Q1H1M ONE Stop: 01/11/25 16:07 Last Infusion: 01/11/25 15:29 Dose: Infused Dextrose (D5w) 1,000 mls @ 100 mls/hr IV .Q10H ONE Stop: 01/12/25 01:15 Last Infusion: 01/11/25 20:40 Dose: Infused Piperacillin/Tazobactam/Dextrose (Zosyn) 3.375 gm in 50 mls @ 100 mls/hr IV X1 ONE Stop: 01/11/25 15:45 Last Infusion: 01/11/25 17:00 Dose: Infused Sodium Chloride (Ns) 250 mls @ 500 mls/hr IV .Q30M ONE Stop: 01/11/25 15:56 Last Infusion: 01/11/25 16:14 Dose: Infused Lactated Ringer's (Lactated Ringers) 1,000 mls @ 999 mls/hr IV .Q1H1M ONE Stop: 01/11/25 17:21 Last Infusion: 01/11/25 18:00 Dose: Infused Norepinephrine/Dextrose (Levophed In D5w 8mg/250ml) 8 mg in 250 mls @ 3.997 mls/hr IV .Q24H PRN; Protocol PRN Reason: PER PROTOCOL Stop: 02/10/25 18:09 Vancomycin HCl 1,000 mg/ (Sodium Chloride) 250 mls @ 150 mls/hr IV X1 ONE Stop: 01/11/25 21:28 Last Admin: 01/11/25 21:36 Dose: 150 mls/hr Piperacillin/Tazobactam/Dextrose (Zosyn) 3.375 gm in 50 mls @ 12.5 mls/hr IV Q8HR [facility] Stop: 01/18/25 21:59 Last Admin: 01/18/25 13:57 Dose: 12.5 mls/hr Dextrose (D5w) 500 mls @ 75 mls/hr IV .Q6H40M [facility] Stop: 02/11/25 06:14 Last Infusion: 01/13/25 19:25 Dose: Infused Vancomycin/Sodium Chloride (Vancomycin/Ns 500 Mg Ivpb) 100 mls @ 120 mls/hr IV X1 ONE Stop: 01/12/25 22:49 Last Infusion: 01/13/25 19:25 Dose: Infused Lactated Ringer's (Lactated Ringers) 1,000 mls @ 999 mls/hr IV .Q1H1M ONE Stop: 01/12/25 20:09 Last Infusion: 01/13/25 19:25 Dose: Infused Dextrose (D5w) 1,000 mls @ 75 mls/hr IV .[id number] [facility] Stop: 02/12/25 10:29 Last Admin: 01/14/25 00:29 Dose: 75 mls/hr Dextrose (D5w) 1,000 mls @ 125 mls/hr IV .Q8H [facility] Stop: 02/13/25 07:33 Last Admin: 01/17/25 08:21 Dose: Not Given Magnesium Sulfate (Magnesium Sulfate Ivpb) 2 gm in 50 mls @ 25 mls/hr IV X1 ONE Stop: 01/14/25 09:35 Last Admin: 01/14/25 08:26 Dose: 25 mls/hr Vancomycin/Sodium Chloride (Vancomycin/Ns 500 Mg Ivpb) 100 mls @ 120 mls/hr IV X1 ONE Stop: 01/14/25 12:49 Last Admin: 01/14/25 12:05 Dose: 120 mls/hr Vancomycin/Sodium Chloride (Vancomycin/Ns 750 Mg Ivpb) 750 mg in 150 mls @ 120 mls/hr IV X1 ONE Stop: 01/15/25 11:14 Last Admin: 01/15/25 10:08 Dose: 120 mls/hr Potassium Chloride (Kcl Ivpb) 10 meq in 100 mls @ 100 mls/hr IV Q1H MARCIA Stop: 01/15/25 11:49 Last Admin: 01/15/25 12:24 Dose: 100 mls/hr Dextrose (D5w) 1,000 mls @ 150 mls/hr IV .Q6H40M [facility] Stop: 02/14/25 07:59 Last Admin: 01/15/25 09:03 Dose: 150 mls/hr Dextrose (D5w) 1,000 mls @ 175 mls/hr IV .Q5H43M [facility] Stop: 02/14/25 12:43 Last Admin: 01/18/25 07:00 Dose: Not Given Sodium Chloride (Ns) 500 mls @ 999 mls/hr IV .Q31M ONE Stop: 01/15/25 18:30 Last Admin: 01/15/25 18:45 Dose: 999 mls/hr Magnesium Sulfate (Magnesium Sulfate Ivpb) 4 gm in 50 mls @ 12.5 mls/hr IV X1 ONE Stop: 01/16/25 12:01 Last Admin: 01/16/25 08:56 Dose: 12.5 mls/hr Vancomycin HCl (Vancomycin/Water 1gm Ivpb) 200 mls @ 120 mls/hr IV DAILY@1000 [facility] Stop: 01/23/25 10:29 Last Admin: 01/19/25 11:00 Dose: 120 mls/hr Potassium Chloride (Kcl Ivpb) 10 meq in 100 mls @ 100 mls/hr IV Q1H [facility] Stop: 01/17/25 15:35 Last Admin: 01/17/25 16:40 Dose: 100 mls/hr Magnesium Sulfate (Magnesium Sulfate Ivpb) 4 gm in 50 mls @ 12.5 mls/hr IV X1 ONE Stop: 01/17/25 11:37 Last Admin: 01/17/25 08:45 Dose: 12.5 mls/hr Magnesium Sulfate (Magnesium Sulfate Ivpb) 2 gm in 50 mls @ 25 mls/hr IV X1 ONE Stop: 01/17/25 13:39 Last Admin: 01/17/25 12:51 Dose: 25 mls/hr Dextrose (D5w) 500 mls @ 175 mls/hr IV .Q2H52M [facility] Stop: 01/19/25 08:49 Last Infusion: 01/19/25 01:13 Dose: 0 mls/hr Dextrose (D5w) 1,000 mls @ 175 mls/hr IV .Q5H43M [facility] Stop: 01/19/25 18:16 Last Admin: 01/19/25 01:20 Dose: 175 mls/hr Dextrose (D5w) 1,000 mls @ 175 mls/hr IV .Q5H43M [facility] Stop: 01/19/25 12:33 Last Admin: 01/19/25 08:44 Dose: 175 mls/hr Dextrose (D5w) 1,000 mls @ 175 mls/hr IV .Q5H43M [facility] Stop: 01/20/25 07:40 Last Admin: 01/20/25 04:29 Dose: 175 mls/hr Ketorolac Tromethamine (Ketorolac Inj 60 Mg/2 Ml Vial) 15 mg IM X1 ONE Stop: 01/19/25 05:24 Ketorolac Tromethamine (Ketorolac Inj 30 Mg/Ml Vial) 15 mg IVP X1 ONE Stop: 01/19/25 05:34 Last Admin: 01/19/25 05:39 Dose: 15 mg Methylprednisolone Sodium Succinate (Methylprednisolone Sod Succ 40 Mg Vial) 30 mg IVP X1 ONE Stop: 01/12/25 16:38 Last Admin: 01/12/25 19:15 Dose: 30 mg Methylprednisolone Sodium Succinate (Methylprednisolone Sod Succ 40 Mg Vial) 30 mg IVP X1 ONE Stop: 01/13/25 10:23 Last Admin: 01/13/25 11:11 Dose: 30 mg Methylprednisolone Sodium Succinate (Methylprednisolone Sod Succ 40 Mg Vial) 30 mg IM X1 ONE Stop: 01/14/25 07:37 Last Admin: 01/17/25 08:20 Dose: Not Given Methylprednisolone Sodium Succinate (Methylprednisolone Sod Succ 40 Mg Vial) 30 mg IVP X1 ONE Stop: 01/14/25 08:18 Last Admin: 01/14/25 08:26 Dose: 30 mg Midazolam HCl (Midazolam Inj 1 Mg/Ml Vial 2 Ml) 2 mg IVP Q2M PRN PRN Reason: Moderate Sedation Stop: 01/15/25 18:48 Pharmacy Consult (Vancomycin Pharmacy To Dose 1 Each Each) 1 each IV QDAY PRN PRN Reason: PROTOCOL Stop: 02/11/25 08:59 Pharmacy Consult (Vancomycin Pharmacy To Dose 1 Each Each) 1 each IV QDAY PRN PRN Reason: PROTOCOL Stop: 02/12/25 14:19 Phenylephrine HCl (Phenylephrine Hcl 50 Mg Vial 5 Ml) 0.1 mg IV NOW ONE Stop: 01/11/25 16:17 Last Admin: 01/11/25 16:27 Dose: Not Given Risperidone (Risperidone 1 Mg Tablet) 3 mg PO QAM MARCIA Stop: 02/12/25 08:59 Risperidone (Risperidone 1 Mg Tablet) 2 mg PO QPM MARCIA Stop: 02/11/25 20:59 Sodium Chloride (Sodium Chloride Rt 10% 15 Ml Nebu) 5 ml INH X1 ONE Stop: 01/11/25 19:20 Last Admin: 01/17/25 08:17 Dose: Not Given
--- NOTE | 2025-01-20 13:15 | CHAP ---
Patient was visited by the Spiritual Care Volunteer who prayed for them. (Volunteer was in the hospital from 10:15-13:15).
[2025-01-20 13:25] LABS: Sodium 148 mMol/L (136-145)
--- NOTE | 2025-01-20 13:38 | CHAP ---
Patient was visited by the Spiritual Care Volunteer who prayed for them. (Volunteer was in the hospital from 11:30-12:38).
[2025-01-20 14:19] LABS: Aldosterone* 2 ng/dL; Renin Activity, Plasma* 0.92 ng/mL/h (0.25-5.82)
--- NOTE | 2025-01-20 14:30 | PD.NEPHCONS ---
History of Present Illness Data of Consult Consult date: 01/20/25 Requesting Physician: Shameka Jackson MD Primary Care Provider: Priya Dominguez NP Consult Narrative Reason for consult: Hypernatremia History of present illness: Patient is nonverbal at baseline and is intellectually disabled. Chart review done. Ms. Herrera is a 29-year-old female with no significant past medical history, severe intellectual disability was brought to the hospital with hypothermia. She lives in a facility wheelchair-bound and wears diapers. She was at the adult daycare center and was noted to have hypothermia and care provider brought her to the ER. Patient was noted to be dehydrated. Was a started on IV fluids. She was in ICU and subsequently moved to the floor. During this admission she was noted to have pneumonia. Labs, medications reviewed. Past surgical history: Remote history of surgery for the spine, no available records, noted to have surgery in the bilateral parotid areas Social history: No addictions, lives in a facility Allergies: Clindamycin, causes vomiting per chart review 01/20/2025 WBC 9.8, hemoglobin 7.8, platelets 231. Sodium 148, potassium 3.5, BUN 5, creatinine 0.6, calcium 9.9, phosphorus 2.7, AST 44, ALT 73, alk phos 267, albumin 3.5 chest x-ray from yesterday showed orogastric tube which was pulled by patient. cc:: cc: Shameka Jackson MD Review of Systems Review of Systems ROS Unobtainable: unobtainable due to mental status Past Medical History Past Medical History NEUROLOGIC: Negative Neurological Disorders CARDIAC: Negative Cardiac Disorders or Congestive Heart Failure RESPIRATORY: Negative Chronic Obstructive Pulmonary Disease (COPD) or Asthma GASTROINTESTINAL: Negative Gastrointestinal Disorders GENITOURINARY: Negative Genitourinary Disorders or Renal Disease ENDOCRINE: Negative Diabetes Mellitus Type 1 or Diabetes Mellitus Type 2 HEMATOLOGIC: Negative Sickle Cell Disease PSYCHO/SOCIAL: Positive Behavior Problems and Self-Mutilation OTHER HISTORY: Positive Developmental Delay Social History SMOKING STATUS: Never smoker SECOND HAND EXPOSURE: No Past Medical History Comments PMH COMMENT: History of profound mental retardation. Patient takes the following medications: Loratadine 10 mg daily, buspirone 10 mg twice daily, omeprazole 20 mg daily, risperidone 3 mg every morning, risperidone 2 mg every afternoon, vitamin D 1.25 mg weekly, glycopyrrolate 1 mg 3 times daily. Meds Home Medications and Allergies Home Medications ?Medication ?Instructions ?Recorded ?Confirmed ?Type ketoconazole 2 % shampoo 1 applic topical DAILY PRN Dry Skin 01/19/19 01/12/25 History ketoconazole 2 % topical cream 1 applic topical BID 01/19/19 01/12/25 History loratadine 10 mg tablet 10 mg PO QDAY 01/19/19 01/12/25 History buspirone 10 mg tablet 10 mg PO BID 01/12/25 01/12/25 History ergocalciferol (vitamin D2) 1,250 1,250 mcg PO QWEEK 01/12/25 01/12/25 History mcg (50,000 unit) capsule glycopyrrolate 1 mg tablet 1 mg PO Q8H 01/12/25 01/12/25 History omeprazole 20 mg tablet,delayed 20 mg PO QDAY 01/12/25 01/12/25 History release risperidone 2 mg tablet 2 mg PO QPM 01/12/25 01/12/25 History risperidone 3 mg tablet 3 mg PO QAM 01/12/25 01/12/25 History Allergies Allergy/AdvReac Type Severity Reaction Status Date / Time clindamycin Allergy Vomiting Verified 01/11/25 12:54 Exam Vital Signs Temp Pulse Resp BP Pulse Ox O2 Del Method O2 Flow Rate 36.1 C 68 20 97/74 98 Room Air 2 01/20/25 12:00 01/20/25 12:00 01/20/25 12:00 01/20/25 12:00 01/20/25 12:00 01/20/25 12:00 01/19/25 11:48 Narrative Exam GENERAL APPEARANCE: Patient very tiny and nonverbal. NECK: Neck supple, no JVD or bruit CARDIOVASCULAR: Heart regular, no murmurs LUNGS/CHEST: Chest clear to auscultation. No rales, rhonchi, wheezing ABDOMEN: Soft, nontender, nondistended. No masses. Normal bowel sounds. EXTREMITIES: No edema, clubbing or cyanosis. SKIN: Skin exam normal without any rashes MUSCULOSKELETAL: Contractures NEUROLOGICAL : Severe intellectual disability Results Labs 01/20/25 04:24 01/20/25 22:54 Labs: Short CBC 01/20/25 Range/Units 04:24 WBC 9.8 (3.6-11.0) Thou/mm3 Hgb 7.8 L (12.0-16.0) g/dL Hct 23.6 L (36.0-46.0) % Plt Count 231 (140-440) Thou/mm3 BMP 01/19/25 01/19/25 01/19/25 14:03 17:38 23:41 Sodium 143 144 143 Potassium Chloride Carbon Dioxide BUN Creatinine Glucose Calcium 01/20/25 01/20/25 04:24 12:35 Sodium 146 H 148 H Potassium 3.5 Chloride 108 H Carbon Dioxide 27.9 BUN < 5 L Creatinine 0.6 Glucose 138 H Calcium 9.5 Liver Function 01/20/25 Range/Units 04:24 Total Bilirubin 0.4 (0.3-1.2) mg/dL AST 44 H (0-34) U/L ALT 73 H (10-49) U/L Alkaline Phosphatase 267 H D (46-116) U/L Albumin 3.5 (3.5-5.0) gm/dL Assessment & Plan Assessment and plan (1) Hypernatremia: Status: Acute Assessment and plan: Patient has a severe and recurrent episodes of hypernatremia due to poor p.o. intake and unable to access water due to severe intellectual disability. With the NG tube her sodium improves and once the NG tube is removed-patient goes back to recurrent episodes of hypernatremia. At this point I would recommend Feeding tube to prevent recurrent hospitalizations, dehydration, hypernatremia. Noted Dr. Jiménez has to approve for feeding tube placement. (2) Dehydration: Status: Acute Assessment and plan: Continue with free water/D5W. Patient pulled out the NG tube. (3) Intellectual disability: Status: Acute Additional Assessment & Plan Additional Plan: Thank you Shameka for allowing me to participate in the care of Ms. Herrera
--- NOTE | 2025-01-20 19:50 | ESPR_ITS ---
Documentation for date of: 01/20/25 Subjective Subjective Interval history: Case discussed with the internal medicine team patient keeps pulling the NGT out Very difficult to manage hyponatremia and very difficult for the patient to to have enough calories as she has clearly clinically demonstrated and documented failure to thrive Recommend PEG placement with authorization from Dr. Jiménez patient tentatively scheduled for tomorrow afternoon Exam Vital Signs Temp Pulse Resp BP Pulse Ox O2 Del Method O2 Flow Rate 97.0 F 75 20 111/83 94 L Room Air 2 01/20/25 16:00 01/20/25 16:00 01/20/25 16:00 01/20/25 16:00 01/20/25 16:00 01/20/25 16:00 01/20/25 16:00 Objective Labs 01/20/25 04:24 01/20/25 12:35 Labs: Laboratory Results - last 24 hr 01/16/25 01/17/25 01/17/25 06:05 05:00 11:46 WBC RBC Hgb Hct MCV MCH MCHC RDW Std Deviation Plt Count Neut % (Auto) Lymph % (Auto) [place] % (Auto) Eos % (Auto) Baso % (Auto) Neut # (Auto) Lymph # (Auto) [place] # (Auto) Eos # (Auto) Baso # (Auto) Immature Gran # (Auto) Absolute Nucleated RBC Immature Gran % Nucleated RBC % Sodium Potassium Chloride Carbon Dioxide Anion Gap BUN Creatinine Estim Creat Clear Calc eGFR BUN/Creatinine Ratio Glucose Calculated Osmolality Calcium Corrected Calcium Phosphorus Total Bilirubin AST ALT Alkaline Phosphatase Total Protein Albumin Globulin Albumin/Globulin Ratio Renin Activity 0.92 Aldosterone 2 ACTH 11 11 01/19/25 01/20/25 01/20/25 23:41 04:24 12:35 WBC 9.8 RBC 2.52 L Hgb 7.8 L Hct 23.6 L MCV 94 MCH 31.0 MCHC 33.1 RDW Std Deviation 55.8 H Plt Count 231 Neut % (Auto) 60 Lymph % (Auto) 32 [place] % (Auto) 6 Eos % (Auto) 1 Baso % (Auto) 0 Neut # (Auto) 5.9 Lymph # (Auto) 3.1 [place] # (Auto) 0.6 Eos # (Auto) 0.1 Baso # (Auto) 0.0 Immature Gran # (Auto) 0.11 H Absolute Nucleated RBC 0.05 H Immature Gran % 1 H Nucleated RBC % 1 H Sodium 143 146 H 148 H Potassium 3.5 Chloride 108 H Carbon Dioxide 27.9 Anion Gap 10 BUN < 5 L Creatinine 0.6 Estim Creat Clear Calc 70.3 eGFR > 60 BUN/Creatinine Ratio 8 L Glucose 138 H Calculated Osmolality 289 Calcium 9.5 Corrected Calcium 9.9 Phosphorus 2.7 Total Bilirubin 0.4 AST 44 H ALT 73 H Alkaline Phosphatase 267 H D Total Protein 6.2 Albumin 3.5 Globulin 2.7 Albumin/Globulin Ratio 1.3 Renin Activity Aldosterone ACTH Impressions Impression: Failure to thrive with poor p.o. intake Difficult to manage electrolyte abnormalities Tentatively scheduled for PEG placement tomorrow endoscopically N.p.o. midnight tonight Assessment & Plan A&P Narrative # Dysphagia # Recurrent aspiration Plan Consent to be obtained for fiberoptic esophagogastroduodenoscopy with possible proximal esophageal stricture dilatation to prevent aspiration Hopefully that will work If it does not work we will consider after talking to Dr. Jiménez for the possibility of a PEG placement She should be given every opportunity not to go that route at least at the moment Thank you very much for the opportunity to participate in the care of this patient Time Spent With Patient Time: Total time spent is greater than 50% in coordination of care (as documented) at patient's floor/unit and/or counseling patient:
[2025-01-20 23:21] LABS: Sodium 148 mMol/L (136-145)
[2025-01-21] VITALS (23 sets, daily range): BP systolic 85–129; BP diastolic 56–111; PULSE 60–96; RESP 14–96; TEMP 36.1–36.7; O2SAT 92–99
[2025-01-21 06:11] LABS: Basophils # (Auto) 0.0 Thou/mm3 (0.0-0.2); Basophils % (Auto) 0 % (0-2.5); Eosinophils # (Auto) 0.1 Thou/mm3 (0.0-0.5); Eosinophils % (Auto) 1 % (0-10); Hematocrit 25.7 % (36.0-46.0); Immature Granulocytes Auto 0.20 Thou/mm3 (0.00-0.00); Lymphocytes # (Auto) 4.2 Thou/mm3 (1.0-4.8); Lymphocytes % (Auto) 42 % (10-50); Mean Corpuscular HGB Conc 33.1 g/dl (31.0-37.0); Mean Corpuscular Hemoglobin 31.0 pg (25.0-35.0); Mean Corpuscular Volume 94 fL (80-100); Monocytes # (Auto) 0.5 Thou/mm3 (0.0-0.8); Monocytes % (Auto) 5 % (0-12); Neutrophils # (Auto) 5.0 Thou/mm3 (1.8-7.7); Neutrophils % (Auto) 50 % (37-80); Nucleated Red Blood Cell # 0.18 Thou/mm3 (0.00-0.00); Nucleated Red Blood Cell % 2 /100 WBC (0); Platelet Count 306 Thou/mm3 (140-440); RDW Standard Deviation 56.3 fL (36.4-46.3); Red Blood Count 2.74 Miln/mm3 (4.00-5.20); White Blood Count 10.1 Thou/mm3 (3.6-11.0)
[2025-01-21 06:15] LABS: Hemoglobin 8.5 g/dL (12.0-16.0)
[2025-01-21 06:55] LABS: Alanine Aminotransferase 61 U/L (10-49); Albumin, Serum 3.7 gm/dL (3.5-5.0); Albumin/Globulin Ratio 1.2 (1.2-2.2); Alkaline Phosphatase 266 U/L (46-116); Anion Gap 13 (7-16); Aspartate Amino Transferase 47 U/L (0-34); BUN/Creatinine Ratio 8 Ratio (12-20); Bilirubin,Total 0.3 mg/dL (0.3-1.2); Blood Urea Nitrogen < 5 mg/dL (9-23); Calcium 9.7 mg/dL (8.3-10.6); Calcium (Corrected) 9.9 mg/dL (8.5-10.1); Carbon Dioxide 28.2 mMol/L (20.0-31.0); Chloride 108 mMol/L (98-107); Creatinine (Component) 0.6 mg/dL (0.6-1.3); Estimated Creatinine Clearance 67.2 mL/min (>60); Globulin 3.0 gm/dL (2.3-3.5); Glucose 71 mg/dL (74-106); Magnesium 1.5 mg/dL (1.6-2.6); Osmolality,Calculated 291 (275-295); Phosphorous 3.5 mg/dL (2.4-5.1); Potassium 3.4 mMol/L (3.4-5.1); Sodium 149 mMol/L (136-145); Total Protein 6.7 gm/dL (5.7-8.2); eGFR > 60 See Note
--- NOTE | 2025-01-21 07:37 | PC.NURSE ---
Dr. Carpenter made aware of pts BS 78 finger stick and glucose in labs 71. At time of call she was also notified pt's BP 91/57. Orders received, read back and carried out.
[2025-01-21] MEDS: DEXTROSE 5%-WATER 1,000 ML 50 ML IV (08:06)
[2025-01-21] MEDS: FAMOTIDINE INJ 10 MG/ML VIAL 2 ML 20 MG IVP (08:07)
[2025-01-21] MEDS: MULTIVITAMINS TABLET 1 TAB PO (08:07)
[2025-01-21] MEDS: THIAMINE INJ 100 MG/ML VIAL 2 ML IVP ×2 (08:07→22:18)
--- NOTE | 2025-01-21 11:27 | CHAP ---
Patient was visited by the Spiritual Care Volunteer who prayed for them. (Volunteer was in the hospital from 09:00-11:27)
--- NOTE | 2025-01-21 11:38 | ESPR_ITS ---
Documentation for date of: 01/21/25 Subjective Subjective Interval history: Patient is nonverbal at baseline and is intellectually disabled. Chart review done. Ms. Herrera is a 29-year-old female with no significant past medical history, severe intellectual disability was brought to the hospital with hypothermia. She lives in a facility wheelchair-bound and wears diapers. She was at the adult daycare center and was noted to have hypothermia and care provider brought her to the ER. Patient was noted to be dehydrated. Was a started on IV fluids. She was in ICU and subsequently moved to the floor. During this admission she was noted to have pneumonia. Labs, medications reviewed. Past surgical history: Remote history of surgery for the spine, no available records, noted to have surgery in the bilateral parotid areas Social history: No addictions, lives in a facility Allergies: Clindamycin, causes vomiting per chart review 01/20/2025 WBC 9.8, hemoglobin 7.8, platelets 231. Sodium 148, potassium 3.5, BUN 5, creatinine 0.6, calcium 9.9, phosphorus 2.7, AST 44, ALT 73, alk phos 267, albumin 3.5 chest x-ray from yesterday showed orogastric tube which was pulled by patient. 01/21/2025 patient currently seen in medical floor. Nonverbal. Severe developmental delay with contractures.Sodium still elevated at 149. Patient completely dependent on NG tube feeds. However she pulled out NG tube twice. Had a long conversation with the Dr. Jiménez who is the conservator-he finally agreed for PEG tube for free water flushes and medications. Will monitor her closely so she will not pull out her PEG tube post placement and reinforce with the abdominal binder. Do understand that patient has high risk for aspiration. However wanted to try feeding tube prior to comfort care. Review of Systems Review of Systems ROS Unobtainable: unobtainable due to mental status Exam Vital Signs Temp Pulse Resp BP Pulse Ox O2 Del Method O2 Flow Rate 36.1 C 71 26 H 91/57 L 92 L Room Air 2 01/21/25 08:00 01/21/25 08:00 01/21/25 08:00 01/21/25 08:00 01/21/25 08:00 01/21/25 08:00 01/20/25 16:00 Narrative Exam GENERAL APPEARANCE: Patient very tiny and nonverbal. NECK: Neck supple, no JVD or bruit CARDIOVASCULAR: Heart regular, no murmurs LUNGS/CHEST: Chest clear to auscultation. No rales, rhonchi, wheezing ABDOMEN: Soft, nontender, nondistended. No masses. Normal bowel sounds. EXTREMITIES: No edema, clubbing or cyanosis. SKIN: Skin exam normal without any rashes MUSCULOSKELETAL: Contractures NEUROLOGICAL : Severe intellectual disability Objective Labs 01/22/25 05:31 01/22/25 13:03 Labs: Laboratory Results - last 24 hr 01/17/25 01/20/25 01/20/25 11:46 12:35 22:54 WBC RBC Hgb Hct MCV MCH MCHC RDW Std Deviation Plt Count Neut % (Auto) Lymph % (Auto) [place] % (Auto) Eos % (Auto) Baso % (Auto) Neut # (Auto) Lymph # (Auto) [place] # (Auto) Eos # (Auto) Baso # (Auto) Immature Gran # (Auto) Absolute Nucleated RBC Immature Gran % Nucleated RBC % Sodium 148 H 148 H Potassium Chloride Carbon Dioxide Anion Gap BUN Creatinine Estim Creat Clear Calc eGFR BUN/Creatinine Ratio Glucose Calculated Osmolality Calcium Corrected Calcium Phosphorus Magnesium Total Bilirubin AST ALT Alkaline Phosphatase Total Protein Albumin Globulin Albumin/Globulin Ratio Renin Activity 0.92 Aldosterone 2 01/21/25 05:46 WBC 10.1 RBC 2.74 L Hgb 8.5 L Hct 25.7 L MCV 94 MCH 31.0 MCHC 33.1 RDW Std Deviation 56.3 H Plt Count 306 D Neut % (Auto) 50 Lymph % (Auto) 42 [place] % (Auto) 5 Eos % (Auto) 1 Baso % (Auto) 0 Neut # (Auto) 5.0 Lymph # (Auto) 4.2 [place] # (Auto) 0.5 Eos # (Auto) 0.1 Baso # (Auto) 0.0 Immature Gran # (Auto) 0.20 H Absolute Nucleated RBC 0.18 H Immature Gran % 2 H Nucleated RBC % 2 H Sodium 149 H Potassium 3.4 Chloride 108 H Carbon Dioxide 28.2 Anion Gap 13 BUN < 5 L Creatinine 0.6 Estim Creat Clear Calc 67.2 eGFR > 60 BUN/Creatinine Ratio 8 L Glucose 71 L D Calculated Osmolality 291 Calcium 9.7 Corrected Calcium 9.9 Phosphorus 3.5 Magnesium 1.5 L Total Bilirubin 0.3 AST 47 H ALT 61 H Alkaline Phosphatase 266 H Total Protein 6.7 Albumin 3.7 Globulin 3.0 Albumin/Globulin Ratio 1.2 Renin Activity Aldosterone Assessment & Plan Assessment and plan (1) Hypernatremia: Status: Acute Assessment and plan: Patient has a severe and recurrent episodes of hypernatremia due to poor p.o. intake and unable to access water due to severe intellectual disability. With the NG tube her sodium improves and once the NG tube is removed-patient goes back to recurrent episodes of hypernatremia. At this point I would recommend Feeding tube to prevent recurrent hospitalizations, dehydration, hypernatremia. Long conversation with Dr. Jiménez-agreed for feeding tube placement. Conveyed the same to Dr. Ascencio and primary team. (2) Dehydration: Status: Acute Assessment and plan: Continue with free water/D5W. Patient pulled out the NG tube. Needs a feeding tube with abdominal binder reinforcement to prevent recurrent episodes of acute renal failure/ hypernatremia. (3) Intellectual disability: Status: Acute Assessment and plan: Severe intellectual disability-under conservator Additional Assessment & Plan Additional Plan: Thank you Shameka for allowing me to participate in the care of Ms. Herrera Quality - progress note Quality Measures Quality Measures: VTE prophylaxis Reason for Continued Stay Reason for Continued Stay: further monitoring
--- NOTE | 2025-01-21 12:25 | PC.NURSE ---
coordinated care with dr. hardy.
--- NOTE | 2025-01-21 15:20 | PC.NURSE ---
DR. MARROQUIN MADE AWARE OF PTS BS 83. NO NEW ORDERS.
--- NOTE | 2025-01-21 16:25 | PC.SS ---
rounding note: pending pectube tonight, will monitor, possible d/c over weekend.
[2025-01-21 16:37] LABS: Sodium 118 mMol/L (136-145)
--- NOTE | 2025-01-21 16:53 | PC.NURSE ---
Critical value of sodium [address] gave order over the phone to stop D5 right now. order received and followed through.
[2025-01-21] MEDS: Magnesium Sulfate 4 GM Ivpb 4 GM/50 ML BAG IV (17:29)
[2025-01-21] MEDS: DEXTROSE 50%-WATER INJ 50 ML SYRINGE IVP ×2 (19:08→23:51)
--- NOTE | 2025-01-21 19:24 | ESPR_ITS ---
Documentation for date of: 01/21/25 Subjective Subjective Interval history: Patient is seen and examined at bedside this morning. Patient's sodium is unchanged from yesterday and continues to be 148 therefore D5W was started. Patient's repeat sodium is scheduled at 3 PM. Both nephrology and GI recommended patient get a PEG tube placement due to poor oral intake and persistent hypernatremia. Patient has repeatedly pulled the NG tube out despite being on restraints. Dr. Maldonado spoke to Dr. Jiménez personally discussing patient's hospital course and Dr. Jiménez gave the permission to go ahead with PEG tube placement. Patient will get a PEG tube today by Dr. Ascencio. Later in the evening patient's sodium came back to be 118, repeat sodium stat is ordered and signed out to the night team to check on it as patient may need to be upgraded to ICU. However repeat sodium is 146, will start free water flushes after PEG tube is placed. Exam Vital Signs Temp Pulse Resp BP Pulse Ox O2 Del Method O2 Flow Rate 97.0 F 63 16 97/57 L 96 Room Air 2 01/21/25 16:00 01/21/25 16:00 01/21/25 16:00 01/21/25 16:00 01/21/25 16:00 01/21/25 16:00 01/20/25 16:00 Narrative Exam Physical Exam: General: Alert, no acute distress. Nonverbal, noninteractive. Skin: Warm, intact, no obvious rash. Head: Normocephalic, atraumatic. Cardiovascular: Regular rate and rhythm, no murmur, +S1/S2. Respiratory: Respirations unlabored on nasal cannula, no crackles, no wheezing. Gastrointestinal: Soft, nontender, non-distended. No guarding or rebound tenderness. Extremities: No edema, no cyanosis, no clubbng. Objective Labs 01/22/25 05:31 01/22/25 13:03 Labs: Laboratory Results - last 24 hr 01/20/25 01/21/25 01/21/25 22:54 05:46 15:43 WBC 10.1 RBC 2.74 L Hgb 8.5 L Hct 25.7 L MCV 94 MCH 31.0 MCHC 33.1 RDW Std Deviation 56.3 H Plt Count 306 D Neut % (Auto) 50 Lymph % (Auto) 42 Smyth % (Auto) 5 Eos % (Auto) 1 Baso % (Auto) 0 Neut # (Auto) 5.0 Lymph # (Auto) 4.2 Smyth # (Auto) 0.5 Eos # (Auto) 0.1 Baso # (Auto) 0.0 Immature Gran # (Auto) 0.20 H Absolute Nucleated RBC 0.18 H Immature Gran % 2 H Nucleated RBC % 2 H Sodium 148 H 149 H 118 L* D Potassium 3.4 Chloride 108 H Carbon Dioxide 28.2 Anion Gap 13 BUN < 5 L Creatinine 0.6 Estim Creat Clear Calc 67.2 eGFR > 60 BUN/Creatinine Ratio 8 L Glucose 71 L D Calculated Osmolality 291 Calcium 9.7 Corrected Calcium 9.9 Phosphorus 3.5 Magnesium 1.5 L Total Bilirubin 0.3 AST 47 H ALT 61 H Alkaline Phosphatase 266 H Total Protein 6.7 Albumin 3.7 Globulin 3.0 Albumin/Globulin Ratio 1.2 Quality Measures Quality Measures sepsis Current suspected stage: ruled out Possible source: pulmonary, genitourinary and unknown Blood cultures ordered: completed in ED Antibiotic ordered: No Assessment & Plan Assessment Current Active Medications: Generic Name Dose Route Start Last Admin Trade Name Freq PRN Reason Stop Dose Admin Acetaminophen 325 mg 01/11/25 22:28 Acetaminophen 325 Mg Tablet PO 02/10/25 22:27 Q4HR PRN Pain 1 - 3 Or Fever > 101 Albuterol/Ipratropium 3 ml 01/14/25 01:23 Albuterol/Ipratropium (Duoneb) Rt Martina 3 Ml Nebu INH 02/13/25 01:59 Q2HR PRN shorthness of breath or wheeze Buspirone HCl 10 mg 01/12/25 21:00 01/21/25 08:07 Buspirone Hcl 5 Mg Tablet PO 02/11/25 20:59 10 mg BID MACRIA Administration Dronabinol 2.5 mg 01/20/25 17:00 01/21/25 16:55 Dronabinol 2.5 Mg Capsule PO 02/19/25 16:59 Not Given BIDAC MARCIA Famotidine 20 mg 01/12/25 09:00 01/21/25 08:07 Famotidine Inj 10 Mg/Ml Vial 2 Ml IVP 02/11/25 08:59 20 mg QDAY MARCIA Administration Magnesium Sulfate 4 gm in 50 mls @ 12.5 mls/hr 01/21/25 16:41 01/21/25 17:29 Magnesium Sulfate Ivpb IV 01/21/25 20:40 12.5 mls/hr X1 ONE Administration Loratadine 10 mg 01/13/25 09:00 01/21/25 08:07 Loratadine 10 Mg Tablet PO 02/12/25 08:59 10 mg QDAY MARCIA Administration Multivitamins 1 tab 01/19/25 09:00 01/21/25 08:07 Multivitamins Tablet PO 02/18/25 08:59 1 tab QDAY MARCIA Administration Thiamine HCl 100 mg 01/15/25 21:00 01/21/25 08:07 Thiamine Inj 100 Mg/Ml Vial 2 Ml IVP 02/14/25 20:59 100 mg BID MARCIA Administration Plan Kelly Herrera is a 29F pmhx significant for severe intellectual disability, non verbal at baseline, who presented to [facility] ED on 01/11 for hypothermia and altered mental status. The patient was admitted to ICU for 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 Patient downgraded to hospital floors 01/13 for further management. #Hypernatremia, improving #Hyperchloremia, improving Patient was noted to have a sodium of 157 and chloride of 115 on admission. This has improved over time and with hydration, indicating that this is most likely due to dehydration. Patient sodium noted to have improved most when NG tube is placed. However, patient has removed NG tube multiple times. Plan: ? Will continue to monitor with daily renal panel - Ordered serum uric acid, renin, and aldosterone to investigate possible endocrine abnormalities, all which were within normal limits - Ordered urine electrolytes and urinalysis, only abnormality noted was urine potassium <10 - Pending morning cortisol and random cortisol, ACTH returned within normal limits - D5W at 175 cc/h - F/u sodium check at 2100 , if 140 or less, then decrease D5W flow rate to 50 cc/h -Pt will get PEG tube placed today (01/21) and will start free water flushes - Nephrology consulted, appreciate recommendations #Sepsis, 2/2 - RESOLVED #Community acquired pneumonia and #Urinary tract infection (Entercoccus faecalis) #Hypothermnia, improving #Hypotension (resolved) #Transaminitis (resolving) #OLENA, likely prerenal (resolving) Presented to ED with hypothermia of 91.1F, lowest 89.1F rectally, and altered mental status. Admitted to ICU for management of hypotension, requiring pressors, hypothermia, requiring Mellissa hugger, and severe thrombocytopenia. Hypothermia likely 2/2 poor PO intake and muscle wasting. CTAP showed right middle and bibasilar pneumonia along with significant pneumonia in the left base. US gallbladder negative for acute cholecystitis and hep panel neg. CT head neg unremarkable. BCx NGTD, UCx +enterococcus faecalis Endorgan damage was noted with transaminitis and OLENA on admission, AST 371, ALT 202, creatinine 0.9 (baseline 0.5). FeNa 0.3%, supporting prerenal likely 2/2 poor PO intake Plan: ? CTM temperature, will continue Mellissa hugger until patient temperature improves ? CTM blood pressure, keep MAP >65 ? CTM LFTs ? Vancomycin and Zosyn (01/11-01/19) - Ordered stool culture, stool WBC, C. diff PCR, and calprotectin to investigate possible infection in GI tract, all negative #Dysphagia In ICU, patient failed bedside swallow eval and so was referred to speech therapy. However, the patient passed swallow eval with speech therapy, and so patient was started on dysphagia 1 diet. It was reported by nursing staff that they tried to feed the patient, however the patient was not showing anything, and the nurses had to scrape the fluid out of her mouth. Videofluoroscopic study showed aspiration on thin barium admission Ppatient's medical decision-maker, Dr. Jiménez believes that glycopyrrolate is most likely the source of the patient's initial symptoms leading to ED presentation, and does not want any PEG tube placement at this time Plan: ? Consulted GI, Dr. Ascencio, recs appreciated -PEG tube placed ordered on 01/21 ? EGD 01/15 showed benign-appearing esophageal stricture, which was dilated ? Patient passed speech eval 01/17, put on dysphagia 1 pur?ed diet, mildly thick level 2, and only use of sippy cup, no straws #Severe Protein calorie malnutrition #Underweight BMI 17.1 #Failure to Thrive Patient noted to have significantly low BMI throughout hospitalization. Weight 31.32 kg, BMI 17.2 age 29 Pt has poor oral intake, and consumes minimal food Plan: - Patent Searcher referral ordered, recommends Mighty shake 120 mL 3 times daily with meals, water flushes of 25 mL/h, thiamine 100 mg/day for 7 days with first dose at least 30 minutes before meal, and multivitamins/minerals - GI consulted, will place PEG tube on 01/21 - Dronabinol 2.5 mg twice a day before meals as appetite stimulant #Thrombocytopenia #Suspected ITP #New onset hematuria (resolved) Patient noted to have platelet of 26, lowest 16, on admission. In ICU s/p platelet transfusion on 01/13, which increased platelets to 77. Patient noted to have hematuria in ICU. This is likely due to underlying sepsis versus viral illness versus radiographic thrombocytopenia. Reticulocyte count and peripheral smear are sent without significant abnormality noted except for severe thrombocytopenia. ICU did workup for thrombocytopenia, all of which is negative including hepatitis panel, HIV, GARRICK screen, iron, B12, folate, DIC panel. ICU team discussed case with Dr. Chandra, pathologist, who reported that the patient did not have any abnormal cells or severe features suggestive of TTP?HUS. ITP is suspected as a diagnosis of exclusion. Urinalysis 01/12 showed 3+ blood in urine and 1009 RBC. Methylprednisolone 30 mg (01/12-01/14) Plan: ? Avoid antiplatelets and anticoagulants ? Continue to monitor platelet count and assess for bleeding ? Haptoglobin 126 #Anemia, normocytic normochromic Patient noted to have hemoglobin of 11.6 on admission with a downward trend during hospitalization. Likely due to dehydration at time of admission with contribution from hematuria. Iron 201, and iron saturation 85% with ferritin at 756, folate wnl Pathology smear reports minimal anemia supporting likely dehydration and sepsis as more likely causes. Plan: ? Will continue to monitor CBC #Hypercalcemia (resolved) Corrected calcium at time of patient noted to be 10.9. PTH noted to be 79.1. 25 OH vitamin D >150, which is most likely the source of her hypercalcemia in addition to immobility. Plan: ? Will educate caretakers about excessive 25 OH vitamin D and recommend decreasing dosage if patient is taking supplements #Congenital hip dysplasia Patient found to have hip dysplasia on CT abdomen/pelvis. Patient is wheelchair-bound. Plan: ? No active treatment required at this time ? Follow-up with outpatient for management DVT Prophylaxis: SCDs GI Prophylaxis: Famotidine Bowel: N/A Diet: Dysphagia 1 w/ Mighty shake Banda: Yes Lines: Peripheral IV, NG tube Antibiotics: N/A Code Status: FULL Reason for Hospitalization: Sepsis Other Barriers to Discharge: Hypernatremia Assessment and plan discussed with my attending physician Dr. Manuel Carpenter (PGY-2)- Internal medicine resident Attending Provider Attestation/Addendum I attest that I was physically present for the evaluation, physical examination, lab and imaging review of the patient with the residents. I discussed the case with the residents and agree with the findings and plans of care as documented above. Shameka Jackson MD
[2025-01-21 19:44] LABS: Sodium 146 mMol/L (136-145)
[2025-01-21] MEDS: SODIUM CHLORIDE 0.9% 500 ML 500 ML 20 ML IV (20:24)
[2025-01-21] MEDS: ceFAZolin/D5W 1 GM IVPB 1 GM/50 ML BAG IV (20:45)
--- NOTE | 2025-01-21 21:21 | SUR.PHASEI ---
2100 patient is sleepy and arousable, mentally disabled, breathing unlabored, s/p peg tube placement, no bleedingnoted to abdomen, abdominal binder placed on patient, report received from roxy WOLF
--- NOTE | 2025-01-21 21:58 | SUR.PHASEI ---
2136 PATIENT SLEEPY AND AROUSABLE, BREATHING UNLABORED, DRESSING TO ABDOMEN DRY, ABDOMINAL BINDER IN PLACE, REPORT GIVEN TO KIZZY WOLF, PATIENT TRANSFERRED BACK TO ROOM 368
[2025-01-22] VITALS (11 sets, daily range): BP systolic 90–135; BP diastolic 55–76; PULSE 68–88; RESP 17–98; TEMP 36.1–36.7; O2SAT 95–99; BMI 17.7
[2025-01-22] MEDS: DEXTROSE 5%-NS 1,000 ML 70 ML IV
--- NOTE | 2025-01-22 00:06 | PD.RESEVENT ---
Documentation for date of: 01/22/25 Event Note Event Note: Event note: rapid response Rapid response called at approximately 1145 PM for hypoglycemia with a blood sugar of 33. Patient has severe disability, unable to verbalize pain. Vital stable. Per Gastroenterology, may resume PEG tube feedings. 1 AM of dextrose given. Dextrose 5% LR started. Bedside glucose 1 HR with Glucose Bedside checks Q4HR. Repeat Na. Resume PEG tube feedings. - The patient's plan was discussed with attending Dr. Anderson Snider MD PGY2 Internal Medicine
[2025-01-22 01:22] LABS: Albumin, Serum 3.4 gm/dL (3.5-5.0); Anion Gap 11 (7-16); BUN/Creatinine Ratio 8 Ratio (12-20); Blood Urea Nitrogen < 5 mg/dL (9-23); Calcium 9.0 mg/dL (8.3-10.6); Calcium (Corrected) 9.5 mg/dL (8.5-10.1); Carbon Dioxide 26.2 mMol/L (20.0-31.0); Chloride 107 mMol/L (98-107); Creatinine (Component) 0.6 mg/dL (0.6-1.3); Estimated Creatinine Clearance 67.2 mL/min (>60); Glucose 245 mg/dL (74-106); Osmolality,Calculated 292 (275-295); Phosphorous 2.8 mg/dL (2.4-5.1); Potassium 2.9 mMol/L (3.4-5.1); Sodium 144 mMol/L (136-145); eGFR > 60 See Note
[2025-01-22] MEDS: POTASSIUM CHLORIDE 10% 20 MEQ/15 ML UDC 40 MEQ GT (02:14)
[2025-01-22 06:26] LABS: Basophils # (Auto) 0.1 Thou/mm3 (0.0-0.2); Basophils % (Auto) 0 % (0-2.5); Eosinophils # (Auto) 0.1 Thou/mm3 (0.0-0.5); Eosinophils % (Auto) 1 % (0-10); Hematocrit 29.3 % (36.0-46.0); Hemoglobin 9.7 g/dL (12.0-16.0); Immature Granulocytes Auto 0.22 Thou/mm3 (0.00-0.00); Lymphocytes # (Auto) 3.3 Thou/mm3 (1.0-4.8); Lymphocytes % (Auto) 26 % (10-50); Mean Corpuscular HGB Conc 33.1 g/dl (31.0-37.0); Mean Corpuscular Hemoglobin 31.4 pg (25.0-35.0); Mean Corpuscular Volume 95 fL (80-100); Monocytes # (Auto) 0.5 Thou/mm3 (0.0-0.8); Monocytes % (Auto) 4 % (0-12); Neutrophils # (Auto) 8.6 Thou/mm3 (1.8-7.7); Neutrophils % (Auto) 67 % (37-80); Nucleated Red Blood Cell # 0.34 Thou/mm3 (0.00-0.00); Nucleated Red Blood Cell % 3 /100 WBC (0); Platelet Count 459 Thou/mm3 (140-440); RDW Standard Deviation 56.3 fL (36.4-46.3); Red Blood Count 3.09 Miln/mm3 (4.00-5.20); White Blood Count 12.7 Thou/mm3 (3.6-11.0)
[2025-01-22 07:03] LABS: Alanine Aminotransferase 74 U/L (10-49); Albumin, Serum 4.4 gm/dL (3.5-5.0); Albumin/Globulin Ratio 1.2 (1.2-2.2); Alkaline Phosphatase 330 U/L (46-116); Anion Gap 12 (7-16); Aspartate Amino Transferase 63 U/L (0-34); BUN/Creatinine Ratio 8 Ratio (12-20); Bilirubin,Total 0.4 mg/dL (0.3-1.2); Blood Urea Nitrogen < 5 mg/dL (9-23); Calcium 10.2 mg/dL (8.3-10.6); Calcium (Corrected) 10.2 mg/dL (8.5-10.1); Carbon Dioxide 25.7 mMol/L (20.0-31.0); Chloride 108 mMol/L (98-107); Creatinine (Component) 0.6 mg/dL (0.6-1.3); Estimated Creatinine Clearance 67.2 mL/min (>60); Globulin 3.7 gm/dL (2.3-3.5); Glucose 78 mg/dL (74-106); Magnesium 2.5 mg/dL (1.6-2.6); Osmolality,Calculated 286 (275-295); Phosphorous 2.7 mg/dL (2.4-5.1); Potassium 4.6 mMol/L (3.4-5.1); Sodium 146 mMol/L (136-145); Total Protein 8.1 gm/dL (5.7-8.2); eGFR > 60 See Note
[2025-01-22] MEDS: FAMOTIDINE INJ 10 MG/ML VIAL 2 ML 20 MG IVP (09:10)
[2025-01-22] MEDS: THIAMINE INJ 100 MG/ML VIAL 2 ML IVP ×2 (09:10→21:14)
[2025-01-22] MEDS: MULTIVITAMIN 15 ML UDC GT (09:11)
--- NOTE | 2025-01-22 10:46 | PC.DIETICIAN ---
Dietitian recommendations: 1. Continue with current pump feeds regimen as tolerated, consider switch to bolus feeds per group retail marketing executive Usman's request: Jevity 1.2 240ml 4x/day via Gtube by syringe to provide: 960ml vol, 1152kcal, 53g protein. Give water flush of 75ml before and after feeds or ~ 500ml water each day. 2. Pt will need tube feeding pump (if insurance covers) and formula at discharge, trial for syringe feeds prior to d/c if physician agrees or can be started at care home. 3. Pleasure puree foods + thicken water per STADIUM ATTENDANT Thank you
--- NOTE | 2025-01-22 10:54 | ESPR_ITS ---
Documentation for date of: 01/22/25 Subjective Subjective Interval history: Patient is nonverbal at baseline and is intellectually disabled. Chart review done. Ms. Herrera is a 29-year-old female with no significant past medical history, severe intellectual disability was brought to the hospital with hypothermia. She lives in a facility wheelchair-bound and wears diapers. She was at the adult daycare center and was noted to have hypothermia and care provider brought her to the ER. Patient was noted to be dehydrated. Was a started on IV fluids. She was in ICU and subsequently moved to the floor. During this admission she was noted to have pneumonia. Labs, medications reviewed. Past surgical history: Remote history of surgery for the spine, no available records, noted to have surgery in the bilateral parotid areas Social history: No addictions, lives in a facility Allergies: Clindamycin, causes vomiting per chart review 01/20/2025 WBC 9.8, hemoglobin 7.8, platelets 231. Sodium 148, potassium 3.5, BUN 5, creatinine 0.6, calcium 9.9, phosphorus 2.7, AST 44, ALT 73, alk phos 267, albumin 3.5 chest x-ray from yesterday showed orogastric tube which was pulled by patient. 01/21/2025 patient currently seen in medical floor. Nonverbal. Severe developmental delay with contractures.Sodium still elevated at 149. Patient completely dependent on NG tube feeds. However she pulled out NG tube twice. Had a long conversation with the Dr. Jiménez who is the conservator-he finally agreed for PEG tube for free water flushes and medications. Will monitor her closely so she will not pull out her PEG tube post placement and reinforce with the abdominal binder. Do understand that patient has high risk for aspiration. However wanted to try feeding tube prior to comfort care. 01/22/2025 patient currently seen in medical floor. Nonverbal. Significant developmental delay with contractures. Status post feeding tube after approval by Dr. Jiménez. Now has abdominal binder and soft restraints. Tomorrow if clinically stable and tolerating tube feeds/free water flushes she can be discharged back to [facility]. Still needs to be monitored for aspiration, pulling out on feeding tube. Review of Systems Review of Systems ROS Unobtainable: unobtainable due to mental status and unobtainable due to medical condition Exam Vital Signs Temp Pulse Resp BP Pulse Ox O2 Del Method O2 Flow Rate 36.1 C 72 17 113/64 95 Room Air 2 01/22/25 12:00 01/22/25 12:00 01/22/25 12:00 01/22/25 12:00 01/22/25 12:00 01/22/25 12:00 01/21/25 21:36 Narrative Exam GENERAL APPEARANCE: Patient very tiny and nonverbal. NECK: Neck supple, no JVD or bruit CARDIOVASCULAR: Heart regular, no murmurs LUNGS/CHEST: Chest clear to auscultation. No rales, rhonchi, wheezing ABDOMEN: Soft, nontender, nondistended. No masses. Normal bowel sounds. EXTREMITIES: No edema, clubbing or cyanosis. SKIN: Skin exam normal without any rashes MUSCULOSKELETAL: Contractures NEUROLOGICAL : Severe intellectual disability Objective Labs 01/22/25 05:31 01/22/25 13:03 Labs: Laboratory Results - last 24 hr 01/21/25 01/21/25 01/22/25 15:43 19:22 00:45 WBC RBC Hgb Hct MCV MCH MCHC RDW Std Deviation Plt Count Neut % (Auto) Lymph % (Auto) Kendall % (Auto) Eos % (Auto) Baso % (Auto) Neut # (Auto) Lymph # (Auto) Kendall # (Auto) Eos # (Auto) Baso # (Auto) Immature Gran # (Auto) Absolute Nucleated RBC Immature Gran % Nucleated RBC % Sodium 118 L* D 146 H D 144 Potassium 2.9 L D Chloride 107 Carbon Dioxide 26.2 Anion Gap 11 BUN < 5 L Creatinine 0.6 Estim Creat Clear Calc 67.2 eGFR > 60 BUN/Creatinine Ratio 8 L Glucose 245 H D Calculated Osmolality 292 Calcium 9.0 Corrected Calcium 9.5 Phosphorus 2.8 Magnesium Total Bilirubin AST ALT Alkaline Phosphatase Total Protein Albumin 3.4 L Globulin Albumin/Globulin Ratio 01/22/25 01/22/25 05:31 13:03 WBC 12.7 H RBC 3.09 L Hgb 9.7 L Hct 29.3 L MCV 95 MCH 31.4 MCHC 33.1 RDW Std Deviation 56.3 H Plt Count 459 H D Neut % (Auto) 67 Lymph % (Auto) 26 Kendall % (Auto) 4 Eos % (Auto) 1 Baso % (Auto) 0 Neut # (Auto) 8.6 H Lymph # (Auto) 3.3 Kendall # (Auto) 0.5 Eos # (Auto) 0.1 Baso # (Auto) 0.1 Immature Gran # (Auto) 0.22 H Absolute Nucleated RBC 0.34 H Immature Gran % 2 H Nucleated RBC % 3 H Sodium 146 H 146 H Potassium 4.6 D Chloride 108 H Carbon Dioxide 25.7 Anion Gap 12 BUN < 5 L Creatinine 0.6 Estim Creat Clear Calc 67.2 eGFR > 60 BUN/Creatinine Ratio 8 L Glucose 78 D Calculated Osmolality 286 Calcium 10.2 Corrected Calcium 10.2 H Phosphorus 2.7 Magnesium 2.5 Total Bilirubin 0.4 AST 63 H ALT 74 H Alkaline Phosphatase 330 H D Total Protein 8.1 Albumin 4.4 D Globulin 3.7 H Albumin/Globulin Ratio 1.2 Assessment & Plan Assessment and plan (1) Hypernatremia: Status: Acute Assessment and plan: Patient has a severe and recurrent episodes of hypernatremia due to poor p.o. intake and unable to access water due to severe intellectual disability. With the NG tube her sodium improves and once the NG tube is removed-patient goes back to recurrent episodes of hypernatremia. At this point I would recommend Feeding tube to prevent recurrent hospitalizations, dehydration, hypernatremia. Long conversation with Dr. Jiménez-agreed for feeding tube placement. Conveyed the same to Dr. Ascencio and primary team. patient got her feeding tube yesterday and was started on tube feeds. Has abdominal binder to prevent tugging on. (2) Dehydration: Status: Acute Assessment and plan: Status post a feeding tube-continue with free water flushes. (3) Intellectual disability: Status: Acute Assessment and plan: Severe intellectual disability-under conservator Additional Assessment & Plan Additional Plan: Thank you Shameka for allowing me to participate in the care of Ms. Herrera
--- NOTE | 2025-01-22 12:45 | ESPR_ITS ---
Documentation for date of: 01/22/25 Subjective Subjective Interval history: Overnight events: Rapid response called overnight for hypoglycemia of 33. Patient received 1 amp of dextrose and dextrose 5% LR started, which was discontinued at 0203. Patient was seen and examined at bedside. AM vitals and labs reviewed. PEG tubes placed yesterday. Started tube feeds and free water flushes. Patient does not appear to be in any acute pain or acute distress. AM sodium 146. Repeat sodium 1300 also 146. Free water deficit 0.7L. AM blood glucose 78 and morning bedside glucose 120. Increased free water flushes to 150 cc/hr. Talked to caregiver to give updates about PEG tubes and tube feeds. Caregiver noted that she is able to do pump feeds or bolus feeds. Caregiver has also done free water flushes in the past and is prepared to do them for the patient on return home. Repeat sodium 2100. Review of systems otherwise negative except for what is mentioned above. Exam Vital Signs Temp Pulse Resp BP Pulse Ox O2 Del Method O2 Flow Rate 96.9 F 72 17 113/64 95 Room Air 2 01/22/25 12:00 01/22/25 12:00 01/22/25 12:00 01/22/25 12:00 01/22/25 12:00 01/22/25 12:00 01/21/25 21:36 Narrative Exam Physical Exam: General: Alert, no acute distress. Nonverbal, noninteractive. Skin: Warm, intact, no obvious rash. Head: Normocephalic, atraumatic. Cardiovascular: Regular rate and rhythm, no murmur, +S1/S2. Respiratory: Respirations unlabored on nasal cannula, no crackles, no wheezing. Gastrointestinal: Soft, nontender, non-distended. No guarding or rebound tenderness. Extremities: No edema, no cyanosis, no clubbng. Objective Labs 01/22/25 05:31 01/22/25 13:03 Labs: Laboratory Results - last 24 hr 01/21/25 01/21/25 01/22/25 15:43 19:22 00:45 WBC RBC Hgb Hct MCV MCH MCHC RDW Std Deviation Plt Count Neut % (Auto) Lymph % (Auto) [place] % (Auto) Eos % (Auto) Baso % (Auto) Neut # (Auto) Lymph # (Auto) [place] # (Auto) Eos # (Auto) Baso # (Auto) Immature Gran # (Auto) Absolute Nucleated RBC Immature Gran % Nucleated RBC % Sodium 118 L* D 146 H D 144 Potassium 2.9 L D Chloride 107 Carbon Dioxide 26.2 Anion Gap 11 BUN < 5 L Creatinine 0.6 Estim Creat Clear Calc 67.2 eGFR > 60 BUN/Creatinine Ratio 8 L Glucose 245 H D Calculated Osmolality 292 Calcium 9.0 Corrected Calcium 9.5 Phosphorus 2.8 Magnesium Total Bilirubin AST ALT Alkaline Phosphatase Total Protein Albumin 3.4 L Globulin Albumin/Globulin Ratio 01/22/25 05:31 WBC 12.7 H RBC 3.09 L Hgb 9.7 L Hct 29.3 L MCV 95 MCH 31.4 MCHC 33.1 RDW Std Deviation 56.3 H Plt Count 459 H D Neut % (Auto) 67 Lymph % (Auto) 26 [place] % (Auto) 4 Eos % (Auto) 1 Baso % (Auto) 0 Neut # (Auto) 8.6 H Lymph # (Auto) 3.3 [place] # (Auto) 0.5 Eos # (Auto) 0.1 Baso # (Auto) 0.1 Immature Gran # (Auto) 0.22 H Absolute Nucleated RBC 0.34 H Immature Gran % 2 H Nucleated RBC % 3 H Sodium 146 H Potassium 4.6 D Chloride 108 H Carbon Dioxide 25.7 Anion Gap 12 BUN < 5 L Creatinine 0.6 Estim Creat Clear Calc 67.2 eGFR > 60 BUN/Creatinine Ratio 8 L Glucose 78 D Calculated Osmolality 286 Calcium 10.2 Corrected Calcium 10.2 H Phosphorus 2.7 Magnesium 2.5 Total Bilirubin 0.4 AST 63 H ALT 74 H Alkaline Phosphatase 330 H D Total Protein 8.1 Albumin 4.4 D Globulin 3.7 H Albumin/Globulin Ratio 1.2 Quality Measures Quality Measures sepsis Current suspected stage: ruled out Possible source: pulmonary, genitourinary and unknown Blood cultures ordered: completed in ED Antibiotic ordered: No Assessment & Plan Assessment Current Active Medications: Generic Name Dose Route Start Last Admin Trade Name Freq PRN Reason Stop Dose Admin Acetaminophen 325 mg 01/22/25 07:28 Acetaminophen Martina 325 Mg/10 Ml Udc GT 02/10/25 22:27 Q4HR PRN Pain 1 - 3 Or Fever > 101 Albuterol/Ipratropium 3 ml 01/14/25 01:23 Albuterol/Ipratropium (Duoneb) Rt Martina 3 Ml Nebu INH 02/13/25 01:59 Q2HR PRN shorthness of breath or wheeze Buspirone HCl 10 mg 01/22/25 09:00 01/22/25 09:09 Buspirone Hcl 5 Mg Tablet GT 02/11/25 08:59 10 mg BID MARCIA Administration Dronabinol 2.5 mg 01/22/25 07:30 01/22/25 09:11 Dronabinol 2.5 Mg Capsule GT 02/19/25 16:59 Not Given BIDAC MARCIA Famotidine 20 mg 01/12/25 09:00 01/22/25 09:10 Famotidine Inj 10 Mg/Ml Vial 2 Ml IVP 02/11/25 08:59 20 mg QDAY MARCIA Administration Sodium Chloride 500 mls @ 20 mls/hr 01/21/25 20:00 01/21/25 20:24 Ns IV 01/22/25 19:59 20 mls/hr .Q24H ONE Administration Loratadine 10 mg 01/22/25 07:27 01/22/25 09:10 Loratadine 10 Mg Tablet PO 02/12/25 08:59 10 mg QDAY MARCIA Administration Multivitamins/Minerals 15 ml 01/22/25 09:00 01/22/25 09:11 Multivitamin 15 Ml [facility] GT 02/18/25 08:59 15 ml QDAY MARCIA Administration Thiamine HCl 100 mg 01/15/25 21:00 01/22/25 09:10 Thiamine Inj 100 Mg/Ml Vial 2 Ml IVP 02/14/25 20:59 100 mg BID MARCIA Administration Plan Kelly Herrera is a 29F pmhx significant for severe intellectual disability, non verbal at baseline, who presented to [facility] ED on 01/11 for hypothermia and altered mental status. The patient was admitted to ICU for 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 Patient downgraded to hospital floors 01/13 for further management. #Hypernatremia, improving #Hyperchloremia, improving Patient was noted to have a sodium of 157 and chloride of 115 on admission. This has improved over time and with hydration, indicating that this is most likely due to dehydration. Patient sodium noted to have improved most when NG tube is placed. However, patient has removed NG tube multiple times. Plan: ? Will continue to monitor with daily renal panel - Ordered serum uric acid, renin, and aldosterone to investigate possible endocrine abnormalities, all which were within normal limits - Ordered urine electrolytes and urinalysis, only abnormality noted was urine potassium <10 - Pending morning cortisol and random cortisol, ACTH returned within normal limits - Nephrology consulted, appreciate recommendations - Free water flushes 150 cc every 2 hours through PEG tube - F/u sodium check at 2100 #Sepsis, 2/2 - RESOLVED #Community acquired pneumonia and #Urinary tract infection (Entercoccus faecalis) #Hypothermnia, improving #Hypotension (resolved) #Transaminitis (resolving) #OLENA, likely prerenal (resolving) Presented to ED with hypothermia of 91.1F, lowest 89.1F rectally, and altered mental status. Admitted to ICU for management of hypotension, requiring pressors, hypothermia, requiring Mellissa hugger, and severe thrombocytopenia. Hypothermia likely 2/2 poor PO intake and muscle wasting. CTAP showed right middle and bibasilar pneumonia along with significant pneumonia in the left base. US gallbladder negative for acute cholecystitis and hep panel neg. CT head neg unremarkable. BCx NGTD, UCx +enterococcus faecalis Endorgan damage was noted with transaminitis and OLENA on admission, AST 371, ALT 202, creatinine 0.9 (baseline 0.5). FeNa 0.3%, supporting prerenal likely 2/2 poor PO intake Plan: ? CTM temperature, will continue Mellissa hugger until patient temperature improves ? CTM blood pressure, keep MAP >65 ? CTM LFTs ? Vancomycin and Zosyn (01/11-01/19) - Ordered stool culture, stool WBC, C. diff PCR, and calprotectin to investigate possible infection in GI tract, all negative #Dysphagia In ICU, patient failed bedside swallow eval and so was referred to speech therapy. However, the patient passed swallow eval with speech therapy, and so patient was started on dysphagia 1 diet. It was reported by nursing staff that they tried to feed the patient, however the patient was not showing anything, and the nurses had to scrape the fluid out of her mouth. Videofluoroscopic study showed aspiration on thin barium admission Ppatient's medical decision-maker, Dr. Jiménez believes that glycopyrrolate is most likely the source of the patient's initial symptoms leading to ED presentation, and does not want any PEG tube placement at this time Plan: ? Consulted GI, Dr. Ascencio, recs appreciated - PEG tube placed 01/21, currently on pump control tube feeds to avoid aspiration risks associated with bolus tube feeds ? EGD 01/15 showed benign-appearing esophageal stricture, which was dilated ? Patient passed speech eval 01/17, put on dysphagia 1 pur?ed diet, mildly thick level 2, and only use of sippy cup, no straws #Severe Protein calorie malnutrition #Underweight BMI 17.1 #Failure to Thrive Patient noted to have significantly low BMI throughout hospitalization. Weight 31.32 kg, BMI 17.2 age 29 Pt has poor oral intake, and consumes minimal food Plan: - Spindle Plumber referral ordered, recommends Mighty shake 120 mL 3 times daily with meals, water flushes of 25 mL/h, thiamine 100 mg/day for 7 days with first dose at least 30 minutes before meal, and multivitamins/minerals - GI consulted, placed PEG tube on 01/21, started tube feeds per Dietitian recommendations (Jevity 1.2 at 20 ml/hr via PEG tube by pump, advance 10 ml every 8 hours for goal rate of 45 ml/hr) - Dronabinol 2.5 mg twice a day before meals as appetite stimulant #Thrombocytopenia #Suspected ITP #New onset hematuria (resolved) Patient noted to have platelet of 26, lowest 16, on admission. In ICU s/p platelet transfusion on 01/13, which increased platelets to 77. Patient noted to have hematuria in ICU. This is likely due to underlying sepsis versus viral illness versus radiographic thrombocytopenia. Reticulocyte count and peripheral smear are sent without significant abnormality noted except for severe thrombocytopenia. ICU did workup for thrombocytopenia, all of which is negative including hepatitis panel, HIV, GARRICK screen, iron, B12, folate, DIC panel. ICU team discussed case with Dr. Chandra, pathologist, who reported that the patient did not have any abnormal cells or severe features suggestive of TTP?HUS. ITP is suspected as a diagnosis of exclusion. Urinalysis 01/12 showed 3+ blood in urine and 1009 RBC. Methylprednisolone 30 mg (01/12-01/14) Plan: ? Avoid antiplatelets and anticoagulants ? Continue to monitor platelet count and assess for bleeding ? Haptoglobin 126 #Anemia, normocytic normochromic Patient noted to have hemoglobin of 11.6 on admission with a downward trend during hospitalization. Likely due to dehydration at time of admission with contribution from hematuria. Iron 201, and iron saturation 85% with ferritin at 756, folate wnl Pathology smear reports minimal anemia supporting likely dehydration and sepsis as more likely causes. Plan: ? Will continue to monitor CBC #Hypercalcemia (resolved) Corrected calcium at time of patient noted to be 10.9. PTH noted to be 79.1. 25 OH vitamin D >150, which is most likely the source of her hypercalcemia in addition to immobility. Plan: ? Will educate caretakers about excessive 25 OH vitamin D and recommend decreasing dosage if patient is taking supplements #Congenital hip dysplasia Patient found to have hip dysplasia on CT abdomen/pelvis. Patient is wheelchair-bound. Plan: ? No active treatment required at this time ? Follow-up with outpatient for management DVT Prophylaxis: SCDs GI Prophylaxis: Famotidine Bowel: N/A Diet: Dysphagia 1 w/ Mighty shake Banda: N/A Lines: Peripheral IV, PEG tube Antibiotics: N/A Code Status: FULL Reason for Hospitalization: Sepsis Other Barriers to Discharge: Hypernatremia Assessment and plan discussed with my attending physician Dr. Manuel Elaine ([id number]-[id number])- Internal medicine resident Attending Provider Attestation/Addendum I attest that I was physically present for the evaluation, physical examination, lab and imaging review of the patient with the residents. I discussed the case with the residents and agree with the findings and plans of care as documented above. Shameka Jackson MD
[2025-01-22 13:51] LABS: Sodium 146 mMol/L (136-145)
--- NOTE | 2025-01-22 16:11 | PD.IMPROG ---
Documentation for date of: 01/22/25 Subjective Subjective Interval history: Status post placement of a 24 [place]ian [place] pull-through gastrostomy tube yesterday PEG site looks good Start feeding the patient and using the tube Exam Vital Signs Temp Pulse Resp BP Pulse Ox O2 Del Method O2 Flow Rate 96.9 F 80 20 135/75 H 95 Room Air 2 01/22/25 15:41 01/22/25 15:55 01/22/25 15:41 01/22/25 15:41 01/22/25 15:41 01/22/25 15:41 01/21/25 21:36 Objective Labs 01/22/25 05:31 01/22/25 13:03 Labs: Laboratory Results - last 24 hr 01/21/25 01/21/25 01/22/25 15:43 19:22 00:45 WBC RBC Hgb Hct MCV MCH MCHC RDW Std Deviation Plt Count Neut % (Auto) Lymph % (Auto) [place] % (Auto) Eos % (Auto) Baso % (Auto) Neut # (Auto) Lymph # (Auto) [place] # (Auto) Eos # (Auto) Baso # (Auto) Immature Gran # (Auto) Absolute Nucleated RBC Immature Gran % Nucleated RBC % Sodium 118 L* D 146 H D 144 Potassium 2.9 L D Chloride 107 Carbon Dioxide 26.2 Anion Gap 11 BUN < 5 L Creatinine 0.6 Estim Creat Clear Calc 67.2 eGFR > 60 BUN/Creatinine Ratio 8 L Glucose 245 H D Calculated Osmolality 292 Calcium 9.0 Corrected Calcium 9.5 Phosphorus 2.8 Magnesium Total Bilirubin AST ALT Alkaline Phosphatase Total Protein Albumin 3.4 L Globulin Albumin/Globulin Ratio 01/22/25 01/22/25 05:31 13:03 WBC 12.7 H RBC 3.09 L Hgb 9.7 L Hct 29.3 L MCV 95 MCH 31.4 MCHC 33.1 RDW Std Deviation 56.3 H Plt Count 459 H D Neut % (Auto) 67 Lymph % (Auto) 26 [place] % (Auto) 4 Eos % (Auto) 1 Baso % (Auto) 0 Neut # (Auto) 8.6 H Lymph # (Auto) 3.3 [place] # (Auto) 0.5 Eos # (Auto) 0.1 Baso # (Auto) 0.1 Immature Gran # (Auto) 0.22 H Absolute Nucleated RBC 0.34 H Immature Gran % 2 H Nucleated RBC % 3 H Sodium 146 H 146 H Potassium 4.6 D Chloride 108 H Carbon Dioxide 25.7 Anion Gap 12 BUN < 5 L Creatinine 0.6 Estim Creat Clear Calc 67.2 eGFR > 60 BUN/Creatinine Ratio 8 L Glucose 78 D Calculated Osmolality 286 Calcium 10.2 Corrected Calcium 10.2 H Phosphorus 2.7 Magnesium 2.5 Total Bilirubin 0.4 AST 63 H ALT 74 H Alkaline Phosphatase 330 H D Total Protein 8.1 Albumin 4.4 D Globulin 3.7 H Albumin/Globulin Ratio 1.2 Impressions Impression: Failure to thrive Status post recent of a 24 Bulgarian gastrostomy tube Enteral feeding via the PEG tube Assessment & Plan A&P Narrative # Dysphagia # Recurrent aspiration Plan Consent to be obtained for fiberoptic esophagogastroduodenoscopy with possible proximal esophageal stricture dilatation to prevent aspiration Hopefully that will work If it does not work we will consider after talking to Dr. Jiménez for the possibility of a PEG placement She should be given every opportunity not to go that route at least at the moment Thank you very much for the opportunity to participate in the care of this patient Time Spent With Patient Time: Total time spent is greater than 50% in coordination of care (as documented) at patient's floor/unit and/or counseling patient:
[2025-01-22 21:21] LABS: Sodium 141 mMol/L (136-145)
[2025-01-23] VITALS (10 sets, daily range): BP systolic 103–118; BP diastolic 61–76; PULSE 67–88; RESP 16–94; TEMP 36.1–36.6; O2SAT 93–95
[2025-01-23 07:58] LABS: Basophils # (Auto) 0.0 Thou/mm3 (0.0-0.2); Basophils % (Auto) 0 % (0-2.5); Eosinophils # (Auto) 0.1 Thou/mm3 (0.0-0.5); Eosinophils % (Auto) 1 % (0-10); Hematocrit 33.8 % (36.0-46.0); Hemoglobin 11.1 g/dL (12.0-16.0); Immature Granulocytes Auto 0.17 Thou/mm3 (0.00-0.00); Lymphocytes # (Auto) 3.4 Thou/mm3 (1.0-4.8); Lymphocytes % (Auto) 26 % (10-50); Mean Corpuscular HGB Conc 32.8 g/dl (31.0-37.0); Mean Corpuscular Hemoglobin 31.5 pg (25.0-35.0); Mean Corpuscular Volume 96 fL (80-100); Monocytes # (Auto) 0.4 Thou/mm3 (0.0-0.8); Monocytes % (Auto) 3 % (0-12); Neutrophils # (Auto) 9.0 Thou/mm3 (1.8-7.7); Neutrophils % (Auto) 68 % (37-80); Nucleated Red Blood Cell # 0.47 Thou/mm3 (0.00-0.00); Nucleated Red Blood Cell % 4 /100 WBC (0); Platelet Count 531 Thou/mm3 (140-440); RDW Standard Deviation 57.9 fL (36.4-46.3); Red Blood Count 3.52 Miln/mm3 (4.00-5.20); White Blood Count 13.1 Thou/mm3 (3.6-11.0)
[2025-01-23 08:41] LABS: Alanine Aminotransferase 76 U/L (10-49); Albumin, Serum 4.8 gm/dL (3.5-5.0); Albumin/Globulin Ratio 1.3 (1.2-2.2); Alkaline Phosphatase 396 U/L (46-116); Anion Gap 12 (7-16); Aspartate Amino Transferase 65 U/L (0-34); BUN/Creatinine Ratio 9 Ratio (12-20); Bilirubin,Total 0.4 mg/dL (0.3-1.2); Blood Urea Nitrogen 6 mg/dL (9-23); Calcium 11.2 mg/dL (8.3-10.6); Calcium (Corrected) 11.2 mg/dL (8.5-10.1); Carbon Dioxide 27.8 mMol/L (20.0-31.0); Chloride 100 mMol/L (98-107); Creatinine (Component) 0.7 mg/dL (0.6-1.3); Estimated Creatinine Clearance 59.4 mL/min (>60); Globulin 3.7 gm/dL (2.3-3.5); Glucose 101 mg/dL (74-106); Magnesium 1.8 mg/dL (1.6-2.6); Osmolality,Calculated 277 (275-295); Phosphorous 4.8 mg/dL (2.4-5.1); Potassium 4.2 mMol/L (3.4-5.1); Sodium 140 mMol/L (136-145); Total Protein 8.5 gm/dL (5.7-8.2); eGFR > 60 See Note
--- NOTE | 2025-01-23 09:20 | ESPR_ITS ---
Documentation for date of: 01/23/25 Subjective Subjective Interval history: Patient is nonverbal at baseline and is intellectually disabled. Chart review done. Ms. Herrera is a 29-year-old female with no significant past medical history, severe intellectual disability was brought to the hospital with hypothermia. She lives in a facility wheelchair-bound and wears diapers. She was at the adult daycare center and was noted to have hypothermia and care provider brought her to the ER. Patient was noted to be dehydrated. Was a started on IV fluids. She was in ICU and subsequently moved to the floor. During this admission she was noted to have pneumonia. Labs, medications reviewed. Past surgical history: Remote history of surgery for the spine, no available records, noted to have surgery in the bilateral parotid areas Social history: No addictions, lives in a facility Allergies: Clindamycin, causes vomiting per chart review 01/20/2025 WBC 9.8, hemoglobin 7.8, platelets 231. Sodium 148, potassium 3.5, BUN 5, creatinine 0.6, calcium 9.9, phosphorus 2.7, AST 44, ALT 73, alk phos 267, albumin 3.5 chest x-ray from yesterday showed orogastric tube which was pulled by patient. 01/21/2025 patient currently seen in medical floor. Nonverbal. Severe developmental delay with contractures.Sodium still elevated at 149. Patient completely dependent on NG tube feeds. However she pulled out NG tube twice. Had a long conversation with the Dr. Jiménez who is the conservator-he finally agreed for PEG tube for free water flushes and medications. Will monitor her closely so she will not pull out her PEG tube post placement and reinforce with the abdominal binder. Do understand that patient has high risk for aspiration. However wanted to try feeding tube prior to comfort care. 01/23/2025 patient currently seen in medical floor. Nonverbal. Significant developmental delay with contractures. Status post feeding tube after approval by Dr. Jiménez. Now has abdominal binder and soft restraints. Today if clinically stable and tolerating tube feeds/free water flushes she can be discharged back to [facility]. Still needs to be monitored for aspiration, pulling out on feeding tube. Review of Systems Review of Systems ROS Unobtainable: unobtainable due to mental status and unobtainable due to medical condition Exam Vital Signs Temp Pulse Resp BP Pulse Ox O2 Del Method O2 Flow Rate 36.6 C 84 20 112/62 94 L Room Air 2 01/23/25 20:00 01/23/25 20:22 01/23/25 20:22 01/23/25 20:00 01/23/25 20:22 01/23/25 20:00 01/21/25 21:36 Narrative Exam GENERAL APPEARANCE: Patient very tiny and nonverbal. NECK: Neck supple, no JVD or bruit CARDIOVASCULAR: Heart regular, no murmurs LUNGS/CHEST: Chest clear to auscultation. No rales, rhonchi, wheezing ABDOMEN: Soft, nontender, nondistended. No masses. Normal bowel sounds. Patient has PEG tube, abdominal binder noted EXTREMITIES: No edema, clubbing or cyanosis. SKIN: Skin exam normal without any rashes MUSCULOSKELETAL: Contractures NEUROLOGICAL : Severe intellectual disability Objective Labs 01/24/25 04:43 01/24/25 04:43 Labs: Laboratory Results - last 24 hr 01/23/25 07:23 WBC 13.1 H RBC 3.52 L Hgb 11.1 L Hct 33.8 L MCV 96 MCH 31.5 MCHC 32.8 RDW Std Deviation 57.9 H Plt Count 531 H D Neut % (Auto) 68 Lymph % (Auto) 26 [place] % (Auto) 3 Eos % (Auto) 1 Baso % (Auto) 0 Neut # (Auto) 9.0 H Lymph # (Auto) 3.4 [place] # (Auto) 0.4 Eos # (Auto) 0.1 Baso # (Auto) 0.0 Immature Gran # (Auto) 0.17 H Absolute Nucleated RBC 0.47 H Immature Gran % 1 H Nucleated RBC % 4 H Sodium 140 Potassium 4.2 Chloride 100 Carbon Dioxide 27.8 Anion Gap 12 BUN 6 L Creatinine 0.7 Estim Creat Clear Calc 59.4 L eGFR > 60 BUN/Creatinine Ratio 9 L Glucose 101 Calculated Osmolality 277 Calcium 11.2 H Corrected Calcium 11.2 H Phosphorus 4.8 Magnesium 1.8 Total Bilirubin 0.4 AST 65 H ALT 76 H Alkaline Phosphatase 396 H D Total Protein 8.5 H Albumin 4.8 Globulin 3.7 H Albumin/Globulin Ratio 1.3 Assessment & Plan Assessment and plan (1) Hypernatremia: Status: Acute Assessment and plan: Patient has a severe and recurrent episodes of hypernatremia due to poor p.o. intake and unable to access water due to severe intellectual disability. With the NG tube her sodium improves and once the NG tube is removed-patient goes back to recurrent episodes of hypernatremia. At this point I would recommend Feeding tube to prevent recurrent hospitalizations, dehydration, hypernatremia. Long conversation with Dr. Jiménez-agreed for feeding tube placement. Conveyed the same to Dr. Ascencio and primary team. patient got her feeding tube and was started on tube feeds. Has abdominal binder to prevent tugging on. Tolerating tube feeds. Renal [place] stable for discharge. (2) Dehydration: Status: Acute Assessment and plan: Status post a feeding tube-continue with free water flushes. (3) Intellectual disability: Status: Acute Assessment and plan: Severe intellectual disability-under conservator Additional Assessment & Plan Additional Plan: Thank you Shameka for allowing me to participate in the care of Ms. Herrera Quality - progress note Quality Measures Quality Measures: VTE prophylaxis Reason for Continued Stay Reason for Continued Stay: further monitoring
[2025-01-23] MEDS: FAMOTIDINE INJ 10 MG/ML VIAL 2 ML 20 MG IVP (09:22)
[2025-01-23] MEDS: THIAMINE INJ 100 MG/ML VIAL 2 ML IVP (09:23)
[2025-01-23] MEDS: MULTIVITAMIN 15 ML UDC GT (09:24)
--- NOTE | 2025-01-23 12:07 | ESPR_ITS ---
<Statement entered by Jose Antonio Young MD - 01/23/25 15:36> Patient was seen and examined at bedside. I agree on the assessment and plan on this note as documented by resident Tyrell Elaine DO PGY1. 29-year-old female with past medical history as below admitted originally to ICU for sepsis hypothermia and altered mental status. Eventually downgraded to telemetry continue to have hypernatremia status post PEG tube placement January 21, 2025 hypernatremia has resolved, otherwise patient's mentation seems to be at baseline cortisol is still pending. Patient will be discharged back to detention however is pending feeding pump which will be obtained by rn social work in a.m. Continue to monitor patient anticipate discharge in the next 24 to 48 hours. Case discussed with attending Dr. Shameka Young MD PGY-2 Documentation for date of: 01/23/25 Subjective Subjective Interval history: Overnight events: No acute events overnight. Patient was seen and examined at bedside. AM vitals and labs reviewed. Patient does not appear to be in any acute distress or pain at this time. WBC elevated at 13.1 and platelets 531, likely reactive secondary to recent PEG tube placement. Sodium this AM 140. Calcium 11.2, like from elevated vitamin D from multi-vitamins. AST and ALT 65 and 76 respectively, but downtrending from admission. Discussed case with dairy management specialist, Dr. Maldonado, who recommended decreasing free water flushes from 150 cc every 2 hours to 200 cc every 6 hours. Discontinued dronabinol given tube feeds. Discontinued thiamine as patient no longer appears to be at risk for refeeding syndrome. Discontinued multi-vitamins, started patient on vitamin C and zinc. Repeat sodium at midnight, will increase free water flushes to 150 cc every 2 hours if sodium is elevated. One time bowel regimen ordered to encourage bowel movement as patient's last bowel movement was on 01/20. Review of systems otherwise negative except for what is mentioned above. Exam Vital Signs Temp Pulse Resp BP Pulse Ox O2 Del Method O2 Flow Rate 96.9 F 70 21 H 108/74 95 Room Air 2 01/23/25 08:00 01/23/25 08:00 01/23/25 08:00 01/23/25 08:00 01/23/25 08:00 01/23/25 08:00 01/21/25 21:36 Narrative Exam Physical Exam: General: Alert, no acute distress. Nonverbal, noninteractive. Skin: Warm, intact, no obvious rash. Head: Normocephalic, atraumatic. Cardiovascular: Regular rate and rhythm, no murmur, +S1/S2. Respiratory: Respirations unlabored on nasal cannula, no crackles, no wheezing. Gastrointestinal: Soft, nontender, non-distended. No guarding or rebound tenderness. Extremities: No edema, no cyanosis, no clubbng. Objective Labs 01/23/25 07:23 01/23/25 07:23 Labs: Laboratory Results - last 24 hr 01/22/25 01/22/25 01/23/25 13:03 20:47 07:23 WBC 13.1 H RBC 3.52 L Hgb 11.1 L Hct 33.8 L MCV 96 MCH 31.5 MCHC 32.8 RDW Std Deviation 57.9 H Plt Count 531 H D Neut % (Auto) 68 Lymph % (Auto) 26 [place] % (Auto) 3 Eos % (Auto) 1 Baso % (Auto) 0 Neut # (Auto) 9.0 H Lymph # (Auto) 3.4 [place] # (Auto) 0.4 Eos # (Auto) 0.1 Baso # (Auto) 0.0 Immature Gran # (Auto) 0.17 H Absolute Nucleated RBC 0.47 H Immature Gran % 1 H Nucleated RBC % 4 H Sodium 146 H 141 140 Potassium 4.2 Chloride 100 Carbon Dioxide 27.8 Anion Gap 12 BUN 6 L Creatinine 0.7 Estim Creat Clear Calc 59.4 L eGFR > 60 BUN/Creatinine Ratio 9 L Glucose 101 Calculated Osmolality 277 Calcium 11.2 H Corrected Calcium 11.2 H Phosphorus 4.8 Magnesium 1.8 Total Bilirubin 0.4 AST 65 H ALT 76 H Alkaline Phosphatase 396 H D Total Protein 8.5 H Albumin 4.8 Globulin 3.7 H Albumin/Globulin Ratio 1.3 Quality Measures Quality Measures sepsis Current suspected stage: ruled out Possible source: pulmonary, genitourinary and unknown Blood cultures ordered: completed in ED Antibiotic ordered: No Assessment & Plan Assessment Current Active Medications: Generic Name Dose Route Start Last Admin Trade Name Freq PRN Reason Stop Dose Admin Acetaminophen 325 mg 01/22/25 07:28 Acetaminophen Martina 325 Mg/10 Ml Udc GT 02/10/25 22:27 Q4HR PRN Pain 1 - 3 Or Fever > 101 Albuterol/Ipratropium 3 ml 01/14/25 01:23 Albuterol/Ipratropium (Duoneb) Rt Martina 3 Ml Nebu INH 02/13/25 01:59 Q2HR PRN shorthness of breath or wheeze Ascorbic Acid 250 mg 01/23/25 12:15 Ascorbic Acid 250 Mg Tablet GT 02/22/25 12:14 BID MARCIA Buspirone HCl 10 mg 01/22/25 09:00 01/23/25 09:24 Buspirone Hcl 5 Mg Tablet GT 02/11/25 08:59 10 mg BID MARCIA Administration Famotidine 20 mg 01/12/25 09:00 01/23/25 09:22 Famotidine Inj 10 Mg/Ml Vial 2 Ml IVP 02/11/25 08:59 20 mg QDAY MARCIA Administration Loratadine 10 mg 01/22/25 07:27 01/22/25 09:10 Loratadine 10 Mg Tablet PO 02/12/25 08:59 10 mg QDAY MARCIA Administration Zinc Sulfate 220 mg 01/23/25 12:15 Zinc Sulfate 220 Mg Capsule GT 02/22/25 12:14 QDAY MARCIA Plan Kelly Herrera is a 29F pmhx significant for severe intellectual disability, non verbal at baseline, who presented to [facility] ED on 01/11 for hypothermia and altered mental status. The patient was admitted to ICU for 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 Patient downgraded to hospital floors 01/13 for further management. #Hypernatremia, improving #Hyperchloremia, improving Patient was noted to have a sodium of 157 and chloride of 115 on admission. This has improved over time and with hydration, indicating that this is most likely due to dehydration. Patient sodium noted to have improved most when NG tube is placed. However, patient has removed NG tube multiple times. PEG tube placed on 01/21 for free water flushes, which has noticeably improved patient's hypernatremia. Plan: - Will continue to monitor with daily renal panel - Ordered serum uric acid, renin, and aldosterone to investigate possible endocrine abnormalities, all which were within normal limits - Ordered urine electrolytes and urinalysis, only abnormality noted was urine potassium <10 - Pending morning cortisol and random cortisol, ACTH returned within normal limits - Nephrology consulted, appreciate recommendations - Free water flushes 200 cc every 6 hours through PEG tube - F/u sodium check at 2400, will increase free water flushes to 150 cc every 2 hours through PEG tube if sodium is elevated #Severe Protein calorie malnutrition #Underweight BMI 17.1 #Failure to Thrive Patient noted to have significantly low BMI throughout hospitalization. Weight 31.32 kg, BMI 17.2 age 29 Pt has poor oral intake, and consumes minimal food Plan: - Refinery Operator Light Ends Recovery referral ordered, recommends Mighty shake 120 mL 3 times daily with meals, water flushes of 25 mL/h, thiamine 100 mg/day for 7 days with first dose at least 30 minutes before meal, and multivitamins/minerals - GI consulted, placed PEG tube on 01/21, started tube feeds per Dietitian recommendations (Jevity 1.2 at 20 ml/hr via PEG tube by pump, advance 10 ml every 8 hours for goal rate of 45 ml/hr) #Sepsis, 2/2 - RESOLVED #Community acquired pneumonia and #Urinary tract infection (Entercoccus faecalis) #Hypothermnia, improving #Hypotension (resolved) #Transaminitis (resolving) #OLENA, likely prerenal (resolving) Presented to ED with hypothermia of 91.1F, lowest 89.1F rectally, and altered mental status. Admitted to ICU for management of hypotension, requiring pressors, hypothermia, requiring Mellissa hugger, and severe thrombocytopenia. Hypothermia likely 2/2 poor PO intake and muscle wasting. CTAP showed right middle and bibasilar pneumonia along with significant pneumonia in the left base. US gallbladder negative for acute cholecystitis and hep panel neg. CT head neg unremarkable. BCx NGTD, UCx +enterococcus faecalis Endorgan damage was noted with transaminitis and OLENA on admission, AST 371, ALT 202, creatinine 0.9 (baseline 0.5). FeNa 0.3%, supporting prerenal likely 2/2 poor PO intake Plan: ? CTM temperature, will restart Mellissa Hugger if necessary ? CTM blood pressure, keep MAP >65 ? CTM LFTs ? Vancomycin and Zosyn (01/11-01/19) - Ordered stool culture, stool WBC, C. diff PCR, and calprotectin to investigate possible infection in GI tract, all negative #Dysphagia In ICU, patient failed bedside swallow eval and so was referred to speech therapy. However, the patient passed swallow eval with speech therapy, and so patient was started on dysphagia 1 diet. It was reported by nursing staff that they tried to feed the patient, however the patient was not showing anything, and the nurses had to scrape the fluid out of her mouth. Videofluoroscopic study showed aspiration on thin barium admission Ppatient's medical decision-maker, Dr. Jiménez believes that glycopyrrolate is most likely the source of the patient's initial symptoms leading to ED presentation, and does not want any PEG tube placement at this time Plan: ? Consulted GI, Dr. Ascencio, recs appreciated - PEG tube placed 01/21, currently on pump control tube feeds to avoid aspiration risks associated with bolus tube feeds ? EGD 01/15 showed benign-appearing esophageal stricture, which was dilated ? Patient passed speech eval 01/17, put on dysphagia 1 pur?ed diet, mildly thick level 2, and only use of sippy cup, no straws #Thrombocytopenia (resolved) #Suspected ITP #New onset hematuria (resolved) Patient noted to have platelet of 26, lowest 16, on admission. In ICU s/p platelet transfusion on 01/13, which increased platelets to 77. Patient noted to have hematuria in ICU. This is likely due to underlying sepsis versus viral illness versus radiographic thrombocytopenia. Reticulocyte count and peripheral smear are sent without significant abnormality noted except for severe thrombocytopenia. ICU did workup for thrombocytopenia, all of which is negative including hepatitis panel, HIV, GARRICK screen, iron, B12, folate, DIC panel. ICU team discussed case with Dr. Chandra, pathologist, who reported that the patient did not have any abnormal cells or severe features suggestive of TTP?HUS. ITP is suspected as a diagnosis of exclusion. Urinalysis 01/12 showed 3+ blood in urine and 1009 RBC. Methylprednisolone 30 mg (01/12-01/14) Plan: ? Avoid antiplatelets and anticoagulants ? Continue to monitor platelet count and assess for bleeding ? Haptoglobin 126 #Anemia, normocytic normochromic Patient noted to have hemoglobin of 11.6 on admission with a downward trend during hospitalization. Likely due to dehydration at time of admission with contribution from hematuria. Iron 201, and iron saturation 85% with ferritin at 756, folate wnl Pathology smear reports minimal anemia supporting likely dehydration and sepsis as more likely causes. Plan: ? Will continue to monitor CBC #Hypercalcemia (resolved) Corrected calcium at time of patient noted to be 10.9. PTH noted to be 79.1. 25 OH vitamin D >150, which is most likely the source of her hypercalcemia in addition to immobility. Plan: ? Will educate caretakers about excessive 25 OH vitamin D and recommend decreasing dosage if patient is taking supplements #Congenital hip dysplasia Patient found to have hip dysplasia on CT abdomen/pelvis. Patient is wheelchair-bound. Plan: ? No active treatment required at this time ? Follow-up with outpatient for management DVT Prophylaxis: SCDs GI Prophylaxis: Famotidine Bowel: N/A Diet: Dysphagia 1 w/ Mighty shake Banda: N/A Lines: Peripheral IV, PEG tube Antibiotics: N/A Code Status: FULL Reason for Hospitalization: Sepsis Other Barriers to Discharge: Hypernatremia Assessment and plan discussed with my attending physician Dr. Jackson and senior resident Dr. Young (PGY-2) Dr. Elaine (PGY-1) Internal medicine resident Attending Provider Attestation/Addendum I attest that I was physically present for the evaluation, physical examination, lab and imaging review of the patient with the residents. I discussed the case with the residents and agree with the findings and plans of care as documented above. At bedside today. Sodium level has improved significantly with free water flushes, 140 this morning. WBC count noted to be slightly uptrending, likely reactive after PEG tube placement. Liver panel is slowly improving. Noted to have elevated calcium, patient had elevated 25-hydroxy vitamin D, we will discontinue multivitamins. Continues to be on PEG tube feeding, tolerating well. Discussed with nephrology, we will decrease free water flushes to 200 ml every 6 hours, appreciate recommendations discussed with case management regarding home for tube feeds, once able to be arranged, we will plan for discharge likely in next 24 to 48 hours. Shameka Jackson MD
[2025-01-23] MEDS: ZINC SULFATE 220 MG CAPSULE GT (12:18)
[2025-01-23] MEDS: DOCUSATE SOD LIQD 100 MG/10 ML UDC 50 MG GT (12:18)
[2025-01-23] MEDS: ASCORBIC ACID 250 MG TABLET GT ×2 (12:18→21:33)
[2025-01-23] MEDS: GLYCERIN, ADULT 1 EA SUPP 1 EACH PR (12:19)
[2025-01-23] MEDS: SENNOSIDES SYRUP 8.8 MG/5 ML UDC GT (12:19)
--- NOTE | 2025-01-23 17:24 | PD.IMPROG ---
Documentation for date of: 01/23/25 Subjective Subjective Interval history: 29 years old female evaluated PEG tube working very well Exam Vital Signs Temp Pulse Resp BP Pulse Ox O2 Del Method O2 Flow Rate 97.4 F 81 20 109/74 95 Room Air 2 01/23/25 15:05 01/23/25 16:49 01/23/25 15:05 01/23/25 15:05 01/23/25 15:05 01/23/25 15:05 01/21/25 21:36 Objective Labs 01/23/25 07:23 01/23/25 07:23 Labs: Laboratory Results - last 24 hr 01/22/25 01/23/25 20:47 07:23 WBC 13.1 H RBC 3.52 L Hgb 11.1 L Hct 33.8 L MCV 96 MCH 31.5 MCHC 32.8 RDW Std Deviation 57.9 H Plt Count 531 H D Neut % (Auto) 68 Lymph % (Auto) 26 [place] % (Auto) 3 Eos % (Auto) 1 Baso % (Auto) 0 Neut # (Auto) 9.0 H Lymph # (Auto) 3.4 [place] # (Auto) 0.4 Eos # (Auto) 0.1 Baso # (Auto) 0.0 Immature Gran # (Auto) 0.17 H Absolute Nucleated RBC 0.47 H Immature Gran % 1 H Nucleated RBC % 4 H Sodium 141 140 Potassium 4.2 Chloride 100 Carbon Dioxide 27.8 Anion Gap 12 BUN 6 L Creatinine 0.7 Estim Creat Clear Calc 59.4 L eGFR > 60 BUN/Creatinine Ratio 9 L Glucose 101 Calculated Osmolality 277 Calcium 11.2 H Corrected Calcium 11.2 H Phosphorus 4.8 Magnesium 1.8 Total Bilirubin 0.4 AST 65 H ALT 76 H Alkaline Phosphatase 396 H D Total Protein 8.5 H Albumin 4.8 Globulin 3.7 H Albumin/Globulin Ratio 1.3 Impressions Impression: Failure to thrive PEG placement via EGD doing very well for enteral hyperalimentation Assessment & Plan A&P Narrative # Dysphagia # Recurrent aspiration Plan Consent to be obtained for fiberoptic esophagogastroduodenoscopy with possible proximal esophageal stricture dilatation to prevent aspiration Hopefully that will work If it does not work we will consider after talking to Dr. Jiménez for the possibility of a PEG placement She should be given every opportunity not to go that route at least at the moment Thank you very much for the opportunity to participate in the care of this patient Time Spent With Patient Time: Total time spent is greater than 50% in coordination of care (as documented) at patient's floor/unit and/or counseling patient:
[2025-01-23 23:55] LABS: Sodium 139 mMol/L (136-145)
[2025-01-24] VITALS (11 sets, daily range): BP systolic 104–121; BP diastolic 65–79; PULSE 74–103; RESP 14–23; TEMP 36.1–36.7; O2SAT 93–98; BMI 17.7
[2025-01-24 06:03] LABS: Basophils # (Auto) 0.1 Thou/mm3 (0.0-0.2); Basophils % (Auto) 0 % (0-2.5); Eosinophils # (Auto) 0.1 Thou/mm3 (0.0-0.5); Eosinophils % (Auto) 1 % (0-10); Hematocrit 30.8 % (36.0-46.0); Hemoglobin 10.1 g/dL (12.0-16.0); Immature Granulocytes Auto 0.15 Thou/mm3 (0.00-0.00); Lymphocytes # (Auto) 3.6 Thou/mm3 (1.0-4.8); Lymphocytes % (Auto) 26 % (10-50); Mean Corpuscular HGB Conc 32.8 g/dl (31.0-37.0); Mean Corpuscular Hemoglobin 31.5 pg (25.0-35.0); Mean Corpuscular Volume 96 fL (80-100); Monocytes # (Auto) 0.6 Thou/mm3 (0.0-0.8); Monocytes % (Auto) 5 % (0-12); Neutrophils # (Auto) 9.4 Thou/mm3 (1.8-7.7); Neutrophils % (Auto) 67 % (37-80); Nucleated Red Blood Cell # 0.34 Thou/mm3 (0.00-0.00); Nucleated Red Blood Cell % 2 /100 WBC (0); Platelet Count 480 Thou/mm3 (140-440); RDW Standard Deviation 57.7 fL (36.4-46.3); Red Blood Count 3.21 Miln/mm3 (4.00-5.20); White Blood Count 14.0 Thou/mm3 (3.6-11.0)
[2025-01-24 06:44] LABS: Alanine Aminotransferase 68 U/L (10-49); Albumin, Serum 4.1 gm/dL (3.5-5.0); Albumin/Globulin Ratio 1.2 (1.2-2.2); Alkaline Phosphatase 343 U/L (46-116); Anion Gap 13 (7-16); Aspartate Amino Transferase 72 U/L (0-34); BUN/Creatinine Ratio 15 Ratio (12-20); Bilirubin,Total 0.3 mg/dL (0.3-1.2); Blood Urea Nitrogen 9 mg/dL (9-23); Calcium 10.8 mg/dL (8.3-10.6); Calcium (Corrected) 10.8 mg/dL (8.5-10.1); Carbon Dioxide 28.7 mMol/L (20.0-31.0); Chloride 99 mMol/L (98-107); Creatinine (Component) 0.6 mg/dL (0.6-1.3); Estimated Creatinine Clearance 69.3 mL/min (>60); Globulin 3.4 gm/dL (2.3-3.5); Glucose 123 mg/dL (74-106); Magnesium 1.8 mg/dL (1.6-2.6); Osmolality,Calculated 280 (275-295); Phosphorous 4.3 mg/dL (2.4-5.1); Potassium 4.2 mMol/L (3.4-5.1); Sodium 141 mMol/L (136-145); Total Protein 7.5 gm/dL (5.7-8.2); eGFR > 60 See Note
[2025-01-24 06:55] LABS: Osmolality, Urine* 158 mOsm/kg (50-1200)
[2025-01-24] MEDS: ASCORBIC ACID 250 MG TABLET GT ×2 (08:42→21:52)
[2025-01-24] MEDS: ZINC SULFATE 220 MG CAPSULE GT (08:42)
[2025-01-24] MEDS: FAMOTIDINE INJ 10 MG/ML VIAL 2 ML 20 MG IVP (08:42)
--- NOTE | 2025-01-24 09:16 | PC.SS ---
Follow up note: SS spoke to Usman from patient's residential who states they are ok with pt returning home with feed pump. Per Usman, they will provide transportation home when HH has been arranged for feedings. Usman provided phone# [phone] for for tube feeding supplies ex. gauze, bags, and feeding pumps if needed. SS has spoke to Anna, transfer nurse who is aware.
--- NOTE | 2025-01-24 10:13 | XR_ITS ---
Examination: Pelvic ultrasound, transabdominal, complete Technique: Transabdominal ultrasound of the pelvis performed using grayscale imaging Date and time of exam: January 24, 2025, 1012 hours INDICATIONS: Abdominal pelvic pain this week, free fluid in the pelvis on CT pelvis January 17, 2025. FINDINGS: Uterus 4.5 cm endometrial side 0.2 cm No uterine mass or intrauterine gestation. Right ovary 2.4 cm arterial flow. Left ovary 2.4 cm arterial flow. No current fluid in the cul-de-sac IMPRESSION: Negative examination.
--- NOTE | 2025-01-24 11:04 | PC.CC ---
Addendum entered by Edilberto Pena RN 01/24/25 17:18: 1618: Per charge nurse jaycob, peg tube tips is straight cath. will update [facility] when i get the new order for feeds. 1436: Called [facility] [phone] a few times, got through and spoke to Usman in the enteral department. She stated they received the order and currently working on it. She stated once approved, they will ship feed and supplies via [employer] which can take 2-4 days. She ask if the tip of the peg tube is straight cath or enfit connection. I will clarify. I also informed her that feeds may change to bolus feeds. 1400: During rounds, informed team of delay due to change of insurance. Team discussed the feeds will possibly change from pump to bolus feeds. Informed MARSHAL Gutierrez to let me know when new order is in so i can fax it to [facility]. 1300: clinicals faxed to [facility] [phone]. Addendum entered by Edilberto Pena RN 01/24/25 12:45: [facility] and [facility] are not contracted with the patients insurance. Pt's insurance will be changing as of 01/31. [facility] stated pt's insurance is contracted with [facility]. Will reach out to [facility]. Addendum entered by Edilberto Pena RN 01/24/25 11:30: [facility] accepted and booked, soc pending. [facility] pharmacy still reviewing. Dietary order sent Original Note: hh ref sent to Infusion pharmacy and hh agencies. waiting for response
--- NOTE | 2025-01-24 13:43 | CHAP ---
Patient was visited by a Spiritual Care Volunteer on 01/24/2025 between 0900 and 0955 and received comfort, encouragement and/or prayer.
--- NOTE | 2025-01-24 13:53 | PD.RESDS ---
Planned Discharge Date 01/24/25 DS: Providers Provider Date of admission: 01/11/25 19:07 Primary care physician: Priya Dominguez NP Admitting Provider: Tato Valencia MD Attending Provider on Admission: Shameka Jackson MD Consults: 01/13/25 09:06 Referral Speech Therapy Stat Comment: 01/14/25 16:59 Consult to Gastroenterology Stat Comment: GI Workup Consulting Provider: Noa Ascencio 01/18/25 07:39 Referral Registered Dietitian Routine Comment: Possible hypothermia 2/2 low body weight 01/20/25 11:56 Consult to Nephrology Routine Comment: Persistant hypernatremia Consulting Provider: Lauri Maldonado 01/21/25 20:56 Referral Nutritional Services Routine Comment: Attending Provider on DC: RESIDENT Sherly Discharging Provider: RESIDENT Sherly Hospital Course Hospital Course Hospital course: Overnight events: No acute events overnight. Patient was seen and examined at bedside. AM vitals and labs reviewed. Patient does not appear to be in any acute distress or pain at this time. WBC elevated at 13.1 and platelets 531, likely reactive secondary to recent PEG tube placement. Sodium this AM 140. Calcium 11.2, like from elevated vitamin D from multi-vitamins. AST and ALT 65 and 76 respectively, but downtrending from admission. Discussed case with manager council, Dr. Maldonado, who recommended decreasing free water flushes from 150 cc every 2 hours to 200 cc every 6 hours. Discontinued dronabinol given tube feeds. Discontinued thiamine as patient no longer appears to be at risk for refeeding syndrome. Discontinued multi-vitamins, started patient on vitamin C and zinc. Repeat sodium at midnight, will increase free water flushes to 150 cc every 2 hours if sodium is elevated. One time bowel regimen ordered to encourage bowel movement as patient's last bowel movement was on 01/20. Review of systems otherwise negative except for what is mentioned above. Time Spent with Patient Time attestation: Total time spent providing and/or coordinating discharge services: Home Health Home Health Referral Orders: 01/24/25 09:26 Home Health Referral Routine Reason For Exam: Poor oral intake Home-Bound The patient must either because of illness or injury, need the aid of supportive devices such as crutches, canes, wheelchairs, and walkers; the use of special transportation; or the assistance of another person in order to leave their place of residence; OR have a condition such that leaving his or her home is medically contraindicated. In addition, the patient also meets the following criteria: patient is normally unable to leave the home and leaving home requires considerable taxing effort. Addendum to Home Health Certification Practitioner's Certification: I certify that the patient has been under my care in the hospital and the care of attending physician (see below). We had a [id number] encounter on (see date below). My clinical findings indicate that the patient is home bound per the above criteria and the Home Health Services noted in these orders are medically necessary. The primary reason for the [id number] encounter is related to the fact that the patient requires home health services. Date Certifying Akgk-ro-Fbqy Physician Encounter: 01/11/25 Physician's Name who will Assume Oversight for Services: Priya Dominguez Physician's Phone No.who will Assume Oversight for Service: CORPORATE STRATEGY ASSOCIATE - Community Resources: No PT to Evaluate: No PT to evaluate and provide a treatmnet plan to increase patient's mobility and strength. Wound Care: No IV Therapy: No RN Safety Evaluation: Yes RN to evaluate and create a plan of care that will produce positive outcomes. Palliative Treatment: No Palliative treatment and evaluate the need for hospice. Home Health Aide - Personal Care: Yes: For PEG tube feeding Home Health Aide to assist with any ADL's. Exam Vital Signs Temp Pulse Resp BP Pulse Ox O2 Del Method O2 Flow Rate 97.9 F 89 14 104/65 96 Room Air 2 01/24/25 12:17 01/24/25 12:50 01/24/25 12:17 01/24/25 12:17 01/24/25 12:17 01/24/25 12:17 01/21/25 21:36 Discharge Plan Plan Patient Disposition: Home w/HOME HEALTH Patient condition on transfer: Stable Care Plan Goals: - Continue Free Water Flushes 200cc every 6 hours - Continue with current pump feeds regimen as tolerated - Jevity 1.2 240ml 4x/day via Gtube by syringe to provide: 960ml vol, 1152kcal, 53g protein. - Pleasure puree foods + thicken water as per speech therapist - Continue medications as below, stop vitamin D supplementation - Return to ED if symptoms worsen - Follow up with PCP in 1-2 weeks. Repeat CBC and CMP in 1 week. Prescriptions/Referrals Prescriptions/Med Rec: New ascorbic acid (vitamin C) [Vitamin C] 250 mg Tablet 250 mg G-tube BID 30 Days Qty: 0 0RF zinc sulfate [Orazinc] 50 mg zinc (220 mg) capsule 220 mg feeding tube QDAY 10 Days Qty: 44 0RF Continued ketoconazole 2 % Shampoo 1 applic TOPICAL DAILY PRN (Reason: Dry Skin) ketoconazole 2 % Cream 1 applic TOPICAL BID omeprazole 20 mg tablet,delayed release (DR/EC) 20 mg PO QDAY Changed buspirone 10 mg tablet 10 mg feeding tube BID Qty: 20 0RF loratadine 10 mg Tablet 10 mg feeding tube QDAY Qty: 20 0RF Held risperidone 2 mg tablet 2 mg PO QPM Hold Instructions: Resume on 01/31/25. Follow up with PCP risperidone 3 mg tablet 3 mg PO QAM Hold Instructions: Resume on 01/31/25. Follow up with PCP Discontinued glycopyrrolate 1 mg tablet 1 mg PO Q8H ergocalciferol (vitamin D2) 1,250 mcg (50,000 unit) capsule 1,250 mcg PO QWEEK Referrals: Priya Dominguez, [employer] [Primary Care Provider] - Outpatient Orders (i.e. Home Health, Labs, Imaging): CBC (Routine) Timeframe: 1 Week Location: Determined by Patient Ordered By: Jose Antonio Young Comprehensive Metabolic Panel (Routine) Timeframe: 1 Week Location: Determined by Patient Ordered By: Jose Antonio Young Patient/Caregiver Discharge Instructions Discharge Activity: activity as tolerated Education Materials: Dehydration Print Language: Zambian Stand Alone Forms: Tami Award Info., Patient Portal Info Letter Discharge Order Discharge Orders: Discharge (Routine); Ordered 01/24/25 Ordered By: Jose Antonio Young
--- NOTE | 2025-01-24 14:48 | ESPR_ITS ---
<Statement entered by Jose Antonio Young MD - 01/26/25 15:42> Patient was seen and examined at bedside. I agree on the assessment and plan on this note as documented by resident Tyrell Elaine PGY1. Patient seen examined at bedside, tolerating diet and free water flushes well, sodium within normal limits. Pending home health to set up home feeds otherwise stable for discharge. Will continue to monitor Case discussed with attending Dr. Manuel Young MD PGY-2 <Statement entered by Shameka Jackson MD - 01/25/25 09:30> I attest that I was physically present for the evaluation, physical examination, lab and imaging review of the patient with the residents. I discussed the case with the residents and agree with the findings and plans of care as documented above. Shameka Jackson MD Documentation for date of: 01/24/25 Subjective Subjective Interval history: Overnight events: No acute events overnight. Patient was seen and examined at bedside. AM vitals and labs reviewed. AM sodium 141. Corrected calcium 10.8 No acute complaints at this time. Patient had bowel movements yesterday. Pelvic ultrasound negative for acute findings. Continue bolus feeds through PEG tube with free water flushes at 200 cc every 6 hours. Pending home health for discharge. Review of systems otherwise negative except for what is mentioned above. Exam Vital Signs Temp Pulse Resp BP Pulse Ox O2 Del Method O2 Flow Rate 97.9 F 89 14 104/65 96 Room Air 2 01/24/25 12:17 01/24/25 12:50 01/24/25 12:17 01/24/25 12:17 01/24/25 12:17 01/24/25 12:17 01/21/25 21:36 Narrative Exam Physical Exam: General: Alert, no acute distress. Nonverbal, noninteractive. Skin: Warm, intact. Head: Normocephalic, atraumatic. Cardiovascular: Regular rate and rhythm, no murmur, +S1/S2. Respiratory: Respirations unlabored on nasal cannula, no crackles, no wheezing. Gastrointestinal: Soft, nontender, non-distended. No guarding or rebound tenderness. Extremities: No edema, no cyanosis, no clubbng. Objective Labs 01/24/25 04:43 01/24/25 04:43 Labs: Laboratory Results - last 24 hr 01/17/25 01/23/25 01/24/25 18:00 23:31 04:43 WBC 14.0 H RBC 3.21 L Hgb 10.1 L Hct 30.8 L MCV 96 MCH 31.5 MCHC 32.8 RDW Std Deviation 57.7 H Plt Count 480 H D Neut % (Auto) 67 Lymph % (Auto) 26 [place] % (Auto) 5 Eos % (Auto) 1 Baso % (Auto) 0 Neut # (Auto) 9.4 H Lymph # (Auto) 3.6 [place] # (Auto) 0.6 Eos # (Auto) 0.1 Baso # (Auto) 0.1 Immature Gran # (Auto) 0.15 H Absolute Nucleated RBC 0.34 H Immature Gran % 1 H Nucleated RBC % 2 H Sodium 139 141 Potassium 4.2 Chloride 99 Carbon Dioxide 28.7 Anion Gap 13 BUN 9 Creatinine 0.6 Estim Creat Clear Calc 69.3 eGFR > 60 BUN/Creatinine Ratio 15 Glucose 123 H Calculated Osmolality 280 Calcium 10.8 H Corrected Calcium 10.8 H Phosphorus 4.3 Magnesium 1.8 Total Bilirubin 0.3 AST 72 H ALT 68 H Alkaline Phosphatase 343 H D Total Protein 7.5 Albumin 4.1 D Globulin 3.4 Albumin/Globulin Ratio 1.2 Aldosterone Cancelled Urine Osmolality 158 Quality Measures Quality Measures sepsis Current suspected stage: ruled out Possible source: pulmonary, genitourinary and unknown Blood cultures ordered: completed in ED Antibiotic ordered: No Assessment & Plan Assessment Current Active Medications: Generic Name Dose Route Start Last Admin Trade Name Freq PRN Reason Stop Dose Admin Acetaminophen 325 mg 01/22/25 07:28 Acetaminophen Martina 325 Mg/10 Ml Udc GT 02/10/25 22:27 Q4HR PRN Pain 1 - 3 Or Fever > 101 Albuterol/Ipratropium 3 ml 01/14/25 01:23 Albuterol/Ipratropium (Duoneb) Rt Martina 3 Ml Nebu INH 02/13/25 01:59 Q2HR PRN shorthness of breath or wheeze Ascorbic Acid 250 mg 01/23/25 12:15 01/24/25 08:42 Ascorbic Acid 250 Mg Tablet GT 02/22/25 12:14 250 mg BID MARCIA Administration Buspirone HCl 10 mg 01/22/25 09:00 01/24/25 08:42 Buspirone Hcl 5 Mg Tablet GT 02/11/25 08:59 10 mg BID MARCIA Administration Famotidine 20 mg 01/12/25 09:00 01/24/25 08:42 Famotidine Inj 10 Mg/Ml Vial 2 Ml IVP 02/11/25 08:59 20 mg QDAY MARCIA Administration Loratadine 10 mg 01/22/25 07:27 01/24/25 08:42 Loratadine 10 Mg Tablet PO 02/12/25 08:59 10 mg QDAY MARCIA Administration Zinc Sulfate 220 mg 01/23/25 12:15 01/24/25 08:42 Zinc Sulfate 220 Mg Capsule GT 02/22/25 12:14 220 mg QDAY MARCIA Administration Plan Kelly Herrera is a 29F pmhx significant for severe intellectual disability, non verbal at baseline, who presented to [facility] ED on 01/11 for hypothermia and altered mental status. The patient was admitted to ICU for 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 Patient downgraded to hospital floors 01/13 for further management. #Hypernatremia, improving #Hyperchloremia, improving Patient was noted to have a sodium of 157 and chloride of 115 on admission. This has improved over time and with hydration, indicating that this is most likely due to dehydration. Patient sodium noted to have improved most when NG tube is placed. However, patient has removed NG tube multiple times. PEG tube placed on 01/21 for free water flushes, which has noticeably improved patient's hypernatremia. Plan: - Will continue to monitor with daily renal panel - Ordered serum uric acid, renin, and aldosterone to investigate possible endocrine abnormalities, all which were within normal limits - Ordered urine electrolytes and urinalysis, only abnormality noted was urine potassium <10 - Pending morning cortisol and random cortisol, ACTH returned within normal limits - Nephrology consulted, appreciate recommendations - Free water flushes 200 cc every 6 hours through PEG tube #Severe Protein calorie malnutrition #Underweight BMI 17.1 #Failure to Thrive Patient noted to have significantly low BMI throughout hospitalization. Weight 31.32 kg, BMI 17.2 age 29 Pt has poor oral intake, and consumes minimal food Plan: - Behavioral Therapist referral ordered - GI consulted, placed PEG tube on 01/21, started tube feeds per Dietitian recommendations (Jevity 1.2 240ml 4x/day bolus by syringe @ [id number] to provide: 960ml vol, 1152kcal, 53g protein) - Vitamin C supplementation - Zinc supplementation - Will avoid multi-vitamins at this time given hypercalcemia likely secondary to excessive 25 OH vitamin D #Sepsis, 2/2 - RESOLVED #Community acquired pneumonia and #Urinary tract infection (Entercoccus faecalis) #Hypothermnia, improving #Hypotension (resolved) #Transaminitis (resolving) #OLENA, likely prerenal (resolving) Presented to ED with hypothermia of 91.1F, lowest 89.1F rectally, and altered mental status. Admitted to ICU for management of hypotension, requiring pressors, hypothermia, requiring Mellissa hugger, and severe thrombocytopenia. Hypothermia likely 2/2 poor PO intake and muscle wasting. CTAP showed right middle and bibasilar pneumonia along with significant pneumonia in the left base. US gallbladder negative for acute cholecystitis and hep panel neg. CT head neg unremarkable. BCx NGTD, UCx +enterococcus faecalis Endorgan damage was noted with transaminitis and OLENA on admission, AST 371, ALT 202, creatinine 0.9 (baseline 0.5). FeNa 0.3%, supporting prerenal likely 2/2 poor PO intake Plan: - CTM temperature, will restart Mellissa Hugger if necessary - CTM blood pressure, keep MAP >65 - CTM LFTs - Vancomycin and Zosyn (01/11-01/19), completed abx course - Ordered stool culture, stool WBC, C. diff PCR, and calprotectin to investigate possible infection in GI tract, all negative #Dysphagia In ICU, patient failed bedside swallow eval and so was referred to speech therapy. However, the patient passed swallow eval with speech therapy, and so patient was started on dysphagia 1 diet. It was reported by nursing staff that they tried to feed the patient, however the patient was not showing anything, and the nurses had to scrape the fluid out of her mouth. Videofluoroscopic study showed aspiration on thin barium admission Ppatient's medical decision-maker, Dr. Jiménez believes that glycopyrrolate is most likely the source of the patient's initial symptoms leading to ED presentation, and does not want any PEG tube placement at this time Plan: - Consulted GI, Dr. Ascencio, recs appreciated - PEG tube placed 01/21, currently on pump control tube feeds to avoid aspiration risks associated with bolus tube feeds - EGD 01/15 showed benign-appearing esophageal stricture, which was dilated - Patient passed speech eval 01/17, put on dysphagia 1 pur?ed diet, mildly thick level 2, and only use of sippy cup, no straws #Thrombocytopenia (resolved) #Suspected ITP #New onset hematuria (resolved) Patient noted to have platelet of 26, lowest 16, on admission. In ICU s/p platelet transfusion on 01/13, which increased platelets to 77. Patient noted to have hematuria in ICU. This is likely due to underlying sepsis versus viral illness versus radiographic thrombocytopenia. Reticulocyte count and peripheral smear are sent without significant abnormality noted except for severe thrombocytopenia. ICU did workup for thrombocytopenia, all of which is negative including hepatitis panel, HIV, GARRICK screen, iron, B12, folate, DIC panel. ICU team discussed case with Dr. Chandra, pathologist, who reported that the patient did not have any abnormal cells or severe features suggestive of TTP?HUS. ITP is suspected as a diagnosis of exclusion. Urinalysis 01/12 showed 3+ blood in urine and 1009 RBC. Methylprednisolone 30 mg (01/12-01/14) Plan: ? Avoid antiplatelets and anticoagulants ? Continue to monitor platelet count and assess for bleeding ? Haptoglobin 126 #Anemia, normocytic normochromic Patient noted to have hemoglobin of 11.6 on admission with a downward trend during hospitalization. Likely due to dehydration at time of admission with contribution from hematuria. Iron 201, and iron saturation 85% with ferritin at 756, folate wnl Pathology smear reports minimal anemia supporting likely dehydration and sepsis as more likely causes. Plan: ? Will continue to monitor CBC #Hypercalcemia (resolved) Corrected calcium at time of patient noted to be 10.9. PTH noted to be 79.1. 25 OH vitamin D >150, which is most likely the source of her hypercalcemia in addition to immobility. Plan: ? Will educate caretakers about excessive 25 OH vitamin D and recommend decreasing dosage if patient is taking supplements #Congenital hip dysplasia Patient found to have hip dysplasia on CT abdomen/pelvis. Patient is wheelchair-bound. Plan: ? No active treatment required at this time ? Follow-up with outpatient for management DVT Prophylaxis: SCDs GI Prophylaxis: Famotidine Bowel: N/A Diet: Dysphagia 1 w/ Mighty shake Banda: N/A Lines: Peripheral IV, PEG tube Antibiotics: N/A Code Status: FULL Reason for Hospitalization: Sepsis Other Barriers to Discharge: Hypernatremia Assessment and plan discussed with my attending physician Dr. Jackson and senior resident Dr. Young (PGY-2) Dr. Elaine (PGY-1) Internal medicine resident
--- NOTE | 2025-01-24 20:24 | ESPR_ITS ---
Documentation for date of: 01/24/25 Subjective Subjective Interval history: No drainage at the PEG site continue enteral feeding Continue water bolus of 200 cc every 4-6 hours Exam Vital Signs Temp Pulse Resp BP Pulse Ox O2 Del Method O2 Flow Rate 97.7 F 96 18 119/67 96 Room Air 2 01/24/25 16:40 01/24/25 19:31 01/24/25 19:31 01/24/25 16:40 01/24/25 19:31 01/24/25 16:40 01/21/25 21:36 Objective Labs 01/24/25 04:43 01/24/25 04:43 Labs: Laboratory Results - last 24 hr 01/17/25 01/23/25 01/24/25 18:00 23:31 04:43 WBC 14.0 H RBC 3.21 L Hgb 10.1 L Hct 30.8 L MCV 96 MCH 31.5 MCHC 32.8 RDW Std Deviation 57.7 H Plt Count 480 H D Neut % (Auto) 67 Lymph % (Auto) 26 [place] % (Auto) 5 Eos % (Auto) 1 Baso % (Auto) 0 Neut # (Auto) 9.4 H Lymph # (Auto) 3.6 [place] # (Auto) 0.6 Eos # (Auto) 0.1 Baso # (Auto) 0.1 Immature Gran # (Auto) 0.15 H Absolute Nucleated RBC 0.34 H Immature Gran % 1 H Nucleated RBC % 2 H Sodium 139 141 Potassium 4.2 Chloride 99 Carbon Dioxide 28.7 Anion Gap 13 BUN 9 Creatinine 0.6 Estim Creat Clear Calc 69.3 eGFR > 60 BUN/Creatinine Ratio 15 Glucose 123 H Calculated Osmolality 280 Calcium 10.8 H Corrected Calcium 10.8 H Phosphorus 4.3 Magnesium 1.8 Total Bilirubin 0.3 AST 72 H ALT 68 H Alkaline Phosphatase 343 H D Total Protein 7.5 Albumin 4.1 D Globulin 3.4 Albumin/Globulin Ratio 1.2 Aldosterone Cancelled Urine Osmolality 158 Impressions Impression: Failure to thrive enteral hyperalimentation and water boluses via PEG tube Assessment & Plan A&P Narrative # Dysphagia # Recurrent aspiration Plan Consent to be obtained for fiberoptic esophagogastroduodenoscopy with possible proximal esophageal stricture dilatation to prevent aspiration Hopefully that will work If it does not work we will consider after talking to Dr. Jiménez for the possibility of a PEG placement She should be given every opportunity not to go that route at least at the moment Thank you very much for the opportunity to participate in the care of this patient Time Spent With Patient Time: Total time spent is greater than 50% in coordination of care (as documented) at patient's floor/unit and/or counseling patient:
[2025-01-25] VITALS (11 sets, daily range): BP systolic 100–113; BP diastolic 61–73; PULSE 70–94; RESP 17–22; TEMP 36.2–36.7; O2SAT 95–99
--- NOTE | 2025-01-25 03:56 | PC.NURSE ---
Dr. Santacruz notified regarding patient throwing up tube feeding bolus that was given at midnight. He stated to continue with water flushes but to hold the 0600 bolus until the day team could reassess the patient.
[2025-01-25 06:27] LABS: Calprotectin, Stool* 305 mcg/g
[2025-01-25 09:31] LABS: Basophils # (Auto) 0.1 Thou/mm3 (0.0-0.2); Basophils % (Auto) 0 % (0-2.5); Eosinophils # (Auto) 0.1 Thou/mm3 (0.0-0.5); Eosinophils % (Auto) 1 % (0-10); Hematocrit 30.0 % (36.0-46.0); Hemoglobin 10.1 g/dL (12.0-16.0); Immature Granulocytes Auto 0.12 Thou/mm3 (0.00-0.00); Lymphocytes # (Auto) 4.3 Thou/mm3 (1.0-4.8); Lymphocytes % (Auto) 34 % (10-50); Mean Corpuscular HGB Conc 33.7 g/dl (31.0-37.0); Mean Corpuscular Hemoglobin 31.9 pg (25.0-35.0); Mean Corpuscular Volume 95 fL (80-100); Monocytes # (Auto) 0.6 Thou/mm3 (0.0-0.8); Monocytes % (Auto) 5 % (0-12); Neutrophils # (Auto) 7.6 Thou/mm3 (1.8-7.7); Neutrophils % (Auto) 59 % (37-80); Nucleated Red Blood Cell # 0.25 Thou/mm3 (0.00-0.00); Nucleated Red Blood Cell % 2 /100 WBC (0); Platelet Count 573 Thou/mm3 (140-440); RDW Standard Deviation 58.5 fL (36.4-46.3); Red Blood Count 3.17 Miln/mm3 (4.00-5.20); White Blood Count 12.8 Thou/mm3 (3.6-11.0)
[2025-01-25] MEDS: FAMOTIDINE INJ 10 MG/ML VIAL 2 ML 20 MG IVP (09:45)
[2025-01-25] MEDS: ASCORBIC ACID 250 MG TABLET GT ×2 (09:45→20:26)
[2025-01-25] MEDS: ZINC SULFATE 220 MG CAPSULE GT (09:45)
[2025-01-25 10:00] LABS: Alanine Aminotransferase 79 U/L (10-49); Albumin, Serum 4.2 gm/dL (3.5-5.0); Albumin/Globulin Ratio 1.2 (1.2-2.2); Alkaline Phosphatase 336 U/L (46-116); Anion Gap 14 (7-16); Aspartate Amino Transferase 94 U/L (0-34); BUN/Creatinine Ratio 18 Ratio (12-20); Bilirubin,Total 0.3 mg/dL (0.3-1.2); Blood Urea Nitrogen 11 mg/dL (9-23); Calcium 10.6 mg/dL (8.3-10.6); Calcium (Corrected) 10.6 mg/dL (8.5-10.1); Carbon Dioxide 27.5 mMol/L (20.0-31.0); Chloride 99 mMol/L (98-107); Creatinine (Component) 0.6 mg/dL (0.6-1.3); Estimated Creatinine Clearance 69.3 mL/min (>60); Globulin 3.4 gm/dL (2.3-3.5); Glucose 96 mg/dL (74-106); Magnesium 2.0 mg/dL (1.6-2.6); Osmolality,Calculated 278 (275-295); Phosphorous 3.7 mg/dL (2.4-5.1); Potassium 4.0 mMol/L (3.4-5.1); Sodium 140 mMol/L (136-145); Total Protein 7.6 gm/dL (5.7-8.2); eGFR > 60 See Note
--- NOTE | 2025-01-25 10:17 | PC.CC ---
Addendum entered by Edilberto Pena RN 01/25/25 12:40: Per Bela, if patient does not dc by 1300 today, they will not be able to open today. Spoke to Nabeel, she stated that f/c was just dc'd waiting for pt to urinate. If patient does not urinate before 1300, then plan will be to dc tomorrow. Addendum entered by Edilberto Pena RN 01/25/25 12:11: spoke to Bela with [facility] today as long as pt d/c's akbar before 2pm. informed bedside nurse Nabeel. Spoke to Dr. Elaine for dc orders. spoke to Brenda to coordinate feeding. Addendum entered by Edilberto Pena RN 01/25/25 10:44: received call from [facility], requesting clinicals to support feeding. Original Note: 1015: called [facility], supplies were delivered yesterday. formula will delivered in 2-3 days. explained that we need dates to coordinate care with home health. updated orders were faxed yesterday, receipt of new orders confirmed.
--- NOTE | 2025-01-25 11:50 | PD.RESDS ---
Planned Discharge Date 01/25/25 DS: Providers Provider Date of admission: 01/11/25 19:07 Primary care physician: Priya Dominguez NP Admitting Provider: Tato Valencia MD Attending Provider on Admission: Shameka Jackson MD Consults: 01/13/25 09:06 Referral Speech Therapy Stat Comment: 01/14/25 16:59 Consult to Gastroenterology Stat Comment: GI Workup Consulting Provider: Noa Ascencio 01/18/25 07:39 Referral Registered Dietitian Routine Comment: Possible hypothermia 2/2 low body weight 01/20/25 11:56 Consult to Nephrology Routine Comment: Persistant hypernatremia Consulting Provider: Lauri Maldonado 01/21/25 20:56 Referral Nutritional Services Routine Comment: Attending Provider on DC: Shameka Jackson MD Discharging Provider: RESIDENT Sherly Anticipated date of discharge: 01/25/25 DS: Diagnosis Problem List Completed Was Problem List Reviewed/Reconciled?: Yes Hospital Course Status at Discharge Overall status at discharge: patient is back to baseline Time Spent with Patient Time attestation: Total time spent providing and/or coordinating discharge services: Time spent: Greater than 30 minutes Home Health Home Health Referral Orders: 01/24/25 09:26 Home Health Referral Routine Reason For Exam: Poor oral intake Home-Bound The patient must either because of illness or injury, need the aid of supportive devices such as crutches, canes, wheelchairs, and walkers; the use of special transportation; or the assistance of another person in order to leave their place of residence; OR have a condition such that leaving his or her home is medically contraindicated. In addition, the patient also meets the following criteria: patient is normally unable to leave the home and leaving home requires considerable taxing effort. Addendum to Home Health Certification Practitioner's Certification: I certify that the patient has been under my care in the hospital and the care of attending physician (see below). We had a [id number] encounter on (see date below). My clinical findings indicate that the patient is home bound per the above criteria and the Home Health Services noted in these orders are medically necessary. The primary reason for the [id number] encounter is related to the fact that the patient requires home health services. Date Certifying [id number] Physician Encounter: 01/11/25 Physician's Name who will Assume Oversight for Services: Priya Dominguez Physician's Phone No.who will Assume Oversight for Service: WHIZZER OPERATOR - Community Resources: No PT to Evaluate: No PT to evaluate and provide a treatmnet plan to increase patient's mobility and strength. Wound Care: No IV Therapy: No RN Safety Evaluation: Yes RN to evaluate and create a plan of care that will produce positive outcomes. Palliative Treatment: No Palliative treatment and evaluate the need for hospice. Home Health Aide - Personal Care: Yes: For PEG tube feeding Home Health Aide to assist with any ADL's. Exam Vital Signs Temp Pulse Resp BP Pulse Ox O2 Del Method O2 Flow Rate 97.6 F 70 17 106/65 95 Room Air 2 01/25/25 08:00 01/25/25 08:00 01/25/25 08:00 01/25/25 08:00 01/25/25 08:00 01/25/25 08:00 01/21/25 21:36 Discharge Plan Plan Patient Disposition: Home w/HOME HEALTH Patient condition on transfer: Stable Care Plan Goals: - Continue Free Water Flushes 200cc every 6 hours - Continue with current pump feeds regimen as tolerated - Jevity 1.2 240ml 4x/day via Gtube by syringe to provide: 960ml vol, 1152kcal, 53g protein. - Pleasure puree foods + thicken water as per speech therapist - Continue medications as below, stop vitamin D supplementation - Return to ED if symptoms worsen - Follow up with PCP in 1-2 weeks. Repeat CBC and CMP in 1 week. Prescriptions/Referrals Prescriptions/Med Rec: New ascorbic acid (vitamin C) [Vitamin C] 250 mg Tablet 250 mg G-tube BID 30 Days Qty: 0 0RF zinc sulfate [Orazinc] 50 mg zinc (220 mg) capsule 220 mg feeding tube QDAY 10 Days Qty: 44 0RF Continued ketoconazole 2 % Shampoo 1 applic TOPICAL DAILY PRN (Reason: Dry Skin) ketoconazole 2 % Cream 1 applic TOPICAL BID omeprazole 20 mg tablet,delayed release (DR/EC) 20 mg PO QDAY Changed buspirone 10 mg tablet 10 mg feeding tube BID Qty: 20 0RF loratadine 10 mg Tablet 10 mg feeding tube QDAY Qty: 20 0RF Held risperidone 2 mg tablet 2 mg PO QPM Hold Instructions: Resume on 01/31/25. Follow up with PCP risperidone 3 mg tablet 3 mg PO QAM Hold Instructions: Resume on 01/31/25. Follow up with PCP Discontinued glycopyrrolate 1 mg tablet 1 mg PO Q8H ergocalciferol (vitamin D2) 1,250 mcg (50,000 unit) capsule 1,250 mcg PO QWEEK Referrals: Priya Dominguez, [employer] [Primary Care Provider] - Outpatient Orders (i.e. Home Health, Labs, Imaging): CBC (Routine) Timeframe: 1 Week Location: Determined by Patient Ordered By: Jose Antonio Young Comprehensive Metabolic Panel (Routine) Timeframe: 1 Week Location: Determined by Patient Ordered By: Jose Antonio Young Patient/Caregiver Discharge Instructions Discharge Activity: activity as tolerated Other Discharge Activity Instructions:: Continue Free Water Flushes 200cc every 6 hours - Continue with current pump feeds regimen as tolerated - Jevity 1.2 240ml 4x/day via Gtube by syringe to provide: 960ml vol, 1152kcal, 53g protein. - Pleasure puree foods + thicken water as per speech therapist - Continue medications as below, stop vitamin D supplementation - Return to ED if symptoms worsen - Follow up with PCP in 1-2 weeks. Repeat CBC and CMP in 1 week. Education Materials: Dehydration Print Language: Kyrgyz Stand Alone Forms: Tami Award Info., Patient Portal Info Letter
--- NOTE | 2025-01-25 14:18 | PC.SS ---
SS spoke to Usman, caregiver from patient's shelter who states she is aware pt will dc tomorrow morning before 8am, has spoken to nurse, HH, and they will provide transportation.
--- NOTE | 2025-01-25 14:54 | ESPR_ITS ---
<Statement entered by Shameka Jackson MD - 01/27/25 15:06> I attest that I was physically present for the evaluation, physical examination, lab and imaging review of the patient with the residents. I discussed the case with the residents and agree with the findings and plans of care as documented below. At bedside today, patient appears comfortable. Patient had an episode of vomiting overnight but likely secondary to tube feeding. No more vomiting episode today. Vital signs are stable, WBC continues to downtrend. Liver function continues to be slightly elevated. Pelvic ultrasound was obtained yesterday as there was concern for free fluid in the pelvis found on previous CT, did not show any active pathology. Banda catheter was removed prior to transport to [facility] but patient unable to urinate before scheduled transport, will plan for early discharge tomorrow. Shameka Jackson MD Documentation for date of: 01/25/25 Subjective Subjective Interval history: Overnight events: No acute events overnight. Patient did vomit overnight, nursing staff believes that bolus feed was pushed too quickly. Patient was seen and examined at bedside. AM vitals and labs reviewed. Patient noninteractive, does not appear to be in any distress at this time. 0600 bolus held. WBC resulted as 12.8, downtrending. AM sodium resulted as 140. Stool calprotectin resulted as 305. Continue PEG tube feeds with free water flushes. [facility]. Waiting on formula feeds to be sent to jail. Review of systems otherwise negative except for what is mentioned above. Exam Vital Signs Temp Pulse Resp BP Pulse Ox O2 Del Method O2 Flow Rate 98.1 F 94 18 100/64 95 Room Air 2 01/25/25 12:00 01/25/25 12:50 01/25/25 12:00 01/25/25 12:01/25/25 12:01/25/25 12:00 01/21/25 21:36 Narrative Exam Physical Exam: General: Alert, no acute distress. Nonverbal, noninteractive. Skin: Warm, intact. Head: Normocephalic, atraumatic. Cardiovascular: Regular rate and rhythm, no murmur, +S1/S2. Respiratory: Respirations unlabored on nasal cannula, no crackles, no wheezing. Gastrointestinal: Soft, nontender, non-distended. No guarding or rebound tenderness. Extremities: No edema, no cyanosis, no clubbng. Objective Labs 01/26/25 05:01 01/26/25 05:01 Labs: Laboratory Results - last 24 hr 01/18/25 01/25/25 03:20 09:00 WBC 12.8 H RBC 3.17 L Hgb 10.1 L Hct 30.0 L MCV 95 MCH 31.9 MCHC 33.7 RDW Std Deviation 58.5 H Plt Count 573 H D Neut % (Auto) 59 Lymph % (Auto) 34 [place] % (Auto) 5 Eos % (Auto) 1 Baso % (Auto) 0 Neut # (Auto) 7.6 Lymph # (Auto) 4.3 [place] # (Auto) 0.6 Eos # (Auto) 0.1 Baso # (Auto) 0.1 Immature Gran # (Auto) 0.12 H Absolute Nucleated RBC 0.25 H Immature Gran % 1 H Nucleated RBC % 2 H Sodium 140 Potassium 4.0 Chloride 99 Carbon Dioxide 27.5 Anion Gap 14 BUN 11 Creatinine 0.6 Estim Creat Clear Calc 69.3 eGFR > 60 BUN/Creatinine Ratio 18 Glucose 96 Calculated Osmolality 278 Calcium 10.6 Corrected Calcium 10.6 H Phosphorus 3.7 Magnesium 2.0 Total Bilirubin 0.3 AST 94 H ALT 79 H Alkaline Phosphatase 336 H Total Protein 7.6 Albumin 4.2 Globulin 3.4 Albumin/Globulin Ratio 1.2 Stool Calprotectin 305 H Quality Measures Quality Measures sepsis Current suspected stage: ruled out Possible source: pulmonary, genitourinary and unknown Blood cultures ordered: completed in ED Antibiotic ordered: No Assessment & Plan Assessment Current Active Medications: Generic Name Dose Route Start Last Admin Trade Name Freq PRN Reason Stop Dose Admin Acetaminophen 325 mg 01/22/25 07:28 Acetaminophen Martina 325 Mg/10 Ml Udc GT 02/10/25 22:27 Q4HR PRN Pain 1 - 3 Or Fever > 101 Albuterol/Ipratropium 3 ml 01/14/25 01:23 Albuterol/Ipratropium (Duoneb) Rt Martina 3 Ml Nebu INH 02/13/25 01:59 Q2HR PRN shorthness of breath or wheeze Ascorbic Acid 250 mg 01/23/25 12:15 01/25/25 09:45 Ascorbic Acid 250 Mg Tablet GT 02/22/25 12:14 250 mg BID MARCIA Administration Buspirone HCl 10 mg 01/22/25 09:00 01/25/25 09:45 Buspirone Hcl 5 Mg Tablet GT 02/11/25 08:59 10 mg BID MARCIA Administration Famotidine 20 mg 01/26/25 09:00 Famotidine 20 Mg Tablet PO 02/25/25 08:59 QDAY MARCIA Loratadine 10 mg 01/22/25 07:27 01/25/25 09:45 Loratadine 10 Mg Tablet PO 02/12/25 08:59 10 mg QDAY MARCIA Administration Zinc Sulfate 220 mg 01/23/25 12:15 01/25/25 09:45 Zinc Sulfate 220 Mg Capsule GT 02/22/25 12:14 220 mg QDAY MARCIA Administration Plan Kelly Herrera is a 29F pmhx significant for severe intellectual disability, non verbal at baseline, who presented to [facility] ED on 01/11 for hypothermia and altered mental status. The patient was admitted to ICU for 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 Patient downgraded to hospital floors 01/13 for further management. #Hypernatremia, improving #Hyperchloremia, improving Patient was noted to have a sodium of 157 and chloride of 115 on admission. This has improved over time and with hydration, indicating that this is most likely due to dehydration. Patient sodium noted to have improved most when NG tube is placed. However, patient has removed NG tube multiple times. PEG tube placed on 01/21 for free water flushes, which has noticeably improved patient's hypernatremia. Plan: - Will continue to monitor with daily renal panel - Ordered serum uric acid, renin, and aldosterone to investigate possible endocrine abnormalities, all which were within normal limits - Ordered urine electrolytes and urinalysis, only abnormality noted was urine potassium <10 - Pending morning cortisol and random cortisol, ACTH returned within normal limits - Nephrology consulted, appreciate recommendations - Free water flushes 200 cc every 6 hours through PEG tube #Severe Protein calorie malnutrition #Underweight BMI 17.1 #Failure to Thrive Patient noted to have significantly low BMI throughout hospitalization. Weight 31.32 kg, BMI 17.2 age 29 Pt has poor oral intake, and consumes minimal food Plan: - Service Line Layer referral ordered - GI consulted, placed PEG tube on 01/21, started tube feeds per Dietitian recommendations (Jevity 1.2 240ml 4x/day bolus by syringe @ [id number] to provide: 960ml vol, 1152kcal, 53g protein) - Vitamin C supplementation - Zinc supplementation - Will avoid multi-vitamins at this time given hypercalcemia likely secondary to excessive 25 OH vitamin D #Sepsis, 2/2 - RESOLVED #Community acquired pneumonia and #Urinary tract infection (Entercoccus faecalis) #Hypothermnia, improving #Hypotension (resolved) #Transaminitis (resolving) #OLENA, likely prerenal (resolving) Presented to ED with hypothermia of 91.1F, lowest 89.1F rectally, and altered mental status. Admitted to ICU for management of hypotension, requiring pressors, hypothermia, requiring Mellissa hugger, and severe thrombocytopenia. Hypothermia likely 2/2 poor PO intake and muscle wasting. CTAP showed right middle and bibasilar pneumonia along with significant pneumonia in the left base. US gallbladder negative for acute cholecystitis and hep panel neg. CT head neg unremarkable. BCx NGTD, UCx +enterococcus faecalis Endorgan damage was noted with transaminitis and OLENA on admission, AST 371, ALT 202, creatinine 0.9 (baseline 0.5). FeNa 0.3%, supporting prerenal likely 2/2 poor PO intake Plan: - CTM temperature, will restart Mellissa Hugger if necessary - CTM blood pressure, keep MAP >65 - CTM LFTs - Vancomycin and Zosyn (01/11-01/19), completed abx course - Ordered stool culture, stool WBC, C. diff PCR, and calprotectin to investigate possible infection in GI tract, all negative #Dysphagia In ICU, patient failed bedside swallow eval and so was referred to speech therapy. However, the patient passed swallow eval with speech therapy, and so patient was started on dysphagia 1 diet. It was reported by nursing staff that they tried to feed the patient, however the patient was not showing anything, and the nurses had to scrape the fluid out of her mouth. Videofluoroscopic study showed aspiration on thin barium admission Ppatient's medical decision-maker, Dr. Jiménez believes that glycopyrrolate is most likely the source of the patient's initial symptoms leading to ED presentation, and does not want any PEG tube placement at this time Plan: - Consulted GI, Dr. Ascencio, recs appreciated - PEG tube placed 01/21, currently on pump control tube feeds to avoid aspiration risks associated with bolus tube feeds - EGD 01/15 showed benign-appearing esophageal stricture, which was dilated - Patient passed speech eval 01/17, put on dysphagia 1 pur?ed diet, mildly thick level 2, and only use of sippy cup, no straws #Thrombocytopenia (resolved) #Suspected ITP #New onset hematuria (resolved) Patient noted to have platelet of 26, lowest 16, on admission. In ICU s/p platelet transfusion on 01/13, which increased platelets to 77. Patient noted to have hematuria in ICU. This is likely due to underlying sepsis versus viral illness versus radiographic thrombocytopenia. Reticulocyte count and peripheral smear are sent without significant abnormality noted except for severe thrombocytopenia. ICU did workup for thrombocytopenia, all of which is negative including hepatitis panel, HIV, GARRICK screen, iron, B12, folate, DIC panel. ICU team discussed case with Dr. Chandra, pathologist, who reported that the patient did not have any abnormal cells or severe features suggestive of TTP?HUS. ITP is suspected as a diagnosis of exclusion. Urinalysis 01/12 showed 3+ blood in urine and 1009 RBC. Methylprednisolone 30 mg (01/12-01/14) Plan: ? Avoid antiplatelets and anticoagulants ? Continue to monitor platelet count and assess for bleeding ? Haptoglobin 126 #Anemia, normocytic normochromic Patient noted to have hemoglobin of 11.6 on admission with a downward trend during hospitalization. Likely due to dehydration at time of admission with contribution from hematuria. Iron 201, and iron saturation 85% with ferritin at 756, folate wnl Pathology smear reports minimal anemia supporting likely dehydration and sepsis as more likely causes. Plan: ? Will continue to monitor CBC #Hypercalcemia (resolved) Corrected calcium at time of patient noted to be 10.9. PTH noted to be 79.1. 25 OH vitamin D >150, which is most likely the source of her hypercalcemia in addition to immobility. Plan: ? Will educate caretakers about excessive 25 OH vitamin D and recommend decreasing dosage if patient is taking supplements #Congenital hip dysplasia Patient found to have hip dysplasia on CT abdomen/pelvis. Patient is wheelchair-bound. Plan: ? No active treatment required at this time ? Follow-up with outpatient for management DVT Prophylaxis: SCDs GI Prophylaxis: Famotidine Bowel: N/A Diet: Dysphagia 1 w/ Mighty shake Banda: N/A Lines: Peripheral IV, PEG tube Antibiotics: N/A Code Status: FULL Reason for Hospitalization: Sepsis Other Barriers to Discharge: Hypernatremia Assessment and plan discussed with my attending physician Dr. Manuel Elaine ([id number]) Internal medicine resident
--- NOTE | 2025-01-25 20:30 | PD.IMPROG ---
Documentation for date of: 01/25/25 Subjective Subjective Interval history: No drainage at the PEG site Tolerating enteral hyperalimentation Exam Vital Signs Temp Pulse Resp BP Pulse Ox O2 Del Method O2 Flow Rate 97.5 F 80 18 105/61 97 Room Air 2 01/25/25 16:00 01/25/25 16:55 01/25/25 16:00 01/25/25 16:00 01/25/25 16:00 01/25/25 16:00 01/21/25 21:36 Objective Labs 01/25/25 09:00 01/25/25 09:00 Labs: Laboratory Results - last 24 hr 01/18/25 01/25/25 03:20 09:00 WBC 12.8 H RBC 3.17 L Hgb 10.1 L Hct 30.0 L MCV 95 MCH 31.9 MCHC 33.7 RDW Std Deviation 58.5 H Plt Count 573 H D Neut % (Auto) 59 Lymph % (Auto) 34 [place] % (Auto) 5 Eos % (Auto) 1 Baso % (Auto) 0 Neut # (Auto) 7.6 Lymph # (Auto) 4.3 [place] # (Auto) 0.6 Eos # (Auto) 0.1 Baso # (Auto) 0.1 Immature Gran # (Auto) 0.12 H Absolute Nucleated RBC 0.25 H Immature Gran % 1 H Nucleated RBC % 2 H Sodium 140 Potassium 4.0 Chloride 99 Carbon Dioxide 27.5 Anion Gap 14 BUN 11 Creatinine 0.6 Estim Creat Clear Calc 69.3 eGFR > 60 BUN/Creatinine Ratio 18 Glucose 96 Calculated Osmolality 278 Calcium 10.6 Corrected Calcium 10.6 H Phosphorus 3.7 Magnesium 2.0 Total Bilirubin 0.3 AST 94 H ALT 79 H Alkaline Phosphatase 336 H Total Protein 7.6 Albumin 4.2 Globulin 3.4 Albumin/Globulin Ratio 1.2 Stool Calprotectin 305 H Impressions Impression: Dysphagia Failure to thrive Status postplacement of a PEG tube Continue current management Upon discharge no need for GI follow-up Assessment & Plan A&P Narrative # Dysphagia # Recurrent aspiration Plan Consent to be obtained for fiberoptic esophagogastroduodenoscopy with possible proximal esophageal stricture dilatation to prevent aspiration Hopefully that will work If it does not work we will consider after talking to Dr. Jiménez for the possibility of a PEG placement She should be given every opportunity not to go that route at least at the moment Thank you very much for the opportunity to participate in the care of this patient Time Spent With Patient Time: Total time spent is greater than 50% in coordination of care (as documented) at patient's floor/unit and/or counseling patient:
[2025-01-26] VITALS: BP 103/69; PULSE 81; PULSE 86; RESP 19; TEMP 36.1; O2SAT 98
[2025-01-26 04:00] VITALS: BP 119/76; PULSE 79; RESP 18; TEMP 36.3; O2SAT 99
[2025-01-26 06:07] LABS: Basophils # (Auto) 0.1 Thou/mm3 (0.0-0.2); Basophils % (Auto) 0 % (0-2.5); Eosinophils # (Auto) 0.2 Thou/mm3 (0.0-0.5); Eosinophils % (Auto) 1 % (0-10); Hematocrit 30.5 % (36.0-46.0); Hemoglobin 9.9 g/dL (12.0-16.0); Immature Granulocytes Auto 0.09 Thou/mm3 (0.00-0.00); Lymphocytes # (Auto) 3.2 Thou/mm3 (1.0-4.8); Lymphocytes % (Auto) 26 % (10-50); Mean Corpuscular HGB Conc 32.5 g/dl (31.0-37.0); Mean Corpuscular Hemoglobin 31.6 pg (25.0-35.0); Mean Corpuscular Volume 97 fL (80-100); Monocytes # (Auto) 0.7 Thou/mm3 (0.0-0.8); Monocytes % (Auto) 6 % (0-12); Neutrophils # (Auto) 8.1 Thou/mm3 (1.8-7.7); Neutrophils % (Auto) 66 % (37-80); Nucleated Red Blood Cell # 0.24 Thou/mm3 (0.00-0.00); Nucleated Red Blood Cell % 2 /100 WBC (0); Platelet Count 599 Thou/mm3 (140-440); RDW Standard Deviation 60.5 fL (36.4-46.3); Red Blood Count 3.13 Miln/mm3 (4.00-5.20); White Blood Count 12.3 Thou/mm3 (3.6-11.0)
[2025-01-26 06:44] LABS: Albumin, Serum 4.1 gm/dL (3.5-5.0); Anion Gap 10 (7-16); BUN/Creatinine Ratio 19 Ratio (12-20); Blood Urea Nitrogen 13 mg/dL (9-23); Calcium 10.6 mg/dL (8.3-10.6); Calcium (Corrected) 10.6 mg/dL (8.5-10.1); Carbon Dioxide 30.8 mMol/L (20.0-31.0); Chloride 99 mMol/L (98-107); Creatinine (Component) 0.7 mg/dL (0.6-1.3); Estimated Creatinine Clearance 59.4 mL/min (>60); Glucose 172 mg/dL (74-106); Magnesium 2.0 mg/dL (1.6-2.6); Osmolality,Calculated 283 (275-295); Phosphorous 2.8 mg/dL (2.4-5.1); Potassium 3.5 mMol/L (3.4-5.1); Sodium 140 mMol/L (136-145); eGFR > 60 See Note
[2025-01-26] MEDS: ONDANSETRON INJ 2 MG/ML INJ 2 ML 4 MG IVP (06:44)
--- NOTE | 2025-01-26 06:48 | PC.NURSE ---
accessed pt's chart to assist main RN.
[2025-01-26 07:30] VITALS: PULSE 96; RESP 18; O2SAT 96
[2025-01-26 08:00] VITALS: BP 105/71; PULSE 86; RESP 17; TEMP 36.3; O2SAT 99
--- NOTE | 2025-01-26 08:18 | ESDS_ITS ---
Planned Discharge Date 01/26/25 DS: Providers Provider Date of admission: 01/11/25 19:07 Primary care physician: Priya Dominguez NP Admitting Provider: Tato Valencia MD Attending Provider on Admission: Shameka Jackson MD Consults: 01/13/25 09:06 Referral Speech Therapy Stat Comment: 01/14/25 16:59 Consult to Gastroenterology Stat Comment: GI Workup Consulting Provider: Noa Ascencio 01/18/25 07:39 Referral Registered Dietitian Routine Comment: Possible hypothermia 2/2 low body weight 01/20/25 11:56 Consult to Nephrology Routine Comment: Persistant hypernatremia Consulting Provider: Lauri Maldonado 01/21/25 20:56 Referral Nutritional Services Routine Comment: Attending Provider on DC: Shameka Jackson MD Discharging Provider: RESIDENT Sherly Anticipated date of discharge: 01/26/25 DS: Diagnosis Problem List Completed Was Problem List Reviewed/Reconciled?: Yes Hospital Course Hospital Course Hospital course: Reason for hospitalization:?Sepsis Summary: This is a 29-year-old female with past medical history of severe intellectual disability who presented to [facility] ED on 01/11 for hypothermia and altered mental status. The patient was brought to the ED from compounder at home due to temperature of 95 ?F, which decreased to 91.1 ?F in the ED. Labs in the ED were significant for pancytopenia with thrombocytopenia, hypernatremia, hypokalemia, and transaminitis with elevated ALP. CT abdomen pelvis showed pneumonia. The patient was did not respond to 2.5L of fluid in the ED, but eventually was able to maintain a MAP of 65+ after an additional 1L bolus of LR. Patient was put on Mellissa Hugger and was admitted to the ICU for sepsis. Steroids were started for t he patient due to suspicion of ITP after and the patient received 1 unit of platelets on 01/13. After the transfusion, the patient was downgraded to medicine floors on 01/13, but the patient continued to have hypothermia and hypernatremia. The patient was kept on Mellissa Hugger until the patient was eventually weaned off on 01/19 and the patient was able to maintain a stable temperature. For the hypernatremia, the patient was started on D5W, which was running constantly, but the patient remained hypernatremic. However, the patient remained hypernatremic and had questionable swallowing. Speech therapy evaluated the patient and determined that she had some difficulties with thin liquids, but ultimately could safely start a dysphagia diet. Dr. Jiménez, the patient's medical decision maker, was contacted regarding this situation, who initially did not want intervention more invasive than NG tube as he expected the patient to recover over time to baseline. GI was consulted for evaluation th e patients dysphagia. It was eventually determined that the patient would benefit from oral hydration at a rate D5W could not provide. Additionally, given the patient's significantly low weight, the NG tube was thought to also help with nutrition. NG tube was placed initially on 01/17, but each night the patient would pull out the NG tube. When the NG tube was in place, however, the patient finally achieved sodium levels within normal limits. Due to the patient's repeated NG tube pulling and hypernatremia without the NG tube, nephrology was consulted. Ultimately, with discussion between GI, nephrology, the medicine team, and Dr. Jiménez, it was decided that for the patient's best interest, PEG tube would need to be placed given the patient's dysphagia, aspiration risk, hypernatremia, and failure to thrive. PEG tube was placed on 01/21. Free water flushes and tube feeds have been able to keep the patient's sodium within normal limits ever since. The patient is cleared to discharge to SNF given stable vitals and labs. Discharge Recommendations: - Follow up with PCP within 1 week of discharge, repeat CBC and CMP in 1 week - Continue rest of medications as previously prescribed - Return to the ED or call EMS if symptoms return and/or worsen - Continue Free Water Flushes 200cc every 6 hours - Continue with current pump feeds regimen as tolerated - Jevity 1.2 240ml 4x/day via Gtube by syringe to provide: 960ml vol, 1152kcal, 53g protein. - Pleasure puree foods + thicken water as per speech therapist - Continue medications as below, stop vitamin D supplementation If you don't have a PCP, you can make an appointment at the [facility]: [address] [place] [address] Hospital Diagnoses: #Sepsis (resolved) #Community acquired pneumonia #Urinary tract infection (Entercoccus faecalis) #Hypothermia (resolved) #Transaminitis (resolved) #OLENA, likely prerenal (resolved) #Hypernatremia (resolved) #Hyerchloremia (resolved) #Severe protein calorie malnutrition #Underweight BMI 17.1 #Failure to thrive #Dysphagia #Thrombocytopenia (resolved) #Hematuria (resolved) #Anemia, normocytic, normochormic #Hypercalcemia (resolved) #Congenital hip dysplasia Patient plan of care was discussed with attending physician Dr. Jackson. Tyrell Elaine, PGY-1 Status at Discharge Overall status at discharge: patient is back to baseline Time Spent with Patient Time attestation: Total time spent providing and/or coordinating discharge services: Time spent: Greater than 30 minutes Home Health Home Health Referral Orders: 01/24/25 09:26 Home Health Referral Routine Reason For Exam: Poor oral intake Home-Bound The patient must either because of illness or injury, need the aid of supportive devices such as crutches, canes, wheelchairs, and walkers; the use of special transportation; or the assistance of another person in order to leave their place of residence; OR have a condition such that leaving his or her home is medically contraindicated. In addition, the patient also meets the following criteria: patient is normally unable to leave the home and leaving home requires considerable taxing effort. Addendum to Home Health Certification Practitioner's Certification: I certify that the patient has been under my care in the hospital and the care of attending physician (see below). We had a [id number] encounter on (see date below). My clinical findings indicate that the patient is home bound per the above cri teria and the Home Health Services noted in these orders are medically necessary. The primary reason for the [id number] encounter is related to the fact that the patient requires home health se rvices. Date Certifying [id number] Physician Encounter: 01/11/25 Physician's Name who will Assume Oversight for Services: Priya Dominguez Physician's Phone No.who will Assume Oversight for Service: FOOD OR BAGGAGE HANDLING RAMPMAN - Community Resources: No PT to Evaluate: No PT to evaluate and provide a treatmnet plan to increase patient's mobility and strength. Wound Care: No IV Therapy: No RN Safety Evaluation: Yes RN to evaluate and create a plan of care that will produce positive outcomes. Palliative Treatment: No Palliative treatment and evaluate the need for hospice. Home Health Aide - Personal Care: Yes: For PEG tube feeding Home Health Aide to assist with any ADL's. Exam Vital Signs Temp Pulse Resp BP Pulse Ox O2 Del Method O2 Flow Rate 97.3 F 79 18 119/76 99 Room Air 2 01/26/25 04:00 01/26/25 04:00 01/26/25 04:00 01/26/25 04:00 01/26/25 04:00 01/26/25 04:00 01/21/25 21:36 Narrative Exam Physical Exam: General: Alert, no acute distress. Nonverbal, noninteractive. Skin: Warm, intact. Head: Normocephalic, atraumatic. Cardiovascular: Regular rate and rhythm, no murmur, +S1/S2. Respiratory: Respirations unlabored on nasal cannula, no crackles, no wheezing. Gastrointestinal: Soft, nontender, non-distended. No guarding or rebound tenderness. Extremities: No edema, no cyanosis, no clubbng. Discharge Plan Plan Patient Disposition: Xfer Skilled Nsg Fac (SNF) Patient condition on transfer: Stable Care Plan Goals: - Continue Free Water Flushes 200cc every 6 hours - Continue with current pump feeds regimen as tolerated - Jevity 1.2 240ml 4x/day via Gtube by syringe to provide: 960ml vol, 1152kcal, 53g protein. - Pleasure puree foods + thicken water as per speech therapist - Continue medications as below, stop vitamin D supplementation - Return to ED if symptoms worsen - Follow up with PCP in 1-2 weeks. Repeat CBC and CMP in 1 week. Prescriptions/Referrals Prescriptions/Med Rec: New ascorbic acid (vitamin C) [Vitamin C] 250 mg Tablet 250 mg G-tube BID 30 Days Qty: 0 0RF zinc sulfate [Orazinc] 50 mg zinc (220 mg) capsule 220 mg feeding tube QDAY 10 Days Qty: 44 0RF Continued ketoconazole 2 % Shampoo 1 applic TOPICAL DAILY PRN (Reason: Dry Skin) ketoconazole 2 % Cream 1 applic TOPICAL BID omeprazole 20 mg tablet,delayed release (DR/EC) 20 mg PO QDAY Changed buspirone 10 mg tablet 10 mg feeding tube BID Qty: 20 0RF loratadine 10 mg Tablet 10 mg feeding tube QDAY Qty: 20 0RF Held risperidone 2 mg tablet 2 mg PO QPM Hold Instructions: Resume on 01/31/25. Follow up with PCP risperidone 3 mg tablet 3 mg PO QAM Hold Instructions: Resume on 01/31/25. Follow up with PCP Discontinued glycopyrrolate 1 mg tablet 1 mg PO Q8H ergocalciferol (vitamin D2) 1,250 mcg (50,000 unit) capsule 1,250 mcg PO QWEEK Referrals: Priya Dominguez, AP[employer] SYSTEMS ARCHITECT [Primary Care Provider] - Outpatient Orders (i.e. Home Health, Labs, Imaging): CBC (Routine) Timeframe: 1 Week Location: Determined by Patient Ordered By: Jose Antonio Young Comprehensive Metabolic Panel (Routine) Timeframe: 1 Week Location: Determined by Patient Ordered By: Jose Antonio Young Patient/Caregiver Discharge Instructions Discharge Activity: activity as tolerated Other Discharge Activity Instructions:: Continue Free Water Flushes 200cc every 6 hours - Continue with current pump feeds regimen as tolerated - Jevity 1.2 240ml 4x/day via Gtube by syringe to provide: 960ml vol, 1152kcal, 53g protein. - Pleasure puree foods + thicken water as per speech therapist - Continue medications as below, stop vitamin D supplementation - Return to ED if symptoms worsen - Follow up with PCP in 1-2 weeks. Repeat CBC and CMP in 1 week. Education Materials: Dehydration Print Language: Barbadian Stand Alone Forms: Tami Award Info., Patient Portal Info Letter Discharge Order Discharge Orders: Discharge (Routine); Ordered 01/26/25 Ordered By: Serena Carpenter Quality Discharge Quality Measures VTE prophylaxis Attestestation MD Attestation I attest that I was present for the lab and imaging review of the patient with the residents. I discussed the case with the residents and agree with the findings and plans of care as documented above. Patient has been started on tube feedings and tolerating well. Patient was planned for discharge yesterday, was unable to leave as she was not able to void after Banda discontinuation before transport was scheduled. Patient has stable vitals today. Lab results are also stable, she is tolerating her tube feed well. Patient was discharged early this morning, left the hospital before seeing. Shameka Jackson MD
--- NOTE | 2025-01-26 10:45 | CHAP ---
Patient was visited by a Spiritual Care Volunteer on 01/25/2025 between 0915 and [id number] and received comfort, encouragement and/or prayer.
--- NOTE | 2025-01-26 13:58 | PC.CC ---
need to send final dc summary and dc instructions to [facility]. Called Dr. Elaine to ask to finalize dc summary, per Dr. Dong they were rounding and will complete when time is avail.
--- NOTE | 2025-01-27 12:56 | PC.CM ---
Addendum entered by Georgie Schulz RN 01/27/25 18:02: Patient accepted by [facility]. Start of care date 01/26. Original Note: discharge summary sent to [facility].
[2025-02-14 06:29] LABS: Cortisol,total,LC/MS/MS* 8.6 mcg/dL
[2025-02-16 06:25] LABS: Cortisol,total,LC/MS/MS* 10.3 mcg/dL
== END 2025-01-26 08:32 | disposition home health service (06) | DRG 720 ==
LOC: SERX 17:55 → SERHOLD 19:44 → S2SX 21:09 → S2NX 01-13 15:18 → S3SX 01-19 02:20
PROVIDERS: Nurse Practitioner Family; Specialist; Student in an Organized Health Care Education/Training Program; Emergency Provider Family Medicine; PCP Nurse Practitioner Family; Visit Provider Student in an Organized Health Care Education/Training Program
PROC: (CPT 43239; principal; 2025-01-15 18:15)
PROC: 0DH63UZ Insertion of Feeding Device into Stomach, Percutaneous Approach (ICD-10-PCS; CPT 43246; principal; 2025-01-21 18:00)
DX: A41.81 Sepsis due to Enterococcus (principal); Z99.3 Dependence on wheelchair; F72 Severe intellectual disabilities; I95.9 Hypotension, unspecified; J18.9 Pneumonia, unspecified organism; R74.01 Elevation of levels of liver transaminase levels; E87.0 Hyperosmolality and hypernatremia; E87.8 Other disorders of electrolyte and fluid balance, not elsewhere classified; D69.6 Thrombocytopenia, unspecified; Q65.89 Other specified congenital deformities of hip; D61.818 Other pancytopenia; D69.3 Immune thrombocytopenic purpura; E43 Unspecified severe protein-calorie malnutrition; E83.52 Hypercalcemia; E86.0 Dehydration; E87.1 Hypo-osmolality and hyponatremia; E87.6 Hypokalemia; D69.59 Other secondary thrombocytopenia; F73 Profound intellectual disabilities; K22.2 Esophageal obstruction; N17.9 Acute kidney failure, unspecified; M41.9 Scoliosis, unspecified; N28.1 Cyst of kidney, acquired; N39.0 Urinary tract infection, site not specified; R62.7 Adult failure to thrive; R64 Cachexia; Z16.29 Resistance to other single specified antibiotic; Z68.1 Body mass index [BMI] 19.9 or less, adult; Z78.1 Physical restraint status; Z91.199 Patient's noncompliance with other medical treatment and regimen due to unspecified reason; K76.0 Fatty (change of) liver, not elsewhere classified; Z93.1 Gastrostomy status
CPT/HCPCS: 36415; 70450; 71045; 74176; 74177; 74230; 76705; 76770; 76856; 80053; 80069; 80074; 80202; 81001; 81025; 82024; 82088; 82306; 82436; 82533; 82550; 82570; 82607; 82728; 82746; 83010; 83036; 83540; 83550; 83605; 83735; 83880; 83935; 83970; 83993; 84100; 84133; 84145; 84244; 84295; 84300; 84439; 84443; 84481; 84484; 84550; 85025; 85046; 85379; 85384; 85610; 85730; 86038; 86703; 86850; 86900; 86901; 86965; 87015; 87040; 87045; 87046; 87077; 87081; 87086; 87186; 87205; 87400; 87493; 87811; 87899; 92526; 92610; 93005; 93225; 93306; 94640; 96361; 96365; 96375; 99284; A4314; A4649; A9270; C1769; J0689; J0690; J1200; J1630; J1885; J2250; J2405; J2543; J2919; J3010; J3370; J3373; J3375; J3411; J3475; J3480; J3490; J7030; J7042; J7050; J7060; J7070; J7120; J7999; P9035; Q0167; Q9967